=== PATIENT | female | born 1980 | race Caucasian/White ===

== ENCOUNTER 2016-09-17 12:22 | Emergency (ER) | payer SELFPAY ==
[~2016-09-17] VITALS: Ht 167.6 cm; Wt 84.4 kg
[~2016-09-17 12:22] MED LIST: ALPR1TAB7; ALPR1TAB72 PO; AZIT-21 PO; BUSP10TA95; CEPH500C PO; CIPR7.5D2 OT; CLIN-62 PO; CLIN150C2 PO; CLIN300C3 PO; CYCL10TA9 PO; DCS100C; FAMO-119 PO; GABA-486; HYDR-1231 PO; HYDR-3583 PO; HYDR-3720; HYDR-3720 PO; HYDR-3816 PO; HYDR1CAP2 PO; HYDR1TAB PO; IBP800T; IBP800T PO; METO10TA3; MTH10T PO; NAPR-243 PO; OXC10TCR PO; OXYC-12 PO; OXYC20TA3; PRD20T PO; RISP1TAB3; SULF1TAB35 PO; SULF1TAB38 PO; TRAM-21 PO; TRAM-42 PO
--- OUTSIDE RECORDS SUMMARY | 2016-09-17 12:32 | XMS REPORT | Continuity of Care Document ---
Author Author [facility] Organization [facility] Address Unknown Phone Unavailable Care Team Providers Care Certified Emergency Vehicle Technician Name Role Phone Mau Alaniz PCP [phone] Source Comments Some departments are not documenting in the electronic medical record. If you do not see the information that you expected, contact Release of Information in the Health Information Management department at [phone] for further assistance in locating additional records.[facility] Active Allergies and Adverse Reactions Allergen Noted Date Severity Reactions Comments Codeine 05/02/2010 RASH Penicillin G 05/02/2010 RASH Current Medications Prescription Sig. Disp. Refills Start End Date Status Date oxycodone (OXY-IR) 15 mg Take 1 Tab by mouth Every 150 Tab 0 05/08/20 Active tablet 2 Hours as needed for 10 Pain. lorazepam (ATIVAN) 1 mg Take 1 Tab by mouth Every 30 Tab 1 05/08/20 Active tablet 6 Hours as needed for 10 Anxiety and Nausea. simethicone (MYLICON) 80 Take 1 Tab by mouth Every 30 Tab 2 05/08/20 Active mg chew tablet 6 Hours as needed for 10 Flatulence. senna/docusate Take 2 Tabs by mouth 60 Tab 2 05/08/20 Active (SENOKOT-S) 8.6/50 mg Twice Daily. 10 tablet ibuprofen (MOTRIN) 600 mg Take 1 Tab by mouth Every 60 Tab 1 05/08/20 Active tablet 6 Hours as needed for 10 Pain. metoclopramide (REGLAN) Take 1 Tab by mouth Four 30 Tab 2 05/08/20 Active 10 mg tablet Times Daily. 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 Placenta previa 05/04/2010 Hemorrhage 05/04/2010 Social History Tobacco Use Types Packs/Day Years Used Date Current Every Day Smoker Cigarettes 0.5 Alcohol Use Drinks/Week oz/Week Comments No Last Filed Vital Signs Vital Sign Reading Time Taken Blood Pressure 137/83 05/08/2010 12:00 PM CDT Pulse 49 05/08/2010 12:00 PM CDT Temperature 36.5 C (97.7 F) 05/08/2010 12:00 PM CDT Respiratory Rate - - Height - - Weight 119.568 kg (263 lb 9.6 05/08/2010 4:00 AM CDT oz) Body Mass Index - - Oxygen Saturation 99% 05/08/2010 12:00 PM CDT Plan of Care Health Maintenance Due Date Last Done Comments Physical (Comprehensive) 1988 Exam Pertussis Vaccine 1992 Tetanus Vaccine 1998 Cervical Cancer Screening 2002 Influenza Vaccine 05/17/2016 Results from Last 3 Months Not on file
--- NOTE | 2016-09-17 13:21 | ED General ---
General Chief Complaint: Upper Extremity Stated Complaint: R WRIST BITE Nursing Triage Note: PT CO OF BUMP ON R WRIST AREA POSSIBLE ABCESS, UNSURE OF HOW BUMP HAS GOTTEN THERE. PT STATES HAS HAD FOR 4 DAYS, Nursing Sepsis Screen: No Definite Risk Source of Information: Patient Exam Limitations: Other (poor historian) History of Present Illness Time Seen by Provider: 13:21 Initial Comments 36-year-old female patient presents to the emergency department complaints of a "bump on the right wrist". Patient unsure of how she got the "bump". Denies known injury or insect bite. Patient states "It doesn't really hurt that much. " Patient c/o "an insect bite or somethin'" to the lower abdomen. Patient is a very poor historian with odd behavior. Patient has a known lengthy h/o drug abuse. Location Injury Occurred: denies known injury Timing/Duration: 3-4 Days, Other (doesn't know if getting worse.) Modifying Factors: worse with Other (patient denies trying OTC meds or home remedies.) Allergies and Home Medications Allergies Coded Allergies: Penicillins (Unverified Allergy, Mild, 04/22/09) codeine (Verified Allergy, Unknown, 04/22/09) ketorolac (Verified Allergy, Unknown, 04/22/09) nalbuphine (Verified Allergy, Unknown, 04/22/09) propoxyphene (Verified Allergy, Unknown, 04/22/09) Home Medications Alprazolam 1 Mg Tablet #60 (Reported) Buspirone HCl 10 Mg Tablet #28 (Reported) Gabapentin 100 Mg Capsule #42 (Reported) Oxycodone HCl 20 Mg Tablet #120 (Reported) Risperidone 1 Mg Tablet #14 (Reported) Sulfamethoxazole/Trimethoprim 1 Each Tablet #14 1 EACH PO BID Prescribed by: HERBERTH HUERTA on 09/17/16 6024 Constitutional: No chills, No diaphoresis, No fever, No malaise EENTM: no symptoms reported Respiratory: no symptoms reported Cardiovascular: no symptoms reported Gastrointestinal: no symptoms reported Genitourinary: no symptoms reported Musculoskeletal: see HPI Skin: see HPI Psychiatric/Neurological: Denies Headache, Denies Numbness, Denies Paresthesia , Denies Seizure, Denies Tingling, Denies Weakness All Other Systems Reviewed Negative Unless Noted: Yes (Negative excepted noted.) Past Upywslb-Unkrzp-Pwazwc Hx Patient Social History Alcohol Use: Occasionally Uses Recreational Drug Use: No (patient has a long h/o drug abuse including meth, benzo's, opiods, and methadone) Smoking Status: Current Everyday Smoker Type Used: Cigarettes Recent Foreign Travel: No Contact w/Someone Who Travel: No Recent Infectious Disease Expo: No Recent Hopitalizations: Yes (c-sections) Physical Abuse Screen: No Sexual Abuse: No Immunizations Up To Date Tetanus Booster (TDap): Less than 5yrs Seasonal Allergies Seasonal Allergies: No Surgeries HX Surgeries: Yes (D&C, X 3, TRANSVAGINAL MESH) Surgeries: Abdominal, Bladder Surgery, Section, Hysterectomy Respiratory Hx Respiratory Disorders: No Cardiovascular Hx Cardiac Disorders: No Neurological Hx Neurological Disorders: No 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 System 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 Genitourinary Hx Genitourinary Disorders: No Gastrointestinal Hx Gastrointestinal Disorders: No Musculoskeletal Hx Musculoskeletal Disorders: Yes (PT WITH CHRONIC PAIN COMPLAINTS- "DEGENERATIVE ARTHRITIS AND DDD" PER PT) Endocrine Hx Endocrine Disorders: No HEENT HX ENT Disorders: No Cancer Hx Cancer: No Psychosocial Hx Psychiatric Problems: Yes Behavioral Health Disorders: ADD/ADHD, Anxiety, Depression Integumentary HX Skin/Integumentary Disorder: Yes (history of MRSA and multiple abscesses) Blood Transfusions Hx Blood Disorders: No Reviewed Nursing Assessment Reviewed/Agree w Nursing PMH: Yes Family Medical History Significant Family History: No Pertinent Family Hx Physical Exam Vital Signs Vital Sign - Last 12Hours 09/17/16 12:45 Temp 98.8 Pulse 115 Resp 18 B/P 154/98 Pulse Ox 99 Capillary Refill : Less Than 3 Seconds General Appearance: No Apparent Distress WD/WN Respiratory: Lungs Clear Normal Breath Sounds No Respiratory Distress Cardiovascular: Regular Rate, Rhythm No Murmur Normal Peripheral Pulses Extremity: Normal Capillary Refill Normal Range of Motion Non Tender Other ( 2x3 cm raised fluid collection of the rt lateral wrist without tenderness or warmth. 2 faintly visible puncture sites overlying the rt lateral wrist ( patient unsure where they came from). No drainage.) Neurologic/Psychiatric: Alert Oriented x3 No Motor/Sensory Deficits Other ( flat, depressed affect.) Skin: Normal Color Warm/Dry Ecchymosis (multiple sub-acute bruises of the bilat anterior knees and shins. Patient is unsure where the bruises came from. ) Other (2x3 cm raised fluid collection of the rt lateral wrist w/o tenderness or warmth. 2 puncture sites overlying the rt lateral wrist (patient unsure where they came from). No drainage.) Laceration Repair : Suture Size: 3-0 Progress/Results/Core Measures Results/Orders Lab Results Laboratory Tests Test 09/17/16 13:42 Range/Units Basophils # (Auto) 0.0 0.0-0.1 10^3/uL Basophils (%) (Auto) 0 0-10 % Eosinophils # (Auto) 0.0 0.0-0.3 10^3/uL Eosinophils (%) (Auto) 1 0-10 % Hematocrit 41 35-52 % Hemoglobin 14.4 11.5-16.0 G/DL Lymphocytes # (Auto) 1.6 1.0-4.0 X 10^3 Lymphocytes (%) (Auto) 25 12-44 % Mean Corpuscular Hemoglobin 31 25-34 PG Mean Corpuscular Hemoglobin Concent 35 32-36 G/DL Mean Corpuscular Volume 88 80-99 FL Mean Platelet Volume 10.8 H 7.4-10.4 FL Monocytes # (Auto) 0.8 0.0-1.0 X 10^3 Monocytes (%) (Auto) 12 0-12 % Neutrophils # (Auto) 4.0 1.8-7.8 X 10^3 Neutrophils (%) (Auto) 62 42-75 % Platelet Count 205 130-400 10^3/uL Red Blood Count 4.64 4.35-5.85 10^6/uL Red Cell Distribution Width 13.0 10.0-14.5 % White Blood Count 6.5 4.3-11.0 10^3/uL My Orders Orders-HERBERTH HUERTA Cbc With Automated Diff (09/17/16 13:26) Us Right Up Ext Nonvasc [id number] (09/17/16 13:26) Vital Signs/I&O Blood Pressure Mean: 116 Diagnostic Imaging Diagonstic Imaging: Ultrasound Plain Films/CT/US/NM/MRI: other (rt upper extremity) Comments INDICATION: Inflammation involving the right wrist. Focused ultrasonography is performed at the site of palpable abnormality along the lateral aspect of the right wrist. There is inflammation in the region with an associated 2.7 x 1.1 x 2.0-cm hypoechoic region which may represent complex fluid in the subcutaneous tissues. There is no posterior acoustic shadow or internal blood flow. IMPRESSION: Findings are compatible with lateral wrist cellulitis with focal complex fluid collection which may represent hematoma or abscess in the subcutaneous tissues. Dictated by: Dictated on workstation # [id number] Reviewed: Reviewed by Me (radiology report reviewed by me.) Departure Communication Progress Notes all lab and diagnostic findings discussed with the patient. Left wrist shows no evidence of erythema or tenderness. Therefore, findings on u/s most likely related to superficial cellulitis overlying a traumatic hematoma. Patient has a known h/o IV meth abuse and puncture wounds on exam are overlying the vein. Patient to be discharged to home with oral antibiotics. Patient instructed to follow-up with her primary care physician for recheck. Return precautions were discussed with the patient. Patient voices understanding and agrees with the treatment plan. Impression Impression: Primary Impression: Cellulitis of wrist Additional Impression: Hematoma Disposition: 01 HOME, SELF-CARE Condition: Improved Departure-Patient Inst. Decision time for Depature: 15:33 Referrals: [facility] (PCP/Family) Primary Care Physician Patient Instructions: Cellulitis (Skin Infection), Adult (DC), HEMATOMA Add. Discharge Instructions: All discharge instructions reviewed with patient and/or family. Voiced understanding. Medications as instructed. Tylenol extra strength over-the- counter as directed for pain. Ibuprofen 800 mg by mouth every 8 hours as needed for pain. Elevate the right wrist on pillows. Ice pack or heating pads as needed for pain. Follow-up with your family practitioner for recheck. Return to the emergency department for worsened symptoms or any other concerns. Scripts Sulfamethoxazole/Trimethoprim (Bactrim Ds Tablet)1 Each Tablet1 Each PO BID #14 TAB Ref 0 Prov:HERBERTH HUERTA 09/17/16 HERBERTH HUERTA Sep 17, 2016 13:21
[2016-09-17 13:51] LABS: BASOPHILS % (AUTO) 0 % (0-10); EOSINOPHILS % (AUTO) 1 % (0-10); LYMPHOCYTES # (AUTO) 1.6 X 10^3 (1.0-4.0); LYMPHOCYTES % (AUTO) 25 % (12-44); MEAN CORPUSCULAR HEMOGLOBIN 31 PG (25-34); MEAN CORPUSCULAR HGB CONC 35 G/DL (32-36); MEAN CORPUSCULAR VOLUME 88 FL (80-99); MEAN PLATELET VOLUME 10.8 FL (7.4-10.4); MONOCYTES # (AUTO) 0.8 X 10^3 (0.0-1.0); MONOCYTES % (AUTO) 12 % (0-12); NEUTROPHILS % (AUTO) 62 % (42-75); PLATELET COUNT 205 10^3/uL (130-400); RED BLOOD COUNT 4.64 10^6/uL (4.35-5.85); WHITE BLOOD COUNT 6.5 10^3/uL (4.3-11.0)
--- NOTE | 2016-09-17 14:36 | Diagnostic Imaging Report ---
INDICATION: Inflammation involving the right wrist. Focused ultrasonography is performed at the site of palpable abnormality along the lateral aspect of the right wrist. There is inflammation in the region with an associated 2.7 x 1.1 x 2.0-cm hypoechoic region which may represent complex fluid in the subcutaneous tissues. There is no posterior acoustic shadow or internal blood flow. IMPRESSION: Findings are compatible with lateral wrist cellulitis with focal complex fluid collection which may represent hematoma or abscess in the subcutaneous tissues. Dictated by: Dictated on workstation # [id number]
[2016-09-17] MEDS ORDERED: SULF1TAB35 PO (15:34)
[2016-09-17 15:45] VITALS: BP 154/98
== END 2016-09-17 15:45 | disposition home or self-care (01) ==
LOC: EDUNIT# 12:22 → ER 12:27
DX: L03.113 Cellulitis of right upper limb (principal); S60.211A Contusion of right wrist, initial encounter; F17.210 Nicotine dependence, cigarettes, uncomplicated
CPT/HCPCS: 36415; 76881; 85025

== ENCOUNTER 2016-09-22 10:26 | Emergency (ER) | payer SELFPAY ==
[~2016-09-22] VITALS: Ht 167.6 cm; Wt 87.1 kg
--- OUTSIDE RECORDS SUMMARY | 2016-09-22 10:32 | XMS REPORT | Continuity of Care Document ---
Author Author [facility] Organization [facility] Address Unknown Phone Unavailable Care Team Providers Care Office Nurse Name Role Phone Mau Alaniz PCP [phone] Source Comments Some departments are not documenting in the electronic medical record. If you do not see the information that you expected, contact Release of Information in the Health Information Management department at [phone] for further assistance in locating additional records.[facility] Active Allergies and Adverse Reactions Allergen [...]
--- NOTE | 2016-09-22 10:56 | ED Abdominal Pain ---
General Chief Complaint: -Female Stated Complaint: STOMACH PAIN Nursing Triage Note: AMB TO ROOM EATNG AND DRINKING C/O LOW ABD PAIN THAT SHE HAS HAD FOR SEVERAL YEARS OXYCODONE NOT HELPING. Sepsis Screen: No Definite Risk Source of Information: Patient Exam Limitations: No Limitations History of Present Illness Time Seen By Provider: 10:55 Initial Comments This 36-year-old female presents with a complaint of abdominal pain intermittently for the last 7 years. The patient noted the abdominal pain following her fourth . The patient has noted an intermittent painful mass in the supraumbilical region. Fortunately she's had no associated nausea, vomiting, fever or chill, radiation of her sharp moderate pain, dysuria, bloody stools, or hematemesis. Allergies and Home Medications Allergies Coded Allergies: Penicillins (Unverified Allergy, Mild, 04/22/09) codeine (Verified Allergy, Unknown, 04/22/09) ketorolac (Verified Allergy, Unknown, 04/22/09) nalbuphine (Verified Allergy, Unknown, 04/22/09) propoxyphene (Verified Allergy, Unknown, 04/22/09) Home Medications Alprazolam 1 Mg Tablet #60 (Reported) Buspirone HCl 10 Mg Tablet #28 (Reported) Gabapentin 100 Mg Capsule #42 (Reported) Oxycodone HCl 20 Mg Tablet #120 (Reported) Risperidone 1 Mg Tablet #14 (Reported) Sulfamethoxazole/Trimethoprim 1 Each Tablet #14 1 EACH PO BID Prescribed by: HERBERTH HUERTA on 09/17/16 1534 Review of Systems Constitutional: No chills, No fever EENTM: No Ear Pain Respiratory: Denies Cough Cardiovascular: Denies Chest Pain Gastrointestinal: Abdominal PainDenies Vomiting Genitourinary: Denies Drainage, Denies Frequency Musculoskeletal: No gout Skin: No rash Psychiatric/Neurological: No Symptoms Reported Endocrine: No Symptoms Reported Hematologic/Lymphatic: No Symptoms Reported Past Kfujhfm-Wqzfwb-Vzrana Hx Patient Social History Type Used: Cigarettes Recent Foreign Travel: No Contact w/Someone Who Travel: No Recent Infectious Disease Expo: No Recent Hopitalizations: Yes (c-sections) Immunizations Up To Date Tetanus Booster (TDap): Less than 5yrs Seasonal Allergies Seasonal Allergies: No Surgeries HX Surgeries: Yes (D&C, X 3, TRANSVAGINAL MESH) Surgeries: Abdominal, Bladder Surgery, Section, Hysterectomy Respiratory Hx Respiratory Disorders: No Cardiovascular Hx Cardiac Disorders: No Neurological Hx Neurological Disorders: No 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 System 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 Genitourinary Hx Genitourinary Disorders: No Gastrointestinal Hx Gastrointestinal Disorders: No Musculoskeletal Hx Musculoskeletal Disorders: Yes (PT WITH CHRONIC PAIN COMPLAINTS- "DEGENERATIVE ARTHRITIS AND DDD" PER PT) Endocrine Hx Endocrine Disorders: No HEENT HX ENT Disorders: No Cancer Hx Cancer: No Psychosocial Hx Psychiatric Problems: Yes Behavioral Health Disorders: ADD/ADHD, Anxiety, Depression Integumentary HX Skin/Integumentary Disorder: Yes (history of MRSA and multiple abscesses) Blood Transfusions Hx Blood Disorders: No Adverse Reaction to a Blood Tr: No Reviewed Nursing Assessment Reviewed/Agree w Nursing PMH: Yes Family Medical History Significant Family History: No Pertinent Family Hx Physical Exam Vital Signs VS - Last 72 Hours, by Label 09/22/16 10:37 Temp 98.4 Pulse 115 Resp 18 B/P 134/90 Pulse Ox 98 O2 Delivery Room Air Capillary Refill : Less Than 3 Seconds General Appearance: WD/WN HEENT: normal ENT inspection Neck: normal inspection Respiratory: lungs clear Cardiovascular: regular rate, rhythm Gastrointestinal: other (there is a tender mass in the supra umbilical area that is more pronounced with flexion of the abdominal wall musculature suggestive of an abdominal wall hernia.) Extremities: normal range of motion Back: normal inspection Neurologic/Psychiatric: no motor/sensory deficits alert normal mood/affect Skin: normal color warm/dry Laceration Repair : Suture Size: 3-0 Progress/Results/Core Measures Results/Orders My Orders Vital Signs/I&O Vital Sign - Last 12Hours 09/22/16 10:37 Temp 98.4 Pulse 115 Resp 18 B/P 134/90 Pulse Ox 98 O2 Delivery Room Air Blood Pressure Mean: 105 Progress Note : Time: 10:59 Progress Note I discussed findings with patient. I recommend she follow-up with her primary care physician Dr. Nathan De La Torre for consideration for referral to surgery. I asked that she return to emergency department for any problems or questions Departure Impression Impression: Primary Impression: Abdominal wall hernia Disposition: HOME, SELF-CARE Condition: Unchanged Departure-Patient Inst. Decision time for Depature: 11:01 Referrals: [facility] (PCP/Family) Primary Care Physician Patient Instructions: Abdominal Hernia (DC) Add. Discharge Instructions: Follow-up with your doctor Saturday for consideration for referral to surgery for a possible abdominal wall hernia. Return if any problems or questions All discharge instructions reviewed with patient and/or family. Voiced understanding. SIVA MORRISON MD Sep 22, 2016 10:56
[2016-09-22 11:04] VITALS: BP 134/90
== END 2016-09-22 11:04 | disposition home or self-care (01) ==
LOC: EDUNIT# 10:26 → ER 10:28
DX: K46.9 Unspecified abdominal hernia without obstruction or gangrene (principal)
CPT/HCPCS: 99282

== ENCOUNTER 2016-09-26 16:24 | Emergency (ER) | payer SELFPAY ==
[~2016-09-26] VITALS: Ht 167.6 cm; Wt 90.7 kg
--- OUTSIDE RECORDS SUMMARY | 2016-09-26 16:32 | XMS REPORT | Continuity of Care Document ---
Author Author [facility] Organization [facility] Address Unknown Phone Unavailable Care Team Providers Care Rn Concurrent Review Name Role Phone Mau Alaniz PCP [phone] Source Comments Some departments are not documenting in the electronic medical record. If you do not see the information that you expected, contact Release of Information in the Health Information Management department at [phone] for further assistance in locating additional records.[facility] Active Allergies and Adverse Reactions Allergen [...]
--- NOTE | 2016-09-26 16:52 | ED General ---
General Chief Complaint: Eye Problems Stated Complaint: EYE PAIN,RIB PAIN Nursing Triage Note: PT CO OF OF R EYE AND PAIN, AND BILATERAL RIB PAIN FROM COUGH. PT VERY SEDATED, COULD NOT KEEP AWAKE DURING TRIAGE Nursing Sepsis Screen: No Definite Risk Source of Information: Patient Exam Limitations: Intoxication History of Present Illness Time Seen by Provider: 16:52 Initial Comments patient presents to the ED with c/o rt eye pain and bilateral rib pain. patient has difficulty keeping eyes open/sedated. mumbling and slurred speech noted. Patient making very little sense. flight of ideas. patient states "my ribs used to be really small, but today they grew bigger." Patient refuses to sit on the exam bed or in a chair. Walking around the room with her shirt pulled half-way up scratching at her abdomen. Patient repeated asked to repeat herself. Patient replies "I do that sometimes. I talk to my self." Patient has lengthy history of methamphetamine/polysubstance abuse. Location Injury Occurred: denies injury Timing/Duration: 1-3 Hours, Constant Modifying Factors: worse with Other (denies modifying factors) Allergies and Home Medications Allergies Coded Allergies: Penicillins (Unverified Allergy, Mild, 04/22/09) codeine (Verified Allergy, Unknown, 04/22/09) ketorolac (Verified Allergy, Unknown, 04/22/09) nalbuphine (Verified Allergy, Unknown, 04/22/09) propoxyphene (Verified Allergy, Unknown, 04/22/09) Home Medications Alprazolam 1 Mg Tablet #60 (Reported) Buspirone HCl 10 Mg Tablet #28 (Reported) Gabapentin 100 Mg Capsule #42 (Reported) Oxycodone HCl 20 Mg Tablet #120 (Reported) Risperidone 1 Mg Tablet #14 (Reported) Sulfamethoxazole/Trimethoprim 1 Each Tablet #14 1 EACH PO BID Prescribed by: HERBERTH HUERTA on 09/17/16 0734 Constitutional: other (patient unable to answer if she has had a fever. Starts crying without tears and wailing. immediately stops wailing and begins mumbling.) EENTM: eye pain (rt) see HPINo blurred vision, No tearing, No vision loss Musculoskeletal: see HPI other (bilateral lower rib pain.) Skin: pruritus ((patient noted to continuously scratch at the abdomen.) Psychiatric/Neurological: See HPI Other ROS difficult due to patient's condition/intoxication. All Other Systems Reviewed Negative Unless Noted: Yes (Negative excepted noted.) Past Egpklnv-Hmcndu-Ecqrrn Hx Patient Social History Alcohol Use: Denies Use Recreational Drug Use: No (lengthy h/o meth/polysubstance abuse) Smoking Status: Current Everyday Smoker Type Used: Cigarettes Recent Foreign Travel: No Contact w/Someone Who Travel: No Recent Infectious Disease Expo: No Recent Hopitalizations: Yes (c-sections) Physical Abuse Screen: No Sexual Abuse: No Immunizations Up To Date Tetanus Booster (TDap): Less than 5yrs Seasonal Allergies Seasonal Allergies: No Surgeries HX Surgeries: Yes (D&C, X 3, TRANSVAGINAL MESH) Surgeries: Abdominal, Bladder Surgery, Section, Hysterectomy Respiratory Hx Respiratory Disorders: No Cardiovascular Hx Cardiac Disorders: No Neurological Hx Neurological Disorders: No 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 System 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 Genitourinary Hx Genitourinary Disorders: No Gastrointestinal Hx Gastrointestinal Disorders: No Musculoskeletal Hx Musculoskeletal Disorders: Yes (PT WITH CHRONIC PAIN COMPLAINTS- "DEGENERATIVE ARTHRITIS AND DDD" PER PT) Endocrine Hx Endocrine Disorders: No HEENT HX ENT Disorders: No Cancer Hx Cancer: No Psychosocial Hx Psychiatric Problems: Yes Behavioral Health Disorders: ADD/ADHD, Anxiety, Depression Integumentary HX Skin/Integumentary Disorder: Yes (history of MRSA and multiple abscesses) Blood Transfusions Hx Blood Disorders: No Adverse Reaction to a Blood Tr: No Reviewed Nursing Assessment Reviewed/Agree w Nursing PMH: Yes Family Medical History Significant Family History: No Pertinent Family Hx Physical Exam Vital Signs Vital Sign - Last 12Hours 09/26/16 16:30 Temp 98.4 Pulse 94 Resp 18 B/P 124/87 Pulse Ox 96 Capillary Refill : Less Than 3 Seconds General Appearance: Other (disheveled. sedated/difficulty keeping her eyes open. ) HEENT: Other (pupils pinpoint. rt conjunctival injection. left upper lip shows a cluster of vesicles.) Neck: Normal Inspection Supple Respiratory: Chest Non Tender (unable to reproduce tenderness.) Lungs Clear Normal Breath Sounds No Respiratory Distress Cardiovascular: Regular Rate, Rhythm No Murmur Gastrointestinal: Normal Bowel Sounds Non Tender SoftNo Distended Neurologic/Psychiatric: Other (sedated. slurred speech. difficulty keeping her eyes open. mumbles. "talks to herself." paces around the room. flight of ideas. ) Skin: Normal Color Warm/Dry Rash (cluster of vesicles left upper lip.) Laceration Repair : Suture Size: 3-0 Progress/Results/Core Measures Results/Orders Vital Signs/I&O Vital Sign - Last 12Hours 09/26/16 16:30 Temp 98.4 Pulse 94 Resp 18 B/P 124/87 Pulse Ox 96 Blood Pressure Mean: 99 Departure Communication Progress Notes during the exam patient becomes agitated. states "No one fucking listens to me! " Reports "my ribs hurt here!" as she points to her rt hip. I advised the patient that I palpated her ribs bilaterally without report of tenderness. Patient becomes increasingly agitated and states "THIS IS WHAT I AM FUCKING TALKING ABOUT." I advised the patient that I would give her a few minutes to calm down and would be back to discuss plan with her. Patient jumps out of the bed and slams the door behind this examiner. Patient could be heard yelling obscenities. Patient was then noted to be delayed from the room without difficulty from the emergency department. Patient left AGAINST MEDICAL ADVICE. Dr. Ezekiel Vazquez notified of patient's behavior, aggression, and leaving AGAINST MEDICAL ADVICE. Impression Impression: Primary Impression: Left against medical advice Disposition: 07 AGAINST MEDICAL ADVICE Condition: Against Medical Advice Departure-Patient Inst. Referrals: [facility] (PCP/Family) Primary Care Physician HERBERTH HUERTA Sep 26, 2016 16:52
[2016-09-26 17:06] VITALS: BP 124/87
== END 2016-09-26 17:06 | disposition home or self-care (01) ==
LOC: EDUNIT# 16:24 → ER 16:29
DX: R05 Cough (principal); R07.81 Pleurodynia; F17.210 Nicotine dependence, cigarettes, uncomplicated; Z53.29 Procedure and treatment not carried out because of patient's decision for other reasons
CPT/HCPCS: 99282

== ENCOUNTER 2016-12-29 11:12 | Emergency (ER) | payer SELFPAY ==
[~2016-12-29] VITALS: Ht 167.6 cm; Wt 84.4 kg
--- NOTE | 2016-12-29 12:05 | ED General ---
General Stated Complaint: LEG/BACK PAIN Source of Information: Patient Exam Limitations: No Limitations History of Present Illness Time Seen by Provider: 12:04 Initial Comments To ER with reports of low back pain. She denies fevers or chills. She thinks that her back is "cracked" despite no injury. Additionally she's been off of her antipsychotics for about 2 months and she states "I don't know why these people attacking me". She states that "sometimes I can cry and sometimes I can' t". Timing/Duration: 1-2 Days Severity: Moderate Allergies and Home Medications Allergies Coded Allergies: Penicillins (Unverified Allergy, Mild, 04/22/09) codeine (Verified Allergy, Unknown, 04/22/09) ketorolac (Verified Allergy, Unknown, 04/22/09) nalbuphine (Verified Allergy, Unknown, 04/22/09) propoxyphene (Verified Allergy, Unknown, 04/22/09) Home Medications Alprazolam 1 Mg Tablet, #60 (Reported) Buspirone HCl 10 Mg Tablet, #28 (Reported) Gabapentin 100 Mg Capsule, #42 (Reported) Oxycodone HCl 20 Mg Tablet, #120 (Reported) Risperidone 1 Mg Tablet, #14 (Reported) Sulfamethoxazole/Trimethoprim 1 Each Tablet, 1 EACH PO BID, #14 Ref 0 Prescribed by: HERBERTH HUERTA on 09/17/16 1534 Constitutional: see HPI, No chills, No fever EENTM: see HPI Respiratory: no symptoms reported Cardiovascular: no symptoms reported Genitourinary: no symptoms reported Musculoskeletal: see HPI, back pain Skin: no symptoms reported Psychiatric/Neurological: No Symptoms Reported Past Ihegmrc-Alndoa-Ymeonw Hx Patient Social History Type Used: Cigarettes Recent Foreign Travel: No Contact w/Someone Who Travel: No Recent Hopitalizations: Yes (c-sections) Immunizations Up To Date Tetanus Booster (TDap): Less than 5yrs Seasonal Allergies Seasonal Allergies: No Surgeries HX Surgeries: Yes (D&C, X 3, TRANSVAGINAL MESH) Surgeries: Abdominal, Bladder Surgery, Section, Hysterectomy Respiratory Hx Respiratory Disorders: No Cardiovascular Hx Cardiac Disorders: No Neurological Hx Neurological Disorders: No 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 System 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 Genitourinary Hx Genitourinary Disorders: No Gastrointestinal Hx Gastrointestinal Disorders: No Musculoskeletal Hx Musculoskeletal Disorders: Yes (PT WITH CHRONIC PAIN COMPLAINTS- "DEGENERATIVE ARTHRITIS AND DDD" PER PT) Endocrine Hx Endocrine Disorders: No HEENT HX ENT Disorders: No Cancer Hx Cancer: No Psychosocial Hx Psychiatric Problems: Yes Behavioral Health Disorders: ADD/ADHD, Anxiety, Depression Integumentary HX Skin/Integumentary Disorder: Yes (history of MRSA and multiple abscesses) Blood Transfusions Hx Blood Disorders: No Adverse Reaction to a Blood Tr: No Family Medical History Significant Family History: No Pertinent Family Hx Physical Exam Vital Signs Vital Sign - Last 12Hours 12/29/16 11:59 Temp 98.4 Pulse 85 Resp 24 B/P (MAP) 142/102 Pulse Ox 96 O2 Delivery Room Air Capillary Refill : General Appearance: No Apparent Distress, WD/WN Eyes: Bilateral Eye EOMI, Bilateral Eye Normal Inspection, Bilateral Eye PERRL HEENT: PERRL/EOMI, TMs Normal Neck: Full Range of Motion, Normal Inspection Respiratory: No Accessory Muscle Use, No Respiratory Distress Gastrointestinal: Non Tender, Soft Extremity: Normal Capillary Refill, Normal Inspection Neurologic/Psychiatric: Alert, Oriented x3, No Motor/Sensory Deficits Skin: Normal Color, Warm/Dry Laceration Repair : Suture Size: 3-0 Progress/Results/Core Measures Results/Orders Lab Results Laboratory Tests Test 12/29/16 13:19 Range/Units Urine Color YELLOW Urine Clarity CLEAR Urine pH 6 5-9 Urine Specific [place] 1.010 L 1.016-1.022 Urine Protein NEGATIVE NEGATIVE Urine Glucose (UA) NEGATIVE NEGATIVE Urine Ketones 1+ H NEGATIVE Urine Nitrite NEGATIVE NEGATIVE Urine Bilirubin NEGATIVE NEGATIVE Urine Urobilinogen NORMAL NORMAL MG/DL Urine Leukocyte Esterase NEGATIVE NEGATIVE Urine RBC (Auto) 1+ H NEGATIVE Urine RBC NONE /HPF Urine WBC NONE /HPF Urine Squamous Epithelial Cells RARE /HPF Urine Crystals NONE /LPF Urine Bacteria NEGATIVE /HPF Urine Casts NONE /LPF Urine Mucus NEGATIVE /LPF Urine Culture Indicated NO Urine Opiates Screen NEGATIVE NEGATIVE Urine Oxycodone Screen NEGATIVE NEGATIVE Urine Methadone Screen NEGATIVE NEGATIVE Urine Propoxyphene Screen NEGATIVE NEGATIVE Urine Barbiturates Screen NEGATIVE NEGATIVE Ur Tricyclic Antidepressants Screen NEGATIVE NEGATIVE Urine Phencyclidine Screen NEGATIVE NEGATIVE Urine Amphetamines Screen POSITIVE H NEGATIVE Urine Methamphetamines Screen POSITIVE H NEGATIVE Urine Benzodiazepines Screen NEGATIVE NEGATIVE Urine Cocaine Screen NEGATIVE NEGATIVE Urine Cannabinoids Screen NEGATIVE NEGATIVE My Orders Orders - KAL LYONS APRN Ua Culture If Indicated (12/29/16 12:01) Urine Bedside (12/29/16 12:01) Lumbar Spine - 2-3 Views (12/29/16 12:01) Olanzapine Orally Dissolve Tab (Zyprexa (12/29/16 12:15) Drug Screen Stat (Urine) (12/29/16 14:02) Medications Given in ED Current Medications Medications Dose Ordered Sig/Se Route Start Time Stop Time Status Last Admin Dose Admin Olanzapine 5 mg ONCE ONCE PO 12/29/16 12:15 12/29/16 12:16 DC 12/29/16 12:16 5 MG Vital Signs/I&O Vital Sign - Last 12Hours 12/29/16 11:59 Temp 98.4 Pulse 85 Resp 24 B/P (MAP) 142/102 Pulse Ox 96 O2 Delivery Room Air Departure Impression Impression: Primary Impression: Methamphetamine abuse Additional Impressions: Paranoia Low back pain Disposition: 01 HOME, SELF-CARE Condition: Improved Departure-Patient Inst. Decision time for Depature: 14:35 Referrals: NO,LOCAL PHYSICIAN (PCP/Family) Primary Care Physician Patient Instructions: Low Back Pain (DC) Add. Discharge Instructions: 1. Tylenol and Motrin for pain 2. See your doctor next week KAL LYONS APRN Dec 29, 2016 12:05
[2016-12-29] MEDS ORDERED: OLANZapine 5 MG ODT (ZyPREXA ZYDIS) PO ONE (12:15)
[2016-12-29 13:56] LABS: BILIRUBIN,URINE NEGATIVE (NEGATIVE); KETONES,URINE 1+ (NEGATIVE); LEUKOCYTE ESTERASE ,URINE NEGATIVE (NEGATIVE); NITRITE,URINE NEGATIVE (NEGATIVE); PH,URINE 6 (5-9); PROTEIN,URINE NEGATIVE (NEGATIVE); UROBILINOGEN,URINE NORMAL (NORMAL)
[2016-12-29 14:05] LABS: SQUAMOUS EPITHELIAL CELL,UR RARE /HPF
--- NOTE | 2016-12-29 14:38 | Diagnostic Imaging Report ---
EXAM: LUMBAR SPINE - 2-3 VIEWS INDICATION: Low back pain. COMPARISON: Lumbar spine radiographs 06/03/2010. FINDINGS: There are 5 lumbar type vertebral bodies. Normal alignment. Vertebral body heights are maintained. Minimal degenerative endplate changes and facet arthropathy. Vascular coils in the pelvis. Nonobstructive bowel gas pattern in the visualized abdomen. IMPRESSION: Negative lumbar spine radiographs. Dictated by: Dictated on workstation # [id number]
[2016-12-29 14:39] VITALS: BP 0/0
== END 2016-12-29 14:39 | disposition home or self-care (01) ==
LOC: EDUNIT# 11:12 → ER 11:14
DX: F15.159 Other stimulant abuse with stimulant-induced psychotic disorder, unspecified (principal); M54.5 Low back pain
CPT/HCPCS: 72100; 80306; 81000; 84703; 99282

== ENCOUNTER 2016-12-30 23:50 | Emergency (ER) | payer SELFPAY ==
[~2016-12-30] VITALS: Ht 167.6 cm; Wt 81.6 kg
--- NOTE | 2016-12-31 00:29 | ED Lower Extremity ---
General Chief Complaint: General Problems/Pain Stated Complaint: HIP PAIN AB PAIN Source: patient Exam Limitations: other (poor historian) History of Present Illness Time seen by provider: 00:24 Initial Comments The patient presents to the ER with a acute complaint of one to 2 days progressively worsening left hip pain without fever or malaise nausea vomiting or diarrhea. She states she has been constipated lately. She feels like her left hip was out of socket and was very difficult and painful to walk on it is now better by the time she was seen in the ER. She still admits to using recreational drugs although not specific on which and whether she smokes or injects; she states in the past she has done both. Patient gives a very difficult to follow history. She denies any recent trauma, infection or history of surgery in her hips. Allergies and Home Medications Allergies Coded Allergies: Penicillins (Unverified Allergy, Mild, 04/22/09) codeine (Verified Allergy, Unknown, 04/22/09) ketorolac (Verified Allergy, Unknown, 04/22/09) nalbuphine (Verified Allergy, Unknown, 04/22/09) propoxyphene (Verified Allergy, Unknown, 04/22/09) Home Medications Alprazolam 1 Mg Tablet, #60 (Reported) Buspirone HCl 10 Mg Tablet, #28 (Reported) Gabapentin 100 Mg Capsule, #42 (Reported) Oxycodone HCl 20 Mg Tablet, #120 (Reported) Risperidone 1 Mg Tablet, #14 (Reported) Sulfamethoxazole/Trimethoprim 1 Each Tablet, 1 EACH PO BID, #14 Ref 0 Prescribed by: HERBERTH HUERTA on 09/17/16 8714 Constitutional: No chills, No diaphoresis, No fever, No malaise, No weakness EENTM: No ear pain Respiratory: No cough, No short of breath, No wheezing Cardiovascular: No chest pain, No syncope Gastrointestinal: No abdominal pain, constipation, No diarrhea, No nausea, No vomiting Genitourinary: dysuria, No frequency, No incontinence Musculoskeletal: see HPI, joint pain (left hip), No joint swelling Skin: No pruritus, No rash Past Puegyzz-Czvtvn-Ceivqd Hx Patient Social History Alcohol Use: Occasionally Uses Recreational Drug Use: Yes (meth) Smoking Status: Current Someday Smoker Type Used: Cigarettes Recent Foreign Travel: No Contact w/Someone Who Travel: No Recent Hopitalizations: Yes (c-sections) Immunizations Up To Date Tetanus Booster (TDap): Less than 5yrs Seasonal Allergies Seasonal Allergies: No Surgeries HX Surgeries: Yes (D&C, X 3, TRANSVAGINAL MESH) Surgeries: Abdominal, Bladder Surgery, Section, Hysterectomy Respiratory Hx Respiratory Disorders: No Cardiovascular Hx Cardiac Disorders: No Neurological Hx Neurological Disorders: No 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 Genitourinary Hx Genitourinary Disorders: No Gastrointestinal Hx Gastrointestinal Disorders: No Musculoskeletal Hx Musculoskeletal Disorders: Yes (PT WITH CHRONIC PAIN COMPLAINTS- "DEGENERATIVE ARTHRITIS AND DDD" PER PT) Endocrine Hx Endocrine Disorders: No HEENT HX ENT Disorders: No Cancer Hx Cancer: No Psychosocial Hx Psychiatric Problems: Yes Behavioral Health Disorders: ADD/ADHD, Anxiety, Depression Integumentary HX Skin/Integumentary Disorder: Yes (history of MRSA and multiple abscesses) Blood Transfusions Hx Blood Disorders: No Adverse Reaction to a Blood Tr: No Family Medical History Significant Family History: No Pertinent Family Hx Physical Exam Vital Signs Vital Sign - Last 12Hours 12/31/16 00:17 Temp 98.6 Pulse 80 Resp 18 B/P (MAP) 133/84 Pulse Ox 98 O2 Delivery Room Air Capillary Refill : General Appearance: no apparent distress, other (disheveled) HEENT: PERRL/EOMI, normal ENT inspection Neck: non-tender, normal inspection Cardiovascular: normal peripheral pulses, regular rate, rhythm, no edema Respiratory: chest non-tender, lungs clear, normal breath sounds, no respiratory distress Gastrointestinal: normal bowel sounds, non tender, soft Back: normal inspection, no CVA tenderness, no vertebral tenderness Hips: bilateral hip non-tender, bilateral hip normal inspection, bilateral hip normal range of motion, bilateral hip no evidence of injury Legs: bilateral leg non-tender, bilateral leg normal inspection, bilateral leg normal range of motion Knees: bilateral knee non-tender, bilateral knee normal inspection, bilateral knee normal range of motion Neurologic/Tendon: normal sensation, normal motor functions Neurologic/Psychiatric: alert, oriented x 3, other (flight of ideas, disorganized thinking) Skin: normal color, warm/dry Lymphatic: no adenopathy Laceration Repair : Suture Size: 3-0 Progress/Results/Core Measures Results/Orders Lab Results Laboratory Tests Test 12/31/16 00:50 12/31/16 01:45 12/31/16 02:16 Range/Units White Blood Count 8.3 4.3-11.0 10^3/uL Red Blood Count 4.45 4.35-5.85 10^6/uL Hemoglobin 13.6 11.5-16.0 G/DL Hematocrit 40 35-52 % Mean Corpuscular Volume 89 80-99 FL Mean Corpuscular Hemoglobin 31 25-34 PG Mean Corpuscular Hemoglobin Concent 34 32-36 G/DL Red Cell Distribution Width 13.3 10.0-14.5 % Platelet Count 202 130-400 10^3/uL Mean Platelet Volume 10.9 H 7.4-10.4 FL Neutrophils (%) (Auto) 45 42-75 % Lymphocytes (%) (Auto) 41 12-44 % Monocytes (%) (Auto) 12 0-12 % Eosinophils (%) (Auto) 2 0-10 % Basophils (%) (Auto) 0 0-10 % Neutrophils # (Auto) 3.7 1.8-7.8 X 10^3 Lymphocytes # (Auto) 3.4 1.0-4.0 X 10^3 Monocytes # (Auto) 1.0 0.0-1.0 X 10^3 Eosinophils # (Auto) 0.2 0.0-0.3 10^3/uL Basophils # (Auto) 0.0 0.0-0.1 10^3/uL Sodium Level 144 135-145 MMOL/L Potassium Level 3.8 3.6-5.0 MMOL/L Chloride Level 109 H 98-107 MMOL/L Carbon Dioxide Level 24 21-32 MMOL/L Anion Gap 11 5-14 MMOL/L Blood Urea Nitrogen 18 7-18 MG/DL Creatinine 1.05 0.60-1.30 MG/DL Estimat Glomerular Filtration Rate 60 BUN/Creatinine Ratio 17 Glucose Level 103 70-105 MG/DL Calcium Level 9.2 8.5-10.1 MG/DL Total Bilirubin 0.4 0.1-1.0 MG/DL Aspartate Amino Transf (AST/SGOT) 14 5-34 U/L Alanine Aminotransferase (ALT/SGPT) 15 0-55 U/L Alkaline Phosphatase 51 40-136 U/L Total Protein 7.1 6.4-8.2 G/DL Albumin 4.5 3.2-4.5 G/DL Serum Test, Qualitative NEGATIVE NEGATIVE Urine Opiates Screen NEGATIVE NEGATIVE Urine Oxycodone Screen NEGATIVE NEGATIVE Urine Methadone Screen NEGATIVE NEGATIVE Urine Propoxyphene Screen NEGATIVE NEGATIVE Urine Barbiturates Screen NEGATIVE NEGATIVE Ur Tricyclic Antidepressants Screen NEGATIVE NEGATIVE Urine Phencyclidine Screen NEGATIVE NEGATIVE Urine Amphetamines Screen POSITIVE H NEGATIVE Urine Methamphetamines Screen POSITIVE H NEGATIVE Urine Benzodiazepines Screen NEGATIVE NEGATIVE Urine Cocaine Screen NEGATIVE NEGATIVE Urine Cannabinoids Screen NEGATIVE NEGATIVE Urine Color YELLOW Urine Clarity CLEAR Urine pH 6.5 5-9 Urine Specific [place] 1.015 L 1.016-1.022 Urine Protein NEGATIVE NEGATIVE Urine Glucose (UA) NEGATIVE NEGATIVE Urine Ketones NEGATIVE NEGATIVE Urine Nitrite NEGATIVE NEGATIVE Urine Bilirubin NEGATIVE NEGATIVE Urine Urobilinogen 1 NORMAL MG/DL Urine Leukocyte Esterase 1+ H NEGATIVE Urine RBC (Auto) NEGATIVE NEGATIVE Urine RBC NONE /HPF Urine WBC RARE /HPF Urine Squamous Epithelial Cells 10-25 H /HPF Urine Crystals NONE /LPF Urine Bacteria TRACE /HPF Urine Casts NONE /LPF Urine Mucus NEGATIVE /LPF Urine Culture Indicated NO My Orders Orders - JOSH VALDERRAMA Cbc With Automated Diff (12/31/16 00:30) Comprehensive Metabolic Panel (12/31/16 00:30) Drug Screen Stat (Urine) (12/31/16 00:30) Hcg,Qualitative Serum (12/31/16 00:30) Ua Culture If Indicated (12/31/16 00:30) Acetaminophen Tablet (Tylenol Tablet) (12/31/16 00:30) Vital Signs/I&O Vital Sign - Last 12Hours 12/31/16 00:17 Temp 98.6 Pulse 80 Resp 18 B/P (MAP) 133/84 Pulse Ox 98 O2 Delivery Room Air Progress Note : Time: 00:36 Progress Note Patient presents with obscure complaint of hip being dislocated while walking around the room without antalgic gait. I would be concerned with her history of dysuria that maybe she has a UTI. She admits to having used narcotics in the last 2 days and this may be contributing to her symptoms. We'll obtain UDS, UA, CBC, CMP. There is no evidence of injury, trauma to the left hip and it is nontender when I push on it. Range of motion is undisturbed. When I ask her to point to where it hurts she points to her back. I am unable to reproduce this pain by pushing on her back. She gives a history of a hysterectomy but I would get an hCG anyways. Labs are unremarkable for infection however the patient is positive for amphetamine and methamphetamine. She is not meeting any inpatient requirements and able to fend for herself and would allow her to return and sleep this off. Strongly encouraged the patient to discontinue use of IV drugs and consult her on the dangers. Offered her counseling and rehab and she declined. Departure Impression Impression: Primary Impression: Hip pain Qualified Codes: M25.552 - Pain in left hip Disposition: 01 HOME, SELF-CARE Condition: Stable Departure-Patient Inst. Decision time for Depature: 02:40 Referrals: NO,LOCAL PHYSICIAN (PCP) Primary Care Physician Patient Instructions: Chronic Pain (DC) Add. Discharge Instructions: There is no sign of infection or injury to her left hip. He should highly consider participation in Narcotics Anonymous as well as discontinuing use of recreational drugs as this will result in increased risk your health and life. You should consider inpatient drug rehabilitation. Follow up with your primary care physician within one to 2 weeks. All discharge instructions reviewed with patient and/or family. Voiced understanding. JOSH VALDERRAMA Dec 31, 2016 00:29
[2016-12-31] MEDS ORDERED: ACETAMINOPHEN 500 MG TAB (TYLENOL) PO STA (00:30)
[2016-12-31 00:58] LABS: BASOPHILS % (AUTO) 0 % (0-10); EOSINOPHILS # (AUTO) 0.2 10^3/uL (0.0-0.3); EOSINOPHILS % (AUTO) 2 % (0-10); LYMPHOCYTES # (AUTO) 3.4 X 10^3 (1.0-4.0); LYMPHOCYTES % (AUTO) 41 % (12-44); MEAN CORPUSCULAR HEMOGLOBIN 31 PG (25-34); MEAN CORPUSCULAR HGB CONC 34 G/DL (32-36); MEAN CORPUSCULAR VOLUME 89 FL (80-99); MEAN PLATELET VOLUME 10.9 FL (7.4-10.4); MONOCYTES % (AUTO) 12 % (0-12); NEUTROPHILS # (AUTO) 3.7 X 10^3 (1.8-7.8); NEUTROPHILS % (AUTO) 45 % (42-75); PLATELET COUNT 202 10^3/uL (130-400); RED BLOOD COUNT 4.45 10^6/uL (4.35-5.85); RED CELL DISTRIBUTION WIDTH 13.3 % (10.0-14.5); WHITE BLOOD COUNT 8.3 10^3/uL (4.3-11.0)
[2016-12-31 01:17] LABS: ALBUMIN 4.5 G/DL (3.2-4.5); BILIRUBIN,TOTAL 0.4 MG/DL (0.1-1.0); CALCIUM 9.2 MG/DL (8.5-10.1); CREATININE SERUM 1.05 MG/DL (0.60-1.30); POTASSIUM 3.8 MMOL/L (3.6-5.0); TOTAL PROTEIN 7.1 G/DL (6.4-8.2)
[2016-12-31 02:20] LABS: BILIRUBIN,URINE NEGATIVE (NEGATIVE); KETONES,URINE NEGATIVE (NEGATIVE); LEUKOCYTE ESTERASE ,URINE 1+ (NEGATIVE); NITRITE,URINE NEGATIVE (NEGATIVE); PH,URINE 6.5 (5-9); PROTEIN,URINE NEGATIVE (NEGATIVE); UROBILINOGEN,URINE 1 MG/DL (NORMAL)
[2016-12-31 02:27] LABS: WBC,URINE RARE /HPF
[2016-12-31 02:55] VITALS: BP 123/87
== END 2016-12-31 02:55 | disposition home or self-care (01) ==
LOC: EDUNIT# 23:50 → ER 23:53
DX: M25.552 Pain in left hip (principal); F15.10 Other stimulant abuse, uncomplicated; F17.210 Nicotine dependence, cigarettes, uncomplicated; Z79.899 Other long term (current) drug therapy
CPT/HCPCS: 36415; 51701; 80053; 80306; 81000; 84703; 85025; 99284

== ENCOUNTER 2017-03-18 10:35 | Emergency (ER) | payer SELFPAY ==
[~2017-03-18] VITALS: Ht 167.6 cm; Wt 79.4 kg
[2017-03-18] MEDS ORDERED: OLANZapine 5 MG ODT (ZyPREXA ZYDIS) PO ONE (10:45)
--- NOTE | 2017-03-18 10:46 | ED Psychosocial ---
General Chief Complaint: Psych/Social Disorder Stated Complaint: ANXIETY Source: patient Exam Limitations: no limitations History of Present Illness Time seen by provider: 10:45 Initial Comments To ER with reports of anxiety for "a long time". She formerly took oxycodone and Xanax for this she states but ran out of these 2 months ago. She last used methamphetamine by injection 3 weeks ago. She is unable to identify a cause for her increased anxiety but states that her skin feels like "the pores are closing up like a plastic doll". She denies any suicidal or homicidal thoughts. She has a history of bipolar and schizophrenia Timing/Duration: getting worse Severity: moderate Associated Symptoms: anxiety Allergies and Home Medications Allergies Coded Allergies: Penicillins (Unverified Allergy, Mild, 04/22/09) codeine (Verified Allergy, Unknown, 04/22/09) ketorolac (Verified Allergy, Unknown, 04/22/09) nalbuphine (Verified Allergy, Unknown, 04/22/09) propoxyphene (Verified Allergy, Unknown, 04/22/09) Home Medications Alprazolam 1 Mg Tablet, #60 (Reported) Buspirone HCl 10 Mg Tablet, #28 (Reported) Gabapentin 100 Mg Capsule, #42 (Reported) Oxycodone HCl 20 Mg Tablet, #120 (Reported) Risperidone 1 Mg Tablet, #14 (Reported) Sulfamethoxazole/Trimethoprim 1 Each Tablet, 1 EACH PO BID, #14 Ref 0 Prescribed by: HERBERTH HUERTA on 09/17/16 1534 Constitutional: see HPI EENTM: see HPI Respiratory: no symptoms reported Cardiovascular: no symptoms reported Genitourinary: no symptoms reported Musculoskeletal: see HPI Skin: no symptoms reported Psychiatric/Neurological: See HPI, Anxiety Past Mtyiqjh-Lepikf-Zqjwnh Hx Patient Social History Drug of Choice: amphetamines - hx of smoking and IV use - last used 2 days ago Type Used: Cigarettes Recent Foreign Travel: No Contact w/Someone Who Travel: No Recent Hopitalizations: No Immunizations Up To Date Tetanus Booster (TDap): Less than 5yrs Seasonal Allergies Seasonal Allergies: No Surgeries HX Surgeries: Yes (D&C, X 3, TRANSVAGINAL MESH) Surgeries: Abdominal, Bladder Surgery, Section, Hysterectomy Respiratory Hx Respiratory Disorders: No Cardiovascular Hx Cardiac Disorders: No Neurological Hx Neurological Disorders: No 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 Genitourinary Hx Genitourinary Disorders: No Gastrointestinal Hx Gastrointestinal Disorders: No Musculoskeletal Hx Musculoskeletal Disorders: Yes (PT WITH CHRONIC PAIN COMPLAINTS- "DEGENERATIVE ARTHRITIS AND DDD" PER PT) Endocrine Hx Endocrine Disorders: No HEENT HX ENT Disorders: No Cancer Hx Cancer: No Psychosocial Hx Psychiatric Problems: Yes Behavioral Health Disorders: ADD/ADHD, Anxiety, Depression Integumentary HX Skin/Integumentary Disorder: Yes (history of MRSA and multiple abscesses) Blood Transfusions Hx Blood Disorders: No Adverse Reaction to a Blood Tr: No Family Medical History Significant Family History: No Pertinent Family Hx Physical Exam Vital Signs Vital Sign - Last 12Hours 03/18/17 10:44 Temp 97.6 Pulse 83 Resp 18 B/P (MAP) 126/87 Pulse Ox 92 O2 Delivery Room Air Capillary Refill : General Appearance: WD/WN, no apparent distress HEENT: PERRL/EOMI, normal ENT inspection Respiratory: normal breath sounds, no respiratory distress, no accessory muscle use Cardiovascular: regular rate, rhythm, no murmur Gastrointestinal: normal bowel sounds, non tender, soft Extremities: normal range of motion, non-tender Neurologic/Psychiatric: alert, normal mood/affect, oriented x 3 Appearance/Memory: disheveled Thoughts/Hallucinations: no apparent hallucination, delusions, flight of ideas Skin: normal color, warm/dry Laceration Repair : Suture Size: 3-0 Progress/Results/Core Measures Results/Orders Lab Results Laboratory Tests Test 03/18/17 11:19 Range/Units White Blood Count 6.7 4.3-11.0 10^3/uL Red Blood Count 4.80 4.35-5.85 10^6/uL Hemoglobin 14.7 11.5-16.0 G/DL Hematocrit 43 35-52 % Mean Corpuscular Volume 90 80-99 FL Mean Corpuscular Hemoglobin 31 25-34 PG Mean Corpuscular Hemoglobin Concent 34 32-36 G/DL Red Cell Distribution Width 13.1 10.0-14.5 % Platelet Count 229 130-400 10^3/uL Mean Platelet Volume 10.7 H 7.4-10.4 FL Neutrophils (%) (Auto) 65 42-75 % Lymphocytes (%) (Auto) 24 12-44 % Monocytes (%) (Auto) 9 0-12 % Eosinophils (%) (Auto) 2 0-10 % Basophils (%) (Auto) 0 0-10 % Neutrophils # (Auto) 4.4 1.8-7.8 X 10^3 Lymphocytes # (Auto) 1.6 1.0-4.0 X 10^3 Monocytes # (Auto) 0.6 0.0-1.0 X 10^3 Eosinophils # (Auto) 0.2 0.0-0.3 10^3/uL Basophils # (Auto) 0.0 0.0-0.1 10^3/uL Sodium Level 142 135-145 MMOL/L Potassium Level 4.0 3.6-5.0 MMOL/L Chloride Level 109 H 98-107 MMOL/L Carbon Dioxide Level 22 21-32 MMOL/L Anion Gap 11 5-14 MMOL/L Blood Urea Nitrogen 14 7-18 MG/DL Creatinine 0.94 0.60-1.30 MG/DL Estimat Glomerular Filtration Rate > 60 BUN/Creatinine Ratio 15 Glucose Level 102 70-105 MG/DL Calcium Level 9.5 8.5-10.1 MG/DL Total Bilirubin 0.7 0.1-1.0 MG/DL Aspartate Amino Transf (AST/SGOT) 14 5-34 U/L Alanine Aminotransferase (ALT/SGPT) 12 0-55 U/L Alkaline Phosphatase 45 40-136 U/L Total Protein 7.5 6.4-8.2 GM/DL Albumin 4.4 3.2-4.5 GM/DL My Orders Orders - KAL LYONS APRN Cbc With Automated Diff (03/18/17 10:44) Comprehensive Metabolic Panel (03/18/17 10:44) Ua Culture If Indicated (03/18/17 10:44) Drug Screen Stat (Urine) (03/18/17 10:44) Urine Bedside (03/18/17 10:44) Olanzapine Orally Dissolve Tab (Zyprexa (03/18/17 10:45) Medications Given in ED Current Medications Medications Dose Ordered Sig/Se Route Start Time Stop Time Status Last Admin Dose Admin Olanzapine 5 mg ONCE ONCE PO 03/18/17 10:45 03/18/17 10:46 DC 03/18/17 11:04 5 MG Vital Signs/I&O Vital Sign - Last 12Hours 03/18/17 10:44 Temp 97.6 Pulse 83 Resp 18 B/P (MAP) 126/87 Pulse Ox 92 O2 Delivery Room Air Departure Impression Impression: Primary Impression: Anxiety Disposition: 01 HOME, SELF-CARE Condition: Stable Departure-Patient Inst. Decision time for Depature: 11:47 Referrals: NO,LOCAL PHYSICIAN (PCP/Family) Primary Care Physician Patient Instructions: Panic Disorder (DC) Add. Discharge Instructions: 1. Follow-up with her regular doctor 2. Return to ER for any concerns 3. All discharge instructions reviewed with patient and/or family. Voiced understanding. KAL LYONS TREASURY CONSULTANT Mar 18, 2017 10:46
[2017-03-18 11:28] LABS: BASOPHILS % (AUTO) 0 % (0-10); EOSINOPHILS # (AUTO) 0.2 10^3/uL (0.0-0.3); EOSINOPHILS % (AUTO) 2 % (0-10); LYMPHOCYTES # (AUTO) 1.6 X 10^3 (1.0-4.0); LYMPHOCYTES % (AUTO) 24 % (12-44); MEAN CORPUSCULAR HEMOGLOBIN 31 PG (25-34); MEAN CORPUSCULAR HGB CONC 34 G/DL (32-36); MEAN CORPUSCULAR VOLUME 90 FL (80-99); MEAN PLATELET VOLUME 10.7 FL (7.4-10.4); MONOCYTES # (AUTO) 0.6 X 10^3 (0.0-1.0); MONOCYTES % (AUTO) 9 % (0-12); NEUTROPHILS # (AUTO) 4.4 X 10^3 (1.8-7.8); NEUTROPHILS % (AUTO) 65 % (42-75); PLATELET COUNT 229 10^3/uL (130-400); RED CELL DISTRIBUTION WIDTH 13.1 % (10.0-14.5); WHITE BLOOD COUNT 6.7 10^3/uL (4.3-11.0)
[2017-03-18 11:44] LABS: ALANINE AMINOTRANSFERASE 12 U/L (0-55); ALBUMIN 4.4 GM/DL (3.2-4.5); ANION GAP 11 MMOL/L (5-14); ASPARTATE AMINO TRANSFERASE 14 U/L (5-34); BILIRUBIN,TOTAL 0.7 MG/DL (0.1-1.0); BLOOD UREA NITROGEN 14 MG/DL (7-18); BUN/CREATININE RATIO 15; CALCIUM 9.5 MG/DL (8.5-10.1); CARBON DIOXIDE 22 MMOL/L (21-32); CHLORIDE 109 MMOL/L (98-107); CREATININE SERUM 0.94 MG/DL (0.60-1.30); GFR ESTIMATED > 60; GLUCOSE 102 MG/DL (70-105); SODIUM 142 MMOL/L (135-145); TOTAL PROTEIN 7.5 GM/DL (6.4-8.2)
[2017-03-18] MEDS ORDERED: diphenhydrAMINE 25 MG TAB (BENADRYL) PO ONE (12:00)
[2017-03-18 12:15] VITALS: BP 126/87
--- OUTSIDE RECORDS SUMMARY | 2017-03-20 14:43 | XMS REPORT | Continuity of Care Document ---
Author Author [facility] Organization [facility] Address Unknown Phone Unavailable Care Team Providers Care Mechanical Equipment Test Engineer Name Role Phone Mau Alaniz PCP [phone] Source Comments Some departments are not documenting in the electronic medical record. If you do not see the information that you expected, contact Release of Information in the Health Information Management department at [phone] for further assistance in locating additional records.[facility] Active Allergies and Adverse Reactions Allergen [...] 1998 Cervical Cancer Screening 2002 Influenza Vaccine 05/17/2017 Results from Last 3 Months Not on file
== END 2017-03-18 12:15 | disposition home or self-care (01) ==
LOC: EDUNIT# 10:35 → ER 10:37
DX: F41.9 Anxiety disorder, unspecified (principal); F32.9 Major depressive disorder, single episode, unspecified; F90.9 Attention-deficit hyperactivity disorder, unspecified type; M47.9 Spondylosis, unspecified; F15.90 Other stimulant use, unspecified, uncomplicated; F17.210 Nicotine dependence, cigarettes, uncomplicated; Z90.710 Acquired absence of both cervix and uterus
CPT/HCPCS: 36415; 80053; 85025; 99283

== ENCOUNTER 2017-03-28 16:33 | Emergency (ER) | payer SELFPAY ==
[~2017-03-28] VITALS: Ht 167.6 cm; Wt 83.9 kg
--- OUTSIDE RECORDS SUMMARY | 2017-03-28 16:41 | XMS REPORT | Continuity of Care Document ---
Author Author [facility] Organization [facility] Address Unknown Phone Unavailable Care Team Providers Care Receptionist Nurse Name Role Phone Mau Alaniz PCP [phone] Source Comments Some departments are not documenting in the electronic medical record. If you do not see the information that you expected, contact Release of Information in the Health Information Management department at [phone] for further assistance in locating additional records.[facility] Active Allergies and Adverse Reactions Allergen Noted [...]
--- OUTSIDE RECORDS SUMMARY | 2017-03-28 16:46 | XMS REPORT | Continuity of Care Document ---
Author Author [facility] Address Unknown Phone Unavailable Allergies Active Description Code Type Severity Reaction Onset Reported/Identified Relationship to Patient Clinical Status Yes Penicillins [id number] Drug Allergy Mild N/A 04/22/2009 Yes acetaminophen [id number] Drug Allergy Unknown N/A 04/22/2009 Yes codeine [id number] Drug Allergy Unknown N/A 04/22/2009 Yes ketorolac [id number] Drug Allergy Unknown N/A 04/22/2009 Yes nalbuphine [id number] Drug Allergy Unknown N/A 04/22/2009 Yes propoxyphene [id number] Drug Allergy Unknown N/A 04/22/2009 Yes Penicillins Drug Allergy 05/01/2010 Yes Penicillins Drug Allergy N/A N/A 05/01/2010 Medications Problems Date Dx Coded Attending Type Code Diagnosis Diagnosed By 08/03/2008 724.5 BACKACHE 08/03/2008 PIO SEGURA APRN 724.5 BACKACHE 08/03/2008 PIO SEGURA APRN 724.5 BACKACHE 08/03/2008 PIO SEGURA APRN 724.5 BACKACHE 08/03/2008 KARIN GRAHAM DO 724.5 BACKACHE 08/03/2008 PIO SEGURA APRN 724.5 BACKACHE 08/03/2008 PIO SEGURA APRN 724.5 BACKACHE 08/03/2008 JARON ALVAREZ MD 724.5 BACKACHE 08/03/2008 KARIN GRAHAM DO 724.5 BACKACHE 04/14/2010 Ot 285.1 04/14/2010 Ot 625.8 04/14/2010 Ot 641.13 04/14/2010 Ot 646.83 04/14/2010 Ot 648.23 04/22/2010 Ot 640.03 04/27/2010 Ot 623.8 04/27/2010 Ot 640.03 04/29/2010 789.00 Abdominal Pain Unspecified Site 04/29/2010 V23.2 High Risk Hx Of 04/29/2010 PIO SEGURA APRN 789.00 Abdominal Pain Unspecified Site 04/29/2010 PIO SEGURA APRN V23.2 High Risk Hx Of 04/29/2010 PIO SEGURA APRN 789.00 Abdominal Pain Unspecified Site 04/29/2010 PIO SEGURA APRN V23.2 High Risk Hx Of 04/29/2010 PIO SEGURA APRN 789.00 Abdominal Pain Unspecified Site 04/29/2010 PIO SEGURA APRN V23.2 High Risk Hx Of 04/29/2010 KARIN GRAHAM DO 789.00 Abdominal Pain Unspecified Site 04/29/2010 KARIN GRAHAM DO V23.2 High Risk Hx Of 04/29/2010 PIO SEGURA APRN 789.00 Abdominal Pain Unspecified Site 04/29/2010 IMELDA DIAZFahad PIO BUENROSTRO V23.2 High Risk Hx Of 04/29/2010 PIO SEGURA APRN 789.00 Abdominal Pain Unspecified Site 04/29/2010 IMELDA MEDINA PIO BUENROSTRO V23.2 High Risk Hx Of 04/29/2010 JARON ALVAREZ MD 789.00 Abdominal Pain Unspecified Site 04/29/2010 JARON ALVAREZ MD V23.2 High Risk Hx Of 04/29/2010 KARIN GRAHAM DO K 789.00 Abdominal Pain Unspecified Site 04/29/2010 KARIN GRAHAM DO K V23.2 High Risk Hx Of 05/01/2010 285.9 Anemia Unspecified 05/01/2010 641.90 Comp. Bleed In Preg. Unsp 05/01/2010 V23.9 High-risk Care Unspec 05/01/2010 IMELDA DIAZFahad PIO BUENROSTRO 285.9 Anemia Unspecified 05/01/2010 IMELDA MEDINA PIO BUENROSTRO 641.90 Comp. Bleed In Preg. Unsp 05/01/2010 IMELDA DIAZFahad PIO BUENROSTRO V23.9 High-risk Care Unspec 05/01/2010 PIO SEGURA APRN 285.9 Anemia Unspecified 05/01/2010 PIO SEGURA APRN 641.90 Comp. Bleed In Preg. Unsp 05/01/2010 PIO SEGURA APRN V23.9 High-risk Care Unspec 05/01/2010 PIO SEGURA APRN 285.9 Anemia Unspecified 05/01/2010 PIO SEGURA APRN 641.90 Comp. Bleed In Preg. Unsp 05/01/2010 PIO SEGURA APRN V23.9 High-risk Care Unspec 05/01/2010 GRAHAM DO, KARIN K 285.9 Anemia Unspecified 05/01/2010 GRAHAM DO, KARIN K 641.90 Comp. Bleed In Preg. Unsp 05/01/2010 GRAHAM DO, KARIN K V23.9 High-risk Care Unspec 05/01/2010 PIO SEGURA APRN 285.9 Anemia Unspecified 05/01/2010 PIO SEGURA APRN 641.90 Comp. Bleed In Preg. Unsp 05/01/2010 PIO SEGURA APRN V23.9 High-risk Care Unspec 05/01/2010 PIO SEGURA APRN 285.9 Anemia Unspecified 05/01/2010 PIO SEGURA APRN 641.90 Comp. Bleed In Preg. Unsp 05/01/2010 PIO SEGURA APRN V23.9 High-risk Care Unspec 05/01/2010 JARON ALVAREZ MD 285.9 Anemia Unspecified 05/01/2010 JARON ALVAREZ MD 641.90 Comp. Bleed In Preg. Unsp 05/01/2010 JARON ALVAREZ MD V23.9 High-risk Care Unspec 05/01/2010 GRAHAM DO, KARIN K 285.9 Anemia Unspecified 05/01/2010 GRAHAM DO, KARIN K 641.90 Comp. Bleed In Preg. Unsp 05/01/2010 GRAHAM DO, KARIN K V23.9 High-risk Care Unspec 05/02/2010 Ot 285.9 05/02/2010 Ot 625.8 05/02/2010 Ot 641.13 05/02/2010 Ot 646.93 05/02/2010 Ot 648.23 05/02/2010 Ot 649.03 05/12/2010 V58.31 Wound Dressing 05/12/2010 V58.32 Suture Removal 05/12/2010 IMELDA SEISMIC PLOTTER, PIO BUENROSTRO V58.31 Wound Dressing 05/12/2010 IMELDA SEISMIC PLOTTER, PIO BUENROSTRO V58.32 Suture Removal 05/12/2010 IMELDA SEISMIC PLOTTER, PIO BUENROSTRO V58.31 Wound Dressing 05/12/2010 SEGURA SEISMIC PLOTTER, PIO BUENROSTRO V58.32 Suture Removal 05/12/2010 SEGURA SEISMIC PLOTTER, PIO BUENROSTRO V58.31 Wound Dressing 05/12/2010 IMELDA SEISMIC PLOTTER, PIO BUENROSTRO V58.32 Suture Removal 05/12/2010 KARIN GRAHAM DO K V58.31 Wound Dressing 05/12/2010 KARIN GRAHAM DO K V58.32 Suture Removal 05/12/2010 IMELDA SEISMIC PLOTTER, PIO BUENROSTRO V58.31 Wound Dressing 05/12/2010 IMELDA DIAZN, PIO BUENROSTRO V58.32 Suture Removal 05/12/2010 IMELDA DIAZN, PIO BUENROSTRO V58.31 Wound Dressing 05/12/2010 IMELDA DIAZN, PIO BUENROSTRO V58.32 Suture Removal 05/12/2010 JARON ALVAREZ MD V58.31 Wound Dressing 05/12/2010 JARON ALVAREZ MD V58.32 Suture Removal 05/12/2010 GRAHAM KARIN CAMERON K V58.31 Wound Dressing 05/12/2010 GRAHAM KARIN CAMERON K V58.32 Suture Removal 05/18/2010 Ot 599.0 05/18/2010 Ot 616.10 05/18/2010 Ot 998.32 05/18/2010 Ot 998.59 06/03/2010 Ot 844.9 06/03/2010 Ot 847.2 06/03/2010 Ot 959.7 06/03/2010 Ot E000.8 06/03/2010 Ot E849.6 06/03/2010 Ot E888.8 01/02/2011 Ot 521.00 UNSPEC DENTAL CARIES 01/02/2011 Ot 525.9 DENTAL DISORDER NOS 01/10/2011 300.00 AN ANXIETY UNSPEC 01/10/2011 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 01/10/2011 PIO SEGURA APRN 300.00 AN ANXIETY UNSPEC 01/10/2011 PIO SEGURA APRN 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 01/10/2011 PIO SEGURA APRN 300.00 AN ANXIETY UNSPEC 01/10/2011 PIO SEGURA APRN 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00 AN ANXIETY UNSPEC 01/10/2011 KARIN GRAHAM DO 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 03/25/2011 Ot 845.00 SPRAIN OF ANKLE NOS 03/25/2011 Ot 959.7 LOWER LEG INJURY NOS 03/25/2011 Ot E000.8 OTHER EXTERNAL CAUSE STATUS 03/25/2011 Ot E849.[address]RE[address]/HIGHWAY 03/25/2011 Ot E927.0 OVEREXERTION FROM SUDDEN STRENUOUS MOVEM 03/31/2011 Ot 296.80 BIPOLAR DISORDER, UNSPECIFIED 03/31/2011 Ot 300.4 DYSTHYMIC DISORDER 03/31/2011 Ot 305.1 TOBACCO USE DISORDER 03/31/2011 Ot 305.90 DRUG ABUSE NEC-UNSPEC 03/31/2011 Ot 493.90 ASTHMA, UNSPECIFIED 03/31/2011 Ot 518.5 POST TRAUM PULM INSUFFIC 03/31/2011 Ot 599.0 URIN TRACT INFECTION NOS 03/31/2011 Ot 724.2 LUMBAGO 03/31/2011 Ot 845.00 SPRAIN OF ANKLE NOS 03/31/2011 Ot 965.02 POISONING-METHADONE 03/31/2011 Ot E849.0 ACCIDENT IN HOME 03/31/2011 Ot E850.1 ACC POISON-METHADONE 06/26/2011 Ot 521.00 UNSPEC DENTAL CARIES 06/26/2011 Ot 525.9 DENTAL DISORDER NOS 09/12/2011 296.33 MO DEPRESSIVE RECURRENT SEVERE W/O PSYCHOTIC BEHAVIOR 09/12/2011 309.81 AN PTSD 09/12/2011 V58.69 MEDICATION HIGH RISK 09/12/2011 PIO SEGURA APRN 296.33 MO DEPRESSIVE RECURRENT SEVERE W/O PSYCHOTIC BEHAVIOR 09/12/2011 PIO SEGURA APRN 309.81 AN PTSD 09/12/2011 PIO SEGURA APRN V58.69 MEDICATION HIGH RISK 09/12/2011 PIO SEGURA APRN 296.33 MO DEPRESSIVE RECURRENT SEVERE W/O PSYCHOTIC BEHAVIOR 09/12/2011 PIO SEGRUA APRN 309.81 AN PTSD 09/12/2011 IMELDA DIAZNPIO V58.69 MEDICATION HIGH RISK 09/12/2011 PIO SEGURA APRN 296.33 MO DEPRESSIVE RECURRENT SEVERE W/O PSYCHOTIC BEHAVIOR 09/12/2011 PIO SEGURA APRNH 309.81 AN PTSD 09/12/2011 PIO SEGURA APRN V58.69 MEDICATION HIGH RISK 09/12/2011 GRAHAM DO KARIN K 296.33 MO DEPRESSIVE RECURRENT SEVERE W/O PSYCHOTIC BEHAVIOR 09/12/2011 GRAHAM DO, KARIN K 309.81 AN PTSD 09/12/2011 GRAHAM DO KARIN K V58.69 MEDICATION HIGH RISK 09/12/2011 PIO SEGURA APRN 296.33 MO DEPRESSIVE RECURRENT SEVERE W/O PSYCHOTIC BEHAVIOR 09/12/2011 PIO SEGURA APRN 309.81 AN PTSD 09/12/2011 PIO SEGURA APRN V58.69 MEDICATION HIGH RISK 09/12/2011 PIO SEGURA APRN 296.33 MO DEPRESSIVE RECURRENT SEVERE W/O PSYCHOTIC BEHAVIOR 09/12/2011 IMELDA DIAZNPIOH 309.81 AN PTSD 09/12/2011 IMELDA DIAZNPIO V58.69 MEDICATION HIGH RISK 09/12/2011 JARON ALVAREZ MD 296.33 MO DEPRESSIVE RECURRENT SEVERE W/O PSYCHOTIC BEHAVIOR 09/12/2011 JARON ALVAREZ MD 309.81 AN PTSD 09/12/2011 JARON ALVAREZ MD V58.69 MEDICATION HIGH RISK 09/12/2011 KARIN GRAHAM DO 296.33 MO DEPRESSIVE RECURRENT SEVERE W/O PSYCHOTIC BEHAVIOR 09/12/2011 KARIN GRAHAM DO 309.81 AN PTSD 09/12/2011 KARIN GRAHAM DO V58.69 MEDICATION HIGH RISK 09/17/2011 305.51 NONDEPENDENT OPIOID ABUSE CONTINUOUS USE 09/17/2011 PIO SEGURA APRN 305.51 NONDEPENDENT OPIOID ABUSE CONTINUOUS USE 09/17/2011 PIO SEGURA APRN 305.51 NONDEPENDENT OPIOID ABUSE CONTINUOUS USE 09/17/2011 PIO SEGURA APRN 305.51 NONDEPENDENT OPIOID ABUSE CONTINUOUS USE 09/17/2011 KARIN GRAHAM DO 305.51 NONDEPENDENT OPIOID ABUSE CONTINUOUS USE 09/17/2011 PIO SEGURA APRN 305.51 NONDEPENDENT OPIOID ABUSE CONTINUOUS USE 09/17/2011 PIO SEGURA APRN 305.51 NONDEPENDENT OPIOID ABUSE CONTINUOUS USE 09/17/2011 JARON ALVAREZ MD 305.51 NONDEPENDENT OPIOID ABUSE CONTINUOUS USE 09/17/2011 KARIN GRAHAM DO 305.51 NONDEPENDENT OPIOID ABUSE CONTINUOUS USE 10/02/2011 300.02 AN GEN ANXIETY 10/02/2011 304.00 OPIOID DEPENDENCE 10/02/2011 IMELDA MEDINA PIO CHITRA 300.02 AN GEN ANXIETY 10/02/2011 PIO SEGURA APRN 304.00 OPIOID DEPENDENCE 10/02/2011 PIO SEGURA APRN 300.02 AN GEN ANXIETY 10/02/2011 PIO SEGURA APRN 304.00 OPIOID DEPENDENCE 10/02/2011 PIO SEGURA APRN 300.02 AN GEN ANXIETY 10/02/2011 PIO SEGURA APRN 304.00 OPIOID DEPENDENCE 10/02/2011 KARIN GRAHAM DO 300.02 AN GEN ANXIETY 10/02/2011 KARIN GRAHAM DO 304.00 OPIOID DEPENDENCE 10/02/2011 PIO SEGURA APRN 300.02 AN GEN ANXIETY 10/02/2011 PIO SEGURA APRN 304.00 OPIOID DEPENDENCE 10/02/2011 IMELDA DIAZFahad PIO BUENROSTRO 300.02 AN GEN ANXIETY 10/02/2011 SEGURARADHA DIAZN, PIO BUENROSTRO 304.00 OPIOID DEPENDENCE 10/02/2011 JARON ALVAREZ MD 300.02 AN GEN ANXIETY 10/02/2011 JARON ALVAREZ MD 304.00 OPIOID DEPENDENCE 10/02/2011 GRAHAM , KARIN K 300.02 AN GEN ANXIETY 10/02/2011 GRAHAM DO, KARIN K 304.00 OPIOID DEPENDENCE 09/17/2012 IMELDA SEISMIC PLOTTER, PIO BUENROSTRO 296.32 MO DEPRESSIVE RECURRENT MODERATE 09/17/2012 IMELDA SEISMIC PLOTTER, PIO BUENROSTRO 314.01 ADHD COMBINED 09/17/2012 SEGURA SEISMIC PLOTTER, PIO BUENROSTRO 296.32 MO DEPRESSIVE RECURRENT MODERATE 09/17/2012 SEGURA SEISMIC PLOTTER, PIO BUENROSTRO 314.01 ADHD COMBINED 09/17/2012 IMELDA SEISMIC PLOTTER, PIO BUENROSTRO 296.32 MO DEPRESSIVE RECURRENT MODERATE 09/17/2012 SEGURA SEISMIC PLOTTER, PIO BUENROSTRO 314.01 ADHD COMBINED 09/17/2012 SANTOS CAMERON KARIN K 296.32 MO DEPRESSIVE RECURRENT MODERATE 09/17/2012 GRAHAM , KARIN K 314.01 ADHD COMBINED 09/17/2012 SEGURA SEISMIC PLOTTER, PIO BUENROSTRO 296.32 MO DEPRESSIVE RECURRENT MODERATE 09/17/2012 SEGURA SEISMIC PLOTTER, PIO BUENROSTRO 314.01 ADHD COMBINED 09/17/2012 IMELDA DIAZN, PIO BUENROSTRO 296.32 MO DEPRESSIVE RECURRENT MODERATE 09/17/2012 IMELDA DIAZFahad PIO FRANCISH 314.01 ADHD COMBINED 09/17/2012 JARON ALVAREZ MD 296.32 MO DEPRESSIVE RECURRENT MODERATE 09/17/2012 JARON ALVAREZ MD 314.01 ADHD COMBINED 09/17/2012 GRAHAM DO KARIN K 296.32 MO DEPRESSIVE RECURRENT MODERATE 09/17/2012 GRAHAM DO, KARIN K 314.01 ADHD COMBINED 08/11/2013 SEGURA SEISMIC PLOTTER, PIO CHITRA 314.00 ADHD INATTENTIVE 08/11/2013 SEGURA SEISMIC PLOTTER, PIO CHITRA 314.00 ADHD INATTENTIVE 08/11/2013 GRAHAM DO KARIN K 314.00 ADHD INATTENTIVE 08/11/2013 SEGURA SEISMIC PLOTTER, POI CHITRA 314.00 ADHD INATTENTIVE 08/11/2013 SEGURA SEISMIC PLOTTERPIOH 314.00 ADHD INATTENTIVE 08/11/2013 JARON ALVAREZ MD 314.00 ADHD INATTENTIVE 08/11/2013 KARIN GRAHAM DO 314.00 ADHD INATTENTIVE 11/13/2013 IMELDA MEDINA, IPO BUENROSTRO 304.80 SA POLYSUB DEP 11/13/2013 KARIN GRAHAM DO 304.80 SA POLYSUB DEP 11/13/2013 IMELDA MEDINA PIO BUENROSTRO 304.80 SA POLYSUB DEP 11/13/2013 IMELDA MEDINA PIO BUENROSTRO 304.80 SA POLYSUB DEP 11/13/2013 JARON ALVAREZ MD 304.80 SA POLYSUB DEP 11/13/2013 KARIN RGAHAM DO 304.80 SA POLYSUB DEP 08/08/2014 JABARI GLOVER, TREY Cruz Ot 521.00 UNSPEC DENTAL CARIES 08/08/2014 TREY BARBOZA MD Ot 522.5 PERIAPICAL ABSCESS 08/08/2014 TREY BARBOZA MD Ot 525.9 DENTAL DISORDER NOS 11/09/2014 KARIN GRAHAM DO 553.9 HERNIA UNSPECIFIED SITE 11/09/2014 KARIN GRAHAM DO 786.52 CHEST WALL PAIN 12/03/2014 Ot 521.00 UNSPEC DENTAL CARIES 12/03/2014 Ot 525.9 DENTAL DISORDER NOS 12/07/2014 GERMAINE GLOVER, ALMA Phan Ot 521.00 UNSPEC DENTAL CARIES 12/07/2014 ALMA HERRON MD Ot 522.5 PERIAPICAL ABSCESS 12/07/2014 ALMA HERRON MD Ot 525.9 DENTAL DISORDER NOS 02/09/2015 KAL LYONS SEISMIC PLOTTER Ot 305.1 TOBACCO USE DISORDER 02/09/2015 KAL LYONS SEISMIC PLOTTER Ot 305.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 08/06/2015 TERESO WONG DO Ot F17.210 NICOTINE DEPENDENCE, CIGARETTES, UNCOMPL 08/06/2015 TERESO WONG DO Ot S66.129A LACERAT FLEXOR MUSC/FASC/TEND UNSP FNGR 08/06/2015 TERESO WONG DO Ot W26.0XXA CONTACT WITH KNIFE, INITIAL ENCOUNTER 08/06/2015 TERESO WONG DO Ot Y92.010 KITCHEN OF SINGLE-FAMILY (PRIVATE) HOUSE 08/06/2015 TERESO WONG DO Ot Y93.G1 ACTIVITY, FOOD PREPARATION AND CLEAN UP 08/06/2015 TERESO WONG DO Ot Y99.8 OTHER EXTERNAL CAUSE STATUS 08/06/2015 TERESO WONG DO Ot Z23 ENCOUNTER FOR IMMUNIZATION 08/29/2015 MARVIN CAMERON TERESO Garcia Ot S61.411D LACERATION WITHOUT FOREIGN BODY OF RIGHT 11/05/2015 HERBERTH CH Ot E86.9 VOLUME DEPLETION, UNSPECIFIED 11/05/2015 HERBERTH CH Ot F15.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, UNCOMPLICATED 11/05/2015 HERBERTH CH Ot L50.9 URTICARIA, UNSPECIFIED 01/14/2016 HERBERTH CH Ot L02.214 CUTANEOUS ABSCESS OF GROIN 01/16/2016 HERBERTH CH Ot L02.214 CUTANEOUS ABSCESS OF GROIN 01/16/2016 KAL LYONS APRN Ot F17.210 NICOTINE DEPENDENCE, CIGARETTES, UNCOMPL 01/16/2016 KAL LYONS APRN Ot L02.214 CUTANEOUS ABSCESS OF GROIN 01/16/2016 KAL LYONS APRN Ot Z48.00 ENCOUNTER FOR CHANGE OR REMOVAL OF NONSU 01/17/2016 KAL LYONS APRN Ot Z48.00 ENCOUNTER FOR CHANGE OR REMOVAL OF NONSU 01/18/2016 KAL LYONS APRN Ot F17.210 NICOTINE DEPENDENCE, CIGARETTES, UNCOMPL 01/18/2016 KAL LYONS APRN Ot L02.214 CUTANEOUS ABSCESS OF GROIN 01/18/2016 KAL LYONS APRN Ot Z48.00 ENCOUNTER FOR CHANGE OR REMOVAL OF NONSU 01/18/2016 KAL LYONS APRN Ot Z48.00 ENCOUNTER FOR CHANGE OR REMOVAL OF NONSU 05/10/2016 KAL LYONS APRN Ot M65.032 ABSCESS OF TENDON SHEATH, LEFT FOREARM 05/16/2016 KAL LYONS APRN Ot M65.032 ABSCESS OF TENDON SHEATH, LEFT FOREARM 06/16/2016 ADAMS MCGILL Ot S90.851A SUPERFICIAL FOREIGN BODY, RIGHT FOOT, IN 06/16/2016 ADAMS MCGILL Ot W25.XXXA CONTACT WITH [place], INITIAL ENCOUN 06/16/2016 ADAMS MCGILL Ot Y99.8 OTHER EXTERNAL CAUSE STATUS 06/18/2016 ADAMS MCGILLP Ot S90.851A SUPERFICIAL FOREIGN BODY, RIGHT FOOT, IN 06/18/2016 ADAMS MCGILLP Ot W25.XXXA CONTACT WITH SHARP GLASS, INITIAL ENCOUN 06/18/2016 ARTEM ADAMS COMMERCIAL TIRE SERVICE TECHNICIAN Ot Y99.8 OTHER EXTERNAL CAUSE STATUS 07/19/2016 NANO OJEDA SEISMIC PLOTTER Ot M54.2 CERVICALGIA 09/13/2016 NANO OJEDA SEISMIC PLOTTER Ot M54.2 CERVICALGIA 09/13/2016 ARTEM ADAMS COMMERCIAL TIRE SERVICE TECHNICIAN Ot K59.03 DRUG INDUCED CONSTIPATION 09/13/2016 ARTEM ADAMS COMMERCIAL TIRE SERVICE TECHNICIAN Ot R10.84 GENERALIZED ABDOMINAL PAIN 09/13/2016 ARTEM ADAMS COMMERCIAL TIRE SERVICE TECHNICIAN Ot Z79.891 SENSOR SPECIALIST (CURRENT) USE OF OPIATE ANALGE 09/13/2016 NANO OJEDA SEISMIC PLOTTER Ot M54.2 CERVICALGIA 09/14/2016 ARTEM, ADAMS COMMERCIAL TIRE SERVICE TECHNICIAN Ot K59.03 DRUG INDUCED CONSTIPATION 09/14/2016 ARTEM ADAMS COMMERCIAL TIRE SERVICE TECHNICIAN Ot R10.84 GENERALIZED ABDOMINAL PAIN 09/14/2016 ADAMS MCGILLP Ot Z79.891 SENSOR SPECIALIST (CURRENT) USE OF OPIATE ANALGE 09/17/2016 NANO OJEDA SEISMIC PLOTTER Ot M54.2 CERVICALGIA 09/17/2016 HERBERTH CH Ot F17.210 NICOTINE DEPENDENCE, CIGARETTES, UNCOMPL 09/17/2016 HERBERTH CH Ot L03.113 CELLULITIS OF RIGHT UPPER LIMB 09/17/2016 HERBERTH CH Ot S60.211A CONTUSION OF RIGHT WRIST, INITIAL ENCOUN 09/17/2016 NANO OJEDA SEISMIC PLOTTER Ot M54.2 CERVICALGIA 09/22/2016 SIVA MORRISON MD Ot K46.9 UNSPECIFIED ABDOMINAL HERNIA WITHOUT OBS 09/22/2016 SIVA MORRISON MD Ot R10.30 LOWER ABDOMINAL PAIN, UNSPECIFIED 09/22/2016 NANO OJEDA SEISMIC PLOTTER Ot M54.2 CERVICALGIA 09/24/2016 SIVA MORRISON MD Ot K46.9 UNSPECIFIED ABDOMINAL HERNIA WITHOUT OBS 09/24/2016 SIVA MORRISON MD Ot R10.30 LOWER ABDOMINAL PAIN, UNSPECIFIED 09/26/2016 NANO OJEDA SEISMIC PLOTTER Ot M54.2 CERVICALGIA 09/26/2016 HERBERTH CH Ot F17.210 NICOTINE DEPENDENCE, CIGARETTES, UNCOMPL 09/26/2016 HERBERTH CH Ot R05 COUGH 09/26/2016 HERBERTH CH Ot R07.81 PLEURODYNIA 09/26/2016 HERBERTH CH Ot Z53.29 PROC/TRTMT NOT CRD OUT BEC PT DECISION F 12/29/2016 NANO OJEDA SEISMIC PLOTTER Ot M54.2 CERVICALGIA 12/29/2016 KAL LYONS SEISMIC PLOTTER Ot 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 12/29/2016 KAL LYONS SEISMIC PLOTTER Ot M54.5 LOW BACK PAIN 12/29/2016 NANO OJEDA SEISMIC PLOTTER Ot M54.2 CERVICALGIA 12/31/2016 JOSH VALDERRAMA MD Ot F15.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, UNCOMPLICATED 12/31/2016 JOSH VALDERRAMA MD Ot F17.210 NICOTINE DEPENDENCE, CIGARETTES, UNCOMPL 12/31/2016 JOSH VALDERRAMA MD Ot M25.552 PAIN IN LEFT HIP 12/31/2016 JOSH VALDERRAMA MD Ot Z79.899 OTHER CARE HOME (CURRENT) DRUG THERAPY 12/31/2016 KAL LYONS APRN Ot 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 12/31/2016 KAL LYONS APRN Ot M54.5 LOW BACK PAIN 01/01/2017 JOSH VALDERRAMA MD Ot F15.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, UNCOMPLICATED 01/01/2017 JOSH VALDERRAMA MD Ot F17.210 NICOTINE DEPENDENCE, CIGARETTES, UNCOMPL 01/01/2017 JOSH VALDERRAMA MD J Ot M25.552 PAIN IN LEFT HIP 01/01/2017 JOSH VALDERRAMA MD Ot Z79.899 OTHER CARE HOME (CURRENT) DRUG THERAPY 01/04/2017 KAL LYONS SEISMIC PLOTTER Ot 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 01/04/2017 KLA LYONS SEISMIC PLOTTER Ot M54.5 LOW BACK PAIN 01/14/2017 NANO OJEDA SEISMIC PLOTTER Ot M54.2 CERVICALGIA 01/14/2017 NANO OJEDA SEISMIC PLOTTER Ot M54.2 CERVICALGIA Procedures Code Description Performed By Performed On 96.04 03/29/2011 96.71 03/29/2011 20424 URINE BENZO GC/MS 11/13/2013 07283 URINE METH/AMPHETAMINE GC/MS 11/13/2013 09808 URINE DRUG SCREEN (IN-HOUSE) 11/13/2013 Addiction Mikayla Hawkins 04/12/2014 [id number] URINE DRUG SCREEN (IN-HOUSE) 05/12/2014 52959 URINE DRUG SCREEN (IN-HOUSE) 07/19/2014 Results Test Result Range Complete blood count (CBC) with automated white blood cell (WBC) differential - 09/17/16 13:42 Blood leukocytes automated count (number/volume) 6.5 10*3/ uL 4.3-11.0 Blood erythrocytes automated count (number/volume) 4.64 10*6 /uL 4.35-5.85 Venous blood hemoglobin measurement (mass/volume) 14.4 g/dL 11.5-16.0 Blood hematocrit (volume fraction) 41 % 35-52 Automated erythrocyte mean corpuscular volume 88 [foz_us] 80-99 Automated erythrocyte mean corpuscular hemoglobin (mass per erythrocyte) 31 pg 25-34 Automated erythrocyte mean corpuscular hemoglobin concentration measurement ( mass/volume) 35 g/dL 32-36 Automated erythrocyte distribution width ratio 13.0 % 10.0-14.5 Automated blood platelet count (count/volume) 205 10*3/uL 130-400 Automated blood platelet mean volume measurement 10.8 [foz_ us] 7.4-10.4 Automated blood neutrophils/100 leukocytes 62 % 42-75 Automated blood lymphocytes/100 leukocytes 25 % 12-44 Blood monocytes/100 leukocytes 12 % 0-12 Automated blood eosinophils/100 leukocytes 1 % 0-10 Automated blood basophils/100 leukocytes 0 % 0-10 Blood neutrophils automated count (number/volume) 4.0 10*3 1.8-7.8 Blood lymphocytes automated count (number/volume) 1.6 10*3 1.0-4.0 Blood monocytes automated count (number/volume) 0.8 10*3 0.0-1.0 Automated eosinophil count 0.0 10*3/uL 0.0-0.3 Automated blood basophil count (count/volume) 0.0 10*3/uL 0.0-0.1 Complete urinalysis with reflex to culture - 12/29/16 13:19 Urine color determination YELLOW NRG Urine clarity determination CLEAR NRG Urine pH measurement by test strip 6 5- 9 Specific gravity of urine by test strip 1.010 1.016-1.022 Urine protein assay by test strip, semi-quantitative NEGATIVE NEGATIVE Urine glucose detection by automated test strip NEGATIVE NEGATIVE Erythrocytes detection in urine sediment by light microscopy 1+ NEGATIVE Urine ketones detection by automated test strip 1+ NEGATIVE Urine nitrite detection by test strip NEGATIVE NEGATIVE Urine total bilirubin detection by test strip NEGATIVE NEGATIVE Urine urobilinogen measurement by automated test strip (mass/volume) NORMAL NORMAL Urine leukocyte esterase detection by dipstick NEGATIVE NEGATIVE Automated urine sediment erythrocyte count by microscopy (number/high power field) NONE NRG Automated urine sediment leukocyte count by microscopy (number/high power field ) NONE NRG Bacteria detection in urine sediment by light microscopy NEGATIVE NRG Squamous epithelial cells detection in urine sediment by light microscopy RARE NRG Crystals detection in urine sediment by light microscopy NONE NRG Casts detection in urine sediment by light microscopy NONE NRG Mucus detection in urine sediment by light microscopy NEGATIVE NRG Complete urinalysis with reflex to culture NO NRG Urine drug screening test - 12/29/16 13:19 Urine phencyclidine detection by screening method NEGATIVE NEGATIVE Urine benzodiazepines detection by screening method NEGATIVE NEGATIVE Urine cocaine detection NEGATIVE NEGATIVE Urine amphetamines detection by screening method POSITIVE NEGATIVE Urine methamphetamine detection by screening method POSITIVE NEGATIVE Urine cannabinoids detection by screening method NEGATIVE NEGATIVE Urine opiates detection by screening method NEGATIVE NEGATIVE Urine barbiturates detection NEGATIVE NEGATIVE Screening urine tricyclic antidepressants detection NEGATIVE NEGATIVE Urine methadone detection by screening method NEGATIVE NEGATIVE Urine oxycodone detection NEGATIVE NEGATIVE Urine propoxyphene detection NEGATIVE NEGATIVE Complete blood count (CBC) with automated white blood cell (WBC) differential - 12/31/16 00:50 Blood leukocytes automated count (number/volume) 8.3 10*3/ uL 4.3-11.0 Blood erythrocytes automated count (number/volume) 4.45 10*6 /uL 4.35-5.85 Venous blood hemoglobin measurement (mass/volume) 13.6 g/dL 11.5-16.0 Blood hematocrit (volume fraction) 40 % 35-52 Automated erythrocyte mean corpuscular volume 89 [foz_us] 80-99 Automated erythrocyte mean corpuscular hemoglobin (mass per erythrocyte) 31 pg 25-34 Automated erythrocyte mean corpuscular hemoglobin concentration measurement ( mass/volume) 34 g/dL 32-36 Automated erythrocyte distribution width ratio 13.3 % 10.0-14.5 Automated blood platelet count (count/volume) 202 10*3/uL 130-400 Automated blood platelet mean volume measurement 10.9 [foz_ us] 7.4-10.4 Automated blood neutrophils/100 leukocytes 45 % 42-75 Automated blood lymphocytes/100 leukocytes 41 % 12-44 Blood monocytes/100 leukocytes 12 % 0-12 Automated blood eosinophils/100 leukocytes 2 % 0-10 Automated blood basophils/100 leukocytes 0 % 0-10 Blood neutrophils automated count (number/volume) 3.7 10*3 1.8-7.8 Blood lymphocytes automated count (number/volume) 3.4 10*3 1.0-4.0 Blood monocytes automated count (number/volume) 1.0 10*3 0.0-1.0 Automated eosinophil count 0.2 10*3/uL 0.0-0.3 Automated blood basophil count (count/volume) 0.0 10*3/uL 0.0-0.1 Serum or plasma choriogonadotropin ( test) detection - 12/31/16 00:50 Serum or plasma choriogonadotropin ( test) detection NEGATIVE NEGATIVE Comprehensive metabolic panel - 12/31/16 00:50 Serum or plasma sodium measurement (moles/volume) 144 mmol/ L 135-145 Serum or plasma potassium measurement (moles/volume) 3.8 mmol/L 3.6-5.0 Serum or plasma chloride measurement (moles/volume) 109 mmol /L 98-107 Carbon dioxide 24 mmol/L 21-32 Serum or plasma anion gap determination (moles/volume) 11 mmol/L 5-14 Serum or plasma urea nitrogen measurement (mass/volume) 18 mg/dL 7-18 Serum or plasma creatinine measurement (mass/volume) 1.05 mg /dL 0.60-1.30 Serum or plasma urea nitrogen/creatinine mass ratio 17 NRG Serum or plasma creatinine measurement with calculation of estimated glomerular filtration rate 60 NRG Serum or plasma glucose measurement (mass/volume) 103 mg/dL 70-105 Serum or plasma calcium measurement (mass/volume) 9.2 mg/dL 8.5-10.1 Serum or plasma total bilirubin measurement (mass/volume) 0.4 mg/dL 0.1-1.0 Serum or plasma alkaline phosphatase measurement (enzymatic activity/volume) 51 U/L 40-136 Serum or plasma aspartate aminotransferase measurement (enzymatic activity/ volume) 14 U/L 5-34 Serum or plasma alanine aminotransferase measurement (enzymatic activity/volume ) 15 U/L 0-55 Serum or plasma protein measurement (mass/volume) 7.1 g/dL 6.4-8.2 Serum or plasma albumin measurement (mass/volume) 4.5 g/dL 3.2-4.5 Urine drug screening test - 12/31/16 01:45 Urine phencyclidine detection by screening method NEGATIVE NEGATIVE Urine benzodiazepines detection by screening method NEGATIVE NEGATIVE Urine cocaine detection NEGATIVE NEGATIVE Urine amphetamines detection by screening method POSITIVE NEGATIVE Urine methamphetamine detection by screening method POSITIVE NEGATIVE Urine cannabinoids detection by screening method NEGATIVE NEGATIVE Urine opiates detection by screening method NEGATIVE NEGATIVE Urine barbiturates detection NEGATIVE NEGATIVE Screening urine tricyclic antidepressants detection NEGATIVE NEGATIVE Urine methadone detection by screening method NEGATIVE NEGATIVE Urine oxycodone detection NEGATIVE NEGATIVE Urine propoxyphene detection NEGATIVE NEGATIVE Complete urinalysis with reflex to culture - 12/31/16 02:16 Urine color determination YELLOW NRG Urine clarity determination CLEAR NRG Urine pH measurement by test strip 6.5 5 -9 Specific gravity of urine by test strip 1.015 1.016-1.022 Urine protein assay by test strip, semi-quantitative NEGATIVE NEGATIVE Urine glucose detection by automated test strip NEGATIVE NEGATIVE Erythrocytes detection in urine sediment by light microscopy NEGATIVE NEGATIVE Urine ketones detection by automated test strip NEGATIVE NEGATIVE Urine nitrite detection by test strip NEGATIVE NEGATIVE Urine total bilirubin detection by test strip NEGATIVE NEGATIVE Urine urobilinogen measurement by automated test strip (mass/volume) 1 mg/dL NORMAL Urine leukocyte esterase detection by dipstick 1+ NEGATIVE Automated urine sediment erythrocyte count by microscopy (number/high power field) NONE NRG Automated urine sediment leukocyte count by microscopy (number/high power field ) RARE NRG Bacteria detection in urine sediment by light microscopy TRACE NRG Squamous epithelial cells detection in urine sediment by light microscopy 10-25 NRG Crystals detection in urine sediment by light microscopy NONE NRG Casts detection in urine sediment by light microscopy NONE NRG Mucus detection in urine sediment by light microscopy NEGATIVE NRG Complete urinalysis with reflex to culture NO NRG Complete blood count (CBC) with automated white blood cell (WBC) differential - 03/18/17 11:19 Blood leukocytes automated count (number/volume) 6.7 10*3/ uL 4.3-11.0 Blood erythrocytes automated count (number/volume) 4.80 10*6 /uL 4.35-5.85 Venous blood hemoglobin measurement (mass/volume) 14.7 g/dL 11.5-16.0 Blood hematocrit (volume fraction) 43 % 35-52 Automated erythrocyte mean corpuscular volume 90 [foz_us] 80-99 Automated erythrocyte mean corpuscular hemoglobin (mass per erythrocyte) 31 pg 25-34 Automated erythrocyte mean corpuscular hemoglobin concentration measurement ( mass/volume) 34 g/dL 32-36 Automated erythrocyte distribution width ratio 13.1 % 10.0-14.5 Automated blood platelet count (count/volume) 229 10*3/uL 130-400 Automated blood platelet mean volume measurement 10.7 [foz_ us] 7.4-10.4 Automated blood neutrophils/100 leukocytes 65 % 42-75 Automated blood lymphocytes/100 leukocytes 24 % 12-44 Blood monocytes/100 leukocytes 9 % 0-12 Automated blood eosinophils/100 leukocytes 2 % 0-10 Automated blood basophils/100 leukocytes 0 % 0-10 Blood neutrophils automated count (number/volume) 4.4 10*3 1.8-7.8 Blood lymphocytes automated count (number/volume) 1.6 10*3 1.0-4.0 Blood monocytes automated count (number/volume) 0.6 10*3 0.0-1.0 Automated eosinophil count 0.2 10*3/uL 0.0-0.3 Automated blood basophil count (count/volume) 0.0 10*3/uL 0.0-0.1 Comprehensive metabolic panel - 03/18/17 11:19 Serum or plasma sodium measurement (moles/volume) 142 mmol/ L 135-145 Serum or plasma potassium measurement (moles/volume) 4.0 mmol/L 3.6-5.0 Serum or plasma chloride measurement (moles/volume) 109 mmol /L 98-107 Carbon dioxide 22 mmol/L 21-32 Serum or plasma anion gap determination (moles/volume) 11 mmol/L 5-14 Serum or plasma urea nitrogen measurement (mass/volume) 14 mg/dL 7-18 Serum or plasma creatinine measurement (mass/volume) 0.94 mg /dL 0.60-1.30 Serum or plasma urea nitrogen/creatinine mass ratio 15 NRG Serum or plasma creatinine measurement with calculation of estimated glomerular filtration rate > NRG Serum or plasma glucose measurement (mass/volume) 102 mg/dL 70-105 Serum or plasma calcium measurement (mass/volume) 9.5 mg/dL 8.5-10.1 Serum or plasma total bilirubin measurement (mass/volume) 0.7 mg/dL 0.1-1.0 Serum or plasma alkaline phosphatase measurement (enzymatic activity/volume) 45 U/L 40-136 Serum or plasma aspartate aminotransferase measurement (enzymatic activity/ volume) 14 U/L 5-34 Serum or plasma alanine aminotransferase measurement (enzymatic activity/volume ) 12 U/L 0-55 Serum or plasma protein measurement (mass/volume) 7.5 g/dL 6.4-8.2 Serum or plasma albumin measurement (mass/volume) 4.4 g/dL 3.2-4.5 Encounters ACCT No. Visit Date/Time Discharge Status Pt. Type Provider Facility Loc./Unit Complaint [id number] 12/16/2014 13:53:00 12/16/2014 23: 59:59 CLS Outpatient KARIN GRAHAM DO [id number] 07/19/2014 10:06:00 07/19/2014 23: 59:59 CLS Outpatient JARON ALVAREZ MD [id number] 06/14/2014 15:51:00 06/14/2014 23: 59:59 CLS Outpatient IMELDA MEDINA PIO CHITRA [id number] 05/12/2014 11:05:00 05/12/2014 23: 59:59 CLS Outpatient PIO SEGURA APRN [id number] 04/08/2014 16:04:00 04/08/2014 23: 59:59 CLS Outpatient KARIN GRAHAM DO [id number] 11/13/2013 14:42:00 11/13/2013 23: 59:59 CLS Outpatient PIO SEGURA APRN [id number] 08/11/2013 10:41:00 08/11/2013 23: 59:59 CLS Outpatient PIO SEGURA APRN [id number] 09/17/2012 16:04:00 09/17/2012 23: 59:59 CLS Outpatient PIO SEGURA APRN [id number] 02/05/2012 14:14:00 02/05/2012 23: 59:59 CLS Outpatient
[2017-03-28] MEDS ORDERED: ACETAMINOPHEN 500 MG TAB (TYLENOL) PO ONE (17:00)
[2017-03-28] MEDS ORDERED: CYCLOBENZAPRINE 10 MG (FLEXERIL) TAB PO SCH (17:00)
--- NOTE | 2017-03-28 17:02 | ED General ---
General Chief Complaint: General Problems/Pain Stated Complaint: NECK PAIN/HEADACHES Source of Information: Patient Exam Limitations: No Limitations History of Present Illness Time Seen by Provider: 17:00 Initial Comments She presents to the emergency room with reports of pain in her neck back and pelvis. This is been ongoing for a long time and she normally takes hydrocodone for this but states that her hydrocodone prescription ran out yesterday. She called her clinic today she states that will not clear who this would be. She states that her clinic advised her that her prescription should last her longer than it did and they could not refill anything. As such, she presents to the emergency room. She has pain to the low back pelvis and neck without fevers or chills. She states that she can feel her neck "grinding" when she turns her head. She denies injury. Timing/Duration: 1-2 Days Severity: Moderate Allergies and Home Medications Allergies Coded Allergies: Penicillins (Unverified Allergy, Mild, 04/22/09) codeine (Verified Allergy, Unknown, 04/22/09) ketorolac (Verified Allergy, Unknown, 04/22/09) nalbuphine (Verified Allergy, Unknown, 04/22/09) propoxyphene (Verified Allergy, Unknown, 04/22/09) Home Medications Alprazolam 1 Mg Tablet, #60 (Reported) Buspirone HCl 10 Mg Tablet, #28 (Reported) Gabapentin 100 Mg Capsule, #42 (Reported) Oxycodone HCl 20 Mg Tablet, #120 (Reported) Risperidone 1 Mg Tablet, #14 (Reported) Sulfamethoxazole/Trimethoprim 1 Each Tablet, 1 EACH PO BID, #14 Ref 0 Prescribed by: HERBERTH HUERTA on 09/17/16 1534 Constitutional: see HPI EENTM: see HPI Respiratory: no symptoms reported Cardiovascular: no symptoms reported Genitourinary: no symptoms reported Musculoskeletal: see HPI, back pain, neck pain Skin: no symptoms reported Psychiatric/Neurological: No Symptoms Reported Past Lrkswws-Kaprvm-Qmigrl Hx Patient Social History Drug of Choice: meth Type Used: Cigarettes Recent Foreign Travel: No Contact w/Someone Who Travel: No Recent Hopitalizations: No Immunizations Up To Date Tetanus Booster (TDap): Less than 5yrs Seasonal Allergies Seasonal Allergies: No Surgeries HX Surgeries: Yes (D&C, X 3, TRANSVAGINAL MESH) Surgeries: Abdominal, Bladder Surgery, Section, Hysterectomy Respiratory Hx Respiratory Disorders: No Cardiovascular Hx Cardiac Disorders: No Neurological Hx Neurological Disorders: No 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 System 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 Disorders: No 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 Genitourinary Hx Genitourinary Disorders: No Gastrointestinal Hx Gastrointestinal Disorders: No Musculoskeletal Hx Musculoskeletal Disorders: Yes (PT WITH CHRONIC PAIN COMPLAINTS- "DEGENERATIVE ARTHRITIS AND DDD" PER PT) Endocrine Hx Endocrine Disorders: No HEENT HX ENT Disorders: No Cancer Hx Cancer: No Psychosocial Hx Psychiatric Problems: Yes Behavioral Health Disorders: Anxiety, Depression Integumentary HX Skin/Integumentary Disorder: Yes (history of MRSA and multiple abscesses) Blood Transfusions Hx Blood Disorders: No Adverse Reaction to a Blood Tr: No Family Medical History Significant Family History: No Pertinent Family Hx Physical Exam Vital Signs Vital Sign - Last 12Hours 03/28/17 16:53 Temp 97.2 Pulse 93 Resp 20 B/P (MAP) 164/105 Pulse Ox 97 O2 Delivery Room Air Capillary Refill : General Appearance: No Apparent Distress, WD/WN Eyes: Bilateral Eye EOMI, Bilateral Eye Normal Inspection, Bilateral Eye PERRL HEENT: PERRL/EOMI, TMs Normal Neck: Full Range of Motion, Normal Inspection Respiratory: No Accessory Muscle Use, No Respiratory Distress Cardiovascular: Regular Rate, Rhythm, Normal Peripheral Pulses Gastrointestinal: Normal Bowel Sounds, Non Tender, Soft Back: Normal Inspection, No Vertebral Tenderness Extremity: Normal Capillary Refill, No Calf Tenderness Neurologic/Psychiatric: Alert, Oriented x3 Skin: Normal Color, Warm/Dry Laceration Repair : Suture Size: 3-0 Progress/Results/Core Measures Results/Orders Lab Results Laboratory Tests Test 03/28/17 18:10 Range/Units Urine Color YELLOW Urine Clarity CLEAR Urine pH 6 5-9 Urine Specific [place] 1.025 H 1.016-1.022 Urine Protein NEGATIVE NEGATIVE Urine Glucose (UA) NEGATIVE NEGATIVE Urine Ketones 2+ H NEGATIVE Urine Nitrite NEGATIVE NEGATIVE Urine Bilirubin NEGATIVE NEGATIVE Urine Urobilinogen NORMAL NORMAL MG/DL Urine Leukocyte Esterase NEGATIVE NEGATIVE Urine RBC (Auto) 3+ H NEGATIVE Urine RBC 2-5 H /HPF Urine WBC NONE /HPF Urine Squamous Epithelial Cells 5-10 /HPF Urine Crystals NONE /LPF Urine Bacteria TRACE /HPF Urine Casts NONE /LPF Urine Mucus SMALL H /LPF Urine Culture Indicated NO Urine Opiates Screen NEGATIVE NEGATIVE Urine Oxycodone Screen NEGATIVE NEGATIVE Urine Methadone Screen NEGATIVE NEGATIVE Urine Propoxyphene Screen NEGATIVE NEGATIVE Urine Barbiturates Screen NEGATIVE NEGATIVE Ur Tricyclic Antidepressants Screen NEGATIVE NEGATIVE Urine Phencyclidine Screen NEGATIVE NEGATIVE Urine Amphetamines Screen POSITIVE H NEGATIVE Urine Methamphetamines Screen POSITIVE H NEGATIVE Urine Benzodiazepines Screen POSITIVE H NEGATIVE Urine Cocaine Screen NEGATIVE NEGATIVE Urine Cannabinoids Screen NEGATIVE NEGATIVE My Orders Orders - KAL LYONS APRN Ua Culture If Indicated (03/28/17 16:57) Drug Screen Stat (Urine) (03/28/17 16:57) Acetaminophen Tablet (Tylenol Tablet) (03/28/17 17:00) Cyclobenzaprine Tablet (Flexeril Tablet) (03/28/17 17:00) Vital Signs/I&O Vital Sign - Last 12Hours 03/28/17 16:53 Temp 97.2 Pulse 93 Resp 20 B/P (MAP) 164/105 Pulse Ox 97 O2 Delivery Room Air Departure Impression Impression: Primary Impression: Methamphetamine abuse Disposition: 01 HOME, SELF-CARE Condition: Stable Departure-Patient Inst. Decision time for Depature: 18:38 Referrals: NO,LOCAL PHYSICIAN (PCP/Family) Primary Care Physician Add. Discharge Instructions: 1. Tylenol and Motrin for pain 2. 3. 1All discharge instructions reviewed with patient and/or family. Voiced understanding. KAL LYONS APRN Mar 28, 2017 17:02
[2017-03-28 18:30] LABS: BILIRUBIN,URINE NEGATIVE (NEGATIVE); KETONES,URINE 2+ (NEGATIVE); LEUKOCYTE ESTERASE ,URINE NEGATIVE (NEGATIVE); NITRITE,URINE NEGATIVE (NEGATIVE); PH,URINE 6 (5-9); PROTEIN,URINE NEGATIVE (NEGATIVE); UROBILINOGEN,URINE NORMAL (NORMAL)
[2017-03-28 19:00] VITALS: BP 164/105
== END 2017-03-28 19:00 | disposition home or self-care (01) ==
LOC: EDUNIT# 16:33 → ER 16:37
DX: M54.5 Low back pain (principal); M54.2 Cervicalgia; F15.10 Other stimulant abuse, uncomplicated; F17.210 Nicotine dependence, cigarettes, uncomplicated; Z79.891 Long term (current) use of opiate analgesic; Z79.899 Other long term (current) drug therapy
CPT/HCPCS: 80306; 81000; 99282

== ENCOUNTER 2017-05-22 14:43 | Emergency (ER) | payer SELFPAY ==
[~2017-05-22] VITALS: Ht 167.6 cm; Wt 83.9 kg
--- NOTE | 2017-05-22 15:12 | ED EENT ---
History of Present Illness General Chief Complaint: Nasal Problems Stated Complaint: SINUS INFECTION/FACIAL SWELLING Source: patient Exam Limitations: no limitations History of Present Illness Time seen by provider: 15:04 Initial Comments Patient has 2-3 days because of onset of left-sided facial pain ears popping and nasal congestion. She has not had an antibiotic last 4 weeks. She does have an stated allergy to penicillin which is a rash as a child although she doesn't ever or taking amoxicillin or penicillin. She's had no fever or rash or chills or nausea or diarrhea. She says she has some dental pain as well which she has an appointment on 30 May to go get some teeth looked at. She does not feel on a discharge or drainage from her mouth nor any swelling. She does have a sore throat. Allergies and Home Medications Allergies Coded Allergies: Penicillins (Unverified Allergy, Mild, 04/22/09) codeine (Verified Allergy, Unknown, 04/22/09) ketorolac (Verified Allergy, Unknown, 04/22/09) nalbuphine (Verified Allergy, Unknown, 04/22/09) propoxyphene (Verified Allergy, Unknown, 04/22/09) Home Medications Alprazolam 1 Mg Tablet, #60 (Reported) Buspirone HCl 10 Mg Tablet, #28 (Reported) Gabapentin 100 Mg Capsule, #42 (Reported) Oxycodone HCl 20 Mg Tablet, #120 (Reported) Risperidone 1 Mg Tablet, #14 (Reported) Sulfamethoxazole/Trimethoprim 1 Each Tablet, 1 EACH PO BID, #14 Ref 0 Prescribed by: HERBERTH HUERTA on 09/17/16 1534 Review of Systems Constitutional: No chills, No diaphoresis, No fever, malaise Eyes: Denies Drainage, Denies Pain Ears: Pain, Denies Bloody Discharge, Denies Clear Discharge, Denies Purulent Discharge Nose: congestion, denies epistaxis, pain (left maxilla), purulent discharge Mouth: denies loose teeth, pain (left upper teeth), denies swelling, denies bloody discharge, denies purulent discharge, denies serosanguinous discharge Throat: denies swelling, denies discharge, denies neck stiffness, denies hoarse Respiratory: No cough, No short of breath Cardiovascular: No chest pain, No palpitations Gastrointestinal: No diarrhea, No nausea Skin: No pruritus, No rash Neurological: Denies Headache, Denies Numbness, Denies Paresthesia Past Ybqageu-Kukqbl-Lrlkvf Hx Patient Social History Drug of Choice: meth Type Used: Cigarettes 2nd Hand Smoke Exposure: Yes Recent Foreign Travel: No Contact w/Someone Who Travel: No Recent Hopitalizations: No Immunizations Up To Date Tetanus Booster (TDap): Less than 5yrs Seasonal Allergies Seasonal Allergies: No Surgeries History of Surgeries: Yes (D&C, X 3, TRANSVAGINAL MESH) Surgeries: Abdominal, Bladder Surgery, Section, Hysterectomy Respiratory History of Respiratory Disorde: No Cardiovascular History of Cardiac Disorders: No Neurological History of Neurological Disord: No 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 System 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 Disorders: No 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 Genitourinary History of Genitourinary Disor: No Gastrointestinal History of Gastrointestinal Di: No Musculoskeletal History of Musculoskeletal Dis: Yes (PT WITH CHRONIC PAIN COMPLAINTS- "DEGENERATIVE ARTHRITIS AND DDD" PER PT) Endocrine History of Endocrine Disorders: No HEENT History of HEENT Disorders: No Cancer History of Cancer: No Psychosocial History of Psychiatric Problem: Yes Behavioral Health Disorders: Anxiety, Depression Integumentary History of Skin or Integumenta: Yes (history of MRSA and multiple abscesses) Blood Transfusions History of Blood Disorders: No Adverse Reaction to a Blood Tr: No Family Medical History Significant Family History: No Pertinent Family Hx Physical Exam General Appearance: WD/WN, no apparent distress Eyes: bilateral eye normal inspection, bilateral eye PERRL, bilateral eye EOMI Ears: bilateral ear auricle normal, bilateral ear canal normal, bilateral ear TM normal, bilateral ear other (Clear effusion an dmild bulging. 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 Decision time for Depature: 15:13 Referrals: [facility] (PCP/Family) Primary Care Physician Patient Instructions: Sinusitis, Adult (DC), Nosebleeds (DC) Add. Discharge Instructions: Drink plenty of fluids to flush your nose. Blow your nose and use hand byproducts operator or soap and water to wash her hands. Take the antibiotics as prescribed. All discharge instructions reviewed with patient and/or family. Voiced understanding. Scripts Cefdinir (Cefdinir) 300 Mg Capsule 600 MG PO DAILY for 10 Days, #20 CAP 0 Refills Prov: JOSH VALDERRAMA 05/22/17 Copy Copies To 1: KARIN GRAHAM DO JOSH VALDERRAMA May 22, 2017 15:12
[2017-05-22] MEDS ORDERED: CEFD300C3 PO (15:17)
[2017-05-22 15:21] VITALS: BP 145/99
== END 2017-05-22 15:22 | disposition home or self-care (01) ==
LOC: EDUNIT# 14:43 → ER 14:46
DX: J01.00 Acute maxillary sinusitis, unspecified (principal); H65.93 Unspecified nonsuppurative otitis media, bilateral; F41.9 Anxiety disorder, unspecified; F32.9 Major depressive disorder, single episode, unspecified; Z90.710 Acquired absence of both cervix and uterus; Z87.59 Personal history of other complications of pregnancy, childbirth and the puerperium; Z87.2 Personal history of diseases of the skin and subcutaneous tissue
CPT/HCPCS: 99282

== ENCOUNTER 2017-06-26 17:44 | Emergency (ER) | payer SELFPAY ==
[~2017-06-26] VITALS: Ht 167.6 cm; Wt 83.9 kg
[~2017-06-26 17:44] MED LIST changes: +CEFD300C3 PO
--- OUTSIDE RECORDS SUMMARY | 2017-06-26 17:51 | XMS REPORT | Clinical Summary ---
Author Author [facility] Organization [facility] Address Unknown Phone Unavailable Care Team Providers Care Manufacturing Applications Engineer Name Role Phone PCP Unavailable Source Comments Some departments are not documenting in the electronic medical record. If you do not see the information that you expected, contact Release of Information in the Health Information Management department at [phone] for further assistance in locating additional records.[facility] Allergies Active Allergy Reactions Severity Noted Date Comments Codeine RASH 05/02/2010 Penicillin G RASH 05/02/2010 Current Medications Prescription Sig. Disp. Refills Start [...] percreta 05/04/2010 Placenta previa 05/04/2010 Hemorrhage 05/04/2010 Family History Medical History Relation Name Comments Cancer Mother Cancer Sister Relation Name Status Comments Mother Sister Social History Tobacco Use Types Packs/Day Years Used Date Current Every Day Smoker Cigarettes 0.5 Alcohol Use Drinks/Week oz/Week Comments No Sex Assigned at Date Recorded Not on file Last Filed Vital Signs Vital Sign Reading Time Taken Blood Pressure 137/83 05/08/2010 12:00 PM CDT Pulse 49 05/08/2010 12:00 PM CDT Temperature 36.5 C (97.7 F) 05/08/2010 12:00 PM CDT Respiratory Rate - - Oxygen Saturation 99% 05/08/2010 12:00 PM CDT Inhaled Oxygen - - Concentration Weight 119.6 kg (263 lb 9.6 oz) 05/08/2010 4:00 AM CDT Height - - Body Mass Index - - Plan of Treatment Health Maintenance Due Date Last Done Comments PHYSICAL (COMPREHENSIVE) 1988 EXAM PERTUSSIS VACCINE 1992 TETANUS VACCINE 1998 CERVICAL CANCER SCREENING 2011 INFLUENZA VACCINE 06/16/2017 Results Not on filefrom Last 3 Months
--- OUTSIDE RECORDS SUMMARY | 2017-06-26 17:52 | XMS REPORT ---
Author Author SIMONE KWAN Organization [facility] Address [address] [place] [address] Care Team Providers Care Rn Training Name Role Phone SIMONE KWAN Unavailable PROBLEMS Type Condition ICD9-CM Code [id number] Code Onset Dates Condition Status SNOMED Code Problem Anxiety F41.9 Active 38690021 Problem Neuropathy G62.9 Active 403065775 Problem Episodic mood disorder F39 Active 57845990 Problem Psychosis, unspecified psychosis type F29 Active 06458860 Problem Mood disorder F39 Active 28778990 Problem ADD (attention deficit disorder) F90.0 Active 410605404 ALLERGIES No Information SOCIAL HISTORY Never Assessed PLAN OF CARE VITAL SIGNS MEDICATIONS Medication Instructions Dosage Frequency Start Date End Date Duration Status Risperdal 1 MG Orally Once a day 1 tablet 24h Aug, Active Neurontin 100 mg Orally Three times a day as directed 8h Aug, Active BusPIRone HCl 10 MG Orally Twice a day 1 tablet 12h Aug, Active RESULTS No Results PROCEDURES No Known procedures IMMUNIZATIONS No Known Immunizations MEDICAL (GENERAL) HISTORY Type Description Date Medical History pt past history showed breach of narc contract, pt had been previously on multiple stimulants, benzo, and pain medications Medical History ADD Medical History Bipolar Medical History Anxiety Medical History PTSD Medical History degenerative disc disease per report Medical History abd pain s/p partial hysterectomy Surgical History x 3 Surgical History hysterectomy 2010 Surgical History transvaginal mesh Surgical History dilatation and curettage Hospitalization History surgeries
--- OUTSIDE RECORDS SUMMARY | 2017-06-26 17:52 | XMS REPORT ---
Author Author SIMONE KWAN Organization [facility] Address [address] [place] [address] Care Team Providers Care Film Process Operator Name Role Phone SIMONE KWAN Unavailable PROBLEMS Type Condition ICD9-CM Code [id number] Code Onset Dates Condition Status SNOMED Code Problem Anxiety F41.9 Active 06118133 Problem Mood disorder F39 Active 23552979 Problem Psychosis, unspecified psychosis type F29 Active 78737561 Problem Episodic mood disorder F39 Active 16222009 Problem Neuropathy G62.9 Active 401968149 Problem ADD (attention deficit disorder) F90.0 Active 187486677 ALLERGIES Unknown Allergies SOCIAL HISTORY No smoking Hx information available PLAN OF CARE VITAL SIGNS Height 66 in 2016-09-04 Weight 187 lbs 2016-09-04 Heart Rate 76 bpm 2016-09-04 Respiratory Rate 16 2016-09-04 BMI 30.18 kg/m2 2016-09-04 Blood pressure systolic 116 mmHg 2016-09-04 Blood pressure diastolic 80 mmHg 2016-09-04 MEDICATIONS Medication Instructions Dosage Frequency Start Date End Date Duration Status Neurontin 100 MG as directed Aug, Active Risperdal 1 MG Orally Once a day 1 tablet 24h Aug, 30 day(s) Active BusPIRone HCl 10 MG Orally Twice a day 1 tablet 12h Aug, Active RESULTS No Results PROCEDURES Procedure Date Ordered Related Diagnosis Body Site Office Visit, Est Pt., Level 2 Sep 04, 2016 IMMUNIZATIONS No Known Immunizations
--- OUTSIDE RECORDS SUMMARY | 2017-06-26 17:53 | XMS REPORT ---
Author Author SIMONE KWAN Organization [facility] Address [address] [place] [address] Care Team Providers Care Internal Audit Director Name Role Phone ANIYA SIMONE Unavailable PROBLEMS Type Condition ICD9-CM Code [id number] Code Onset Dates Condition Status SNOMED Code Problem Anxiety F41.9 Active 43434131 Problem Neuropathy G62.9 Active 183902293 Problem Episodic mood disorder F39 Active 91849586 Problem Psychosis, unspecified psychosis type F29 Active 91712057 Problem Mood disorder F39 Active 36479938 Problem ADD (attention deficit disorder) F90.0 Active [id number] ALLERGIES No Information SOCIAL HISTORY Never Assessed PLAN OF CARE VITAL SIGNS MEDICATIONS Medication Instructions Dosage Frequency Start Date End Date Duration Status Remeron 30 MG Orally Once a day 1 tablet at bedtime 24h Nov, Active RESULTS No Results PROCEDURES No Known [...]
--- OUTSIDE RECORDS SUMMARY | 2017-06-26 17:54 | XMS REPORT ---
Author Author SIMONE KWAN Organization [facility] Address [address] [place] [address] Care Team Providers Care Coil Placer Name Role Phone SIMONE KWAN Unavailable PROBLEMS Type Condition ICD9-CM Code [id number] Code Onset Dates Condition Status SNOMED Code Problem Anxiety F41.9 Active 54433115 Problem Neuropathy G62.9 Active 964375953 Problem Episodic mood disorder F39 Active 25823043 Problem Psychosis, unspecified psychosis type F29 Active 32415404 Problem Mood disorder F39 Active 89680886 Problem ADD (attention deficit disorder) F90.0 Active 992712008 ALLERGIES No Information SOCIAL HISTORY Never Assessed PLAN OF CARE VITAL SIGNS Height 66 in 2016-11-20 Weight 186 lbs 2016-11-20 Heart Rate 86 bpm 2016-11-20 Respiratory Rate 16 2016-11-20 BMI 30.02 kg/m2 2016-11-20 Blood pressure systolic 122 mmHg 2016-11-20 Blood pressure diastolic 74 mmHg 2016-11-20 MEDICATIONS Medication Instructions Dosage Frequency Start Date End Date Duration Status BusPIRone HCl 15 MG Orally Twice a day 1 tablet 12h 20 Aug, 2016 Active Bactrim DS 800-160 MG Orally Twice a day 1 tablet 12h Nov,Nov 10 day(s) Active Remeron 15 MG Orally Once a day 1 tablet [...]
--- OUTSIDE RECORDS SUMMARY | 2017-06-26 17:55 | XMS REPORT ---
Author Author SIMONE KWAN Organization [facility] Address [address] [place] [address] Care Team Providers Care Head Of Housekeeping Name Role Phone ANIYA SIMONE Unavailable PROBLEMS Type Condition ICD9-CM Code ORN79-MB Code Onset Dates Condition Status SNOMED Code Problem Anxiety F41.9 Active 05323937 Problem Neuropathy G62.9 Active 128155832 Problem Episodic mood disorder F39 Active 02681640 Problem Psychosis, unspecified psychosis type F29 Active 58434687 Problem Mood disorder F39 Active 43598553 Problem ADD (attention deficit disorder) F90.0 Active 465307321 ALLERGIES No Information SOCIAL HISTORY Never Assessed PLAN OF CARE VITAL SIGNS MEDICATIONS Medication Instructions Dosage Frequency Start Date End Date Duration Status Neurontin 300 MG Orally Three times a day as directed 8h Aug, Active RESULTS No Results PROCEDURES No [...]
--- NOTE | 2017-06-26 18:35 | ED General ---
General Chief Complaint: -Female Stated Complaint: PELVIC/ABDOMINAL PAIN Source of Information: Patient Exam Limitations: No Limitations History of Present Illness Time Seen by Provider: 18:34 Initial Comments To ER with reports of "something inside of me". Unsure how long its been there or what it is she states that's why she is here. It starts in the left side of her abdomen, radiates up the left shoulder, then circles around and crawls inside her spine terminating just between her eyes. She is well-known to our emergency department for mental health issues. She is out of her Xanax and oxycodone until tomorrow she states. Timing/Duration: 1-2 Days Severity: Moderate Associated Systoms: Denies Symptoms, No Chest Pain, No Cough, No Diaphoresis, No Fever/Chills, No Headaches, No Loss of Appetite, No Malaise, No Nausea/ Vomiting Allergies and Home Medications Allergies Coded Allergies: Penicillins (Unverified Allergy, Mild, 04/22/09) codeine (Verified Allergy, Unknown, 04/22/09) ketorolac (Verified Allergy, Unknown, 04/22/09) nalbuphine (Verified Allergy, Unknown, 04/22/09) propoxyphene (Verified Allergy, Unknown, 04/22/09) Home Medications Alprazolam 1 Mg Tablet, #60 (Reported) Buspirone HCl 10 Mg Tablet, #28 (Reported) Cefdinir 300 Mg Capsule, 600 MG PO DAILY for 10 Days, #20 Ref 0 Prescribed by: JOSH VALDERRAMA on 05/22/17 1517 Gabapentin 100 Mg Capsule, #42 (Reported) Oxycodone HCl 20 Mg Tablet, #120 (Reported) Risperidone 1 Mg Tablet, #14 (Reported) Sulfamethoxazole/Trimethoprim 1 Each Tablet, 1 EACH PO BID, #14 Ref 0 Prescribed by: HERBERTH HUERTA on 09/17/16 1534 Constitutional: see HPI EENTM: see HPI Respiratory: no symptoms reported Cardiovascular: no symptoms reported Genitourinary: no symptoms reported Musculoskeletal: no symptoms reported Skin: no symptoms reported Psychiatric/Neurological: No Symptoms Reported Hematologic/Lymphatic: No Symptoms Reported Past Xjkuymc-Qhmupu-Ectaaa Hx Patient Social History Alcohol Use: Denies Use Recreational Drug Use: No Drug of Choice: meth Type Used: Cigarettes 2nd Hand Smoke Exposure: Yes Recent Foreign Travel: No Contact w/Someone Who Travel: No Recent Hopitalizations: No Immunizations Up To Date Tetanus Booster (TDap): Less than 5yrs Seasonal Allergies Seasonal Allergies: No Surgeries History of Surgeries: Yes (D&C, X 3, TRANSVAGINAL MESH) Surgeries: Abdominal, Bladder Surgery, Section, Hysterectomy Respiratory History of Respiratory Disorde: No Cardiovascular History of Cardiac Disorders: No Neurological History of Neurological Disord: No 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 System 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 Disorders: No 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 Genitourinary History of Genitourinary Disor: No Gastrointestinal History of Gastrointestinal Di: No Musculoskeletal History of Musculoskeletal Dis: Yes (PT WITH CHRONIC PAIN COMPLAINTS- "DEGENERATIVE ARTHRITIS AND DDD" PER PT) Endocrine History of Endocrine Disorders: No HEENT History of HEENT Disorders: No Cancer History of Cancer: No Psychosocial History of Psychiatric Problem: Yes Behavioral Health Disorders: Anxiety, Depression Integumentary History of Skin or Integumenta: Yes (history of MRSA and multiple abscesses) Blood Transfusions History of Blood Disorders: No Adverse Reaction to a Blood Tr: No Family Medical History Significant Family History: No Pertinent Family Hx Physical Exam Vital Signs Vital Sign - Last 12Hours 06/26/17 18:21 Temp 98.2 Pulse 91 Resp 18 B/P (MAP) 135/97 Pulse Ox 99 Capillary Refill : General Appearance: No Apparent Distress, WD/WN, Other (Disheveled, cooperative , good eye contact. ) Eyes: Bilateral Eye Normal Inspection, Bilateral Eye PERRL HEENT: PERRL/EOMI, TMs Normal Neck: Full Range of Motion, Normal Inspection Respiratory: Normal Breath Sounds, No Accessory Muscle Use, No Respiratory Distress Cardiovascular: Regular Rate, Rhythm, Normal Peripheral Pulses Gastrointestinal: Non Tender, Soft Extremity: Normal Capillary Refill, Normal Inspection Neurologic/Psychiatric: Alert, Oriented x3, No Motor/Sensory Deficits Skin: Normal Color, Warm/Dry Laceration Repair : Suture Size: 3-0 Progress/Results/Core Measures Results/Orders Lab Results Laboratory Tests Test 06/26/17 18:40 06/26/17 18:55 Range/Units White Blood Count 10.4 4.3-11.0 10^3/uL Red Blood Count 5.24 4.35-5.85 10^6/uL Hemoglobin 16.0 11.5-16.0 G/DL Hematocrit 47 35-52 % Mean Corpuscular Volume 89 80-99 FL Mean Corpuscular Hemoglobin 31 25-34 PG Mean Corpuscular Hemoglobin Concent 34 32-36 G/DL Red Cell Distribution Width 12.7 10.0-14.5 % Platelet Count 240 130-400 10^3/uL Mean Platelet Volume 11.5 H 7.4-10.4 FL Neutrophils (%) (Auto) 63 42-75 % Lymphocytes (%) (Auto) 26 12-44 % Monocytes (%) (Auto) 9 0-12 % Eosinophils (%) (Auto) 2 0-10 % Basophils (%) (Auto) 0 0-10 % Neutrophils # (Auto) 6.6 1.8-7.8 X 10^3 Lymphocytes # (Auto) 2.7 1.0-4.0 X 10^3 Monocytes # (Auto) 1.0 0.0-1.0 X 10^3 Eosinophils # (Auto) 0.2 0.0-0.3 10^3/uL Basophils # (Auto) 0.0 0.0-0.1 10^3/uL Urine Color YELLOW Urine Clarity SLIGHTLY CLOUDY Urine pH 6 5-9 Urine Specific [place] 1.025 H 1.016-1.022 Urine Protein NEGATIVE NEGATIVE Urine Glucose (UA) NEGATIVE NEGATIVE Urine Ketones NEGATIVE NEGATIVE Urine Nitrite NEGATIVE NEGATIVE Urine Bilirubin NEGATIVE NEGATIVE Urine Urobilinogen 1 NORMAL MG/DL Urine Leukocyte Esterase NEGATIVE NEGATIVE Urine RBC (Auto) 2+ H NEGATIVE Urine RBC 5-10 H /HPF Urine WBC RARE /HPF Urine Squamous Epithelial Cells >50 H /HPF Urine Crystals NONE /LPF Urine Bacteria MODERATE H /HPF Urine Casts NONE /LPF Urine Mucus NEGATIVE /LPF Urine Culture Indicated NO Urine Opiates Screen POSITIVE H NEGATIVE Urine Oxycodone Screen NEGATIVE NEGATIVE Urine Methadone Screen NEGATIVE NEGATIVE Urine Propoxyphene Screen NEGATIVE NEGATIVE Urine Barbiturates Screen NEGATIVE NEGATIVE Ur Tricyclic Antidepressants Screen NEGATIVE NEGATIVE Urine Phencyclidine Screen NEGATIVE NEGATIVE Urine Amphetamines Screen NEGATIVE NEGATIVE Urine Methamphetamines Screen POSITIVE H NEGATIVE Urine Benzodiazepines Screen POSITIVE H NEGATIVE Urine Cocaine Screen NEGATIVE NEGATIVE Urine Cannabinoids Screen NEGATIVE NEGATIVE My Orders Orders - KAL LYONS APRN Drug Screen Stat (Urine) (06/26/17 18:33) Urine Bedside (06/26/17 18:33) Cbc With Automated Diff (06/26/17 18:33) Comprehensive Metabolic Panel (06/26/17 18:33) Olanzapine Orally Dissolve Tab (Zyprexa (06/26/17 18:45) Medications Given in ED Current Medications Medications Dose Ordered Sig/Se Route Start Time Stop Time Status Last Admin Dose Admin Olanzapine 5 mg ONCE ONCE PO 06/26/17 18:45 06/26/17 18:46 DC 06/26/17 19:16 5 MG Vital Signs/I&O Vital Sign - Last 12Hours 06/26/17 18:21 Temp 98.2 Pulse 91 Resp 18 B/P (MAP) 135/97 Pulse Ox 99 Departure Impression Impression: Primary Impression: Methamphetamine abuse Additional Impression: Paranoia Disposition: HOME, SELF-CARE Condition: Stable Departure-Patient Inst. Decision time for Depature: 19:21 Referrals: [facility] (PCP/Family) Primary Care Physician Patient Instructions: NO INSTRUCTIONS GIVEN Add. Discharge Instructions: 1. Return to ER for any concerns 2. All discharge instructions reviewed with patient and/or family. Voiced understanding. KAL LYONS SUPERVISOR PURIFICATION Jun 26, 2017 18:35
[2017-06-26] MEDS ORDERED: OLANZapine 5 MG ODT (ZyPREXA ZYDIS) PO ONE (18:45)
[2017-06-26 19:08] LABS: BILIRUBIN,URINE NEGATIVE (NEGATIVE); KETONES,URINE NEGATIVE (NEGATIVE); LEUKOCYTE ESTERASE ,URINE NEGATIVE (NEGATIVE); NITRITE,URINE NEGATIVE (NEGATIVE); PH,URINE 6 (5-9); PROTEIN,URINE NEGATIVE (NEGATIVE); UROBILINOGEN,URINE 1 MG/DL (NORMAL)
[2017-06-26 19:11] LABS: BASOPHILS % (AUTO) 0 % (0-10); EOSINOPHILS # (AUTO) 0.2 10^3/uL (0.0-0.3); EOSINOPHILS % (AUTO) 2 % (0-10); LYMPHOCYTES # (AUTO) 2.7 X 10^3 (1.0-4.0); LYMPHOCYTES % (AUTO) 26 % (12-44); MEAN CORPUSCULAR HEMOGLOBIN 31 PG (25-34); MEAN CORPUSCULAR HGB CONC 34 G/DL (32-36); MEAN CORPUSCULAR VOLUME 89 FL (80-99); MEAN PLATELET VOLUME 11.5 FL (7.4-10.4); MONOCYTES % (AUTO) 9 % (0-12); NEUTROPHILS # (AUTO) 6.6 X 10^3 (1.8-7.8); NEUTROPHILS % (AUTO) 63 % (42-75); PLATELET COUNT 240 10^3/uL (130-400); RED BLOOD COUNT 5.24 10^6/uL (4.35-5.85); RED CELL DISTRIBUTION WIDTH 12.7 % (10.0-14.5); WHITE BLOOD COUNT 10.4 10^3/uL (4.3-11.0)
[2017-06-26 19:14] LABS: SQUAMOUS EPITHELIAL CELL,UR >50 /HPF; WBC,URINE RARE /HPF
[2017-06-26 19:30] LABS: ALANINE AMINOTRANSFERASE 11 U/L (0-55); ALBUMIN 4.7 GM/DL (3.2-4.5); ANION GAP 8 MMOL/L (5-14); ASPARTATE AMINO TRANSFERASE 16 U/L (5-34); BILIRUBIN,TOTAL 0.4 MG/DL (0.1-1.0); BLOOD UREA NITROGEN 13 MG/DL (7-18); BUN/CREATININE RATIO 16; CALCIUM 9.6 MG/DL (8.5-10.1); CARBON DIOXIDE 26 MMOL/L (21-32); CHLORIDE 105 MMOL/L (98-107); CREATININE SERUM 0.83 MG/DL (0.60-1.30); GFR ESTIMATED > 60; GLUCOSE 90 MG/DL (70-105); POTASSIUM 4.2 MMOL/L (3.6-5.0); SODIUM 139 MMOL/L (135-145); TOTAL PROTEIN 8.2 GM/DL (6.4-8.2)
[2017-06-26 19:45] VITALS: BP 135/97
== END 2017-06-26 19:44 | disposition home or self-care (01) ==
LOC: EDUNIT# 17:44 → ER 17:46
DX: F15.10 Other stimulant abuse, uncomplicated (principal); F22 Delusional disorders; F41.9 Anxiety disorder, unspecified; F32.9 Major depressive disorder, single episode, unspecified; Z77.22 Contact with and (suspected) exposure to environmental tobacco smoke (acute) (chronic); Z87.59 Personal history of other complications of pregnancy, childbirth and the puerperium; Z87.39 Personal history of other diseases of the musculoskeletal system and connective tissue; Z90.710 Acquired absence of both cervix and uterus
CPT/HCPCS: 36415; 80053; 80306; 81000; 84703; 85025; 99283

== ENCOUNTER 2017-07-02 20:32 | Emergency (ER) | payer SELFPAY ==
[~2017-07-02] VITALS: Ht 167.6 cm; Wt 90.7 kg
--- OUTSIDE RECORDS SUMMARY | 2017-07-02 20:37 | XMS REPORT | Clinical Summary ---
Author Author [facility] Organization [facility] Address Unknown Phone Unavailable Care Team Providers Care Lead Business Analyst Name Role Phone PCP Unavailable Source Comments Some departments are not documenting in the electronic medical record. If you do not see the information that you expected, contact Release of Information in the Health Information Management department at [phone] for further assistance in locating additional records.[facility] Allergies Active Allergy Reactions Severity Noted [...] 1998 CERVICAL CANCER SCREENING 2011 INFLUENZA VACCINE 04/16/2017 Results Not on filefrom Last 3 Months
--- NOTE | 2017-07-02 21:01 | ED Psychosocial ---
General Chief Complaint: Psych/Social Disorder Stated Complaint: PSYCH EVAL Source: patient Exam Limitations: no limitations History of Present Illness Time seen by provider: 20:58 Initial Comments To ER complaint by her mother. With reports of her oxycodone and Xanax not working due to persistent abdominal pain. She states that she still has plenty of them at home but they're not helping so she took one of her mother's 2 mg Klonopin earlier today. She states that that helped quite a bit. She states that her pain is in the abdomen and back and sometimes in her neck. She states that the pain moves around. She also states that she last did methamphetamine 4 days ago and that the methamphetamine "has LED's in it". She also states that her body is under chemical warfare she is hearing several voices. [facility] did call earlier today to report their concerns for the patient. 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 She also states that she is a millionaire but she can't figure out how to get the money. Associated Symptoms: anxiety, impaired concentration Allergies and Home Medications Allergies Coded Allergies: Penicillins (Unverified Allergy, Mild, 04/22/09) codeine (Verified Allergy, Unknown, 04/22/09) ketorolac (Verified Allergy, Unknown, 04/22/09) nalbuphine (Verified Allergy, Unknown, 04/22/09) propoxyphene (Verified Allergy, Unknown, 04/22/09) Home Medications Alprazolam 1 Mg Tablet, #60 (Reported) Buspirone HCl 10 Mg Tablet, #28 (Reported) Cefdinir 300 Mg Capsule, 600 MG PO DAILY for 10 Days, #20 Ref 0 Prescribed by: JOSH VALDERRAMA on 05/22/17 1517 Gabapentin 100 Mg Capsule, #42 (Reported) Oxycodone HCl 20 Mg Tablet, #120 (Reported) Risperidone 1 Mg Tablet, #14 (Reported) Sulfamethoxazole/Trimethoprim 1 Each Tablet, 1 EACH PO BID, #14 Ref 0 Prescribed by: HERBERTH HUERTA on 09/17/16 1534 Constitutional: see HPI EENTM: see HPI Respiratory: no symptoms reported Cardiovascular: no symptoms reported Genitourinary: no symptoms reported Musculoskeletal: no symptoms reported Skin: no symptoms reported Psychiatric/Neurological: No Symptoms Reported Past Vyndgmg-Eyoxpm-Xzifno Hx Patient Social History Drug of Choice: meth Type Used: Cigarettes 2nd Hand Smoke Exposure: Yes Recent Foreign Travel: No Contact w/Someone Who Travel: No Recent Hopitalizations: No Immunizations Up To Date Tetanus Booster (TDap): Less than 5yrs Seasonal Allergies Seasonal Allergies: No Surgeries History of Surgeries: Yes (D&C, X 3, TRANSVAGINAL MESH) Surgeries: Abdominal, Bladder Surgery, Section, Hysterectomy Respiratory History of Respiratory Disorde: No Cardiovascular History of Cardiac Disorders: No Neurological History of Neurological Disord: No 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 System 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 Disorders: 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 Genitourinary History of Genitourinary Disor: No Gastrointestinal History of Gastrointestinal Di: No Musculoskeletal History of Musculoskeletal Dis: Yes (PT WITH CHRONIC PAIN COMPLAINTS- "DEGENERATIVE ARTHRITIS AND DDD" PER PT) Endocrine History of Endocrine Disorders: No HEENT History of HEENT Disorders: No Cancer History of Cancer: No Psychosocial History of Psychiatric Problem: Yes Behavioral Health Disorders: Anxiety, Depression Integumentary History of Skin or Integumenta: Yes (history of MRSA and multiple abscesses) Blood Transfusions History of Blood Disorders: No Adverse Reaction to a Blood Tr: No Family Medical History Significant Family History: No Pertinent Family Hx Physical Exam Vital Signs Vital Sign - Last 12Hours 07/02/17 20:45 Temp 97.5 Pulse 100 Resp 20 B/P (MAP) 138/99 Pulse Ox 99 O2 Delivery Room Air Capillary Refill : General Appearance: WD/WN, no apparent distress HEENT: PERRL/EOMI, normal ENT inspection Respiratory: no respiratory distress, no accessory muscle use Cardiovascular: regular rate, rhythm, no murmur Gastrointestinal: normal bowel sounds, non tender Neurologic/Psychiatric: alert, normal mood/affect, oriented x 3 Appearance/Memory: disheveled, impaired insight Behavior/Eye Contact: cooperative Thoughts/Hallucinations: delusions, flight of ideas, paranoid Skin: normal color, warm/dry Laceration Repair : Suture Size: 3-0 Progress/Results/Core Measures Results/Orders Lab Results Laboratory Tests Test 07/02/17 21:25 07/02/17 21:26 Range/Units White Blood Count 6.4 4.3-11.0 10^3/uL Red Blood Count 4.73 4.35-5.85 10^6/uL Hemoglobin 14.6 11.5-16.0 G/DL Hematocrit 42 35-52 % Mean Corpuscular Volume 89 80-99 FL Mean Corpuscular Hemoglobin 31 25-34 PG Mean Corpuscular Hemoglobin Concent 35 32-36 G/DL Red Cell Distribution Width 12.8 10.0-14.5 % Platelet Count 210 130-400 10^3/uL Mean Platelet Volume 10.7 H 7.4-10.4 FL Neutrophils (%) (Auto) 45 42-75 % Lymphocytes (%) (Auto) 41 12-44 % Monocytes (%) (Auto) 10 0-12 % Eosinophils (%) (Auto) 4 0-10 % Basophils (%) (Auto) 0 0-10 % Neutrophils # (Auto) 2.9 1.8-7.8 X 10^3 Lymphocytes # (Auto) 2.6 1.0-4.0 X 10^3 Monocytes # (Auto) 0.6 0.0-1.0 X 10^3 Eosinophils # (Auto) 0.3 0.0-0.3 10^3/uL Basophils # (Auto) 0.0 0.0-0.1 10^3/uL Sodium Level 138 135-145 MMOL/L Potassium Level 3.6 3.6-5.0 MMOL/L Chloride Level 102 98-107 MMOL/L Carbon Dioxide Level 26 21-32 MMOL/L Anion Gap 10 5-14 MMOL/L Blood Urea Nitrogen 9 7-18 MG/DL Creatinine 0.81 0.60-1.30 MG/DL Estimat Glomerular Filtration Rate > 60 BUN/Creatinine Ratio 11 Glucose Level 91 70-105 MG/DL Calcium Level 9.5 8.5-10.1 MG/DL Total Bilirubin 0.5 0.1-1.0 MG/DL Aspartate Amino Transf (AST/SGOT) 35 H 5-34 U/L Alanine Aminotransferase (ALT/SGPT) 31 0-55 U/L Alkaline Phosphatase 58 40-136 U/L Total Protein 7.6 6.4-8.2 GM/DL Albumin 4.4 3.2-4.5 GM/DL Serum Alcohol < 10 <10 MG/DL Serum Test, Qualitative NEGATIVE NEGATIVE My Orders Orders - KAL LYONS APRN Ua Culture If Indicated (07/02/17 20:57) Cbc With Automated Diff (07/02/17 20:57) Comprehensive Metabolic Panel (07/02/17 20:57) Drug Screen Stat (Urine) (07/02/17 20:57) Urine Bedside (07/02/17 20:57) Alcohol (07/02/17 20:57) Urine Bedside (07/02/17 21:49) Hcg,Qualitative Serum (07/02/17 21:49) Ct Abdomen/Pelvis Wo (07/02/17 21:50) Vital Signs/I&O Vital Sign - Last 12Hours 07/02/17 20:45 Temp 97.5 Pulse 100 Resp 20 B/P (MAP) 138/99 Pulse Ox 99 O2 Delivery Room Air Departure Communication (Admissions) Progress Notes 2100-I did call [facility] at 7 p.m. to determine bed availability for inpatient psych on another patient. They have still not called back. [facility] does not have any inpatient female psychiatric beds. [facility] does not have any beds at this time. Patient is not suicidal or homicidal. 2228- Dianne from [facility] is here evaluating the patient. Patient herself refuses inpatient psychiatric treatment. 2236- we'll discharge the patient home for outpatient follow-up as the patient continues to refuse inpatient treatment even after speaking with Dianne from [facility]. Patient refuses to provide urine sample stating that she does not have to go and she went just before she got here. 2240- patient went outside to "talk to her mother". CT report is pending.* Refuses urine sample. Labs are unremarkable. Impression Impression: Primary Impression: Paranoid delusion Disposition: 01 HOME, SELF-CARE Condition: Stable Departure-Patient Inst. Decision time for Depature: 22:37 Referrals: [facility] (PCP/Family) Primary Care Physician Patient Instructions: NO INSTRUCTIONS GIVEN Add. Discharge Instructions: 1. Please follow-up with mental health tomorrow. You may call the saline at [phone] any time day or night for any concerns. All discharge instructions reviewed with patient and/or family. Voiced understanding. Copy Copies To 1: KARIN GRAHAM PETER J APRN Jul 02, 2017 21:01
[2017-07-02 21:36] LABS: BASOPHILS % (AUTO) 0 % (0-10); EOSINOPHILS # (AUTO) 0.3 10^3/uL (0.0-0.3); EOSINOPHILS % (AUTO) 4 % (0-10); LYMPHOCYTES # (AUTO) 2.6 X 10^3 (1.0-4.0); LYMPHOCYTES % (AUTO) 41 % (12-44); MEAN CORPUSCULAR HEMOGLOBIN 31 PG (25-34); MEAN CORPUSCULAR HGB CONC 35 G/DL (32-36); MEAN CORPUSCULAR VOLUME 89 FL (80-99); MEAN PLATELET VOLUME 10.7 FL (7.4-10.4); MONOCYTES # (AUTO) 0.6 X 10^3 (0.0-1.0); MONOCYTES % (AUTO) 10 % (0-12); NEUTROPHILS # (AUTO) 2.9 X 10^3 (1.8-7.8); NEUTROPHILS % (AUTO) 45 % (42-75); PLATELET COUNT 210 10^3/uL (130-400); RED BLOOD COUNT 4.73 10^6/uL (4.35-5.85); RED CELL DISTRIBUTION WIDTH 12.8 % (10.0-14.5); WHITE BLOOD COUNT 6.4 10^3/uL (4.3-11.0)
[2017-07-02 22:01] LABS: ALANINE AMINOTRANSFERASE 31 U/L (0-55); ALBUMIN 4.4 GM/DL (3.2-4.5); ALCOHOL < 10 MG/DL (<10); ANION GAP 10 MMOL/L (5-14); ASPARTATE AMINO TRANSFERASE 35 U/L (5-34); BILIRUBIN,TOTAL 0.5 MG/DL (0.1-1.0); BLOOD UREA NITROGEN 9 MG/DL (7-18); BUN/CREATININE RATIO 11; CALCIUM 9.5 MG/DL (8.5-10.1); CARBON DIOXIDE 26 MMOL/L (21-32); CHLORIDE 102 MMOL/L (98-107); CREATININE SERUM 0.81 MG/DL (0.60-1.30); GFR ESTIMATED > 60; GLUCOSE 91 MG/DL (70-105); POTASSIUM 3.6 MMOL/L (3.6-5.0); SODIUM 138 MMOL/L (135-145); TOTAL PROTEIN 7.6 GM/DL (6.4-8.2)
[2017-07-02 22:55] VITALS: BP 149/89
--- NOTE | 2017-07-03 06:46 | Diagnostic Imaging Report ---
PROCEDURE: CT abdomen and pelvis without contrast. TECHNIQUE: Multiple contiguous axial images were obtained through the abdomen and pelvis without the use of intravenous contrast. INDICATION: Lower abdominal pain. COMPARISON: None. FINDINGS: Lung bases are clear. The liver, gallbladder, pancreas, spleen, adrenals, kidneys, collecting systems and bladder are negative on this noncontrast exam. Normal appendix. Hysterectomy. No free intraperitoneal air or fluid. No lymphadenopathy. No evidence of bowel obstruction. There is a moderate amount of stool in the colon. Fat-containing midline abdominal wall hernia near the umbilicus measures up to 4.2 cm. Vascular coils in the pelvis. Calcified injection granuloma in the left hip. Osseous structures are unremarkable. IMPRESSION: 1. No acute CT findings in the abdomen or pelvis. 2. Moderate amount of stool throughout the colon may represent a degree of constipation. 3. Small fat containing anterior abdominal wall hernia near the umbilicus. Dictated by: Dictated on workstation # [id number]
== END 2017-07-02 22:55 | disposition home or self-care (01) ==
LOC: EDUNIT# 20:32 → ER 20:33
DX: F22 Delusional disorders (principal); F41.9 Anxiety disorder, unspecified; F32.9 Major depressive disorder, single episode, unspecified; M47.9 Spondylosis, unspecified; Z98.51 Tubal ligation status; Z87.59 Personal history of other complications of pregnancy, childbirth and the puerperium; Z77.22 Contact with and (suspected) exposure to environmental tobacco smoke (acute) (chronic); Z90.710 Acquired absence of both cervix and uterus
CPT/HCPCS: 36415; 74176; 80053; 80320; 84703; 85025; 99283

== ENCOUNTER 2017-08-21 12:06 | Emergency (ER) | payer SELFPAY ==
[~2017-08-21] VITALS: Ht 167.6 cm; Wt 85.3 kg
--- OUTSIDE RECORDS SUMMARY | 2017-08-21 12:13 | XMS REPORT | Clinical Summary ---
Author Author [facility] Organization [facility] Address Unknown Phone Unavailable Care Team Providers Care Reinsurance Clerk Name Role Phone PCP Unavailable Source Comments Some departments are not documenting in the electronic medical record. If you do not see the information that you expected, contact Release of Information in the Health Information Management department at [phone] for further assistance in locating additional records.[facility] [...]
--- OUTSIDE RECORDS SUMMARY | 2017-08-21 12:14 | XMS REPORT ---
Author Author PARKER ADI Organization [facility] Address [address] [place] [address] Care Team Providers Care Manager Oracle Name Role Phone PARKER ADI Unavailable PROBLEMS Type Condition ICD9-CM Code TBN24-HW Code Onset Dates Condition Status SNOMED Code Problem Anxiety F41.9 Active 40519012 Problem Neuropathy G62.9 Active 807092790 Problem Episodic mood disorder F39 Active 63156890 Problem Psychosis, unspecified psychosis type F29 Active 93789328 Problem Mood disorder F39 Active 38577347 Problem ADD (attention deficit disorder) F90.0 Active 742084090 ALLERGIES Substance Reaction Event Type Date Status Penicillin V Potassium rash Drug Allergy January, Active SOCIAL HISTORY Never Assessed PLAN OF CARE VITAL SIGNS MEDICATIONS Unknown Medications RESULTS No Results PROCEDURES No Known procedures [...]
[2017-08-21 12:54] LABS: BASOPHILS % (AUTO) 0 % (0-10); EOSINOPHILS # (AUTO) 0.2 10^3/uL (0.0-0.3); EOSINOPHILS % (AUTO) 3 % (0-10); LYMPHOCYTES % (AUTO) 26 % (12-44); MEAN CORPUSCULAR HEMOGLOBIN 32 PG (25-34); MEAN CORPUSCULAR HGB CONC 35 G/DL (32-36); MEAN CORPUSCULAR VOLUME 89 FL (80-99); MEAN PLATELET VOLUME 10.7 FL (7.4-10.4); MONOCYTES # (AUTO) 0.6 X 10^3 (0.0-1.0); MONOCYTES % (AUTO) 8 % (0-12); NEUTROPHILS # (AUTO) 4.8 X 10^3 (1.8-7.8); NEUTROPHILS % (AUTO) 63 % (42-75); PLATELET COUNT 220 10^3/uL (130-400); RED BLOOD COUNT 4.66 10^6/uL (4.35-5.85); RED CELL DISTRIBUTION WIDTH 12.7 % (10.0-14.5); WHITE BLOOD COUNT 7.7 10^3/uL (4.3-11.0)
--- NOTE | 2017-08-21 13:15 | ED Lower Extremity ---
General Chief Complaint: Lower Extremity Stated Complaint: BRUISING ON CALVES Nursing Triage Note: COMPLAINS OF BRUISING TO BILAT LOWER LEGS. DENIES INJURY. Nursing Sepsis Screen: No Definite Risk Source: patient Exam Limitations: no limitations History of Present Illness Time seen by provider: 13:11 Initial Comments The patient is a 37-year-old white female resistance with complaints of bruising over her anterior shins. This is apparently greater on the left than on the right. She also notices some discomfort in her legs which her friends of told her might be perez splints. She does not exercise. She does not take Aspirin or NSAIDs. She does not use any anticoagulants. Onset: other (1 month or more) Allergies and Home Medications Allergies Coded Allergies: Penicillins (Unverified Allergy, Mild, 04/22/09) codeine (Verified Allergy, Unknown, 04/22/09) ketorolac (Verified Allergy, Unknown, 04/22/09) nalbuphine (Verified Allergy, Unknown, 04/22/09) propoxyphene (Verified Allergy, Unknown, 04/22/09) Home Medications Alprazolam 1 Mg Tablet, #60 (Reported) Buspirone HCl 10 Mg Tablet, #28 (Reported) Cefdinir 300 Mg Capsule, 600 MG PO DAILY for 10 Days, #20 Ref 0 Prescribed by: JOSH VALDERRAMA on 05/22/17 1517 Gabapentin 100 Mg Capsule, #42 (Reported) Oxycodone HCl 20 Mg Tablet, #120 (Reported) Risperidone 1 Mg Tablet, #14 (Reported) Sulfamethoxazole/Trimethoprim 1 Each Tablet, 1 EACH PO BID, #14 Ref 0 Prescribed by: HERBERTH HUERTA on 09/17/16 1534 Constitutional: see HPI EENTM: no symptoms reported Respiratory: no symptoms reported Cardiovascular: no symptoms reported Gastrointestinal: no symptoms reported Genitourinary: no symptoms reported Musculoskeletal: no symptoms reported Skin: see HPI Psychiatric/Neurological: No Symptoms Reported Past Puvjgmh-Ruetpo-Kzwwqc Hx Patient Social History Alcohol Use: Occasionally Uses Recreational Drug Use: Yes (POT) Drug of Choice: METH Smoking Status: Current Everyday Smoker Type Used: Cigarettes 2nd Hand Smoke Exposure: Yes Recent Foreign Travel: No Contact w/Someone Who Travel: No Recent Infectious Disease Expo: No Recent Hopitalizations: No Immunizations Up To Date Tetanus Booster (TDap): Less than 5yrs Seasonal Allergies Seasonal Allergies: No Surgeries History of Surgeries: Yes (D&C, X 3, TRANSVAGINAL MESH) Surgeries: Abdominal, Bladder Surgery, Section, Hysterectomy Respiratory History of Respiratory Disorde: No Cardiovascular History of Cardiac Disorders: No Neurological History of Neurological Disord: No 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 System 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 Disorders: 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 Genitourinary History of Genitourinary Disor: No Gastrointestinal History of Gastrointestinal Di: No Musculoskeletal History of Musculoskeletal Dis: Yes (PT WITH CHRONIC PAIN COMPLAINTS- "DEGENERATIVE ARTHRITIS AND DDD" PER PT) Endocrine History of Endocrine Disorders: No HEENT History of HEENT Disorders: No Cancer History of Cancer: No Psychosocial History of Psychiatric Problem: Yes Behavioral Health Disorders: Anxiety, Bipolar, Personality Disorder, Depression Integumentary History of Skin or Integumenta: Yes (history of MRSA and multiple abscesses) Blood Transfusions History of Blood Disorders: No Adverse Reaction to a Blood Tr: No Family Medical History Significant Family History: No Pertinent Family Hx Physical Exam Vital Signs Vital Sign - Last 12Hours 08/21/17 12:20 Temp 97.7 Pulse 100 Resp 16 B/P (MAP) 139/99 (112) Pulse Ox 97 Capillary Refill : Less Than 3 Seconds General Appearance: WD/WN, no apparent distress HEENT: normal ENT inspection Neck: full range of motion Cardiovascular: normal peripheral pulses, regular rate, rhythm, no edema, no gallop, no JVD, no murmur Respiratory: chest non-tender, lungs clear, normal breath sounds, no respiratory distress, no accessory muscle use 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 They would average about 1 cm in diameter and are faintly blue in color. Similar lesions are not noted on the forearms or trunk. Laceration Repair : Suture Size: 3-0 Progress/Results/Core Measures Results/Orders Lab Results Laboratory Tests Test 08/21/17 12:46 Range/Units White Blood Count 7.7 4.3-11.0 10^3/uL Red Blood Count 4.66 4.35-5.85 10^6/uL Hemoglobin 14.7 11.5-16.0 G/DL Hematocrit 42 35-52 % Mean Corpuscular Volume 89 80-99 FL Mean Corpuscular Hemoglobin 32 25-34 PG Mean Corpuscular Hemoglobin Concent 35 32-36 G/DL Red Cell Distribution Width 12.7 10.0-14.5 % Platelet Count 220 130-400 10^3/uL Mean Platelet Volume 10.7 H 7.4-10.4 FL Neutrophils (%) (Auto) 63 42-75 % Lymphocytes (%) (Auto) 26 12-44 % Monocytes (%) (Auto) 8 0-12 % Eosinophils (%) (Auto) 3 0-10 % Basophils (%) (Auto) 0 0-10 % Neutrophils # (Auto) 4.8 1.8-7.8 X 10^3 Lymphocytes # (Auto) 2.0 1.0-4.0 X 10^3 Monocytes # (Auto) 0.6 0.0-1.0 X 10^3 Eosinophils # (Auto) 0.2 0.0-0.3 10^3/uL Basophils # (Auto) 0.0 0.0-0.1 10^3/uL Prothrombin Time 13.0 12.2-14.7 SEC INR Comment 1.0 0.8-1.4 Sodium Level 138 135-145 MMOL/L Potassium Level 3.9 3.6-5.0 MMOL/L Chloride Level 107 98-107 MMOL/L Carbon Dioxide Level 19 L 21-32 MMOL/L Anion Gap 12 5-14 MMOL/L Blood Urea Nitrogen 10 7-18 MG/DL Creatinine 0.79 0.60-1.30 MG/DL Estimat Glomerular Filtration Rate > 60 BUN/Creatinine Ratio 13 Glucose Level 83 70-105 MG/DL Calcium Level 9.2 8.5-10.1 MG/DL Total Bilirubin 0.8 0.1-1.0 MG/DL Aspartate Amino Transf (AST/SGOT) 21 5-34 U/L Alanine Aminotransferase (ALT/SGPT) 10 0-55 U/L Alkaline Phosphatase 58 40-136 U/L Total Protein 7.6 6.4-8.2 GM/DL Albumin 4.4 3.2-4.5 GM/DL My Orders Orders - DEBI LANG MD Cbc With Automated Diff (08/21/17 12:27) Comprehensive Metabolic Panel (08/21/17 12:27) Protime With Inr (08/21/17 12:27) Vital Signs/I&O Vital Sign - Last 12Hours 08/21/17 12:20 Temp 97.7 Pulse 100 Resp 16 B/P (MAP) 139/99 (112) Pulse Ox 97 Blood Pressure Mean: 112 Departure Impression Impression: Primary Impression: Easy bruisability Disposition: 01 HOME, SELF-CARE Condition: Stable/Unchanged Departure-Patient Inst. Decision time for Depature: 13:41 Referrals: [facility] (PCP) Primary Care Physician SIMONE KWAN (Family) Primary Care Physician Add. Discharge Instructions: All discharge instructions reviewed with patient and/or family. Voiced understanding. You have been prescribed permethrin as you requested for scabies. Scripts Permethrin (Permethrin) 60 Gm Cream..g. 60 GM TP ONCE, #1 TUBE Prov: DEBI LANG MD 08/21/17 DEBI LANG MD Aug 21, 2017 13:15
[2017-08-21 13:18] LABS: ALANINE AMINOTRANSFERASE 10 U/L (0-55); ALBUMIN 4.4 GM/DL (3.2-4.5); ANION GAP 12 MMOL/L (5-14); ASPARTATE AMINO TRANSFERASE 21 U/L (5-34); BILIRUBIN,TOTAL 0.8 MG/DL (0.1-1.0); BLOOD UREA NITROGEN 10 MG/DL (7-18); BUN/CREATININE RATIO 13; CALCIUM 9.2 MG/DL (8.5-10.1); CARBON DIOXIDE 19 MMOL/L (21-32); CHLORIDE 107 MMOL/L (98-107); CREATININE SERUM 0.79 MG/DL (0.60-1.30); GFR ESTIMATED > 60; GLUCOSE 83 MG/DL (70-105); POTASSIUM 3.9 MMOL/L (3.6-5.0); SODIUM 138 MMOL/L (135-145); TOTAL PROTEIN 7.6 GM/DL (6.4-8.2)
[2017-08-21] MEDS ORDERED: PERM60CR4 TP (13:45)
[2017-08-21 14:32] VITALS: BP 130/87
== END 2017-08-21 14:29 | disposition home or self-care (01) ==
LOC: EDUNIT# 12:06 → ER 12:09
DX: S80.11XA Contusion of right lower leg, initial encounter (principal); S80.12XA Contusion of left lower leg, initial encounter; F41.9 Anxiety disorder, unspecified; F31.9 Bipolar disorder, unspecified; F12.10 Cannabis abuse, uncomplicated; F17.210 Nicotine dependence, cigarettes, uncomplicated; Z87.59 Personal history of other complications of pregnancy, childbirth and the puerperium; Z90.710 Acquired absence of both cervix and uterus; Z86.14 Personal history of Methicillin resistant Staphylococcus aureus infection; X58.XXXA Exposure to other specified factors, initial encounter
CPT/HCPCS: 36415; 80053; 85025; 85610; 99283

== ENCOUNTER 2017-11-04 16:27 | Emergency (ER) | payer SELFPAY ==
[~2017-11-04] VITALS: Ht 167.6 cm; Wt 79.4 kg
[~2017-11-04 16:27] MED LIST changes: +PERM60CR4 TP
--- NOTE | 2017-11-04 16:55 | ED General ---
General Chief Complaint: General Problems/Pain Stated Complaint: TROUBLE URINATING,HAD MESH AT Nursing Triage Note: PT STATES SHE IS HAVING TROUBLE URINATING AND NOT SURE THE URINE IS COMING OUT THE RIGHT PLACE BECAUSE SHE IS HAVING WATERY STOOLS. Nursing Sepsis Screen: No Definite Risk Source of Information: Patient Exam Limitations: No Limitations History of Present Illness Date Seen by Provider: Nov 04, 2017 Time Seen by Provider: 16:53 Initial Comments To ER with 2-3 days of trouble urinating. She had some sort of abdominal mesh placed at 10 years ago. She states that she also is having watery diarrhea and believes this to be her urine leaking out of her rectum. Also complains of neck pain. Timing/Duration: 2-3 Days Severity: Moderate Associated Systoms: No Nausea/Vomiting Allergies and Home Medications Allergies Coded Allergies: Penicillins (Unverified Allergy, Mild, 04/22/09) codeine (Verified Allergy, Unknown, 04/22/09) ketorolac (Verified Allergy, Unknown, 04/22/09) nalbuphine (Verified Allergy, Unknown, 04/22/09) propoxyphene (Verified Allergy, Unknown, 04/22/09) Home Medications Alprazolam 1 Mg Tablet, #60 (Reported) Buspirone HCl 10 Mg Tablet, #28 (Reported) Cefdinir 300 Mg Capsule, 600 MG PO DAILY for 10 Days, #20 Ref 0 Prescribed by: JOSH VALDERRAMA on 05/22/17 1517 Gabapentin 100 Mg Capsule, #42 (Reported) Oxycodone HCl 20 Mg Tablet, #120 (Reported) Permethrin 60 Gm Cream..g., 60 GM TP ONCE, #1 Prescribed by: DEBI LANG on 08/21/17 1345 Risperidone 1 Mg Tablet, #14 (Reported) Sulfamethoxazole/Trimethoprim 1 Each Tablet, 1 EACH PO BID, #14 Ref 0 Prescribed by: HERBERTH HUERTA on 09/17/16 1534 Constitutional: see HPI EENTM: see HPI Respiratory: no symptoms reported Cardiovascular: no symptoms reported Gastrointestinal: diarrhea Genitourinary: no symptoms reported Musculoskeletal: no symptoms reported Skin: no symptoms reported Psychiatric/Neurological: No Symptoms Reported Hematologic/Lymphatic: No Symptoms Reported Past Beyrfml-Ksmxpi-Mmfdrd Hx Patient Social History Alcohol Use: Occasionally Uses Recreational Drug Use: Yes (STATES NOTHING CURRENT) Drug of Choice: METH Smoking Status: Current Everyday Smoker Type Used: Cigarettes 2nd Hand Smoke Exposure: Yes Recent Foreign Travel: No Contact w/Someone Who Travel: No Recent Infectious Disease Expo: No Recent Hopitalizations: No Immunizations Up To Date Tetanus Booster (TDap): Less than 5yrs Seasonal Allergies Seasonal Allergies: No Surgeries History of Surgeries: Yes (D&C, X 3, TRANSVAGINAL MESH) Surgeries: Abdominal, Bladder Surgery, Section, Hysterectomy Respiratory History of Respiratory Disorde: No Cardiovascular History of Cardiac Disorders: No Neurological History of Neurological Disord: No 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 System 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 Genitourinary History of Genitourinary Disor: No Gastrointestinal History of Gastrointestinal Di: No Musculoskeletal History of Musculoskeletal Dis: Yes (PT WITH CHRONIC PAIN COMPLAINTS- "DEGENERATIVE ARTHRITIS AND DDD" PER PT) Endocrine History of Endocrine Disorders: No HEENT History of HEENT Disorders: No Cancer History of Cancer: No Psychosocial History of Psychiatric Problem: Yes Behavioral Health Disorders: Anxiety, Bipolar, Personality Disorder, Depression Integumentary History of Skin or Integumenta: Yes (history of MRSA and multiple abscesses) Blood Transfusions History of Blood Disorders: No Adverse Reaction to a Blood Tr: No Family Medical History Significant Family History: No Pertinent Family Hx Physical Exam Vital Signs Vital Signs - First Documented 11/04/17 16:35 Temp 97.6 Pulse 93 Resp 18 B/P (MAP) 138/91 (107) Pulse Ox 96 Capillary Refill : Less Than 3 Seconds General Appearance: No Apparent Distress, WD/WN Eyes: Bilateral Eye Normal Inspection, Bilateral Eye PERRL, Bilateral Eye EOMI HEENT: PERRL/EOMI, TMs Normal Neck: Full Range of Motion, Normal Inspection Respiratory: Normal Breath Sounds, No Accessory Muscle Use, No Respiratory Distress Cardiovascular: Regular Rate, Rhythm, Normal Peripheral Pulses Gastrointestinal: Normal Bowel Sounds, Non Tender, Soft, Other (she does have a palpable supraumbilical abdominal wall nodule likely hernia without tenderness to palpation) Extremity: Normal Capillary Refill, Normal Inspection Neurologic/Psychiatric: Alert, Oriented x3, No Motor/Sensory Deficits Skin: Normal Color, Warm/Dry Laceration Repair : Suture Size: 3-0 Progress/Results/Core Measures Suspected Sepsis Recent Fever Within 48 Hours: No Infection Criteria Present: Suspected New Infection New/Unexplained Altered Menta: No Sepsis Screen: No Definite Risk Sepsis Diagnosis: SIRS Temperature:97.6 Pulse: 93 Respiratory Rate: 18 Laboratory Tests 11/04/17 17:10: White Blood Count 8.7 Blood Pressure 138 /91 Mean: 107 Laboratory Tests 11/04/17 17:10: Creatinine 0.83, Platelet Count 225, Total Bilirubin 0.4 Results/Orders Lab Results Laboratory Tests Test 11/04/17 16:45 11/04/17 17:10 Range/Units Urine Color YELLOW Urine Clarity CLEAR Urine pH 5 5-9 Urine Specific [place] 1.020 1.016-1.022 Urine Protein NEGATIVE NEGATIVE Urine Glucose (UA) NEGATIVE NEGATIVE Urine Ketones NEGATIVE NEGATIVE Urine Nitrite NEGATIVE NEGATIVE Urine Bilirubin NEGATIVE NEGATIVE Urine Urobilinogen NORMAL NORMAL MG/DL Urine Leukocyte Esterase NEGATIVE NEGATIVE Urine RBC (Auto) 2+ H NEGATIVE Urine RBC NONE /HPF Urine WBC NONE /HPF Urine Squamous Epithelial Cells 10-25 H /HPF Urine Crystals NONE /LPF Urine Bacteria TRACE /HPF Urine Casts NONE /LPF Urine Mucus NEGATIVE /LPF Urine Culture Indicated NO Urine Opiates Screen NEGATIVE NEGATIVE Urine Oxycodone Screen NEGATIVE NEGATIVE Urine Methadone Screen NEGATIVE NEGATIVE Urine Propoxyphene Screen NEGATIVE NEGATIVE Urine Barbiturates Screen NEGATIVE NEGATIVE Ur Tricyclic Antidepressants Screen NEGATIVE NEGATIVE Urine Phencyclidine Screen NEGATIVE NEGATIVE Urine Amphetamines Screen NEGATIVE NEGATIVE Urine Methamphetamines Screen NEGATIVE NEGATIVE Urine Benzodiazepines Screen POSITIVE H NEGATIVE Urine Cocaine Screen NEGATIVE NEGATIVE Urine Cannabinoids Screen NEGATIVE NEGATIVE White Blood Count 8.7 4.3-11.0 10^3/uL Red Blood Count 4.87 4.35-5.85 10^6/uL Hemoglobin 15.5 11.5-16.0 G/DL Hematocrit 43 35-52 % Mean Corpuscular Volume 89 80-99 FL Mean Corpuscular Hemoglobin 32 25-34 PG Mean Corpuscular Hemoglobin Concent 36 32-36 G/DL Red Cell Distribution Width 12.7 10.0-14.5 % Platelet Count 225 130-400 10^3/uL Mean Platelet Volume 10.5 H 7.4-10.4 FL Neutrophils (%) (Auto) 64 42-75 % Lymphocytes (%) (Auto) 19 12-44 % Monocytes (%) (Auto) 6 0-12 % Eosinophils (%) (Auto) 12 H 0-10 % Basophils (%) (Auto) 0 0-10 % Neutrophils # (Auto) 5.6 1.8-7.8 X 10^3 Lymphocytes # (Auto) 1.6 1.0-4.0 X 10^3 Monocytes # (Auto) 0.5 0.0-1.0 X 10^3 Eosinophils # (Auto) 1.0 H 0.0-0.3 10^3/uL Basophils # (Auto) 0.0 0.0-0.1 10^3/uL Sodium Level 139 135-145 MMOL/L Potassium Level 4.0 3.6-5.0 MMOL/L Chloride Level 108 H 98-107 MMOL/L Carbon Dioxide Level 22 21-32 MMOL/L Anion Gap 9 5-14 MMOL/L Blood Urea Nitrogen 16 7-18 MG/DL Creatinine 0.83 0.60-1.30 MG/DL Estimat Glomerular Filtration Rate > 60 BUN/Creatinine Ratio 19 Glucose Level 88 70-105 MG/DL Calcium Level 9.3 8.5-10.1 MG/DL Total Bilirubin 0.4 0.1-1.0 MG/DL Aspartate Amino Transf (AST/SGOT) 14 5-34 U/L Alanine Aminotransferase (ALT/SGPT) 12 0-55 U/L Alkaline Phosphatase 52 40-136 U/L Total Protein 7.4 6.4-8.2 GM/DL Albumin 4.5 3.2-4.5 GM/DL My Orders Orders - KAL LYONS APRN Ua Culture If Indicated (11/04/17 16:40) Drug Screen Stat (Urine) (11/04/17 16:51) Urine Bedside (11/04/17 16:51) Cbc With Automated Diff (11/04/17 16:51) Comprehensive Metabolic Panel (11/04/17 16:51) Vital Signs/I&O Vital Sign - Last 12Hours 11/04/17 16:35 Temp 97.6 Pulse 93 Resp 18 B/P (MAP) 138/91 (107) Pulse Ox 96 Capillary Refill : Less Than 3 Seconds Blood Pressure Mean: 107 Departure Communication (Admissions) Progress Notes She would like a prescription for some pain medicine for her neck pain which is chronic Impression Impression: Primary Impression: Abdominal wall hernia Additional Impression: Diarrhea Disposition: 01 HOME, SELF-CARE Condition: Stable Departure-Patient Inst. Decision time for Depature: 18:00 Referrals: [facility] (PCP) Primary Care Physician SIMONE KWAN (Family) Primary Care Physician OLE THOMPSON BRETT D DO JENKINS, XAVIER M MD Patient Instructions: Diarrhea in Adolescents and Adults Add. Discharge Instructions: 1. Call one of the surgeons tomorrow to make an appointment to be seen for treatment of your abdominal wall hernia 2. Return if concerns All discharge instructions reviewed with patient and/or family. Voiced understanding. Scripts Meloxicam (Meloxicam) 7.5 Mg Tablet 7.5 MG PO DAILY, #20 TAB Prov: KAL LYONS APRN 11/04/17 KAL LYONS APRN Nov 04, 2017 16:55
[2017-11-04 16:56] LABS: BILIRUBIN,URINE NEGATIVE (NEGATIVE); CLARITY,URINE CLEAR; COLOR,URINE YELLOW; GLUCOSE, URINE (UA) NEGATIVE (NEGATIVE); KETONES,URINE NEGATIVE (NEGATIVE); LEUKOCYTE ESTERASE ,URINE NEGATIVE (NEGATIVE); NITRITE,URINE NEGATIVE (NEGATIVE); PH,URINE 5 (5-9); PROTEIN,URINE NEGATIVE (NEGATIVE); UROBILINOGEN,URINE NORMAL (NORMAL)
[2017-11-04 17:04] LABS: BACTERIA,URINE TRACE /HPF
[2017-11-04 17:13] LABS: AMPHETAMINE SCREEN, URINE NEGATIVE (NEGATIVE); BARBITURATE SCREEN URINE NEGATIVE (NEGATIVE); BENZODIAZEPINES SCREEN URINE POSITIVE (NEGATIVE); CANNABINOID SCREEN, URINE NEGATIVE (NEGATIVE); COCAINE SCREEN URINE NEGATIVE (NEGATIVE); METHADONE STAT NEGATIVE (NEGATIVE); METHAMPHETAMINE SCREEN URINE S NEGATIVE (NEGATIVE); OPIATE SCREEN URINE NEGATIVE (NEGATIVE); OXYCODONE STAT NEGATIVE (NEGATIVE); TRICYCLIC ANTIDEPRESSANTS SCRE NEGATIVE (NEGATIVE)
[2017-11-04 17:14] LABS: PROPOXYPHENE STAT NEGATIVE (NEGATIVE)
[2017-11-04 17:24] LABS: BASOPHILS % (AUTO) 0 % (0-10); EOSINOPHILS % (AUTO) 12 % (0-10); HEMATOCRIT 43 % (35-52); HEMOGLOBIN 15.5 G/DL (11.5-16.0); LYMPHOCYTES # (AUTO) 1.6 X 10^3 (1.0-4.0); LYMPHOCYTES % (AUTO) 19 % (12-44); MEAN CORPUSCULAR HEMOGLOBIN 32 PG (25-34); MEAN CORPUSCULAR HGB CONC 36 G/DL (32-36); MEAN CORPUSCULAR VOLUME 89 FL (80-99); MEAN PLATELET VOLUME 10.5 FL (7.4-10.4); MONOCYTES # (AUTO) 0.5 X 10^3 (0.0-1.0); MONOCYTES % (AUTO) 6 % (0-12); NEUTROPHILS # (AUTO) 5.6 X 10^3 (1.8-7.8); NEUTROPHILS % (AUTO) 64 % (42-75); PLATELET COUNT 225 10^3/uL (130-400); RED BLOOD COUNT 4.87 10^6/uL (4.35-5.85); RED CELL DISTRIBUTION WIDTH 12.7 % (10.0-14.5); WHITE BLOOD COUNT 8.7 10^3/uL (4.3-11.0)
[2017-11-04 17:46] LABS: ALANINE AMINOTRANSFERASE 12 U/L (0-55); ALBUMIN 4.5 GM/DL (3.2-4.5); ALKALINE PHOSPHATASE 52 U/L (40-136); BILIRUBIN,TOTAL 0.4 MG/DL (0.1-1.0); BUN/CREATININE RATIO 19; CALCIUM 9.3 MG/DL (8.5-10.1); CARBON DIOXIDE 22 MMOL/L (21-32); CHLORIDE 108 MMOL/L (98-107); CREATININE SERUM 0.83 MG/DL (0.60-1.30); GFR ESTIMATED > 60; GLUCOSE 88 MG/DL (70-105); SODIUM 139 MMOL/L (135-145); TOTAL PROTEIN 7.4 GM/DL (6.4-8.2)
[2017-11-04] MEDS ORDERED: MELO7.5T46 PO (18:04)
[2017-11-04] MEDS ORDERED: NAPROXEN 250 MG (NAPROSYN) TABLET PO ONE (18:15)
[2017-11-04 18:18] VITALS: BP 138/91
== END 2017-11-04 18:18 | disposition home or self-care (01) ==
LOC: EDUNIT# 16:27 → ER 16:29
DX: K43.9 Ventral hernia without obstruction or gangrene (principal); R19.7 Diarrhea, unspecified; F41.9 Anxiety disorder, unspecified; F31.9 Bipolar disorder, unspecified; F12.90 Cannabis use, unspecified, uncomplicated; Z86.14 Personal history of Methicillin resistant Staphylococcus aureus infection; Z90.710 Acquired absence of both cervix and uterus; Z87.59 Personal history of other complications of pregnancy, childbirth and the puerperium; Z88.0 Allergy status to penicillin; Z88.1 Allergy status to other antibiotic agents; Z88.6 Allergy status to analgesic agent; Z98.890 Other specified postprocedural states
CPT/HCPCS: 36415; 80053; 80306; 81000; 85025; 99283

== ENCOUNTER 2017-11-25 10:32 | Emergency (ER) | payer SELFPAY ==
[~2017-11-25] VITALS: Ht 170.2 cm; Wt 83.9 kg
[~2017-11-25 10:32] MED LIST changes: +MELO7.5T46 PO
--- OUTSIDE RECORDS SUMMARY | 2017-11-25 11:11 | XMS REPORT | Clinical Summary ---
Author Author [facility] Organization [facility] Address Unknown Phone Unavailable Care Team Providers Care Sweatband Maker Name Role Phone Mau Alaniz PCP Tanya Tompkins MD Unavailable Riccardo Anderson MD Unavailable Juanis Olivas RN Unavailable Unavailable Kelly Tijerina APRN Unavailable Unavailable Source Comments Some departments are not documenting in the electronic medical record. If you do not see the information that you expected, contact Release of Information in the Health Information Management department at [phone] for further assistance in locating additional records.[facility] Allergies Active Allergy Reactions Severity Noted [...] 1998 CERVICAL CANCER SCREENING 2011 INFLUENZA VACCINE 06/16/2018 HIV SCREENING Completed 05/02/2010 Results Not on filefrom Last 3 Months
[2017-11-25 11:26] LABS: BASOPHILS % (AUTO) 0 % (0-10); EOSINOPHILS # (AUTO) 0.4 10^3/uL (0.0-0.3); EOSINOPHILS % (AUTO) 6 % (0-10); HEMATOCRIT 44 % (35-52); HEMOGLOBIN 15.4 G/DL (11.5-16.0); LYMPHOCYTES # (AUTO) 1.5 X 10^3 (1.0-4.0); LYMPHOCYTES % (AUTO) 23 % (12-44); MEAN CORPUSCULAR HEMOGLOBIN 32 PG (25-34); MEAN CORPUSCULAR HGB CONC 35 G/DL (32-36); MEAN CORPUSCULAR VOLUME 90 FL (80-99); MEAN PLATELET VOLUME 10.9 FL (7.4-10.4); MONOCYTES # (AUTO) 0.6 X 10^3 (0.0-1.0); MONOCYTES % (AUTO) 9 % (0-12); NEUTROPHILS # (AUTO) 4.1 X 10^3 (1.8-7.8); NEUTROPHILS % (AUTO) 63 % (42-75); PLATELET COUNT 222 10^3/uL (130-400); RED BLOOD COUNT 4.86 10^6/uL (4.35-5.85); RED CELL DISTRIBUTION WIDTH 12.8 % (10.0-14.5); WHITE BLOOD COUNT 6.5 10^3/uL (4.3-11.0)
[2017-11-25 11:27] LABS: BILIRUBIN,URINE NEGATIVE (NEGATIVE); CLARITY,URINE SLIGHTLY CLOUDY; COLOR,URINE YELLOW; GLUCOSE, URINE (UA) NEGATIVE (NEGATIVE); KETONES,URINE NEGATIVE (NEGATIVE); LEUKOCYTE ESTERASE ,URINE NEGATIVE (NEGATIVE); NITRITE,URINE NEGATIVE (NEGATIVE); PH,URINE 5 (5-9); PROTEIN,URINE 1+ (NEGATIVE); UROBILINOGEN,URINE NORMAL (NORMAL)
--- OUTSIDE RECORDS SUMMARY | 2017-11-25 11:33 | XMS REPORT | Continuity of Care Document ---
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 aspartate aminotransferase measurement (enzymatic activity/ volume) 16 U/L 5-34 Serum or plasma alanine aminotransferase measurement (enzymatic activity/volume ) 11 U/L 0-55 Serum or plasma protein measurement (mass/volume) 8.2 g/dL 6.4-8.2 Serum or plasma albumin measurement (mass/volume) 4.7 g/dL 3.2-4.5 Complete urinalysis with reflex to culture - 06/26/17 18:55 Urine color determination YELLOW NRG Urine clarity determination SLIGHTLY CLOUDY NRG Urine pH measurement by test strip 6 5-9 Specific gravity of urine by test strip 1.025 1.016- 1.022 Urine protein assay by test strip, semi-quantitative NEGATIVE NEGATIVE Urine glucose detection by automated test strip NEGATIVE NEGATIVE Erythrocytes detection in urine sediment by light microscopy 2+ NEGATIVE Urine ketones detection by automated test strip NEGATIVE NEGATIVE Urine nitrite detection by test strip NEGATIVE NEGATIVE Urine total bilirubin detection by test strip NEGATIVE NEGATIVE Urine urobilinogen measurement by automated test strip (mass/volume) 1 mg/dL NORMAL Urine leukocyte esterase detection by dipstick NEGATIVE NEGATIVE Automated urine sediment erythrocyte count by microscopy (number/high power field) [HPF] NRG Automated urine sediment leukocyte count by microscopy (number/high power field ) RARE NRG Bacteria detection in urine sediment by light microscopy MODERATE NRG Squamous epithelial cells detection in urine sediment by light microscopy >50 NRG Crystals detection in urine sediment by light microscopy NONE NRG Casts detection in urine sediment by light microscopy NONE NRG Mucus detection in urine sediment by light microscopy NEGATIVE NRG Complete urinalysis with reflex to culture NO NRG Urine drug screening test - 06/26/17 18:55 Urine phencyclidine detection by screening method NEGATIVE NEGATIVE Urine benzodiazepines detection by screening method POSITIVE NEGATIVE Urine cocaine detection NEGATIVE NEGATIVE Urine amphetamines detection by screening method NEGATIVE NEGATIVE Urine methamphetamine detection by screening method POSITIVE NEGATIVE Urine cannabinoids detection by screening method NEGATIVE NEGATIVE Urine opiates detection by screening method POSITIVE NEGATIVE Urine barbiturates detection NEGATIVE NEGATIVE Screening urine tricyclic antidepressants detection NEGATIVE NEGATIVE Urine methadone detection by screening method NEGATIVE NEGATIVE Urine oxycodone detection NEGATIVE NEGATIVE Urine propoxyphene detection NEGATIVE NEGATIVE Complete blood count (CBC) with automated white blood cell (WBC) differential - 07/02/17 21:25 Blood leukocytes automated count (number/volume) 6.4 10*3/uL 4.3-11.0 Blood erythrocytes automated count (number/volume) 4.73 10*6/uL 4.35-5.85 Venous blood hemoglobin measurement (mass/volume) 14.6 g/dL 11.5-16.0 Blood hematocrit (volume fraction) 42 % 35-52 Automated erythrocyte mean corpuscular volume 89 [foz_us] 80-99 Automated erythrocyte mean corpuscular hemoglobin (mass per erythrocyte) 31 pg 25-34 Automated erythrocyte mean corpuscular hemoglobin concentration measurement ( mass/volume) 35 g/dL 32-36 Automated erythrocyte distribution width ratio 12.8 % 10.0-14.5 Automated blood platelet count (count/volume) 210 10*3/uL 130-400 Automated blood platelet mean volume measurement 10.7 [foz_us] 7.4-10.4 Automated blood neutrophils/100 leukocytes 45 % 42-75 Automated blood lymphocytes/100 leukocytes 41 % 12-44 Blood monocytes/100 leukocytes 10 % 0-12 Automated blood eosinophils/100 leukocytes 4 % 0-10 Automated blood basophils/100 leukocytes 0 % 0-10 Blood neutrophils automated count (number/volume) 2.9 10*3 1.8-7.8 Blood lymphocytes automated count (number/volume) 2.6 10*3 1.0-4.0 Blood monocytes automated count (number/volume) 0.6 10*3 0.0-1.0 Automated eosinophil count 0.3 10*3/uL 0.0-0.3 Automated blood basophil count (count/volume) 0.0 10*3/uL 0.0-0.1 Comprehensive metabolic panel - 07/02/17 21:25 Serum or plasma sodium measurement (moles/volume) 138 mmol/L 135-145 Serum or plasma potassium measurement (moles/volume) 3.6 mmol/L 3.6-5.0 Serum or plasma chloride measurement (moles/volume) 102 mmol/L 98-107 Carbon dioxide 26 mmol/L 21-32 Serum or plasma anion gap determination (moles/volume) 10 mmol/L 5-14 Serum or plasma urea nitrogen measurement (mass/volume) 9 mg/dL 7-18 Serum or plasma creatinine measurement (mass/volume) 0.81 mg/dL 0.60-1.30 Serum or plasma urea nitrogen/creatinine mass ratio 11 NRG Serum or plasma creatinine measurement with calculation of estimated glomerular filtration rate > NRG Serum or plasma glucose measurement (mass/volume) 91 mg/dL 70-105 Serum or plasma calcium measurement (mass/volume) 9.5 mg/dL 8.5-10.1 Serum or plasma total bilirubin measurement (mass/volume) 0.5 mg/dL 0.1-1.0 Serum or plasma alkaline phosphatase measurement (enzymatic activity/volume) 58 U/L 40-136 Serum or plasma aspartate aminotransferase measurement (enzymatic activity/ volume) 35 U/L 5-34 Serum or plasma alanine aminotransferase measurement (enzymatic activity/volume ) 31 U/L 0-55 Serum or plasma protein measurement (mass/volume) 7.6 g/dL 6.4-8.2 Serum or plasma albumin measurement (mass/volume) 4.4 g/dL 3.2-4.5 Serum or plasma ethanol measurement (mass/volume) - 07/02/17 21:25 Serum or plasma ethanol measurement (mass/volume) < mg/dL <10 Serum or plasma choriogonadotropin ( test) detection - 07/02/17 21:26 Serum or plasma choriogonadotropin ( test) detection NEGATIVE NEGATIVE Complete blood count (CBC) with automated white blood cell (WBC) differential - 08/21/17 12:46 Blood leukocytes automated count (number/volume) 7.7 10*3/uL 4.3-11.0 Blood erythrocytes automated count (number/volume) 4.66 10*6/uL 4.35-5.85 Venous blood hemoglobin measurement (mass/volume) 14.7 g/dL 11.5-16.0 Blood hematocrit (volume fraction) 42 % 35-52 Automated erythrocyte mean corpuscular volume 89 [foz_us] 80-99 Automated erythrocyte mean corpuscular hemoglobin (mass per erythrocyte) 32 pg 25-34 Automated erythrocyte mean corpuscular hemoglobin concentration measurement ( mass/volume) 35 g/dL 32-36 Automated erythrocyte distribution width ratio 12.7 % 10.0-14.5 Automated blood platelet count (count/volume) 220 10*3/uL 130-400 Automated blood platelet mean volume measurement 10.7 [foz_us] 7.4-10.4 Automated blood neutrophils/100 leukocytes 63 % 42-75 Automated blood lymphocytes/100 leukocytes 26 % 12-44 Blood monocytes/100 leukocytes 8 % 0-12 Automated blood eosinophils/100 leukocytes 3 % 0-10 Automated blood basophils/100 leukocytes 0 % 0-10 Blood neutrophils automated count (number/volume) 4.8 10*3 1.8-7.8 Blood lymphocytes automated count (number/volume) 2.0 10*3 1.0-4.0 Blood monocytes automated count (number/volume) 0.6 10*3 0.0-1.0 Automated eosinophil count 0.2 10*3/uL 0.0-0.3 Automated blood basophil count (count/volume) 0.0 10*3/uL 0.0-0.1 PT panel in platelet poor plasma by coagulation assay - 08/21/17 12:46 Prothrombin time (PT) in platelet poor plasma by coagulation assay 13.0 s 12.2-14.7 INR in platelet poor plasma or blood by coagulation assay 1.0 0.8-1.4 Comprehensive metabolic panel - 08/21/17 12:46 Serum or plasma sodium measurement (moles/volume) 138 mmol/L 135-145 Serum or plasma potassium measurement (moles/volume) 3.9 mmol/L 3.6-5.0 Serum or plasma chloride measurement (moles/volume) 107 mmol/L 98-107 Carbon dioxide 19 mmol/L 21-32 Serum or plasma anion gap determination (moles/volume) 12 mmol/L 5-14 Serum or plasma urea nitrogen measurement (mass/volume) 10 mg/dL 7-18 Serum or plasma creatinine measurement (mass/volume) 0.79 mg/dL 0.60-1.30 Serum or plasma urea nitrogen/creatinine mass ratio 13 NRG Serum or plasma creatinine measurement with calculation of estimated glomerular filtration rate > NRG Serum or plasma glucose measurement (mass/volume) 83 mg/dL 70-105 Serum or plasma calcium measurement (mass/volume) 9.2 mg/dL 8.5-10.1 Serum or plasma total bilirubin measurement (mass/volume) 0.8 mg/dL 0.1-1.0 Serum or plasma alkaline phosphatase measurement (enzymatic activity/volume) 58 U/L 40-136 Serum or plasma aspartate aminotransferase measurement (enzymatic activity/ volume) 21 U/L 5-34 Serum or plasma alanine aminotransferase measurement (enzymatic activity/volume ) 10 U/L 0-55 Serum or plasma protein measurement (mass/volume) 7.6 g/dL 6.4-8.2 Serum or plasma albumin measurement (mass/volume) 4.4 g/dL 3.2-4.5 Complete urinalysis with reflex to culture - 11/04/17 16:45 Urine color determination YELLOW NRG Urine clarity determination CLEAR NRG Urine pH measurement by test strip 5 5-9 Specific gravity of urine by test strip 1.020 1.016- 1.022 Urine protein assay by test strip, semi-quantitative NEGATIVE NEGATIVE Urine glucose detection by automated test strip NEGATIVE NEGATIVE Erythrocytes detection in urine sediment by light microscopy 2+ NEGATIVE Urine ketones detection by automated test [...] NO NRG Urine drug screening test - 11/04/17 16:45 Urine phencyclidine detection by screening method NEGATIVE NEGATIVE Urine benzodiazepines detection by screening method POSITIVE NEGATIVE Urine cocaine detection NEGATIVE NEGATIVE Urine amphetamines detection by screening method NEGATIVE NEGATIVE Urine methamphetamine detection by screening method NEGATIVE NEGATIVE Urine cannabinoids detection by screening method NEGATIVE NEGATIVE Urine opiates detection by screening method NEGATIVE NEGATIVE Urine barbiturates detection NEGATIVE NEGATIVE Screening urine tricyclic antidepressants detection NEGATIVE NEGATIVE Urine methadone detection by screening method NEGATIVE NEGATIVE Urine oxycodone detection NEGATIVE NEGATIVE Urine propoxyphene detection NEGATIVE NEGATIVE Complete blood count (CBC) with automated white blood cell (WBC) differential - 11/04/17 17:10 Blood leukocytes automated count (number/volume) 8.7 10*3/uL 4.3-11.0 Blood erythrocytes automated count (number/volume) 4.87 10*6/uL 4.35-5.85 Venous blood hemoglobin measurement (mass/volume) 15.5 g/dL 11.5-16.0 Blood hematocrit (volume fraction) 43 % 35-52 Automated erythrocyte mean corpuscular volume 89 [foz_us] 80-99 Automated erythrocyte mean corpuscular hemoglobin (mass per erythrocyte) 32 pg 25-34 Automated erythrocyte mean corpuscular hemoglobin concentration measurement ( mass/volume) 36 g/dL 32-36 Automated erythrocyte distribution width ratio 12.7 % 10.0-14.5 Automated blood platelet count (count/volume) 225 10*3/uL 130-400 Automated blood platelet mean volume measurement 10.5 [foz_us] 7.4-10.4 Automated blood neutrophils/100 leukocytes 64 % 42-75 Automated blood lymphocytes/100 leukocytes 19 % 12-44 Blood monocytes/100 leukocytes 6 % 0-12 Automated blood eosinophils/100 leukocytes 12 % 0-10 Automated blood basophils/100 leukocytes 0 % 0-10 Blood neutrophils automated count (number/volume) 5.6 10*3 1.8-7.8 Blood lymphocytes automated count (number/volume) 1.6 10*3 1.0-4.0 Blood monocytes automated count (number/volume) 0.5 10*3 0.0-1.0 Automated eosinophil count 1.0 10*3/uL 0.0-0.3 Automated blood basophil count (count/volume) 0.0 10*3/uL 0.0-0.1 Comprehensive metabolic panel - 11/04/17 17:10 Serum or plasma sodium measurement (moles/volume) 139 mmol/L 135-145 Serum or plasma potassium measurement (moles/volume) 4.0 mmol/L 3.6-5.0 Serum or plasma chloride measurement (moles/volume) 108 mmol/L 98-107 Carbon dioxide 22 mmol/L 21-32 Serum or plasma anion gap determination (moles/volume) 9 mmol/L 5-14 Serum or plasma urea nitrogen measurement (mass/volume) 16 mg/dL 7-18 Serum or plasma creatinine measurement (mass/volume) 0.83 mg/dL 0.60-1.30 Serum or plasma urea nitrogen/creatinine mass ratio 19 NRG Serum or plasma creatinine measurement with calculation of estimated glomerular filtration rate > NRG Serum or plasma glucose measurement (mass/volume) 88 mg/dL 70-105 Serum or plasma calcium measurement (mass/volume) 9.3 mg/dL 8.5-10.1 Serum or plasma total bilirubin measurement (mass/volume) 0.4 mg/dL 0.1-1.0 Serum or plasma alkaline phosphatase measurement (enzymatic activity/volume) 52 U/L 40-136 Serum or plasma aspartate aminotransferase measurement (enzymatic activity/ volume) 14 U/L 5-34 Serum or plasma alanine aminotransferase measurement (enzymatic activity/volume ) 12 U/L 0-55 Serum or plasma protein measurement (mass/volume) 7.4 g/dL 6.4-8.2 Serum or plasma albumin measurement (mass/volume) 4.5 g/dL 3.2-4.5 Encounters ACCT No. Visit Date/Time Discharge Status Pt. Type Provider Facility Loc./Unit Complaint [id number] 12/16/2014 13:53:00 12/16/2014 23:59:59 CLS Outpatient KARIN GRAHAM DO [id number] 07/19/2014 10:06:00 07/19/2014 23:59:59 CLS Outpatient JARON ALVAREZ MD [id number] 06/14/2014 15:51:00 06/14/2014 23:59:59 CLS Outpatient PIO SEGURA APRN [id number] 05/12/2014 11:05:00 05/12/2014 23:59:59 CLS Outpatient PIO SEGURA APRN [id number] 04/08/2014 16:04:00 04/08/2014 23:59:59 CLS Outpatient KARIN GRAHAM DO [id number] 11/13/2013 14:42:00 11/13/2013 23:59:59 CLS Outpatient PIO SEGURA APRN [id number] 08/11/2013 10:41:00 08/11/2013 23:59:59 CLS Outpatient PIO SEGURA APRN [id number] 09/17/2012 16:04:00 09/17/2012 23:59:59 CLS Outpatient PIO SEGURA APRN [id number] 02/05/2012 14:14:00 02/05/2012 23:59:59 CLS Outpatient [id number] 11/04/2017 16:29:00 11/04/2017 18:18:00 DIS Outpatient KAL LYONS APRN [facility] ER TROUBLE URINATING,HAD MESH AT KU [id number] 08/21/2017 12:09:00 08/21/2017 14:29:00 DIS Emergency DEBI LANG MD [facility] ER BRUISING ON CALVES [id number] 07/02/2017 20:33:00 07/02/2017 22:55:00 DIS Emergency KAL LYONS APRN [facility] ER PSYCH EVAL [id number] 06/26/2017 17:46:00 06/26/2017 19:44:00 DIS Emergency KAL LYONS APRN [facility] ER PELVIC/ABDOMINAL PAIN [id number] 05/22/2017 14:46:00 05/22/2017 15:22:00 DIS Emergency JOSH VALDERRAMA MD [facility] ER SINUS INFECTION/FACIAL SWELLING [id number] 03/28/2017 16:37:00 03/28/2017 19:00:00 DIS Emergency KAL LYONS APRN [facility] ER NECK PAIN/HEADACHES [id number] 03/18/2017 10:37:00 03/18/2017 12:15:00 DIS Emergency KAL LYONS APRN [facility] ER ANXIETY [id number] 12/30/2016 23:53:00 12/31/2016 02:55:00 DIS Emergency JANNIE GLOVER, JOSH Estes [facility] ER HIP PAIN AB PAIN [id number] 12/29/2016 11:14:00 12/29/2016 14:39:00 DIS Emergency KAL LYONS TECHNICAL CLERK [facility] ER LEG/BACK PAIN [id number] 09/26/2016 16:29:00 09/26/2016 17:06:00 DIS Emergency HERBERTH CH [facility] ER EYE PAIN,RIB PAIN [id number] 09/22/2016 10:28:00 09/22/2016 11:04:00 DIS Emergency TAMIKO GLOVER, SIVA S [facility] ER STOMACH PAIN [id number] 09/17/2016 12:27:00 09/17/2016 15:45:00 DIS Emergency HERBERTH CH [facility] ER R WRIST BITE [id number] 09/13/2016 17:08:00 09/13/2016 19:13:00 DIS Emergency ARTEMADAMS Jaramillo [facility] ER ABD PAIN [id number] 07/18/2016 16:33:00 07/18/2016 23:59:59 CLS Outpatient NANO OJEDA TECHNICAL CLERK [facility] RAD M54.2 [id number] 06/15/2016 22:46:00 06/16/2016 01:29:00 DIS Emergency ARTEMADAMS Jaramillo [facility] ER STEPPED ON GLASS IN R FOOT [id number] 05/10/2016 11:42:00 05/10/2016 12:34:00 DIS Emergency KAL LYONS APRN [facility] ER SPIDER BITE [id number] 01/17/2016 22:20:00 01/17/2016 22:40:00 DIS Emergency KAL LYONS APRN [facility] ER WOUND CHECK [id number] 01/16/2016 19:42:00 01/16/2016 20:31:00 DIS Emergency KAL LYONS TECHNICAL CLERK [facility] ER WOUND CHECK [id number] 01/14/2016 18:05:00 01/14/2016 19:26:00 DIS Emergency HERBERTH CH [facility] ER LOWER LEFT SIDE ABSCESS [id number] 11/05/2015 18:44:00 11/05/2015 22:45:00 DIS Emergency DEANNA RONDAHERBERTH [facility] ER SKIN ISSUES/POSS INSECT BITE [id number] 08/29/2015 14:03:00 08/29/2015 14:29:00 DIS Emergency TERESO WONG DO K [facility] ER [id number] 08/06/2015 19:21:00 08/06/2015 21:43:00 DIS Emergency MARVIN DOTERESO K [facility] ER [id number] 02/09/2015 17:56:00 02/09/2015 20:41:00 DIS Emergency KAL LYONS APRN [facility] ER [id number] 12/07/2014 14:38:00 12/07/2014 15:50:00 DIS Emergency ALMA HERRON MD [facility] ER [id number] 08/08/2014 15:27:00 08/08/2014 17:12:00 DIS Emergency TREY BARBOZA MD [facility] ER [id number] 12/03/2014 14:10:00 Document Registration [id number] 08/08/2014 16:45:00 Document Registration [id number] 08/08/2014 16:45:00 Document Registration [id number] 06/26/2011 12:55:00 Document Registration [id number] 03/29/2011 00:30:00 Document Registration [id number] 03/25/2011 22:29:00 Document Registration [id number] 01/02/2011 19:58:00 Document Registration [id number] 06/03/2010 00:26:00 Document Registration [id number] 05/18/2010 19:38:00 Document Registration [id number] 05/01/2010 19:15:00 Document Registration [id number] 04/27/2010 06:45:00 Document Registration [id number] 04/21/2010 22:35:00 Document Registration [id number] 04/12/2010 22:27:00 Document Registration
[2017-11-25 11:35] LABS: BACTERIA,URINE FEW /HPF; SQUAMOUS EPITHELIAL CELL,UR >50 /HPF
[2017-11-25 11:38] LABS: AMPHETAMINE SCREEN, URINE NEGATIVE (NEGATIVE); BARBITURATE SCREEN URINE NEGATIVE (NEGATIVE); BENZODIAZEPINES SCREEN URINE POSITIVE (NEGATIVE); CANNABINOID SCREEN, URINE NEGATIVE (NEGATIVE); COCAINE SCREEN URINE NEGATIVE (NEGATIVE); METHADONE STAT NEGATIVE (NEGATIVE); METHAMPHETAMINE SCREEN URINE S NEGATIVE (NEGATIVE); OPIATE SCREEN URINE POSITIVE (NEGATIVE); OXYCODONE STAT NEGATIVE (NEGATIVE); PROPOXYPHENE STAT NEGATIVE (NEGATIVE); TRICYCLIC ANTIDEPRESSANTS SCRE NEGATIVE (NEGATIVE)
[2017-11-25 11:45] LABS: ALANINE AMINOTRANSFERASE 42 U/L (0-55); ALBUMIN 4.5 GM/DL (3.2-4.5); ALKALINE PHOSPHATASE 47 U/L (40-136); BILIRUBIN,TOTAL 0.7 MG/DL (0.1-1.0); BUN/CREATININE RATIO 22; CALCIUM 9.1 MG/DL (8.5-10.1); CARBON DIOXIDE 23 MMOL/L (21-32); CHLORIDE 109 MMOL/L (98-107); CREATININE SERUM 0.78 MG/DL (0.60-1.30); GFR ESTIMATED > 60; GLUCOSE 111 MG/DL (70-105); LIPASE 23 U/L (8-78); SODIUM 138 MMOL/L (135-145); TOTAL PROTEIN 8.3 GM/DL (6.4-8.2)
[2017-11-25] MEDS ORDERED: NS IV 1000 ML 1,000 ML IV SCH (12:02)
[2017-11-25 12:20] LABS: MAGNESIUM 2.4 MG/DL (1.8-2.4)
[2017-11-25 12:22] LABS: POTASSIUM 4.5 MMOL/L (3.6-5.0)
[2017-11-25 12:46] LABS: TSH (THYROID ANALYZER) 0.54 UIU/ML (0.35-4.94)
--- NOTE | 2017-11-25 12:53 | ED General ---
General Chief Complaint: General Problems/Pain Stated Complaint: FEELS DEHYDRATED Nursing Triage Note: ARRIVED VIA AMB TO ROOM 06. PT STATES SHE THINKS SHE IS DEHYDRATED BECAUSE SHE DOES NOT WANT TO GET OUT OF BED IN THE MORNINGS. STATES SHE HAS BEEN HERE 13 TIMES AND NO ONE WILL ADMIT. Nursing Sepsis Screen: No Definite Risk Source of Information: Patient Exam Limitations: No Limitations History of Present Illness Date Seen by Provider: Nov 25, 2017 Time Seen by Provider: 10:50 Initial Comments This 37-year-old woman presents to the emergency room with complaints of feeling very fatigued recently. She stated she has not been able to get up off the couch because of extreme fatigue. She feels dehydrated although she has been drinking fluid. She has had some diarrhea recently. She does have history of a fat-containing abdominal hernia which was identified on previous imaging. She denies any urinary symptoms. She has a history of methamphetamine abuse but states it has been at least one month since she has used. One of the reason she feels she is dehydrated is that her skin is very dry and itchy. Patient avoids eye contact and is irritable. Allergies and Home Medications Allergies Coded Allergies: Penicillins (Unverified Allergy, Mild, 04/22/09) codeine (Verified Allergy, Unknown, 04/22/09) ketorolac (Verified Allergy, Unknown, 04/22/09) nalbuphine (Verified Allergy, Unknown, 04/22/09) propoxyphene (Verified Allergy, Unknown, 04/22/09) Home Medications Cefdinir 300 Mg Capsule, 600 MG PO DAILY Prescribed by: JOSH VALDERRAMA on 05/22/17 1517 Meloxicam 7.5 Mg Tablet, 7.5 MG PO DAILY Prescribed by: KAL LYONS on 11/04/17 1804 Permethrin 60 Gm Cream..g., 60 GM TP ONCE Prescribed by: DEBI LANG on 08/21/17 1345 Sulfamethoxazole/Trimethoprim 1 Each Tablet, 1 EACH PO BID Prescribed by: HERBERTH HUERTA on 09/17/16 1534 Patient Home Medication List Home Medication List Reviewed: Yes Constitutional: see HPI EENTM: no symptoms reported Respiratory: no symptoms reported Cardiovascular: no symptoms reported Gastrointestinal: see HPI Genitourinary: no symptoms reported : No Musculoskeletal: no symptoms reported Skin: see HPI Psychiatric/Neurological: See HPI Hematologic/Lymphatic: No Symptoms Reported Past Fhwijoc-Ltpzqp-Wchfel Hx Patient Social History Alcohol Use: Denies Use Recreational Drug Use: Yes Drug of Choice: Methamphetamines Type Used: Cigarettes 2nd Hand Smoke Exposure: Yes Recent Foreign Travel: No Contact w/Someone Who Travel: No Recent Infectious Disease Expo: No Recent Hopitalizations: No Immunizations Up To Date Tetanus Booster (TDap): Less than 5yrs Seasonal Allergies Seasonal Allergies: No Surgeries History of Surgeries: Yes (D&C, X 3, TRANSVAGINAL MESH) Surgeries: Abdominal, Bladder Surgery, Section, Hysterectomy Respiratory History of Respiratory Disorde: No Cardiovascular History of Cardiac Disorders: No Neurological History of Neurological Disord: No 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 System 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 Genitourinary History of Genitourinary Disor: No Gastrointestinal History of Gastrointestinal Di: No Musculoskeletal History of Musculoskeletal Dis: Yes (PT WITH CHRONIC PAIN COMPLAINTS- "DEGENERATIVE ARTHRITIS AND DDD" PER PT) Endocrine History of Endocrine Disorders: No HEENT History of HEENT Disorders: No Cancer History of Cancer: No Psychosocial History of Psychiatric Problem: Yes Behavioral Health Disorders: Anxiety, Bipolar, Personality Disorder, Depression Integumentary History of Skin or Integumenta: Yes (history of MRSA and multiple abscesses) Blood Transfusions History of Blood Disorders: No Adverse Reaction to a Blood Tr: No Family Medical History Significant Family History: No Pertinent Family Hx Physical Exam Vital Signs Vital Signs - First Documented 11/25/17 10:40 Temp 96.5 Pulse 74 Resp 18 B/P (MAP) 153/95 (114) Pulse Ox 98 Capillary Refill : Less Than 3 Seconds General Appearance: No Apparent Distress, WD/WN HEENT: PERRL/EOMI, Normal ENT Inspection, Pharynx Normal Neck: Normal Inspection Respiratory: Lungs Clear, Normal Breath Sounds, No Accessory Muscle Use, No Respiratory Distress Cardiovascular: Regular Rate, Rhythm, No Edema, No Murmur Gastrointestinal: Normal Bowel Sounds, Soft, Hernia (umbilical hernia as palpable to the left and superior to the umbilicus. It is mildly tender.) Extremity: Normal Inspection, No Pedal Edema Neurologic/Psychiatric: Alert, Oriented x3, No Motor/Sensory Deficits, social economist II- XII Norm as Tested, Other (irritable, avoids eye contact) Laceration Repair : Suture Size: 3-0 Progress/Results/Core Measures Suspected Sepsis Recent Fever Within 48 Hours: No Infection Criteria Present: None New/Unexplained Altered Menta: No Sepsis Screen: No Definite Risk Sepsis Diagnosis: SIRS Temperature:96.5 Pulse: 74 Respiratory Rate: 18 Laboratory Tests 11/25/17 11:17: White Blood Count 6.5 Blood Pressure 153 /95 Mean: 114 Laboratory Tests 11/25/17 11:17: Platelet Count 222 11/25/17 11:41: Creatinine 0.78, Total Bilirubin 0.7 Results/Orders Lab Results Laboratory Tests Test 11/25/17 11:17 11/25/17 11:20 11/25/17 11:41 Range/Units White Blood Count 6.5 4.3-11.0 10^3/uL Red Blood Count 4.86 4.35-5.85 10^6/uL Hemoglobin 15.4 11.5-16.0 G/DL Hematocrit 44 35-52 % Mean Corpuscular Volume 90 80-99 FL Mean Corpuscular Hemoglobin 32 25-34 PG Mean Corpuscular Hemoglobin Concent 35 32-36 G/DL Red Cell Distribution Width 12.8 10.0-14.5 % Platelet Count 222 130-400 10^3/uL Mean Platelet Volume 10.9 H 7.4-10.4 FL Neutrophils (%) (Auto) 63 42-75 % Lymphocytes (%) (Auto) 23 12-44 % Monocytes (%) (Auto) 9 0-12 % Eosinophils (%) (Auto) 6 0-10 % Basophils (%) (Auto) 0 0-10 % Neutrophils # (Auto) 4.1 1.8-7.8 X 10^3 Lymphocytes # (Auto) 1.5 1.0-4.0 X 10^3 Monocytes # (Auto) 0.6 0.0-1.0 X 10^3 Eosinophils # (Auto) 0.4 H 0.0-0.3 10^3/uL Basophils # (Auto) 0.0 0.0-0.1 10^3/uL Magnesium Level 2.4 1.8-2.4 MG/DL TSH Nikolai Testing 0.54 0.35-4.94 UIU/ML Serum Test, Qualitative NEGATIVE NEGATIVE Urine Color YELLOW Urine Clarity SLIGHTLY CLOUDY Urine pH 5 5-9 Urine Specific [place] 1.020 1.016-1.022 Urine Protein 1+ H NEGATIVE Urine Glucose (UA) NEGATIVE NEGATIVE Urine Ketones NEGATIVE NEGATIVE Urine Nitrite NEGATIVE NEGATIVE Urine Bilirubin NEGATIVE NEGATIVE Urine Urobilinogen NORMAL NORMAL MG/DL Urine Leukocyte Esterase NEGATIVE NEGATIVE Urine RBC (Auto) 2+ H NEGATIVE Urine RBC 5-10 H /HPF Urine WBC NONE /HPF Urine Squamous Epithelial Cells >50 H /HPF Urine Crystals NONE /LPF Urine Bacteria FEW H /HPF Urine Casts NONE /LPF Urine Mucus NEGATIVE /LPF Urine Culture Indicated NO Urine Opiates Screen POSITIVE H NEGATIVE Urine Oxycodone Screen NEGATIVE NEGATIVE Urine Methadone Screen NEGATIVE NEGATIVE Urine Propoxyphene Screen NEGATIVE NEGATIVE Urine Barbiturates Screen NEGATIVE NEGATIVE Ur Tricyclic Antidepressants Screen NEGATIVE NEGATIVE Urine Phencyclidine Screen NEGATIVE NEGATIVE Urine Amphetamines Screen NEGATIVE NEGATIVE Urine Methamphetamines Screen NEGATIVE NEGATIVE Urine Benzodiazepines Screen POSITIVE H NEGATIVE Urine Cocaine Screen NEGATIVE NEGATIVE Urine Cannabinoids Screen NEGATIVE NEGATIVE Sodium Level 138 135-145 MMOL/L Potassium Level 4.5 3.6-5.0 MMOL/L Chloride Level 109 H 98-107 MMOL/L Carbon Dioxide Level 23 21-32 MMOL/L Anion Gap 6 5-14 MMOL/L Blood Urea Nitrogen 17 7-18 MG/DL Creatinine 0.78 0.60-1.30 MG/DL Estimat Glomerular Filtration Rate > 60 BUN/Creatinine Ratio 22 Glucose Level 111 H 70-105 MG/DL Calcium Level 9.1 8.5-10.1 MG/DL Total Bilirubin 0.7 0.1-1.0 MG/DL Aspartate Amino Transf (AST/SGOT) 50 H 5-34 U/L Alanine Aminotransferase (ALT/SGPT) 42 0-55 U/L Alkaline Phosphatase 47 40-136 U/L Total Protein 8.3 H 6.4-8.2 GM/DL Albumin 4.5 3.2-4.5 GM/DL Lipase 23 8-78 U/L My Orders Orders - TREY BARBOZA MD Cbc With Automated Diff (11/25/17 11:03) Comprehensive Metabolic Panel (11/25/17 11:03) Drug Screen Stat (Urine) (11/25/17 11:03) Hcg,Qualitative Serum (11/25/17 11:03) Lipase (11/25/17 11:03) Ua Culture If Indicated (11/25/17 11:03) Saline Lock/Iv-Start (11/25/17 11:03) Ns Iv 1000 Ml (Sodium Chloride 0.9%) (11/25/17 12:02) Magnesium (11/25/17 12:07) Thyroid Analyzer (11/25/17 12:07) Vital Signs/I&O Vital Sign - Last 12Hours 11/25/17 10:40 Temp 96.5 Pulse 74 Resp 18 B/P (MAP) 153/95 (114) Pulse Ox 98 Capillary Refill : Less Than 3 Seconds Blood Pressure Mean: 114 Progress Note : Progress Note Labs were pursued. Patient was initially thought to be hyperkalemic with a potassium of 6.1. However, lab then identified the sample was hemolyzed. A repeat draw demonstrated normal potassium. Patient did receive a liter of IV normal saline prior to dismissal. Departure Impression Impression: Primary Impression: Fatigue Qualified Codes: R53.83 - Other fatigue Additional Impressions: Diarrhea Qualified Codes: R19.7 - Diarrhea, unspecified Abdominal hernia Qualified Codes: K46.9 - Unspecified abdominal hernia without obstruction or gangrene Disposition: HOME, SELF-CARE Condition: Improved Departure-Patient Inst. Decision time for Depature: 12:30 Referrals: [facility] [place] (PCP) Primary Care Physician SIMONE KWAN (Family) Primary Care Physician Patient Instructions: Abdominal Hernia (DC) Add. Discharge Instructions: Drink plenty of clear liquids. You may take Tylenol (acetaminophen) and/or ibuprofen for treatment of pain associated with your abdominal hernia. Seek referral to a general surgeon for further evaluation of your hernia as previously instructed. Follow-up with your primary care provider as soon as possible. Return to care if you have worsening symptoms. All discharge instructions reviewed with patient and/or family. Voiced understanding. TREY BARBOZA MD Nov 25, 2017 12:53
[2017-11-25 13:50] VITALS: BP 112/56
== END 2017-11-25 13:51 | disposition home or self-care (01) ==
LOC: EDUNIT# 10:32 → ER 10:34
DX: R53.83 Other fatigue (principal); R19.7 Diarrhea, unspecified; K46.9 Unspecified abdominal hernia without obstruction or gangrene; F41.9 Anxiety disorder, unspecified; F31.9 Bipolar disorder, unspecified; Z77.22 Contact with and (suspected) exposure to environmental tobacco smoke (acute) (chronic); Z86.14 Personal history of Methicillin resistant Staphylococcus aureus infection; Z90.710 Acquired absence of both cervix and uterus; Z87.59 Personal history of other complications of pregnancy, childbirth and the puerperium; Z98.890 Other specified postprocedural states; Z88.0 Allergy status to penicillin; Z88.5 Allergy status to narcotic agent; Z88.6 Allergy status to analgesic agent; Z88.8 Allergy status to other drugs, medicaments and biological substances
CPT/HCPCS: 36415; 80053; 80306; 81000; 83690; 83735; 84443; 84703; 85025; 96360

== ENCOUNTER 2017-12-18 14:23 | Emergency (ER) | payer SELFPAY ==
[~2017-12-18] VITALS: Ht 170.2 cm; Wt 83.9 kg
--- OUTSIDE RECORDS SUMMARY | 2017-12-18 14:29 | XMS REPORT | Clinical Summary ---
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 If you do not see the information that you expected, contact Release of Information in the Health Information Management department at [phone] for further assistance in locating additional records.[facility] Allergies Active Allergy Reactions Severity Noted Date [...]
--- OUTSIDE RECORDS SUMMARY | 2017-12-18 14:35 | XMS REPORT | Continuity of Care Document ---
Author Author [facility] Address Unknown Phone Unavailable Allergies Active Description Code Type Severity Reaction Onset Reported/Identified Relationship to Patient Clinical Status Yes PENICILLINS UNKNOWN UNKNOWN Yes Penicillins [id number] Drug Allergy Mild N/A 04/22/2009 Yes acetaminophen [id number] Drug Allergy Unknown N/A 04/22/2009 Yes codeine [id number] Drug Allergy Unknown N/A 04/22/2009 Yes ketorolac [id number] Drug Allergy Unknown N/A 04/22/2009 Yes nalbuphine [id number] Drug Allergy Unknown N/A 04/22/2009 Yes propoxyphene [id number] Drug Allergy Unknown N/A 04/22/2009 Yes Penicillins Drug Allergy 05/01/2010 Yes Penicillins Drug Allergy N/A N/A 05/01/2010 Medications Medication Packaging Start Date Stop Date Route Dosage Sig IBUPROFEN TAB 600 MG (MOTRIN) MG 08/06/2017 PRN Q6H ACETAMINOPHEN ORAL TABLET 325mg(Tylenol) MG 07/30/2017 08/06/2017 PRN Q6H LORAZEPAM TAB 0.5 MG (ATIVAN) MG 08/07/2017 PRN BID Problems Date Dx Coded Attending Type Code [...] BUENROSTRO V23.2 High Risk Hx Of 04/29/2010 KARIN GRAHAM DO 789.00 Abdominal Pain Unspecified Site 04/29/2010 KARIN GRAHAM DO V23.2 High Risk Hx Of 04/29/2010 IMELDA MEDINA PIO BUENROSTRO 789.00 Abdominal Pain Unspecified Site 04/29/2010 IMELDA DIAZFahad PIO BUENROSTRO V23.2 High Risk Hx Of 04/29/2010 IMELDA DIAZFahad PIO BUENROSTRO 789.00 Abdominal Pain Unspecified Site 04/29/2010 IMELDA [...] Unsp 05/01/2010 V23.9 High-risk Care Unspec 05/01/2010 PIO SEGURA APRN 285.9 Anemia Unspecified 05/01/2010 IMELDA DIAZFahad PIO BUENROSTRO 641.90 Comp. Bleed In Preg. Unsp 05/01/2010 IMELDA DIAZNPIO V23.9 High-risk Care Unspec 05/01/2010 IMELDA DIAZFahad PIO BUENROSTRO 285.9 Anemia Unspecified 05/01/2010 IMELDA MEDINA PIO BUENROSTRO 641.90 Comp. Bleed In Preg. Unsp 05/01/2010 IMELDA DIAZFahad PIO BUENROSTRO V23.9 High-risk Care Unspec 05/01/2010 IMELDA DIAZFahad PIO BUENROSTRO 285.9 Anemia Unspecified 05/01/2010 IMELDA DIAZFahad PIO BUENROSTRO 641.90 Comp. Bleed In Preg. Unsp 05/01/2010 IMELDA DIAZFahad PIO BUENROSTRO V23.9 High-risk Care Unspec 05/01/2010 GRAHAM DO, KARIN K 285.9 Anemia Unspecified 05/01/2010 GRAHAM DO, KARIN K 641.90 Comp. Bleed In Preg. Unsp 05/01/2010 GRAHAM DO, KARIN K V23.9 High-risk Care Unspec 05/01/2010 IMELDA DIAZFahad PIO BUENROSTRO 285.9 Anemia Unspecified 05/01/2010 IMELDA MEDINA PIO BUENROSTRO 641.90 Comp. Bleed In Preg. Unsp 05/01/2010 IMELDA DIAZFahad PIO BUENROSTRO V23.9 High-risk Care Unspec 05/01/2010 IMELDA DIAZFahad PIO BUENROSTRO 285.9 Anemia Unspecified 05/01/2010 IMELDA DIAZFahad PIO BUENROSTRO 641.90 Comp. Bleed In Preg. Unsp 05/01/2010 IMELDA DIAZFahad PIO BUENROSTRO V23.9 High-risk Care Unspec 05/01/2010 JARON ALVAREZ MD 285.9 Anemia Unspecified 05/01/2010 JARON ALVAREZ MD 641.90 Comp. Bleed In Preg. Unsp 05/01/2010 JARON ALVAREZ MD V23.9 High-risk Care Unspec 05/01/2010 KARIN GRAHAM DO 285.9 Anemia Unspecified 05/01/2010 KARIN GRAHAM DO 641.90 Comp. Bleed In Preg. Unsp 05/01/2010 KARIN GRAHAM DO V23.9 High-risk Care Unspec 05/02/2010 Ot 285.9 05/02/2010 Ot 625.8 05/02/2010 Ot 641.13 05/02/2010 Ot 646.93 05/02/2010 Ot 648.23 05/02/2010 Ot 649.03 05/12/2010 V58.31 Wound Dressing 05/12/2010 V58.32 Suture Removal 05/12/2010 IMELDA REGISTRATION MANAGER, PIO BUENROSTRO V58.31 Wound Dressing 05/12/2010 IMELDA REGISTRATION MANAGER, PIO BUENROSTRO V58.32 Suture Removal 05/12/2010 IMELDA REGISTRATION MANAGER, PIO BUENROSTRO V58.31 Wound Dressing 05/12/2010 IMELDA REGISTRATION MANAGER, PIO BUENROSTRO V58.32 Suture Removal 05/12/2010 IMELDA REGISTRATION MANAGER, PIO BUENROSTRO V58.31 Wound Dressing 05/12/2010 SEGURA REGISTRATION MANAGER, PIO BUENROSTRO V58.32 Suture Removal 05/12/2010 KARIN GRAHAM DO V58.31 Wound Dressing 05/12/2010 KARIN GRAHAM DO V58.32 Suture Removal 05/12/2010 SEGURA REGISTRATION MANAGER, PIO BUENROSTRO V58.31 Wound Dressing 05/12/2010 IMELDA REGISTRATION MANAGER, PIO BUENROSTRO V58.32 Suture Removal 05/12/2010 IMELDA REGISTRATION MANAGER, PIO BUENROSTRO V58.31 Wound Dressing 05/12/2010 IMELDA REGISTRATION MANAGER, IPO BUENROSTRO V58.32 Suture Removal 05/12/2010 JARON ALVAREZ MD V58.31 Wound Dressing 05/12/2010 JARON ALVAREZ MD V58.32 Suture Removal 05/12/2010 KARIN GRAHAM DO V58.31 Wound Dressing 05/12/2010 KARIN GRAHAM DO V58.32 Suture Removal 05/18/2010 Ot 599.0 05/18/2010 [...] KARIN GRAHAM DO 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 01/10/2011 PIO SEGURA APRN 300.00 AN ANXIETY UNSPEC 01/10/2011 PIO SEGURA APRN 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 01/10/2011 PIO SEGURA APRN 300.00 AN ANXIETY UNSPEC 01/10/2011 PIO SEGURA APRN 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 01/10/2011 JARON ALVAREZ MD 300.00 AN ANXIETY UNSPEC 01/10/2011 JARON ALVAREZ MD 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 01/10/2011 KARIN [...] PTSD 09/12/2011 V58.69 MEDICATION HIGH RISK 09/12/2011 IMELDA MEDINA PIO BUENROSTRO 296.33 MO DEPRESSIVE RECURRENT SEVERE W/O PSYCHOTIC BEHAVIOR 09/12/2011 IMELDA MEDINA PIO CHITRA 309.81 AN PTSD 09/12/2011 IMELDA MEDINA PIO BUENROSTRO V58.69 MEDICATION HIGH RISK 09/12/2011 IMELDA MEDINA PIO BUENROSTRO 296.33 MO DEPRESSIVE RECURRENT SEVERE W/O PSYCHOTIC BEHAVIOR 09/12/2011 IMELDA MEDINA PIO CHITRA 309.81 AN PTSD 09/12/2011 IMELDA MEDINA PIO BUENROSTRO V58.69 MEDICATION HIGH RISK 09/12/2011 IMELDA MEDINA PIO BUENROSTRO 296.33 MO DEPRESSIVE RECURRENT SEVERE W/O PSYCHOTIC BEHAVIOR 09/12/2011 IMELDA MEDINA PIO CHITRA 309.81 AN PTSD 09/12/2011 IMELDA MEDINA PIO BUENROSTRO V58.69 MEDICATION HIGH RISK 09/12/2011 GRAHAM DO KARIN K 296.33 MO DEPRESSIVE RECURRENT SEVERE W/O PSYCHOTIC BEHAVIOR 09/12/2011 GRAHAM DO KARIN K 309.81 AN PTSD 09/12/2011 GRAHAM DO KARIN K V58.69 MEDICATION HIGH RISK 09/12/2011 IMELDA MEDINA PIO BUENROSTRO 296.33 MO DEPRESSIVE RECURRENT SEVERE W/O PSYCHOTIC BEHAVIOR 09/12/2011 IMELDA MEDINA PIO CHITRA 309.81 AN PTSD 09/12/2011 IMELDA MEDINA PIO FRANCISH V58.69 MEDICATION HIGH RISK 09/12/2011 IMELDA MEDINA PIO CHITRA 296.33 MO DEPRESSIVE RECURRENT SEVERE W/O PSYCHOTIC BEHAVIOR 09/12/2011 IMELDA MEDINA PIO CHITRA 309.81 AN PTSD 09/12/2011 IMELDA MEDINA PIO BUENROSTRO V58.69 MEDICATION HIGH RISK 09/12/2011 JARON ALVAREZ [...] 305.51 NONDEPENDENT OPIOID ABUSE CONTINUOUS USE 09/17/2011 IMELDA MEDINA PIO CHITRA 305.51 NONDEPENDENT OPIOID ABUSE CONTINUOUS USE 09/17/2011 KARIN GRAHAM DO 305.51 NONDEPENDENT OPIOID ABUSE CONTINUOUS USE 09/17/2011 IMELDA MEDINA PIO CHITRA 305.51 NONDEPENDENT OPIOID ABUSE CONTINUOUS USE 09/17/2011 IMELDA MEDINA PIO CHITRA 305.51 NONDEPENDENT OPIOID ABUSE CONTINUOUS USE 09/17/2011 JARON ALVAREZ MD 305.51 NONDEPENDENT OPIOID ABUSE CONTINUOUS USE 09/17/2011 KARIN GRAHAM DO 305.51 NONDEPENDENT OPIOID ABUSE CONTINUOUS USE 10/02/2011 300.02 AN GEN ANXIETY 10/02/2011 304.00 OPIOID DEPENDENCE 10/02/2011 PIO SEGURA APRN 300.02 AN GEN ANXIETY 10/02/2011 PIO SEGURA APRN 304.00 OPIOID DEPENDENCE 10/02/2011 PIO SEGURA APRN 300.02 AN GEN ANXIETY 10/02/2011 PIO SEGURA APRN 304.00 OPIOID DEPENDENCE 10/02/2011 PIO SEGURA APRN 300.02 AN GEN ANXIETY 10/02/2011 SEGURA REGISTRATION MANAGER, PIO BUENROSTRO 304.00 OPIOID DEPENDENCE 10/02/2011 GRAHAM DO KARIN K 300.02 AN GEN ANXIETY 10/02/2011 GRAHAM DO KARIN K 304.00 OPIOID DEPENDENCE 10/02/2011 SEGURA REGISTRATION MANAGER, PIO BUENROSTRO 300.02 AN GEN ANXIETY 10/02/2011 SEGURA REGISTRATION MANAGER, PIO BUENROSTRO 304.00 OPIOID DEPENDENCE 10/02/2011 SEGURA REGISTRATION MANAGER, PIO BUENROSTRO 300.02 AN GEN ANXIETY 10/02/2011 SEGURA REGISTRATION MANAGER, PIO BUENROSTRO 304.00 OPIOID DEPENDENCE 10/02/2011 JARON ALVAREZ MD 300.02 AN GEN ANXIETY 10/02/2011 JARON ALVAREZ MD 304.00 OPIOID DEPENDENCE 10/02/2011 ARTHUR GRAHAM DOA K 300.02 AN GEN ANXIETY 10/02/2011 GRAHAM DO KARIN K 304.00 OPIOID DEPENDENCE 09/17/2012 IMELDA REGISTRATION MANAGER, PIO BUENROSTRO 296.32 MO DEPRESSIVE RECURRENT MODERATE 09/17/2012 SEGURA REGISTRATION MANAGER, PIO BUENROSTRO 314.01 ADHD COMBINED 09/17/2012 SEGURA REGISTRATION MANAGER, PIO BUENROSTRO 296.32 MO DEPRESSIVE RECURRENT MODERATE 09/17/2012 SEGURA REGISTRATION MANAGER, PIO BUENROSTRO 314.01 ADHD COMBINED 09/17/2012 SEGURA REGISTRATION MANAGER, PIO BUENROSTOR 296.32 MO DEPRESSIVE RECURRENT MODERATE 09/17/2012 SEGURA REGISTRATION MANAGER, PIO BUENROSTRO 314.01 ADHD COMBINED 09/17/2012 SANTOS CAMERON KARIN K 296.32 MO DEPRESSIVE RECURRENT MODERATE 09/17/2012 ARTHUR GRAHAM DOA K 314.01 ADHD COMBINED 09/17/2012 SEGURA REGISTRATION MANAGER, PIO BUENROSTRO 296.32 MO DEPRESSIVE RECURRENT MODERATE 09/17/2012 SEGURA REGISTRATION MANAGER, PIO BUENROSTRO 314.01 ADHD COMBINED 09/17/2012 SEGURA REGISTRATION MANAGER, PIO BUENROSTRO 296.32 MO DEPRESSIVE RECURRENT MODERATE 09/17/2012 SEGURA REGISTRATION MANAGER, PIO FRANCISH 314.01 ADHD COMBINED 09/17/2012 JARON ALVAREZ MD 296.32 MO DEPRESSIVE RECURRENT MODERATE 09/17/2012 JARON ALVAREZ MD 314.01 ADHD COMBINED 09/17/2012 ARTHUR GRAHAM DOA K 296.32 MO DEPRESSIVE RECURRENT MODERATE 09/17/2012 ARTHUR GRAHAM DOA K 314.01 ADHD COMBINED 08/11/2013 PIO SEGURA APRN 314.00 ADHD INATTENTIVE 08/11/2013 IMELDA MEDINA, PIO BUENROSTRO 314.00 ADHD INATTENTIVE 08/11/2013 KARIN GRAHAM DO K 314.00 ADHD INATTENTIVE 08/11/2013 IMELDA MEDINA, PIO BUENROSTRO 314.00 ADHD INATTENTIVE 08/11/2013 IMELDA DIAZN, PIO BUENROSTRO 314.00 ADHD INATTENTIVE 08/11/2013 JARON ALVAREZ MD 314.00 ADHD INATTENTIVE 08/11/2013 ARTHUR GRAHAM DOZack Garcia 314.00 ADHD INATTENTIVE 11/13/2013 IMELDA DIAZNPIO 304.80 SA POLYSUB DEP 11/13/2013 GRAHAM KARIN CAMERON 304.80 SA POLYSUB DEP 11/13/2013 IMELDA DIAZN, PIO BUENROSTRO 304.80 SA POLYSUB DEP 11/13/2013 IMELDA DIAZFahad PIO BUENROSTRO 304.80 SA POLYSUB DEP 11/13/2013 JARON ALVAREZ MD 304.80 SA POLYSUB DEP 11/13/2013 SANTOS KARIN CAMERON 304.80 SA POLYSUB DEP 08/08/2014 JABARI GLOVER, TREY Cruz Ot 521.00 UNSPEC DENTAL CARIES 08/08/2014 JABARI GLOVER, TREY Cruz Ot 522.5 PERIAPICAL ABSCESS 08/08/2014 JABARI GLOVER, TREY Cruz Ot 525.9 DENTAL DISORDER NOS 11/09/2014 KARIN GRAHAM DO 553.9 HERNIA UNSPECIFIED SITE 11/09/2014 KARIN GRAHAM DO 786.52 CHEST WALL PAIN 12/03/2014 Ot 521.00 UNSPEC DENTAL CARIES 12/03/2014 Ot 525.9 DENTAL DISORDER NOS 12/07/2014 ALMA HERRON MD Ot 521.00 UNSPEC DENTAL CARIES 12/07/2014 ALMA HERRON MD Ot 522.5 PERIAPICAL ABSCESS 12/07/2014 ALMA HERRON MD Ot 525.9 DENTAL DISORDER NOS 02/09/2015 KAL LYONS REGISTRATION MANAGER Ot 305.1 TOBACCO USE DISORDER 02/09/2015 KAL LYONS REGISTRATION MANAGER Ot 305.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 08/06/2015 ASHLEY WONG DO Ot F17.210 NICOTINE DEPENDENCE, CIGARETTES, UNCOMPL 08/06/2015 ASHLEY WONG DO Ot S66.129A LACERAT FLEXOR MUSC/FASC/TEND UNSP FNGR 08/06/2015 ASHLEY WONG DO Ot W26.0XXA CONTACT WITH KNIFE, INITIAL ENCOUNTER 08/06/2015 MARVIN CAMERON ASHLEY Jose Ot Y92.010 KITCHEN OF SINGLE-FAMILY (PRIVATE) HOUSE 08/06/2015 ASHLEY WONG DO Jose Ot Y93.G1 ACTIVITY, FOOD PREPARATION AND CLEAN UP 08/06/2015 MARVIN CAMERON ASHLEY Jose Ot Y99.8 OTHER EXTERNAL CAUSE STATUS 08/06/2015 MARVIN CAMERON ASHLEY K Ot Z23 ENCOUNTER FOR IMMUNIZATION 08/29/2015 MARVIN CAMERON ASHLEY Jose Ot S61.411D LACERATION WITHOUT FOREIGN BODY OF [...] ABSCESS OF TENDON SHEATH, LEFT FOREARM 05/16/2016 LYONSKAL REGISTRATION MANAGER Ot M65.032 ABSCESS OF TENDON SHEATH, LEFT FOREARM 06/16/2016 ARTEM, ADAMS LAUNDERER HAND Ot S90.851A SUPERFICIAL FOREIGN BODY, RIGHT FOOT, IN 06/16/2016 ARTEM, ADAMS LAUNDERER HAND Ot W25.XXXA CONTACT WITH SHARP GLASS, INITIAL ENCOUN 06/16/2016 ARTEM, ADAMS LAUNDERER HAND Ot Y99.8 OTHER EXTERNAL CAUSE STATUS 06/18/2016 ARTEM, ADAMS LAUNDERER HAND Ot S90.851A SUPERFICIAL FOREIGN BODY, RIGHT FOOT, IN 06/18/2016 ARTEM, ADAMS LAUNDERER HAND Ot W25.XXXA CONTACT WITH SHARP GLASS, INITIAL ENCOUN 06/18/2016 ARTEM, ADAMS LAUNDERER HAND Ot Y99.8 OTHER EXTERNAL CAUSE STATUS 07/19/2016 NANO OJEDA REGISTRATION MANAGER Ot M54.2 CERVICALGIA 09/13/2016 NANO OJEDA REGISTRATION MANAGER Ot M54.2 CERVICALGIA 09/13/2016 ARTEM ADAMS LAUNDERER HAND Ot K59.03 DRUG INDUCED CONSTIPATION 09/13/2016 ARTEM, ADAMS LAUNDERER HAND Ot R10.84 GENERALIZED ABDOMINAL PAIN 09/13/2016 ARTEM, ADAMS LAUNDERER HAND Ot Z79.891 BLOCKMAN (CURRENT) USE OF OPIATE ANALGE 09/13/2016 NANO OJEDA REGISTRATION MANAGER Ot M54.2 CERVICALGIA 09/14/2016 ARTEM, ADAMS LAUNDERER HAND Ot K59.03 DRUG INDUCED CONSTIPATION 09/14/2016 ARTEM, ADAMS LAUNDERER HAND Ot R10.84 GENERALIZED ABDOMINAL PAIN 09/14/2016 ARTEM, ADAMS LAUNDERER HAND Ot Z79.891 BLOCKMAN (CURRENT) USE OF OPIATE ANALGE 09/17/2016 NANO OJEDA REGISTRATION MANAGER Ot M54.2 CERVICALGIA 09/17/2016 HERBERTH CH Ot F17.210 NICOTINE DEPENDENCE, CIGARETTES, UNCOMPL 09/17/2016 HERBERTH CH Ot L03.113 CELLULITIS OF RIGHT UPPER LIMB 09/17/2016 HERBERTH CH Ot S60.211A CONTUSION OF RIGHT WRIST, INITIAL ENCOUN 09/17/2016 NANO OJEDA REGISTRATION MANAGER Ot M54.2 CERVICALGIA 09/22/2016 TAMIKO GLOVER, SIVA Mae Ot K46.9 UNSPECIFIED ABDOMINAL HERNIA WITHOUT OBS 09/22/2016 TAMIKO GLOVER, SIVA S Ot R10.30 LOWER ABDOMINAL PAIN, UNSPECIFIED 09/22/2016 NANO OJEDA REGISTRATION MANAGER Ot M54.2 CERVICALGIA 09/24/2016 TAMIKO GLOVER, SIVA Mae Ot K46.9 UNSPECIFIED ABDOMINAL HERNIA WITHOUT OBS 09/24/2016 TAMIKO GLOVER, SIVA Mae Ot R10.30 LOWER ABDOMINAL PAIN, UNSPECIFIED 09/26/2016 NANO OJEDA Fahad REGISTRATION MANAGER Ot M54.2 CERVICALGIA 09/26/2016 HERBERTH CH Ot F17.210 NICOTINE DEPENDENCE, CIGARETTES, UNCOMPL 09/26/2016 HERBERTH CH Ot R05 COUGH 09/26/2016 HERBERTH CH Ot R07.81 PLEURODYNIA 09/26/2016 HERBERTH CH Ot Z53.29 PROC/TRTMT NOT CRD OUT BEC PT DECISION F 12/29/2016 JOANNE OJEDABRITTNEY Vásquez REGISTRATION MANAGER Ot M54.2 CERVICALGIA 12/29/2016 KAL LYONS APRN Ot 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 12/29/2016 KAL LYONS APRN Ot M54.5 LOW BACK PAIN 12/29/2016 JOANNE OJEDABRITTNEY Vásquez REGISTRATION MANAGER Ot M54.2 CERVICALGIA 12/31/2016 JOSH VALDERRAMA MD Ot F15.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, UNCOMPLICATED 12/31/2016 JOSH VALDERRAMA MD Ot F17.210 NICOTINE DEPENDENCE, CIGARETTES, UNCOMPL 12/31/2016 JOSH VALDERRAMA MD Ot M25.552 PAIN IN LEFT HIP 12/31/2016 JOSH VALDERRAMA MD Ot Z79.899 OTHER BLOCKMAN (CURRENT) DRUG THERAPY 12/31/2016 KAL LYONS REGISTRATION MANAGER Ot 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 12/31/2016 KAL LYONS APRN Ot M54.5 LOW BACK PAIN 01/01/2017 JOSH VLADERRAMA MD Ot F15.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, UNCOMPLICATED 01/01/2017 JOSH VALDERRAMA MD Ot F17.210 NICOTINE DEPENDENCE, CIGARETTES, UNCOMPL 01/01/2017 JOSH VALDERRAMA MD Ot M25.552 PAIN IN LEFT HIP 01/01/2017 JOSH VALDERRAMA MD Ot Z79.899 OTHER SHELTER (CURRENT) DRUG THERAPY 01/04/2017 KAL LYONS REGISTRATION MANAGER Ot 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 01/04/2017 KAL LYONS REGISTRATION MANAGER Ot M54.5 LOW BACK PAIN 01/14/2017 NANO OJEDA REGISTRATION MANAGER Ot M54.2 CERVICALGIA 01/14/2017 NANO OJEDA REGISTRATION MANAGER Ot M54.2 CERVICALGIA 03/18/2017 KAL LYONS REGISTRATION MANAGER Ot F15.90 OTHER STIMULANT USE, UNSPECIFIED, UNCOMP 03/18/2017 KAL LYONS REGISTRATION MANAGER Ot F17.210 NICOTINE DEPENDENCE, CIGARETTES, UNCOMPL 03/18/2017 KAL LYONS REGISTRATION MANAGER Ot F32.9 MAJOR DEPRESSIVE DISORDER, SINGLE EPISOD 03/18/2017 KAL LYONS APRN Ot F41.9 ANXIETY DISORDER, UNSPECIFIED 03/18/2017 KAL LYONS REGISTRATION MANAGER Ot F90.9 ATTENTION-DEFICIT HYPERACTIVITY DISORDER 03/18/2017 KAL LYONS REGISTRATION MANAGER Ot M47.9 SPONDYLOSIS, UNSPECIFIED 03/18/2017 KAL LYONS REGISTRATION MANAGER Ot Z90.710 ACQUIRED ABSENCE OF BOTH CERVIX AND UTER 03/28/2017 KAL LYONS REGISTRATION MANAGER Ot F15.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, UNCOMPLICATED 03/28/2017 KAL LYONS APRN Ot F17.210 NICOTINE DEPENDENCE, CIGARETTES, UNCOMPL 03/28/2017 KAL LYONS REGISTRATION MANAGER Ot M54.2 CERVICALGIA 03/28/2017 KAL LYONS APRN Ot M54.5 LOW BACK PAIN 03/28/2017 KAL LYONS APRN Ot Z79.891 BLOCKMAN (CURRENT) USE OF OPIATE ANALGE 03/28/2017 KAL LYONS REGISTRATION MANAGER Ot Z79.899 OTHER BLOCKMAN (CURRENT) DRUG THERAPY 03/30/2017 KAL LYONS REGISTRATION MANAGER Ot F15.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, UNCOMPLICATED 03/30/2017 KAL LYONS REGISTRATION MANAGER Ot F17.210 NICOTINE DEPENDENCE, CIGARETTES, UNCOMPL 03/30/2017 KAL LYONS REGISTRATION MANAGER Ot M54.2 CERVICALGIA 03/30/2017 KAL LYONS REGISTRATION MANAGER Ot M54.5 LOW BACK PAIN 03/30/2017 KAL LYONS REGISTRATION MANAGER Ot Z79.891 BLOCKMAN (CURRENT) USE OF OPIATE ANALGE 03/30/2017 KAL LYONS REGISTRATION MANAGER Ot Z79.899 OTHER BLOCKMAN (CURRENT) DRUG THERAPY 04/03/2017 KAL LYONS REGISTRATION MANAGER Ot F15.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, UNCOMPLICATED 04/03/2017 KAL LYONS REGISTRATION MANAGER Ot F17.210 NICOTINE DEPENDENCE, CIGARETTES, UNCOMPL 04/03/2017 KAL LYONS REGISTRATION MANAGER Ot M54.2 CERVICALGIA 04/03/2017 KAL LYONS REGISTRATION MANAGER Ot M54.5 LOW BACK PAIN 04/03/2017 KAL LYONS REGISTRATION MANAGER Ot Z79.891 SHELTER (CURRENT) USE OF OPIATE ANALGE 04/03/2017 KAL LYONS REGISTRATION MANAGER Ot Z79.899 OTHER SHELTER (CURRENT) DRUG THERAPY 05/22/2017 JOSH VALDERRAMA MD Ot F32.9 MAJOR DEPRESSIVE DISORDER, SINGLE EPISOD 05/22/2017 JOSH VALDERRAMA MD Ot F41.9 ANXIETY DISORDER, UNSPECIFIED 05/22/2017 [...] MD Ot F41.9 ANXIETY DISORDER, UNSPECIFIED 05/24/2017 JOSH VALDERRAMA MD Ot H65.93 UNSPECIFIED NONSUPPURATIVE OTITIS MEDIA, 05/24/2017 JOSH VALDERRAMA MD Ot J01.00 ACUTE MAXILLARY SINUSITIS, UNSPECIFIED 05/24/2017 JOSH VALDERRAMA MD Ot R09.81 NASAL CONGESTION 05/24/2017 JOSH VALDERRAMA [...] F32.9 MAJOR DEPRESSIVE DISORDER, SINGLE EPISOD 07/02/2017 LYONS, PETER J REGISTRATION MANAGER Ot F41.9 ANXIETY DISORDER, UNSPECIFIED 07/02/2017 KAL LYONS REGISTRATION MANAGER Ot M47.9 SPONDYLOSIS, UNSPECIFIED 07/02/2017 KAL LYONS REGISTRATION MANAGER Ot Z77.22 CNTCT W AND EXPSR TO ENVIRON TOBACCO SMO 07/02/2017 KAL LYONS REGISTRATION MANAGER Ot Z87.59 PERSONAL HISTORY OF COMP OF PREG, CHLDBR 07/02/2017 KAL LYONS REGISTRATION MANAGER Ot Z90.710 ACQUIRED ABSENCE OF BOTH CERVIX AND UTER 07/02/2017 KAL LYONS REGISTRATION MANAGER Ot Z98.51 TUBAL LIGATION STATUS 07/30/2017 Ashley Mathias W 295.30 PARANOID TYPE SCHIZOPHRENIA, UNSPECIFIED STATE 07/30/2017 Mitali Mathiasa W 298.9 UNSPECIFIED PSYCHOSIS 07/30/2017 Ashley Mathias W F20.0 PARANOID SCHIZOPHRENIA 07/30/2017 Ashley Mathias W F29 UNSPECIFIED PSYCHOSIS NOT DUE TO A SUBSTANCE OR KNOWN PHYSIOLOGICAL CONDITION 07/31/2017 Ashley Mathias W 295.30 PARANOID TYPE SCHIZOPHRENIA, UNSPECIFIED STATE 07/31/2017 Stew, Ashley W 298.9 UNSPECIFIED PSYCHOSIS 07/31/2017 Stew, Ashley W 845.00 UNSPECIFIED SITE OF ANKLE SPRAIN 07/31/2017 Mitali Mathiasa W F20.0 PARANOID SCHIZOPHRENIA 07/31/2017 Mitali Mathiasa W F29 UNSPECIFIED PSYCHOSIS NOT DUE TO A SUBSTANCE OR KNOWN PHYSIOLOGICAL CONDITION 07/31/2017 Mitali Mathiasa W S93.401A SPRAIN OF UNSPECIFIED LIGAMENT OF RIGHT ANKLE, INIT ENCNTR 07/31/2017 Ashley Mathias W V60.0 LACK OF HOUSING 07/31/2017 Mitali Mathiasa W Z59.0 HOMELESSNESS 08/21/2017 DEBI LANG MD Ot F12.10 CANNABIS [...] ACQUIRED ABSENCE OF BOTH CERVIX AND UTER 11/04/2017 KAL LYONS APRN Ot F12.90 CANNABIS USE, UNSPECIFIED, UNCOMPLICATED 11/04/2017 KAL LYONS APRN Ot F31.9 BIPOLAR DISORDER, UNSPECIFIED 11/04/2017 KAL LYONS APRN Ot F41.9 ANXIETY DISORDER, UNSPECIFIED 11/04/2017 KAL LYONS APRN Ot K43.9 VENTRAL HERNIA WITHOUT OBSTRUCTION OR GA 11/04/2017 KAL LYONS APRN Ot R19.7 DIARRHEA, UNSPECIFIED 11/04/2017 KAL LYONS APRN Ot R30.0 DYSURIA 11/04/2017 KAL LYONS APRN Ot Z86.14 PERSONAL HISTORY OF METHICILLIN RESIS ST 11/04/2017 KAL LYONS APRN Ot Z87.59 PERSONAL HISTORY OF COMP OF PREG, CHLDBR 11/04/2017 KAL LYONS APRN Ot Z88.0 ALLERGY STATUS TO PENICILLIN 11/04/2017 KAL LYONS APRN Ot Z88.1 ALLERGY STATUS TO OTHER ANTIBIOTIC AGENT 11/04/2017 KAL LYONS APRN Ot Z88.6 ALLERGY STATUS TO ANALGESIC AGENT STATUS 11/04/2017 KAL LYONS APRN Ot Z90.710 ACQUIRED ABSENCE OF BOTH CERVIX AND UTER 11/04/2017 KAL LYONS APRN Ot Z98.890 OTHER SPECIFIED POSTPROCEDURAL STATES 11/06/2017 KAL LYONS APRN Ot F12.90 CANNABIS USE, UNSPECIFIED, UNCOMPLICATED 11/06/2017 KAL LYONS APRN Ot F31.9 BIPOLAR DISORDER, UNSPECIFIED 11/06/2017 KAL LYONS APRN Ot F41.9 ANXIETY DISORDER, UNSPECIFIED 11/06/2017 LYONS, PETER J REGISTRATION MANAGER Ot K43.9 VENTRAL HERNIA WITHOUT OBSTRUCTION OR GA 11/06/2017 KAL LYONS APRN Ot R19.7 DIARRHEA, UNSPECIFIED 11/06/2017 KAL LYONS REGISTRATION MANAGER Ot R30.0 DYSURIA 11/06/2017 KAL LYONS APRN Ot Z86.14 PERSONAL HISTORY OF METHICILLIN RESIS ST 11/06/2017 KAL LYONS APRN Ot Z87.59 PERSONAL HISTORY OF COMP OF PREG, CHLDBR 11/06/2017 KAL LYONS APRN Ot Z88.0 ALLERGY STATUS TO PENICILLIN 11/06/2017 KAL LYONS APRN Ot Z88.1 ALLERGY STATUS TO OTHER ANTIBIOTIC AGENT 11/06/2017 KAL LYONS APRN Ot Z88.6 ALLERGY STATUS TO ANALGESIC AGENT STATUS 11/06/2017 KAL LYONS APRN Ot Z90.710 ACQUIRED ABSENCE OF BOTH CERVIX AND UTER 11/06/2017 KAL LYONS APRN Ot Z98.890 OTHER SPECIFIED POSTPROCEDURAL STATES 11/27/2017 TREY BARBOZA MD Ot F31.9 BIPOLAR DISORDER, UNSPECIFIED 11/27/2017 TREY BARBOZA MD Ot F41.9 ANXIETY DISORDER, UNSPECIFIED 11/27/2017 TREY BARBOZA MD Ot K46.9 UNSPECIFIED ABDOMINAL HERNIA WITHOUT OBS 11/27/2017 TREY BARBOZA MD Ot R19.7 DIARRHEA, UNSPECIFIED 11/27/2017 TREY BARBOZA MD Ot R53.83 OTHER FATIGUE 11/27/2017 TREY BARBOZA MD Ot Z77.22 CNTCT W AND EXPSR TO ENVIRON TOBACCO SMO 11/27/2017 TREY BARBOZA MD Ot Z86.14 PERSONAL HISTORY OF METHICILLIN RESIS ST 11/27/2017 TREY BARBOZA MD Ot Z87.59 PERSONAL HISTORY OF COMP OF PREG, CHLDBR 11/27/2017 TREY BARBOZA MD Ot Z88.0 ALLERGY STATUS TO PENICILLIN 11/27/2017 TREY BARBOZA MD Ot Z88.5 ALLERGY STATUS TO NARCOTIC AGENT STATUS 11/27/2017 TREY BARBOZA MD Ot Z88.6 ALLERGY STATUS TO ANALGESIC AGENT STATUS 11/27/2017 TREY BARBOZA MD Ot Z88.8 ALLERGY STATUS TO OTH DRUG/MEDS/BIOL SUB 11/27/2017 JABARI GLOVER, TREY Cruz Ot Z90.710 ACQUIRED ABSENCE OF BOTH CERVIX AND UTER 11/27/2017 TREY BARBOZA MD Ot Z98.890 OTHER SPECIFIED POSTPROCEDURAL STATES Procedures Code Description Performed By Performed On 96.04 03/29/2011 96.71 03/29/2011 18695 URINE BENZO GC/MS 11/13/2013 13124 URINE METH/AMPHETAMINE GC/ MS 11/13/2013 58932 URINE DRUG SCREEN (IN-HOUSE ) 11/13/2013 Addiction Venita [place]-Lac 04/12/2014 05853 URINE DRUG SCREEN (IN-HOUSE ) 05/12/2014 58473 URINE DRUG SCREEN (IN-HOUSE ) 07/19/2014 Results [...] plasma choriogonadotropin ( test) detection NEGATIVE NEGATIVE Rapid Drug Screen + ETOH,Medical - 07/29/17 21:24 Amphetamine POSITIVE NEGATIVE Barbiturates NEGATIVE NEGATIVE Benzodiazepines POSITIVE NEGATIVE Cocaine NEGATIVE NEGATIVE Ethanol, Urine <10.00 mg/dL 20.00-80.00 Marijuana NEGATIVE NEGATIVE Methylenedioxymethamphetamine NEGATIVE NEGATIVE Opiates NEGATIVE NEGATIVE Oxycodone POSITIVE NEGATIVE Phencyclidine NEGATIVE NEGATIVE Propoxyphene NEGATIVE NEGATIVE Tricyclic Antidepressant NEGATIVE NEGATIVE EKG - 07/29/17 21:24 EKG Complete Thyroid Stimulating Hormone - 07/29/17 22:05 TSH 1.30 mIU/mL 0.32-5.00 MRSA Screen - 07/30/17 04:22 FINAL CULTURE RESULTS MRSA Negative Nasal Culture MEDIA PLATED Setup at 05:57 on 07/30/2017 Complete blood count (CBC) with automated white [...] plasma albumin measurement (mass/volume) 4.5 g/dL 3.2-4.5 Complete blood count (CBC) with automated white blood cell (WBC) differential - 11/25/17 11:17 Blood leukocytes automated count (number/volume) 6.5 10*3/uL 4.3-11.0 Blood erythrocytes automated count (number/volume) 4.86 10*6/uL 4.35-5.85 Venous blood hemoglobin measurement (mass/volume) 15.4 g/dL 11.5-16.0 Blood hematocrit (volume fraction) 44 % 35-52 Automated erythrocyte mean corpuscular volume 90 [foz_us] 80-99 Automated erythrocyte mean corpuscular hemoglobin (mass per erythrocyte) 32 pg 25-34 Automated erythrocyte mean corpuscular hemoglobin concentration measurement ( mass/volume) 35 g/dL 32-36 Automated erythrocyte distribution width ratio 12.8 % 10.0-14.5 Automated blood platelet count (count/volume) 222 10*3/uL 130-400 Automated blood platelet mean volume measurement 10.9 [foz_us] 7.4-10.4 Automated blood neutrophils/100 leukocytes 63 % 42-75 Automated blood lymphocytes/100 leukocytes 23 % 12-44 Blood monocytes/100 leukocytes 9 % 0-12 Automated blood eosinophils/100 leukocytes 6 % 0-10 Automated blood basophils/100 leukocytes 0 % 0-10 Blood neutrophils automated count (number/volume) 4.1 10*3 1.8-7.8 Blood lymphocytes automated count (number/volume) 1.5 10*3 1.0-4.0 Blood monocytes automated count (number/volume) 0.6 10*3 0.0-1.0 Automated eosinophil count 0.4 10*3/uL 0.0-0.3 Automated blood basophil count (count/volume) 0.0 10*3/uL 0.0-0.1 Serum or plasma choriogonadotropin ( test) detection - 11/25/17 11:17 Serum or plasma choriogonadotropin ( test) detection NEGATIVE NEGATIVE Magnesium - 11/25/17 11:17 Magnesium 2.4 mg/dL 1.8-2.4 Serum or plasma thyrotropin measurement by detection limit <=0.05 miu/l (units/ volume) - 11/25/17 11:17 Serum or plasma thyrotropin measurement by detection limit <=0.05 miu/l (units/ volume) 0.54 u[iU]/mL 0.35-4.94 Complete urinalysis with reflex to culture - 11/25/17 11:20 Urine color determination YELLOW NRG Urine clarity determination SLIGHTLY CLOUDY NRG Urine pH measurement by test strip 5 5-9 Specific gravity of urine by test strip 1.020 1.016- 1.022 Urine protein assay by test strip, semi-quantitative 1+ NEGATIVE Urine glucose detection by automated test [...] detection in urine sediment by light microscopy FEW NRG Squamous epithelial cells detection in urine sediment by light microscopy >50 NRG Crystals detection in urine sediment by light microscopy NONE NRG Casts detection in urine sediment by light microscopy NONE NRG Mucus detection in urine sediment by light microscopy NEGATIVE NRG Complete urinalysis with reflex to culture NO NRG Urine drug screening test - 11/25/17 11:20 Urine phencyclidine detection by screening method NEGATIVE [...] NEGATIVE NEGATIVE Urine propoxyphene detection NEGATIVE NEGATIVE Comprehensive metabolic panel - 11/25/17 11:41 Serum or plasma sodium measurement (moles/volume) 138 mmol/L 135-145 Serum or plasma potassium measurement (moles/volume) 4.5 mmol/L 3.6-5.0 Serum or plasma chloride measurement (moles/volume) 109 mmol/L 98-107 Carbon dioxide 23 mmol/L 21-32 Serum or plasma anion gap determination (moles/volume) 6 mmol/L 5-14 Serum or plasma urea nitrogen measurement (mass/volume) 17 mg/dL 7-18 Serum or plasma creatinine measurement (mass/volume) 0.78 mg/dL 0.60-1.30 Serum or plasma urea nitrogen/creatinine mass ratio 22 NRG Serum or plasma creatinine measurement with calculation of estimated glomerular filtration rate > NRG Serum or plasma glucose measurement (mass/volume) 111 mg/dL 70-105 Serum or plasma calcium measurement (mass/volume) 9.1 mg/dL 8.5-10.1 Serum or plasma total bilirubin measurement (mass/volume) 0.7 mg/dL 0.1-1.0 Serum or plasma alkaline phosphatase measurement (enzymatic activity/volume) 47 U/L 40-136 Serum or plasma aspartate aminotransferase measurement (enzymatic activity/ volume) 50 U/L 5-34 Serum or plasma alanine aminotransferase measurement (enzymatic activity/volume ) 42 U/L 0-55 Serum or plasma protein measurement (mass/volume) 8.3 g/dL 6.4-8.2 Serum or plasma albumin measurement (mass/volume) 4.5 g/dL 3.2-4.5 Lipase - 11/25/17 11:41 Lipase 23 U/L 8-78 Encounters ACCT No. Visit Date/Time Discharge Status Pt. Type Provider Facility Loc./Unit Complaint [id number] 12/16/2014 13:53:00 12/16/2014 23:59:59 CLS Outpatient KARIN GRAHAM DO [id number] 07/19/2014 10:06:00 07/19/2014 23:59:59 CLS Outpatient JARON ALVAREZ MD [id number] 06/14/2014 15:51:00 06/14/2014 23:59:59 CLS Outpatient IMELDA MEDINA PIO CHITRA [id number] 05/12/2014 11:05:00 05/12/2014 23:59:59 CLS Outpatient IMELDA MEDINA PIO CHITRA [id number] 04/08/2014 16:04:00 04/08/2014 23:59:59 CLS Outpatient KARIN GRAHAM DO [id number] 11/13/2013 14:42:00 11/13/2013 23:59:59 CLS Outpatient IMELDA MEDINA PIO CHITRA [id number] 08/11/2013 10:41:00 08/11/2013 23:59:59 CLS Outpatient IMELDA MEDINA PIO CHITRA [id number] 09/17/2012 16:04:00 09/17/2012 23:59:59 CLS Outpatient PIO SEGURA APRN [id number] 02/05/2012 14:14:00 02/05/2012 23:59:59 CLS Outpatient [id number] 07/29/2017 21:04:00 07/31/2017 20:40:00 DIS Outpatient Ashley Mathias [facility] ICU [id number] 07/30/2017 00:57:58 Document Registration [id number] 11/25/2017 10:34:00 11/25/2017 13:51:00 DIS Outpatient JABARI GLOVER, TREY Cruz [facility] ER FEELS DEHYDRATED [id number] 11/04/2017 16:29:00 11/04/2017 18:18:00 DIS Emergency KAL LYONS REGISTRATION MANAGER [facility] ER TROUBLE URINATING,HAD MESH AT KU [id number] 08/21/2017 12:09:00 08/21/2017 14:29:00 DIS Emergency DEBI LANG MD [facility] ER BRUISING ON CALVES [id number] 07/02/2017 20:33:00 07/02/2017 22:55:00 DIS Emergency KAL LYONS REGISTRATION MANAGER [facility] ER PSYCH EVAL [id number] 06/26/2017 17:46:00 06/26/2017 19:44:00 DIS Emergency KAL LYONS APRN [facility] ER PELVIC/ABDOMINAL PAIN [id number] 05/22/2017 14:46:00 05/22/2017 15:22:00 DIS Emergency JOSH VALDERRAMA MD [facility] ER SINUS INFECTION/FACIAL SWELLING [id number] 03/28/2017 16:37:00 03/28/2017 19:00:00 DIS Emergency KAL LYONS APRN [facility] ER NECK PAIN/HEADACHES [id number] 03/18/2017 10:37:00 03/18/2017 12:15:00 DIS Emergency KAL LYONS REGISTRATION MANAGER [facility] ER ANXIETY [id number] 12/30/2016 23:53:00 12/31/2016 02:55:00 DIS Emergency JOSH VALDERRAMA MD [facility] ER HIP PAIN AB PAIN [id number] 12/29/2016 11:14:00 12/29/2016 14:39:00 DIS Emergency KAL LYONS APRN [facility] ER LEG/BACK PAIN [id number] 09/26/2016 16:29:00 09/26/2016 17:06:00 DIS Emergency HERBERTH CH [facility] ER EYE PAIN,RIB PAIN [id number] 09/22/2016 10:28:00 09/22/2016 11:04:00 DIS Emergency TAMIKO GLOVER, SIVA S [facility] ER STOMACH PAIN [id number] 09/17/2016 12:27:00 09/17/2016 15:45:00 DIS Emergency HERBERTH CH [facility] ER R WRIST BITE [id number] 09/13/2016 17:08:00 09/13/2016 19:13:00 DIS Emergency ADAMS MCGILLP [facility] ER ABD PAIN [id number] 07/18/2016 16:33:00 07/18/2016 23:59:59 CLS Outpatient NANO OJEDA REGISTRATION MANAGER [facility] RAD M54.2 [id number] 06/15/2016 22:46:00 06/16/2016 01:29:00 DIS Emergency ADAMS MCGILL VERA [facility] ER STEPPED ON GLASS IN R FOOT [id number] 05/10/2016 11:42:00 05/10/2016 12:34:00 DIS Emergency KAL LYONS REGISTRATION MANAGER [facility] ER SPIDER BITE [id number] 01/17/2016 22:20:00 01/17/2016 22:40:00 DIS Emergency KAL LYONS APRN [facility] ER WOUND CHECK [id number] 01/16/2016 19:42:00 01/16/2016 20:31:00 DIS Emergency KAL LYONS APRN [facility] ER WOUND CHECK [id number] 01/14/2016 18:05:00 01/14/2016 19:26:00 DIS Emergency HERBERTH CH [facility] ER LOWER LEFT SIDE ABSCESS [id number] 11/05/2015 18:44:00 11/05/2015 22:45:00 DIS Emergency DEANNA BOND HERBERTH Hobson [facility] ER SKIN ISSUES/POSS INSECT BITE [id number] 08/29/2015 14:03:00 08/29/2015 14:29:00 DIS Emergency MARVIN DOASHLEY K [facility] ER [id number] 08/06/2015 19:21:00 08/06/2015 21:43:00 DIS Emergency MARVIN DO, ASHLEY K [facility] ER [id number] 02/09/2015 17:56:00 02/09/2015 20:41:00 DIS Emergency KAL LYONS APRN [facility] ER [id number] 12/07/2014 14:38:00 12/07/2014 15:50:00 DIS Emergency ALMA HERRON MD [facility] ER [id number] 08/08/2014 15:27:00 08/08/2014 17:12:00 DIS Emergency TREY BARBOZA MD [facility] ER [id number] 12/03/2014 14:10:00 Document Registration [id number] 08/08/2014 16:45:00 Document Registration [id number] 08/08/2014 16:45:00 Document Registration [id number] 06/26/2011 12:55:00 Document Registration [id number] 03/29/2011 00:30:00 Document Registration [id number] 03/25/2011 22:29:00 Document Registration [id number] 01/02/2011 19:58:00 Document Registration [id number] 06/03/2010 00:26:00 Document Registration [id number] 05/18/2010 19:38:00 Document Registration [id number] 05/01/2010 19:15:00 Document Registration [id number] 04/27/2010 06:45:00 Document Registration [id number] 04/21/2010 22:35:00 Document Registration [id number] 04/12/2010 22:27:00 Document Registration [id number] 02/09/2015 17:56:54 ACT Document Registration [id number] 09/25/2017 16:20:00 09/25/2017 23:59:59 CLS Outpatient SIMONE KWAN APRN [facility]
[2017-12-18 17:06] LABS: BILIRUBIN,URINE NEGATIVE (NEGATIVE); COLOR,URINE YELLOW; GLUCOSE, URINE (UA) NEGATIVE (NEGATIVE); KETONES,URINE NEGATIVE (NEGATIVE); LEUKOCYTE ESTERASE ,URINE NEGATIVE (NEGATIVE); NITRITE,URINE NEGATIVE (NEGATIVE); PH,URINE 5 (5-9); PROTEIN,URINE NEGATIVE (NEGATIVE); UROBILINOGEN,URINE NORMAL (NORMAL)
[2017-12-18 17:16] LABS: BACTERIA,URINE FEW /HPF; CLARITY,URINE SLIGHTLY CLOUDY; RBC,URINE 0-2 /HPF; WBC,URINE RARE /HPF
[2017-12-18 17:19] LABS: METHAMPHETAMINE SCREEN URINE S POSITIVE (NEGATIVE)
[2017-12-18 17:20] LABS: AMPHETAMINE SCREEN, URINE NEGATIVE (NEGATIVE); BARBITURATE SCREEN URINE NEGATIVE (NEGATIVE); BENZODIAZEPINES SCREEN URINE NEGATIVE (NEGATIVE); CANNABINOID SCREEN, URINE NEGATIVE (NEGATIVE); COCAINE SCREEN URINE NEGATIVE (NEGATIVE); METHADONE STAT NEGATIVE (NEGATIVE); OPIATE SCREEN URINE NEGATIVE (NEGATIVE); OXYCODONE STAT NEGATIVE (NEGATIVE); PROPOXYPHENE STAT NEGATIVE (NEGATIVE); TRICYCLIC ANTIDEPRESSANTS SCRE NEGATIVE (NEGATIVE)
[2017-12-18 17:34] LABS: BASOPHILS % (AUTO) 0 % (0-10); EOSINOPHILS # (AUTO) 0.3 10^3/uL (0.0-0.3); EOSINOPHILS % (AUTO) 3 % (0-10); HEMATOCRIT 41 % (35-52); HEMOGLOBIN 14.8 G/DL (11.5-16.0); LYMPHOCYTES # (AUTO) 2.8 X 10^3 (1.0-4.0); LYMPHOCYTES % (AUTO) 27 % (12-44); MEAN CORPUSCULAR HEMOGLOBIN 32 PG (25-34); MEAN CORPUSCULAR HGB CONC 36 G/DL (32-36); MEAN CORPUSCULAR VOLUME 89 FL (80-99); MEAN PLATELET VOLUME 10.9 FL (7.4-10.4); MONOCYTES # (AUTO) 0.7 X 10^3 (0.0-1.0); MONOCYTES % (AUTO) 7 % (0-12); NEUTROPHILS # (AUTO) 6.5 X 10^3 (1.8-7.8); NEUTROPHILS % (AUTO) 63 % (42-75); PLATELET COUNT 213 10^3/uL (130-400); RED BLOOD COUNT 4.64 10^6/uL (4.35-5.85); RED CELL DISTRIBUTION WIDTH 12.2 % (10.0-14.5); WHITE BLOOD COUNT 10.3 10^3/uL (4.3-11.0)
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
[2017-12-18] MEDS ORDERED: IOHEXOL 350 MG/ML 100 ML (OMNIPAQUE 350) VIAL IV ONE (18:00)
[2017-12-18] MEDS ORDERED: NS 100 ML (IVPB) BAG IV ONE (18:00)
[2017-12-18 18:04] LABS: ALANINE AMINOTRANSFERASE 14 U/L (0-55); ALBUMIN 4.5 GM/DL (3.2-4.5); ALKALINE PHOSPHATASE 45 U/L (40-136); BILIRUBIN,TOTAL 0.3 MG/DL (0.1-1.0); BUN/CREATININE RATIO 17; CALCIUM 9.5 MG/DL (8.5-10.1); CARBON DIOXIDE 27 MMOL/L (21-32); CHLORIDE 106 MMOL/L (98-107); CREATININE SERUM 0.78 MG/DL (0.60-1.30); GFR ESTIMATED > 60; GLUCOSE 93 MG/DL (70-105); SODIUM 140 MMOL/L (135-145); TOTAL PROTEIN 7.3 GM/DL (6.4-8.2)
[2017-12-18 18:05] LABS: ACETAMINOPHEN < 10 UG/ML (10-30)
--- NOTE | 2017-12-18 18:19 | Diagnostic Imaging Report ---
INDICATION: Left lower quadrant pain on and off for over a month, previous partial hysterectomy, no previous history of cancer. COMPARISON STUDY: CT of the abdomen and pelvis from July 02. FINDINGS: On the most superior slice there is an incompletely imaged 17 mm cyst adjacent to the right heart border. This is probably a benign pericardial cyst. This was present on the previous exam and was also only on the most superior cut. The lung bases are otherwise clear. The gallbladder is contracted. The liver, spleen, pancreas, adrenal glands and kidneys appear normal. The uterus is absent. Urinary bladder appears normal. There is a minimal umbilical hernia containing fat only. This is unchanged. The bowel loops appear unremarkable. Questionable mild constipation. The appendix is normal. No ascites, free air or abnormal adenopathy is present. The osseous structures are normal. IMPRESSION: 1. Stable CT scan of the abdomen and pelvis. 2. On the most superior slice, there is a cyst which is incompletely imaged adjacent to the right heart border. This is probably a benign pericardial cyst. This was seen on the previous exam which was also incompletely imaged. 3. Stable small periumbilical hernia containing fat only. 4. Questionable mild constipation. Dictated by: Dictated on workstation # [id number]
[2017-12-18 18:24] LABS: LIPASE 36 U/L (8-78)
[2017-12-18] MEDS ORDERED: POLY119P5 PO (18:54)
[2017-12-18 19:09] VITALS: BP 126/95
== END 2017-12-18 19:09 | disposition home or self-care (01) ==
LOC: EDUNIT# 14:23 → ER 14:24
DX: R10.84 Generalized abdominal pain (principal); F15.10 Other stimulant abuse, uncomplicated; F41.9 Anxiety disorder, unspecified; F31.9 Bipolar disorder, unspecified; F60.9 Personality disorder, unspecified; F17.210 Nicotine dependence, cigarettes, uncomplicated; Z86.14 Personal history of Methicillin resistant Staphylococcus aureus infection; Z90.710 Acquired absence of both cervix and uterus; Z87.59 Personal history of other complications of pregnancy, childbirth and the puerperium; Z88.0 Allergy status to penicillin; Z88.6 Allergy status to analgesic agent
CPT/HCPCS: 36415; 74177; 80053; 80306; 80320; 80329; 81000; 83690; 85025

== ENCOUNTER → 2018-01-28 | Outpatient (CLI) | payer OTHER ==
[~2018-01-28] MED LIST changes: +POLY119P5 PO
--- NOTE | 2018-01-28 12:51 | Diagnostic Imaging Report ---
EXAMINATION: Pelvic ultrasound. INDICATION: Pelvic pain. FINDINGS: There are no prior pelvic ultrasound examinations available for comparison. According to the patient, she has had a prior hysterectomy. The CT abdomen/pelvis exam of 12/18/2017 did note postsurgical change consistent with a prior hysterectomy. The CT exam failed to show any sign of an acute abnormality. On this study, the uterus does appear to be surgically absent. The right ovary could not be identified. The left ovary is unremarkable. There is a fairly well-circumscribed 1.3 x 0.9 x 1.4 cm hypoechoic area with a small rounded echogenicity in its center near the cervical stump. This is of uncertain etiology. This may be a sequala of the patient's prior hysterectomy. There is no pelvic mass or free fluid collection evident. IMPRESSION: 1. There is no evidence for an acute pelvic abnormality in this post hysterectomy patient. 2. The left ovary is unremarkable. The right ovary is not well visualized. 3. The well-circumscribed hypoechoic area near the cervical stump is of uncertain etiology. Dictated by: Dictated on workstation # [id number]
== END ==
LOC: RAD 07:17
PROVIDERS: ATTEND Nurse Practitioner Family
DX: R10.2 Pelvic and perineal pain (principal)
CPT/HCPCS: 76830; 76856

== ENCOUNTER 2018-02-15 03:54 | Emergency (ER) | payer OTHER ==
[~2018-02-15] VITALS: Ht 167.6 cm; Wt 104.3 kg
--- OUTSIDE RECORDS SUMMARY | 2018-02-15 04:00 | XMS REPORT | Clinical Summary ---
Author Author [facility] Organization [facility] Address Unknown Phone Unavailable Care Team Providers Care Lease Purchase Driver Name Role Phone Mau Alaniz PCP Tanya Tompkins MD Unavailable Riccardo Anderson MD Unavailable Juanis Olivas RN Unavailable Unavailable Kelly Tijerina APRN Unavailable Unavailable Source Comments Some departments are not documenting in the electronic medical record. If you do not see the information that you expected, contact Release of Information in the Health Information Management department at [phone] for further assistance in locating additional records.[facility] Allergies Active Allergy Reactions Severity Noted [...]
--- OUTSIDE RECORDS SUMMARY | 2018-02-15 04:01 | XMS REPORT ---
Author Author NERISSA STEFANO Organization [facility] Address [address] [place] [address] Care Team Providers Care Instrument Designer Name Role Phone KAELADALTON STEFANO Unavailable PROBLEMS Type Condition ICD9-CM Code VWB57-UR Code Onset Dates Condition Status SNOMED Code Problem Psychosis, unspecified psychosis type F29 Active 46952563 Problem Chronic pain syndrome G89.4 Active 306201158 Problem Anxiety F41.9 Active 51470643 Problem ADD (attention deficit disorder) F90.0 Active 545783107 Problem Episodic mood disorder F39 Active 53079812 Problem Neuropathy G62.9 Active 010051060 Problem Mood disorder F39 Active 49401097 ALLERGIES No Information ENCOUNTERS Encounter Location Date Diagnosis [facility] [id number] [place] [address] 97412- 2864 Sep, [facility] [id number] [place] [address] 02634- 7272 Sep, Anxiety F41.9 and Chronic pain syndrome G89.4 [facility] [id number] [place] [address] 86759- 6029 Sep, Anxiety F41.9 [facility] [id number] [place] [address] 88032- 5241 Aug, [facility] [id number] [place] [address] 10819- 7020 Aug, [facility] [id number] [place] [address] 20061- 1706 Aug, Psychosis, unspecified psychosis type F29 [facility] [id number] [place] [address] 60410- 6631 Aug, Anxiety F41.9 [facility] [id number] [place] [address] 53172- 5879 Aug, [facility] [id number] [place] [address] 33230- 1033 Jul, [facility] [id number] [place] [address] 53450- 1345 Jul, [facility] [address] 57019- 7645 Jul, [facility] [address] 97857- 6049 Jul, [facility] [address] 32148- 6891 Jul, Anxiety F41.9 [facility] [id number] [place] [address] 49464- 5240 Jun, Acute psychosis F23 and Homeless Z59.0 [facility] [address] 03725- 7448 Jun, Anxiety F41.9 ; Episodic mood disorder F39 and Homeless Z59.0 [facility] [address] 57217- 0544 Jun, Anxiety F41.9 [facility] [id number] [place] [address] 69014- 3485 Jun, [facility] [id number] [place] [address] 34128- 7665 May, [facility] [id number] [place] [address] 03459- 3627 May, Anxiety F41.9 ; Neuropathy G62.9 ; Dysuria R30.0 and detention current use of opiate analgesic Z79.891 [facility] [id number] [place] [address] 20449- 2802 Apr, [facility] [id number] [place] [address] 17758- 1235 Apr, 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 [facility] [id number] [place] [address] 04349- 7677 Apr, Anxiety F41.9 [facility] [id number] [place] [address] 40471- 4247 Apr, [facility] [id number] [place] [address] 72267- 3058 Mar, Anxiety F41.9 [facility] [id number] [place] [address] 38139- 2834 Mar, [facility] [id number] [place] [address] 37200- 6505 Mar, [facility] [id number] [place] [address] 82024- 3780 Mar, [facility] [id number] [place] [address] 49630- 1307 Mar, Anxiety F41.9 ; Cervical neuritis M54.12 and Thoracic neuritis M54.14 [facility] [id number] [place] [address] 61524- 4394 Feb, Anxiety F41.9 ; Mood disorder F39 ; Episodic mood disorder F39 ; Psychosis, unspecified psychosis type F29 and Homeless Z59.0 [facility] [id number] [place] [address] 31858- 3881 January, [facility] [id number] [place] [address] 73993- 4861 Nov, [facility] [address] [place] [id number] Nov, Mood disorder F39 and Sebaceous cyst L72.3 [facility] [id number] [place] [address] 74542- 8523 Oct, Neuropathy G62.9 [facility] [id number] [place] [address] 05968- 5582 Oct, Mood disorder F39 and Neuropathy G62.[address] [id number] Aug, Mood disorder F39 and Neuropathy G62.9 [facility] [id number] [place] [address] 06703- 3625 May, [facility] [id number] [place] [address] 62595- 2098 Apr, Psychosis, unspecified psychosis type F29 [facility] [id number] [place] [address] 58503- 2093 Apr, [facility] [address] 89010- 1201 Apr, [address] [id number] Mar, Upper respiratory tract infection, unspecified type J06.9 and Tinea corporis B35.4 [id number] [place] [address] 85478- 4097 Feb, ADD (attention deficit disorder) F90.0 [facility] [id number] [place] [address] 60751- 0243 Dec, Psychosis, unspecified psychosis type F29 and Episodic mood disorder F39 [facility] [id number] [place] [address] 36624- 4885 Sep, [address] [id number] Sep, Injury of hand, right, initial encounter S69.91XA [facility] [place] [facility] [address] [place] [address] [id number] Jul, [facility] [place] [facility] [address] [id number] Jul, Encounter for dental examination Z01.20 [facility] [id number] [place] [address] 01796- 9845 15 Jun, 2015 [place] Z76.5 [facility] [address] [place] [address]- 2166 Jun, Mood disorder F39 [facility] [address] [address]- 4686 Jun, Anxiety disorder, unspecified F41.9 [facility] [address] [place] [id number] May, Anxiety 300.00 [facility] [address] [place] [id number] 15 May, 2015 Abdominal pain, left lateral 789.09 [facility] [address] [place] [id number] 08 May, 2015 Bipolar 1 disorder 296.7 and Abdominal pain, left lateral 789.09 [address] [place] [id number] May, Bipolar 1 disorder 296.7 [facility] [place] [id number] [id number] January, Dental examination V72.2 [facility] [id number] [place] [address] 96827- 0371 14 Dec, 2014 [facility] [address] [address]- 1247 Dec, [facility] [address] 1435 Nov, [facility] [address] 0207 Nov, [facility] [address] 7031 Nov, [facility] [address] 1202 Nov, [facility] [id number] [address]- 5392 Nov, [facility] [address] [address]- 2416 Nov, [facility] [address] [address]- 1884 Nov, [facility] [address] [id number] [place] [address]- 4551 Nov, [facility] [address] [place] [id number] Oct, [facility] [address] [id number] Oct, [facility] [address] [id number] [place] [address]- 8174 Oct, [facility] [place] [facility] [address] [id number] [place] [address]- 3298 Oct, [facility] [place] [facility] [address] [id number] [place] [address]- 1831 Oct, [facility] [place] [facility] [address] [id number] [place] [address]- 7970 Oct, [facility] [place] [facility] [address] [id number] [place] [address]- 6967 Sep, [facility] [place] [facility] [address] [id number] [place] [address]- 2954 Sep, [facility] [place] [facility] [address] [id number] [place] [address]- 8144 Jul, [facility] [place] [facility] [address] [facility] [id number] [address]- 9577 Jul, [facility] [place] [facility] [address] [id number] [place] [address]- 0656 Jul, [facility] [place] [facility] [address] [id number] [address]- 8689 Jul, [facility] [place] [facility] [address] [id number] [place] [address]- 7473 Jun, [facility] [place] [facility] [address] [id number] [place] [address]- 5127 Jun, [facility] [place] [facility] [address] [id number] [place] [address]- 5573 Jun, [facility] [place] [facility] [address] [id number] [place] [address]- 0647 Jun, [facility] [place] [facility] [address] [id number] [place] [address]- 9279 May, [facility] [place] [facility] [address] [id number] [place] [address]- 0418 May, [facility] [place] [facility] [address] [id number] [place] [address]- 1247 Apr, [facility] [place] [facility] [address] [id number] [place] [address]- 2572 Apr, [facility] [place] [facility] [address] [id number] [place] [address]- 9523 Mar, [facility] [place] [facility] [address] [id number] [place] [address]- 2381 Mar, [facility] [place] [facility] [address] [id number] [place] [address]- 2054 Mar, [facility] [place] [facility] [address] [id number] [place] [address]- 2538 Mar, [facility] [place] [facility] [address] [id number] [place] [address]- 8497 January, [facility] [place] [facility] [address] [id number] [place] [address]- 0865 January, [facility] [place] [facility] [address] [id number] [place] [address]- 0762 Dec, [facility] [place] [facility] [address] [id number] [place] [address]- 7878 Dec, [facility] [place] [facility] [address] [id number] [place] [address]- 2742 Dec, [facility] [place] [facility] [address] [id number] [place] [address]- 1687 Nov, [facility] [place] [facility] [address] [id number] [place] [address]- 9378 Nov, [facility] [place] [facility] [address] [id number] [place] [address]- 7946 Nov, [facility] [place] [facility] [address] [id number] [place] [address]- 3056 Oct, [facility] [place] [facility] [address] [facility] [id number] [place] [address]- 8366 Oct, [facility] [place] [facility] [address] [id number] [place] [address]- 8434 Oct, [facility] [place] [facility] [address] [id number] [place] [address]- 0907 Oct, [facility] [place] [facility] [address] [id number] [place] [address]- 8567 Oct, [facility] [place] [facility] [address] [facility] [id number] [place] [address]- 7862 Oct, [facility] [place] [facility] [address] [id number] [place] [address]- 6578 Oct, [facility] [place] [facility] [address] [facility] [id number] [place] [address]- 2083 Oct, [facility] [place] [facility] [address] [facility] [id number] [place] [address]- 4533 Oct, [facility] [place] [facility] [address] [facility] [id number] [place] [address] 2546 Oct, [facility] [place] [facility] [address] [facility] [id number] [place] [address]- 7051 Sep, [facility] [place] [facility] [address] [id number] [place] [address]- 1896 Sep, [facility] [place] [facility] [address] [facility] [id number] [place] [address]- 1232 Aug, [facility] [place] [facility] [address] [facility] [id number] [place] [address]- 6927 Aug, [facility] [address] [id number] [place] [address]- 1056 Aug, [facility] [address] [id number] [place] [address]- 8016 Jul, [facility] [address] [id number] [place] [address]- 2636 Jul, [facility] [place] [facility] [address] [id number] [place] [address]- 4806 Feb, [facility] [address] [id number] [place] [address]- 4226 Nov, [facility] [place] [facility] [address] [id number] [place] [address]- 8986 Oct, [facility] [address] [id number] [place] [address]- 4036 Sep, [facility] [address] [id number] [place] [address]- 6246 Sep, [facility] [address] [id number] [place] [address]- 0171 Sep, [facility] [address] [id number], [place] [address]- 0369 Aug, [facility] [address] [id number], [place] [address]- 6856 Aug, [facility] [place] [facility] [address] [id number], [place] [address]- 3736 January, [facility] [place] [facility] [address] [id number] [place] [address]- 7561 January, [facility] [place] [facility] [address] [id number] [place] [address]- 5246 January, [facility] [place] [facility] [address] [id number], [place] [address]- 5086 January, [facility] [place] [facility] [address] [id number], [place] [address]- 9595 January, [facility] [address] [id number] [place] [address]- 5028 January, [facility] [place] [facility] [address] [id number] [place] [address]- 2903 Dec, [facility] [address] [id number] [place] [address]- 1458 Dec, [facility] [place] [facility] [address] [id number] [place] [address]- 6341 Dec, [facility] [address] [id number] [place] [address]- 7453 Dec, [facility] [address] [id number] [place] [address]- 5197 Nov, [facility] [address] [place] [address]- 2347 Nov, [facility] [place] [facility] [address] [id number] [place] [address]- 9472 Oct, [facility] [address] [id number] [place] [address]- 9406 Oct, [facility] [id number] [place] [address]- 3461 Oct, [facility] [id number] [place] [address]- 6205 Oct, [facility] [place] [facility] [address] [id number] [place] [address]- 7545 Sep, [facility] [place] [facility] [address] [id number] [place] [address]- 6213 Sep, [facility] [place] [facility] [address] [id number] [place] [address]- 0856 Sep, [facility] [place] [facility] [address] [id number] [place] [address]- 2219 Sep, [facility] [address] [address]- 1133 Sep, [facility] [address] [address]- 9964 Sep, [facility] [address] [address]- 3127 Sep, [facility] [id number] [place] [address] 15803- 5331 Sep, [facility] [address] [address]- 9331 Sep, [facility] [address], [place] [address]- 4878 Sep, [facility] [address], [place] [address]- 1885 Sep, [facility] [address], [place] [address]- 3987 Aug, [facility] [address] [address]- 3749 Aug, [facility] [address], [place] [address]- 7620 Jun, [facility] [address] [address]- 0025 Jun, [facility] [address] [address]- 7774 Apr, [facility] [id number] [address]- 0675 Apr, [facility] [address], [place] [address]- 7723 Jul, IMMUNIZATIONS No Known Immunizations SOCIAL HISTORY Never Assessed REASON FOR VISIT call to schedule ATS intake PLAN OF CARE VITAL SIGNS MEDICATIONS Unknown Medications RESULTS No Results PROCEDURES No Known procedures INSTRUCTIONS MEDICATIONS ADMINISTERED No Known Medications MEDICAL (GENERAL) HISTORY Type Description Date Medical History pt past history showed breach of narc contract, pt had been previously on multiple stimulants, benzo, and pain medications Medical History ADD Medical History Bipolar Medical History Anxiety Medical History PTSD Medical History degenerative disc disease per report Medical History abd pain s/p partial hysterectomy Surgical History x 3 Surgical History hysterectomy 2009 Surgical History transvaginal mesh Surgical History dilatation and curettage Hospitalization History surgeries
--- OUTSIDE RECORDS SUMMARY | 2018-02-15 04:01 | XMS REPORT ---
Author Author CATIE Ballesteros Organization [facility] Address [address] [place] [address] Care Team Providers Care Communications Supervisor Name Role Phone KatieYADICATIE Jaramillo Unavailable PROBLEMS Type Condition ICD9-CM Code QGU21-UO Code Onset Dates Condition Status SNOMED Code Problem Psychosis, unspecified psychosis type F29 Active 43564247 Problem Chronic pain syndrome G89.4 Active 730243939 Problem Anxiety F41.9 Active 50219854 Problem ADD (attention deficit disorder) F90.0 Active 614382527 Problem Episodic mood disorder F39 Active 39029140 Problem Neuropathy G62.9 Active 088370058 Problem Mood disorder F39 Active 02146468 ALLERGIES Substance Reaction Event Type Date Status Penicillin V Potassium rash Drug Allergy Feb, Active ENCOUNTERS Encounter Location Date Diagnosis [facility] [id number] [place] [address] 25446- 9247 Sep, [facility] [id number] [place] [address] 93319- 5587 Sep, Anxiety F41.9 and Chronic pain syndrome G89.4 [facility] [id number] [place] [address] 40842- 6149 Sep, Anxiety F41.9 [facility] [id number] [place] [address] 29516- 9635 Aug, [facility] [id number] [place] [address] 77440- 7536 Aug, [facility] [id number] [place] [address] 03459- 3264 Aug, Psychosis, unspecified psychosis type F29 [facility] [id number] [place] [address] 31219- 6151 Aug, Anxiety F41.9 [facility] [id number] [place] [address] 26877- 4949 Aug, [facility] [id number] [place] [address] 79830- 3349 Jul, [facility] [id number] [place] [address] 97080- 1521 Jul, [facility] [address] 30207- 9906 Jul, [facility] [id number] [place] [address] 36590- 9610 Jul, [facility] [id number] [place] [address] 60260- 5468 Jul, Anxiety F41.9 [facility] [id number] [place] [address] 65082- 6902 Jun, Acute psychosis F23 and Homeless Z59.0 [facility] [id number] [place] [address] 14209- 5441 Jun, Anxiety F41.9 ; Episodic mood disorder F39 and Homeless Z59.0 [facility] [id number] [place] [address] 15837- 8885 Jun, Anxiety F41.9 [facility] [id number] [place] [address] 49914- 5377 Jun, [facility] [id number] [place] [address] 33349- 9998 May, [facility] [id number] [place] [address] 12721- 3122 May, Anxiety F41.9 ; Neuropathy G62.9 ; Dysuria R30.0 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 [facility] [id number] [place] [address] 42418- 5054 Apr, [facility] [address] [address]- 6688 Apr, 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 [facility] [id number] [place] [address] 21496- 5592 Apr, Anxiety F41.9 [facility] [id number] [place] [address] 72102- 1787 Apr, [facility] [id number] [place] [address] 42479- 7756 Mar, Anxiety F41.9 [facility] [id number] [place] [address] 48947- 2061 Mar, [facility] [id number] [place] [address] 91948- 4236 Mar, [facility] [id number] [place] [address] 46486- 3391 Mar, [facility] [id number] [place] [address] 21748- 7606 Mar, Anxiety F41.9 ; Cervical neuritis M54.12 and Thoracic neuritis M54.14 [facility] [id number] [place] [address] 75229- 9097 Feb, Anxiety F41.9 ; Mood disorder F39 ; Episodic mood disorder F39 ; Psychosis, unspecified psychosis type F29 and Homeless Z59.0 [facility] [id number] [place] [address] 54070- 3516 January, [facility] [address] [place] [address] 09083- 7394 Nov, [facility] [address] [place] [id number] Nov, Mood disorder F39 and Sebaceous cyst L72.3 [facility] [address] [address]- 8678 Oct, Neuropathy G62.9 [facility] [id number] [place] [address] 50131- 2399 14 Oct, 2016 Mood disorder F39 and Neuropathy G62.[address] [id number] Aug, Mood disorder F39 and Neuropathy G62.9 [facility] [id number] [place] [address] 21015- 5773 15 May, 2016 [facility] [id number] [place] [address] 92264- 9710 Apr, Psychosis, unspecified psychosis type F29 [facility] [id number] [place] [address] 63212- 7970 Apr, [facility] [id number] [place] [address] 06842- 0718 Apr, [address] [id number] Mar, Upper respiratory tract infection, unspecified type J06.9 and Tinea corporis B35.4 [facility] [id number] [place] [address] 80256- 1825 Feb, ADD (attention deficit disorder) F90.0 [facility] [id number] [place] [address] 05616- 7099 Dec, Psychosis, unspecified psychosis type F29 and Episodic mood disorder F39 [facility] [id number] [place] [address] 65213- 2786 Sep, [address] [id number] Sep, Injury of hand, right, initial encounter S69.91XA [facility] [id number] [place] [address] [id number] Jul, [facility] [id number] [place] [address] [id number] Jul, Encounter for dental examination Z01.20 [facility] [id number] [place] [address] 90389- 5776 15 Jun, 2015 [place] Z76.5 [facility] [id number] 5284 Jun, Mood disorder F39 [facility] [address] [address]- 2876 Jun, Anxiety disorder, unspecified F41.9 [facility] [address] [id number] May, Anxiety [address] [place] [id number] May, Abdominal pain, left lateral 789.09 [address] [place] [id number] 08 May, 2015 Bipolar 1 disorder 296.7 and Abdominal pain, left lateral 789.09 [address] [place] [id number] May, Bipolar 1 disorder 296.7 [facility] [address] [id number] January, Dental examination V72.2 [facility] [address] [address]- 7424 Dec, [facility] [address] [address]- 8848 Dec, [facility] [address] [address]- 8980 Nov, [facility] [address], [place] [address]- 8664 Nov, [facility] [address] [address]- 1443 Nov, [facility] [address] [address]- 9575 Nov, [facility] [address] 4687 Nov, [facility] [address] 3156 Nov, [facility] [id number] [place] [address]- 5786 Nov, [facility] [place] [facility] [address] [id number] [place] [address]- 7488 Nov, [facility] [address] [id number] Oct, [facility] [address] [place] [id number] Oct, [facility] [place] [facility] [address] [id number] [place] [address]- 9476 Oct, [facility] [place] [facility] [address] [id number] [place] [address]- 6030 Oct, [facility] [place] [facility] [address] [id number] [place] [address]- 7959 Oct, [facility] [place] [facility] [address] [id number] [place] [address]- 3568 Oct, [facility] [place] [facility] [address] [id number], [place] [address]- 7906 Sep, [facility] [place] [facility] [address] [id number] [place] [address]- 1502 Sep, [facility] [place] [facility] [address] [id number] [place] [address]- 1062 Jul, [facility] [place] [facility] [address] [id number], [place] [address]- 5227 Jul, [facility] [place] [facility] [address] [id number], [place] [address]- 3745 Jul, [facility] [place] [facility] [address] [id number] [place] [address]- 5263 Jul, [facility] [place] [facility] [address] [id number] [place] [address]- 8492 Jun, [facility] [place] [facility] [address] [id number] [place] [address]- 0582 Jun, [facility] [place] [facility] [address] [id number] [place] [address]- 0423 Jun, [facility] [place] [facility] [address] [id number] [place] [address]- 4402 Jun, [facility] [place] [facility] [address] [id number] [place] [address]- 7927 May, [facility] [place] [facility] [address] [id number] [place] [address]- 8185 May, [facility] [place] [facility] [address] [id number] [place] [address]- 1128 Apr, [facility] [place] [facility] [address] [id number] [place] [address]- 3230 Apr, [facility] [place] [facility] [address] [id number] [place] [address]- 9075 Mar, [facility] [place] [facility] [address] [id number] [place] [address]- 7414 Mar, [facility] [place] [facility] [address] [id number] [place] [address]- 0378 Mar, [facility] [place] [facility] [address] [id number] [place] [address]- 7669 Mar, [facility] [place] [facility] [address] [id number] [place] [address]- 1640 January, [facility] [place] [facility] [address] [id number] [place] [address]- 1385 January, [facility] [place] [facility] [address] [id number] [place] [address]- 6209 Dec, [facility] [place] [facility] [address] [id number] [place] [address]- 6907 Dec, [facility] [place] [facility] [address] [id number] [place] [address]- 2608 Dec, [facility] [place] [facility] [address] [id number] [place] [address]- 5056 Nov, [facility] [place] [facility] [address] [id number] [place] [address]- 4056 Nov, [facility] [place] [facility] [address] [id number] [place] [address]- 1836 Nov, [facility] [place] [facility] [address] [id number] [place] [address]- 0756 Oct, [facility] [place] [facility] [address] [id number] [place] [address]- 2423 Oct, [facility] [place] [facility] [address] [id number] [place] [address]- 4800 Oct, [facility] [place] [facility] [address] [id number] [place] [address]- 0946 Oct, [facility] [place] [facility] [address] [id number] [place] [address]- 5649 Oct, [facility] [place] [facility] [address] [id number] [place] [address]- 8795 Oct, [facility] [place] [facility] [address] [id number] [place] [address]- 2796 Oct, [facility] [place] [facility] [address] [id number] [place] [address]- 5883 Oct, [facility] [place] [facility] [address] [id number] [place] [address]- 5633 Oct, [facility] [place] [facility] [address] [id number] [place] [address]- 9391 Oct, [facility] [place] [facility] [address] [id number] [place] [address]- 1819 Sep, [facility] [place] [facility] [address] [id number] [place] [address]- 9264 Sep, [facility] [place] [facility] [address] [id number] [place] [address]- 6579 Aug, [facility] [place] [facility] [address] [id number] [place] [address]- 7245 Aug, [facility] [address] [id number] [place] [address]- 0557 Aug, [facility] [address] [id number] [place] [address]- 0254 Jul, [facility] [address] [id number] [place] [address]- 7057 Jul, [facility] [address] [id number] [place] [address]- 1957 Feb, [facility] [address] [id number] [place] [address]- 6152 Nov, [facility] [address] [id number] [place] [address]- 9698 Oct, [facility] [address] [id number] [place] [address]- 1976 Sep, [facility] [address] [id number] [place] [address]- 9652 Sep, [facility] [address] [id number] [place] [address]- 2925 Sep, [facility] [address] [id number] [place] [address]- 8184 Aug, [facility] [address] [id number] [place] [address]- 3914 Aug, [facility] [address] [id number] [place] [address]- 6894 January, [facility] [address] [id number] [place] [address]- 5886 January, [facility] [address] [id number] [place] [address]- 3106 January, [facility] [address] [id number] [place] [address]- 2321 January, [facility] [address] [id number] [place] [address]- 6552 January, [facility] [place] [facility] [address] [id number] [place] [address]- 4076 January, [facility] [place] [facility] [address] [id number] [place] [address]- 5292 Dec, [facility] [place] [facility] [address] [id number] [place] [address]- 1442 Dec, [facility] [place] [facility] [address] [id number] [place] [address]- 8451 Dec, [facility] [place] [facility] [address] [id number] [place] [address]- 5420 Dec, [facility] [place] [facility] [address] [id number] [place] [address]- 3760 Nov, [facility] [place] [facility] [address] [id number] [place] [address]- 1577 Nov, [facility] [place] [facility] [address] [id number] [place] [address]- 1763 Oct, [facility] [place] [facility] [address] [id number] [place] [address]- 3980 Oct, [facility] [place] [facility] [address] [id number] [place] [address]- 8346 Oct, [facility] [place] [facility] [address] [id number] [place] [address]- 1356 Oct, [facility] [place] [facility] [address] [id number] [place] [address]- 0897 Sep, [facility] [place] [facility] [address] [id number] [place] [address]- 3923 24 Sep, 2011 [facility] [place] [facility] [address] [id number] [place] [address]- 4722 Sep, [facility] [place] [facility] [id number] [address]- 9382 Sep, [facility] [id number] [address]- 5442 Sep, [facility] [address] [address]- 6784 Sep, [facility] [address] [address]- 5084 Sep, [facility] [address] [address]- 4801 Sep, [facility] [address] [address]- 3151 Sep, [facility] [address] [address]- 6876 Sep, [facility] [address] [address]- 4515 Sep, [facility] [address] [address]- 1546 Aug, [facility] [address] [address]- 4873 Aug, [facility] [id number] [address]- 4738 Jun, [facility] [id number] [address]- 2274 Jun, [facility] [id number] [address]- 4238 Apr, [facility] [id number] [address]- 9691 Apr, [facility] [id number] 3896 Jul, IMMUNIZATIONS No Known Immunizations SOCIAL HISTORY Never Assessed REASON FOR VISIT f/u PLAN OF CARE Activity Details Follow Up Next available Reason:Depression psychotic this time VITAL SIGNS MEDICATIONS Unknown Medications RESULTS No Results PROCEDURES Procedure Date Ordered Result Body Site Psychotherapy, patient &/family, 30 minutes, established patient February 15, 2017 INSTRUCTIONS MEDICATIONS ADMINISTERED No Known Medications MEDICAL [...]
--- OUTSIDE RECORDS SUMMARY | 2018-02-15 04:01 | XMS REPORT ---
Author Author SIMONE KWAN Organization [facility] Address [address] [place] [address] Care Team Providers Care Gyro Compass Tester Name Role Phone SIMONE KWAN Unavailable PROBLEMS Type Condition ICD9-CM Code XZR63-EU Code Onset Dates Condition Status SNOMED Code Problem Psychosis, unspecified psychosis type F29 Active 06203512 Problem Chronic pain syndrome G89.4 Active 739741618 Problem Anxiety F41.9 Active 28793731 Problem ADD (attention deficit disorder) F90.0 Active 092952985 Problem Episodic mood disorder F39 Active 14698212 Problem Neuropathy G62.9 Active 651293647 Problem Mood disorder F39 Active [id number] ALLERGIES No Information ENCOUNTERS Encounter Location Date Diagnosis [facility] [id number] [place] [address] 93279- 3899 Sep, [facility] [id number] [place] [address] 30913- 6528 Sep, Anxiety F41.9 and Chronic pain syndrome G89.4 [facility] [id number] [place] [address] 88850- 1767 Sep, Anxiety F41.9 [facility] [id number] [place] [address] 13344- 0341 Aug, [facility] [id number] [place] [address] 59846- 4879 Aug, [facility] [address] [address]71- 8651 Aug, Psychosis, unspecified psychosis type F29 [facility] [id number] [place] [address] 49105- 0007 Aug, Anxiety F41.9 [facility] [id number] [place] [address] 96800- 2717 Aug, [facility] [id number] [place] [address] 94751- 8583 Jul, [facility] [id number] [place] [address] 64122- 1489 Jul, [facility] [id number] [place] [address] 75124- 9005 Jul, [facility] [address] 32537- 8793 Jul, [facility] [address] [address]185- 1990 Jul, Anxiety F41.9 [facility] [id number] [place] [address] 13199- 2681 Jun, Acute psychosis F23 and Homeless Z59.0 [facility] [address] 26059- 1131 Jun, Anxiety F41.9 ; Episodic mood disorder F39 and Homeless Z59.0 [facility] [id number] [place] [address] 63202- 3505 Jun, Anxiety F41.9 [facility] [id number] [place] [address] 27831- 4854 Jun, [facility] [id number] [place] [address] 91747- 7067 May, [facility] [id number] [place] [address] 38181- 1469 May, Anxiety F41.9 ; Neuropathy G62.9 ; Dysuria R30.0 and MCC current use of opiate analgesic Z79.891 [facility] [id number] [place] [address] 44292- 3955 Apr, [facility] [id number] [place] [address] 67070- 7811 Apr, 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 [facility] [id number] [place] [address] 65079- 5530 Apr, Anxiety F41.9 [facility] [id number] [place] [address] 44111- 3641 Apr, [facility] [id number] [place] [address] 45009- 1963 Mar, Anxiety F41.9 [facility] [id number] [place] [address] 69038- 2401 Mar, [id number] [place] [address] 79262- 6650 Mar, [facility] [id number] [place] [address] 06894- 3235 Mar, [facility] [id number] [place] [address] 75537- 1390 Mar, Anxiety F41.9 ; Cervical neuritis M54.12 and Thoracic neuritis M54.14 [address] [id number] [place] [address] 42787- 4738 Feb, Anxiety F41.9 ; Mood disorder F39 ; Episodic mood disorder F39 ; Psychosis, unspecified psychosis type F29 and Homeless Z59.0 [address] [id number] [place] [address] 53791- 5098 January, [facility] [id number] [place] [address] 65128- 9042 Nov, [facility] [address] [id number] Nov, Mood disorder F39 and Sebaceous cyst L72.3 [facility] [address] [place] [address] 76884- 9791 Oct, Neuropathy G62.9 [facility] [id number] [place] [address] 53810- 8347 Oct, Mood disorder F39 and Neuropathy G62.9 [address] [place] [id number] Aug, Mood disorder F39 and Neuropathy G62.9 [facility] [id number] [place] [address] 08955- 5554 May, [facility] [id number] [place] [address] 73826- 8934 Apr, Psychosis, unspecified psychosis type F29 [facility] [id number] [place] [address] 39218- 5641 Apr, [facility] [id number] [place] [address] 12153- 8216 Apr, [address] [place] [id number] Mar, Upper respiratory tract infection, unspecified type J06.9 and Tinea corporis B35.4 [address] [address] 51443- 1803 Feb, ADD (attention deficit disorder) F90.0 [facility] [id number] [place] [address] 01370- 8245 Dec, Psychosis, unspecified psychosis type F29 and Episodic mood disorder F39 [facility] [id number] [place] [address] 56273- 2871 Sep, [address] [place] [id number] Sep, Injury of hand, right, initial encounter S69.91XA [facility] [id number] [place] [address] [id number] Jul, [facility] [address] [id number] Jul, Encounter for dental examination Z01.20 [facility] [id number] [place] [address] 79584- 8133 15 Jun, 2015 Malingering Z76.5 [facility] [address] 60515- 9766 Jun, Mood disorder F39 [facility] [address] [id number] [address]- 7587 Jun, Anxiety disorder, unspecified F41.9 [facility] [address] [id number] May, Anxiety 300.00 [facility] [address] [id number] 15 May, 2015 Abdominal pain, left lateral 789.09 [address] [place] [id number] 08 May, 2015 Bipolar 1 disorder 296.7 and Abdominal pain, left lateral 789.09 [address] [place] [id number] May, Bipolar 1 disorder 296.7 [facility] [address] [id number] [id number] January, Dental examination V72.2 [facility] [address] [address]- 3650 Dec, [facility] [id number] [address]- 2916 Dec, [facility] [address] [address]- 6027 Nov, [facility] [id number] [address] 7309 Nov, [facility] [address] [address]- 1328 Nov, [facility] [address] [id number] [address] 0396 Nov, [facility] [id number] 3162 Nov, [facility] [address] [id number] 8196 Nov, [facility] [address] [address]- 6766 Nov, [facility] [address] [id number] [place] [address]- 8427 Nov, [facility] [address] [id number] Oct, [facility] [address] [id number] Oct, [facility] [place] [facility] [address] [id number] [place] [address]- 2734 Oct, [facility] [place] [facility] [address] [id number] [place] [address]- 2112 Oct, [facility] [place] [facility] [address] [id number] [place] [address]- 1072 Oct, [facility] [place] [facility] [address] [id number] [place] [address]- 8515 Oct, [facility] [place] [facility] [address] [id number] [place] [address]- 1613 Sep, [facility] [place] [facility] [address] [id number] [place] [address]- 1427 Sep, [facility] [place] [facility] [address] [id number] [place] [address]- 5879 Jul, [facility] [place] [facility] [address] [id number] [place] [address]- 7768 Jul, [facility] [place] [facility] [address] [id number] [place] [address]- 5364 Jul, [facility] [place] [facility] [address] [id number] [place] [address]- 3084 Jul, [facility] [place] [facility] [address] [id number] [place] [address]- 0005 Jun, [facility] [place] [facility] [address] [id number] [place] [address]- 5959 Jun, [facility] [place] [facility] [address] [id number] [place] [address]- 1781 Jun, [facility] [place] [facility] [address] [id number] [place] [address]- 9893 Jun, [facility] [place] [facility] [address] [id number] [place] [address]- 8950 May, [facility] [place] [facility] [address] [id number] [place] [address]- 9866 May, [facility] [place] [facility] [address] [id number] [place] [address]- 2102 Apr, [facility] [place] [facility] [address] [id number] [place] [address]- 6425 Apr, [facility] [place] [facility] [address] [id number] [place] [address]- 1180 Mar, [facility] [place] [facility] [address] [id number] [place] [address]- 3792 Mar, [facility] [place] [facility] [address] [id number] [place] [address]- 4729 Mar, [facility] [place] [facility] [address] [id number] [place] [address]- 9261 Mar, [facility] [place] [facility] [address] [id number] [place] [address]- 3152 January, [facility] [place] [facility] [address] [id number] [place] [address]- 7066 January, [facility] [place] [facility] [address] [id number] [place] [address]- 9529 Dec, [facility] [place] [facility] [address] [id number] [place] [address]- 2663 Dec, [facility] [place] [facility] [address] [id number] [place] 1224 Dec, [facility] [place] [facility] [address] [id number] [place] [address]- 1916 Nov, [facility] [place] [facility] [address] [id number] [place] [address]- 3541 Nov, [facility] [place] [facility] [address] [id number] [place] [address]- 7528 Nov, [facility] [place] [facility] [address] [id number] [place] [address]- 4336 Oct, [facility] [place] [facility] [address] [id number] [place] [address]- 8946 Oct, [facility] [place] [facility] [address] [id number] [place] [address]- 1659 Oct, [facility] [place] [facility] [address] [id number] [place] [address]- 2042 Oct, [facility] [place] [facility] [address] [id number] [place] [address]- 9072 Oct, [facility] [place] [facility] [address] [id number] [place] [address]- 9855 Oct, [facility] [place] [facility] [address] [id number] [place] [address]- 2977 Oct, [facility] [place] [facility] [address] [id number] [place] [address]- 9710 Oct, [facility] [place] [facility] [address] [id number] [place] [address]- 4343 Oct, [facility] [place] [facility] [address] [id number] [place] [address]- 7969 Oct, [facility] [place] [facility] [address] [id number] [place] [address]- 7968 Sep, [facility] [place] [facility] [address] [id number] [place] [address]- 1443 Sep, [facility] [place] [facility] [address] [id number] [place] [address]- 5868 Aug, [facility] [place] [facility] [address] [id number] [place] [address]- 4209 Aug, [facility] [place] [facility] [address] [id number] [place] [address]- 5229 Aug, [facility] [address] [id number] [place] [address]- 9533 Jul, [facility] [place] [facility] [address] [id number] [place] [address]- 7832 Jul, [facility] [address] [id number] [place] [address]- 1260 Feb, [facility] [address] [id number] [place] [address]- 5976 Nov, [facility] [place] [facility] [address] [id number] [place] [address]- 3552 Oct, [facility] [address] [id number] [place] [address]- 1537 Sep, [facility] [address] [id number] [place] [address]- 2816 Sep, [facility] [address] [id number] [place] [address]- 3746 Sep, [facility] [address] [id number] [place] [address]- 4118 Aug, [facility] [address] [id number] [place] [address]- 3572 Aug, [facility] [address] [id number] [place] [address]- 5635 January, [facility] [address] [id number] [place] 0717 January, [facility] [place] [facility] [address] [id number] [place] [address]- 0179 January, [facility] [place] [facility] [address] [id number] [place] [address]- 7727 January, [facility] [address] [id number] [place] [address]- 5333 January, [facility] [place] [facility] [address] [id number] [place] [address]- 1432 January, [facility] [place] [facility] [address] [id number] [place] [address]- 4410 Dec, [facility] [place] [facility] [address] [id number] [place] [address]- 0457 Dec, [facility] [place] [facility] [address] [id number] [place] [address]- 7173 Dec, [facility] [place] [facility] [address] [id number] [place] [address]- 6814 Dec, [facility] [place] [facility] [address] [id number] [place] [address]- 8910 Nov, [facility] [place] [facility] [address] [id number] [place] [address]- 7028 Nov, [facility] [place] [facility] [address] [id number] [place] [address]- 6140 Oct, [facility] [place] [facility] [address] [id number] [place] [address]- 7691 Oct, [facility] [place] [facility] [address] [id number] [place] [address]- 2142 Oct, [facility] [place] [facility] [address] [id number] [place] [address]- 1949 Oct, [facility] [place] [facility] [address] [id number] [place] [address]- 6509 Sep, [facility] [place] [facility] [address] [id number] [place] [address]- 5387 Sep, [facility] [place] [facility] [address] [id number] [place] [address]- 5383 Sep, [facility] [place] [facility] [address] [id number] [place] [address]- 2531 Sep, [facility] [place] [facility] [address], [place] [address]- 4916 Sep, [facility] [address], [place] [address]- 4819 Sep, [facility] [address], [place] [address]- 4986 Sep, [facility] [address], [place] [address]- 3246 Sep, [facility] [id number], [place] [address]- 9545 Sep, [facility] [address], [place] [address]- 1253 Sep, [facility] [address], [place] [address]- 3171 Sep, [facility] [address], [place] [address]- 9425 Aug, [facility] [address], [place] [address]- 6524 Aug, [facility] [address] 2374 Jun, [facility] [address] 9862 Jun, [facility] [address], [place] [address]- 3188 Apr, [facility] [id number], [place] [address]- 1573 Apr, [facility] [id number], [place] [address]- 5441 Jul, IMMUNIZATIONS No Known Immunizations SOCIAL HISTORY Never Assessed REASON FOR VISIT Controlled Med Refill PLAN OF CARE VITAL SIGNS MEDICATIONS Unknown [...]
--- OUTSIDE RECORDS SUMMARY | 2018-02-15 04:03 | XMS REPORT ---
Author Author SIMONE KWAN Organization 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 Name Role Phone SIMONE KWAN Unavailable PROBLEMS Type Condition ICD9-CM Code [id number] Code Onset Dates Condition Status SNOMED Code Problem Mood disorder F39 Active 31875963 Problem Psychosis, unspecified psychosis type F29 Active 72543594 Problem Immunization due Z23 Active 405124063 Problem Encounter for annual physical exam Z00.00 Active 409316212 Problem Anxiety F41.9 Active 77933444 Problem Neuropathy G62.9 Active 961626677 Problem Pelvic pain R10.2 Active 53437070 Problem Chronic pain syndrome G89.4 Active 640360354 ALLERGIES No Information ENCOUNTERS Encounter Location Date Diagnosis [place] [address] [address] January, Encounter for annual physical exam Z00.00 ; Pelvic pain R10.2 ; Immunization due Z23 and Encounter for immunization Z23 [place] [address] [place] [id number] [place] [address] 52736- 2090 16 Sep, 2017 [place] [address] [place] [id number] [place] [address] 85699- 2263 Sep, Anxiety F41.9 and Chronic pain syndrome G89.4 [place] [address] [place] [id number] [place] [address] 71714- 1531 Sep, Anxiety F41.9 [place] [address] [address]- [address] Aug, [place] [address] [address]- 3023 Aug, [place] [address] [address]- [address] Aug, Psychosis, unspecified psychosis type F29 [facility] [id number] [place] [address] 01297- 4021 Aug, [address]41.9 [facility] [address] [place] [id number] [place] [address] 82284- 2355 Aug, [facility] [address] [place] [id number] [place] [address] 56218- 7968 Jul, [facility] [address] [place] [id number] [place] [address] 38288- 2083 Jul, [facility] [address] [place] [id number] [place] [address] 05990- 0192 Jul, [facility] [address] [place] [id number] [place] [address] 49011- 7346 Jul, [facility] [address] [place] [id number] [place] [address] 90408- 6890 Jul, Anxiety [address]41.9 [facility] [address] [place] [id number] [place] [address] 13175- 9320 Jun, Acute psychosis F23 and Homeless Z59.0 [facility] [address] [place] [id number] [place] [address] 17801- 8733 Jun, Anxiety F41.9 ; Episodic mood disorder F39 [address] [facility] [address] [place] [id number] [place] [address] 11598- 8999 Jun, Anxiety F41.9 [facility] [id number] [place] [address] 47144- 3352 Jun, [facility] [address] [place] [id number] [place] [address] 66846- 1290 May, [facility] [address] [place] [id number] [place] [address] 36626- 1028 May, Anxiety F41.9 ; Neuropathy G62.9 ; Dysuria R30.0 and longterm current use of opiate analgesic Z79.891 [facility] [address] [place] [id number] [place] [address] 11776- 9912 Apr, 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 [address] [place] [id number] [place] [address] 50082- 9993 Apr, [address]41.9 [facility] [address] [place] [id number] [place] [address] 99191- 0015 Apr, [facility] [address] [place] [id number] [place] [address] 71561- 9562 Mar, Anxiety F41.9 [facility] [address] [place] [id number] [place] [address] 01084- 5660 Mar, [facility] [address] [place] [id number] [place] [address] 63680- 0406 Mar, [facility] [address] [place] [id number] [place] [address] 34739- 6276 Mar, [facility] [address] [place] [id number] [place] [address] 98763- 2251 Mar, Anxiety F41.9 ; Cervical neuritis M54.12 and Thoracic neuritis M54.14 [place] [address] [place] [id number] [place] [address] 82177- 9098 Feb, Anxiety F41.9 ; Mood disorder F39 ; Episodic mood disorder F39 ; Psychosis, unspecified psychosis type F29 and [address] [facility] [address] [place] [id number] [place] [address] 58773- 5430 January, [facility] [address] [place] [id number] [place] [address] 43858- 2081 Nov, [facility] [address] [place] [id number] Nov, Mood disorder F39 and Sebaceous cyst L72.3 [facility] [id number] [place] [address] 54687- 3238 Oct, Neuropathy G62.9 [place] [address] [place] [id number] [place] [address] 18938- 9496 Oct, Mood disorder F39 and Neuropathy G62.[address] [id number] Aug, Mood disorder F39 and Neuropathy G62.9 [place] [address] [place] [id number] [place] [address] 38377- 7414 May, [place] [address] [place] [id number] [place] [address] 10343- 5824 Apr, Psychosis, unspecified psychosis type F29 [place] [address] [place] [id number] [place] [address] 49927- 2954 Apr, [place] [address] 85466- 5772 Apr, [address] [id number] Mar, Upper respiratory tract infection, unspecified type J06.9 and Tinea corporis B35.4 [place] [address] [place] [id number] [place] [address] 27115- 3747 Feb, ADD (attention deficit disorder) F90.0 [place] [address] [place] [id number] [place] [address] 06795- 2302 Dec, Psychosis, unspecified psychosis type F29 and Episodic mood disorder F39 [place] [address] [place] [id number] [place] [address] 17397- 8868 Sep, [address] [id number] Sep, Injury of hand, right, initial encounter S69.91XA [facility] [address] [place] [id number] [place] [address] [id number] Jul, [facility] [address] [place] [id number] [place] [address] [id number] Jul, Encounter for dental examination Z01.20 [facility] [address] [address]- 7601 15 Jun, [address] [facility] [address] [address]572 Jun, Mood disorder F39 [facility] [address] [address]689 Jun, Anxiety disorder, unspecified F41.9 [facility] [address] [place] [id number] May, Anxiety [address] [place] [address] [place] [id number] May, Abdominal pain, left lateral 789.09 [place] [address] [place] [id number] May, Bipolar 1 disorder 296.7 and Abdominal pain, left lateral 789.09 [place] [address] [place] [id number] May, Bipolar 1 disorder 296.7 [facility] [address] [id number] January, Dental examination V72.2 [facility] [id number] [place] [address] 68012- 4138 [address], 2014 [facility] [address] [address]- [address]65 Dec, [facility] [address] [address] 7197 Nov, [facility] [address] [address]- 4385 Nov, [facility] [id number] [place] [address] 18737- 3669 Nov, [facility] [address] [address]- 8682 Nov, [facility] [address] [id number] 7720 Nov, [facility] [address] [id number] [place] [address]- 7164 Nov, [facility] [place] [facility] [address] [id number] [place] [address]- 2064 Nov, [facility] [place] [facility] [address] [facility] [id number] [place] [address]- 9854 Nov, [facility] [address] [facility] [facility] [id number] Oct, [facility] [address] [facility] [place] [id number] Oct, [facility] [address] [id number] [place] [address]- 5142 Oct, [facility] [place] [facility] [address] [id number] [place] [address]- 9165 Oct, [facility] [address] [facility] [id number], [place] [address]- 8130 Oct, [facility] [place] [facility] [address] [facility] [id number] [place] [address]- 9480 Oct, [facility] [place] [facility] [address] [id number] [place] [address]- 5610 Sep, [facility] [place] [facility] [address] [facility] [id number] [place] [address]- 3354 Sep, [facility] [place] [facility] [address] [facility] [id number], [place] [address]- 0649 Jul, [facility] [place] [facility] [address] [id number], [place] [address]- 6903 Jul, [facility] [place] [facility] [address] [id number], [place] [address]- 7744 Jul, [facility] [place] [facility] [address] [facility] [id number] [place] [address]- 6649 Jul, [facility] [place] [facility] [address] [facility] [id number], [place] [address]- 5272 Jun, [facility] [place] [facility] [address] [id number] [place] [address]- 6418 Jun, [facility] [place] [facility] [address] [id number] [place] [address]- 7997 Jun, [facility] [place] [facility] [address] [id number] [place] [address]- 9664 Jun, [facility] [place] [facility] [address] [id number] [place] [address]- 7621 May, [facility] [place] [facility] [address] [id number] [place] [address]- 9206 May, [facility] [place] [facility] [address] [id number] [place] [address]- 8074 Apr, [facility] [place] [facility] [address] [id number] [place] [address]- 6567 Apr, [facility] [place] [facility] [address] [id number] [place] [address]- 9474 Mar, [facility] [place] [facility] [address] [id number] [place] [address]- 7693 Mar, [facility] [place] [facility] [address] [id number] [place] [address]- 3009 Mar, [facility] [place] [facility] [address] [id number] [place] [address]- 2179 Mar, [facility] [place] [facility] [address] [id number] [place] [address]- 6115 January, [facility] [place] [facility] [address] [id number] [place] [address]- 0519 January, [facility] [place] [facility] [address] [id number] [place] [address]- 1387 Dec, [facility] [place] [facility] [address] [id number] [place] [address]- 9890 Dec, [facility] [place] [facility] [address] [id number] [place] [address]- 0513 Dec, [facility] [place] [facility] [address] [id number] [place] [address]- 9443 Nov, [facility] [place] [facility] [address] [id number] [place] [address]- 3286 Nov, [facility] [place] [facility] [address] [facility] [id number] [place] [address]- 4296 Nov, [facility] [place] [facility] [address] [facility] [id number] [place] [address]- 3404 Oct, [facility] [place] [facility] [address] [id number] [place] [address]- 4207 Oct, [facility] [place] [facility] [address] [facility] [id number] [place] [address]- 2324 Oct, [facility] [place] [facility] [address] [facility] [id number] [place] [address]- 2932 Oct, [facility] [place] [facility] [address] [facility] [id number] [place] [address]- 8428 Oct, [facility] [place] [facility] [address] [facility] [id number] [place] [address]- 1459 Oct, [facility] [place] [facility] [address] [facility] [id number] [place] [address]- 4368 Oct, [facility] [place] [facility] [address] [facility] [id number] [place] [address]- 1763 Oct, [facility] [place] [facility] [address] [facility] [id number] [place] [address]- 4682 Oct, [facility] [place] [facility] [address] [facility] [id number] [place] [address]- 9261 Oct, [facility] [place] [facility] [address] [facility] [id number] [place] [address]- 9769 Sep, [facility] [place] [facility] [address] [facility] [id number] [place] [address]- 4098 Sep, [facility] [place] [facility] [address] [id number] [place] [address]- 9520 Aug, [facility] [address] [id number] [place] [address]- 6656 Aug, [facility] [address] [id number] [place] [address]- 2027 Aug, [facility] [address] [id number] [place] [address]- 0024 Jul, [facility] [address] [id number] [place] [address]- 5690 Jul, [facility] [address] [id number] [place] [address]- 1834 Feb, [facility] [address] [id number] [place] [address]- 1665 Nov, [facility] [address] [id number] [place] [address]- 8328 Oct, [facility] [address] [id number] [place] [address]- 8385 Sep, [facility] [address] [id number] [place] [address]- 7254 Sep, [facility] [address] [id number] [place] [address]- 4440 Sep, [facility] [address] [id number] [place] [address]- 8390 Aug, [facility] [address] [id number] [place] [address]- 9083 Aug, [facility] [address] [id number] [place] [address]- 4093 January, [facility] [address] [id number] [place] [address]- 3922 January, [facility] [address] [id number] [place] [address]- 2630 January, [facility] [address] [id number] [place] [address]- 3800 January, [facility] [place] [facility] [address] [id number] [place] 6852 January, [facility] [place] [facility] [address] [id number] [place] [address]- 4400 January, [facility] [place] [facility] [address] [id number] [place] [address]- 9237 Dec, [facility] [place] [facility] [address] [id number] [place] [address]- 9041 Dec, [facility] [place] [facility] [address] [id number] [place] [address]- 3215 Dec, [facility] [place] [facility] [address] [id number] [place] [address]- 7897 Dec, [facility] [place] [facility] [address] [id number] [place] [address]- 1414 Nov, [facility] [place] [facility] [address] [id number] [place] [address]- 4480 Nov, [facility] [place] [facility] [address] [id number] [place] [address]- 9476 Oct, [facility] [address] [id number] [place] [address]- 4746 Oct, [facility] [place] [facility] [address] [id number] [place] [address]- 5705 14 Oct, 2011 [facility] [place] [facility] [address] [id number] [place] 3713 07 Oct, 2011 [facility] [place] [facility] [address] [id number] [place] [address]- 4174 Sep, [facility] [place] [facility] [address] [id number] [place] [address]- 6856 24 Sep, 2011 [facility] [place] [facility] [address] [id number] [place] [address]- 8163 Sep, [facility] [place] [facility] [address] [id number] [place] [address]- 4920 Sep, [facility] [place] [facility] [address] [id number] [place] [address]- 7926 Sep, [facility] [place] [facility] [address] [id number] [place] [address]- 0255 Sep, [facility] [place] [facility] [address] [id number] [place] [address]- 8886 Sep, [facility] [place] [facility] [address] [id number] [place] [address]- 0628 Sep, [facility] [place] [facility] [address] [id number] [place] [address]- 4908 Sep, [facility] [place] [facility] [address] [id number] [place] [address]- 7020 Sep, [facility] [place] [facility] [address] [id number] [place] [address]- 2923 Sep, [facility] [place] [facility] [address] [id number] [place] [address]- 1117 Aug, [facility] [place] [facility] [address] [id number] [place] [address]- 4296 Aug, [facility] [place] [facility] [address] [id number] [place] [address]- 6353 Jun, [facility] [place] [facility] [address] [id number] [place] [address]- 7695 Jun, [facility] [place] [facility] [address] [id number] [place] [address] 2546 Apr, [facility] [place] [facility] [address] [id number] [place] [address] 2546 14 Apr, 2010 [facility] [place] [facility] [address] [id number] [place] [address]- 4647 Jul, IMMUNIZATIONS No Known Immunizations SOCIAL HISTORY Never Assessed REASON FOR VISIT Controlled Med Refill 06/27/17 PLAN OF CARE VITAL SIGNS MEDICATIONS Medication Instructions Dosage Frequency Start Date End Date Duration Status Xanax 1 MG Orally Twice a day 1 tablet 12h 14 May, 2017 28 days Active Oxycodone HCl 5 MG Orally every 6 hrs 1 tablet 6h 12 Jun, 2017 28 days Active RESULTS No Results PROCEDURES No Known [...] Medical History abd pain s/p partial hysterectomy Medical History ADD (attention deficit disorder) Surgical History x 3 Surgical History hysterectomy 2009 Surgical History transvaginal mesh Surgical History dilatation and curettage Hospitalization History surgeries
--- OUTSIDE RECORDS SUMMARY | 2018-02-15 04:03 | XMS REPORT ---
Author Author SIMONE KWAN Organization [facility] Address [address] [place] [address] Care Team Providers Care Tool Planer Set Up Operator Name Role Phone SIMONE KWAN Unavailable PROBLEMS Type Condition ICD9-CM Code AZU68-YF Code Onset Dates Condition Status SNOMED Code Problem Psychosis, unspecified psychosis type F29 Active 51176434 Problem Chronic pain syndrome G89.4 Active 029264365 Problem Anxiety F41.9 Active 19762129 Problem ADD (attention deficit disorder) F90.0 Active 258279608 Problem Episodic mood disorder F39 Active 12395336 Problem Neuropathy G62.9 Active 793718544 Problem Mood disorder F39 Active 45341264 ALLERGIES No Information ENCOUNTERS Encounter Location Date Diagnosis [facility] [id number] [place] [address] 11753- 4337 Sep, [facility] [id number] [place] [address] 45116- 0075 Sep, Anxiety F41.9 and Chronic pain syndrome G89.4 [facility] [id number] [place] [address] 24230- 4403 Sep, Anxiety F41.9 [facility] [id number] [place] [address] 11550- 2839 Aug, [facility] [id number] [place] [address] 22950- 8742 Aug, [facility] [address] 46864- 0456 Aug, Psychosis, unspecified psychosis type F29 [facility] [id number] [place] [address] 02636- 1583 Aug, Anxiety F41.9 [facility] [id number] [place] [address] 23283- 2319 Aug, [facility] [id number] [place] [address] 61820- 2419 Jul, [facility] [id number] [place] [address] 67287- 7429 Jul, [facility] [id number] [place] [address] 43632- 7037 Jul, [facility] [address] 87265- 2215 Jul, [facility] [id number] [place] [address] 45024- 1225 Jul, Anxiety F41.9 [facility] [id number] [place] [address] 15467- 8693 Jun, Acute psychosis F23 and Homeless Z59.0 [facility] [address] 20124- 1575 Jun, Anxiety F41.9 ; Episodic mood disorder F39 and Homeless Z59.0 [facility] [id number] [place] [address] 32820- 9258 Jun, Anxiety F41.9 [facility] [id number] [place] [address] 80640- 4759 Jun, [facility] [id number] [place] [address] 08548- 3857 May, [facility] [id number] [place] [address] 60300- 3414 May, Anxiety F41.9 ; Neuropathy G62.9 ; Dysuria R30.0 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 [facility] [id number] [place] [address] 56757- 7709 Apr, [facility] [id number] [place] [address] 65753- 9760 Apr, 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 [facility] [id number] [place] [address] 92914- 8865 Apr, Anxiety F41.9 [facility] [id number] [place] [address] 09436- 3311 Apr, [facility] [id number] [place] [address] 30964- 2163 Mar, Anxiety F41.9 [facility] [id number] [place] [address] 85085- 3039 Mar, [id number] [place] [address] 30921- 3035 Mar, [facility] [id number] [place] [address] 27144- 0978 Mar, [address] [id number] [place] [address] 63996- 7340 Mar, Anxiety F41.9 ; Cervical neuritis M54.12 and Thoracic neuritis M54.14 [address] [id number] [place] [address] 29094- 4980 Feb, Anxiety F41.9 ; Mood disorder F39 ; Episodic mood disorder F39 ; Psychosis, unspecified psychosis type F29 and Homeless Z59.0 [place] [id number] [place] [address] 65942- 6671 January, [facility] [id number] [place] [address] 80969- 8513 Nov, [facility] [address] [id number] Nov, Mood disorder F39 and Sebaceous cyst L72.3 [facility] [id number] [place] [address] 46251- 1093 Oct, Neuropathy G62.9 [facility] [id number] [place] [address] 92439- 9350 Oct, Mood disorder F39 and Neuropathy G62.9 [address] [place] [id number] Aug, Mood disorder F39 and Neuropathy G62.9 [facility] [id number] [place] [address] 68992- 0812 May, [facility] [id number] [place] [address] 39101- 4603 Apr, Psychosis, unspecified psychosis type F29 [facility] [id number] [place] [address] 54461- 7746 Apr, [facility] [id number] [place] [address] 42567- 0535 Apr, [address] [id number] Mar, Upper respiratory tract infection, unspecified type J06.9 and Tinea corporis B35.4 [address] [id number] [place] [address] 42845- 3672 Feb, ADD (attention deficit disorder) F90.0 [place] [id number] [place] [address] 73424- 0666 Dec, Psychosis, unspecified psychosis type F29 and Episodic mood disorder F39 [facility] [id number] [place] [address] 03283- 8566 Sep, [address] [id number] Sep, Injury of hand, right, initial encounter S69.91XA [facility] [id number] [place] [address] [id number] Jul, [facility] [address] [id number] Jul, Encounter for dental examination Z01.20 [facility] [id number] [place] [address] 73029- 2819 15 Jun, 2015 [place] Z76.5 [facility] [address] 52241- 9645 Jun, Mood disorder F39 [facility] [address] [address]- 2841 Jun, Anxiety disorder, unspecified F41.9 [facility] [address] [id number] May, Anxiety 300.00 [facility] [address] [id number] 15 May, 2015 Abdominal pain, left lateral 789.09 [address] [place] [id number] 08 May, 2015 Bipolar 1 disorder 296.7 and Abdominal pain, left lateral 789.09 [address] [place] [id number] May, Bipolar 1 disorder 296.7 [facility] [address] [id number] [id number] January, Dental examination V72.2 [facility] [address] [address]- 2082 Dec, [facility] [address] [address]- 5488 Dec, [facility] [address] [address] 1115 Nov, [facility] [address] [address]- 0701 Nov, [facility] [address] [address]- 8953 Nov, [facility] [address] [address] 0781 Nov, [facility] [address] [address] 4751 Nov, [facility] [address] 5444 Nov, [facility] [address] [address]- 4626 Nov, [facility] [address] [id number] [place] [address]- 3019 Nov, [facility] [address] [id number] Oct, [facility] [address] [id number] Oct, [facility] [address] [id number] [place] [address]- 6883 Oct, [facility] [place] [facility] [address] [id number] [place] [address]- 9220 Oct, [facility] [place] [facility] [address] [id number] [place] [address]- 6380 Oct, [facility] [place] [facility] [address] [id number] [place] [address]- 7091 Oct, [facility] [address] [id number] [place] [address]- 4582 Sep, [facility] [place] [facility] [address] [id number] [place] [address]- 0414 Sep, [facility] [place] [facility] [address] [id number] [place] [address]- 7733 Jul, [facility] [place] [facility] [address] [id number] [place] [address]- 0715 Jul, [facility] [place] [facility] [address] [id number] [place] [address]- 5672 Jul, [facility] [place] [facility] [address] [id number] [place] [address]- 5342 Jul, [facility] [place] [facility] [address] [id number] [place] [address]- 3978 Jun, [facility] [place] [facility] [address] [id number] [place] [address]- 5048 Jun, [facility] [place] [facility] [address] [id number] [place] [address]- 3714 Jun, [facility] [place] [facility] [address] [id number] [place] [address]- 2885 Jun, [facility] [place] [facility] [address] [id number] [place] [address]- 1921 May, [facility] [place] [facility] [address] [id number] [place] [address]- 7716 May, [facility] [place] [facility] [address] [id number] [place] [address]- 5790 Apr, [facility] [place] [facility] [address] [id number] [place] [address]- 2583 Apr, [facility] [place] [facility] [address] [id number] [place] [address]- 7164 Mar, [facility] [place] [facility] [address] [id number] [place] [address]- 8421 Mar, [facility] [place] [facility] [address] [id number] [place] [address]- 3843 Mar, [facility] [place] [facility] [address] [id number] [place] [address]- 0320 Mar, [facility] [place] [facility] [address] [id number] [place] [address]- 3970 January, [facility] [place] [facility] [address] [id number] [place] [address]- 2231 January, [facility] [place] [facility] [address] [id number] [place] [address]- 0160 Dec, [facility] [place] [facility] [address] [id number] [place] [address]- 7271 Dec, [facility] [place] [facility] [address] [id number] [place] 7998 Dec, [facility] [place] [facility] [address] [id number] [place] [address]- 9346 Nov, [facility] [place] [facility] [address] [id number] [place] [address]- 4748 Nov, [facility] [place] [facility] [address] [id number] [place] [address]- 6153 Nov, [facility] [place] [facility] [address] [id number] [place] [address]- 1156 Oct, [facility] [place] [facility] [address] [facility] [id number] [place] [address]- 0919 Oct, [facility] [place] [facility] [address] [id number] [place] [address]- 3804 Oct, [facility] [place] [facility] [address] [id number] [place] [address]- 4805 Oct, [facility] [place] [facility] [address] [facility] [id number] [place] [address]- 1452 Oct, [facility] [place] [facility] [address] [facility] [id number] [place] [address]- 2361 Oct, [facility] [place] [facility] [address] [id number] [place] [address]- 3463 Oct, [facility] [place] [facility] [address] [facility] [id number] [place] [address]- 5677 Oct, [facility] [place] [facility] [address] [facility] [id number] [place] [address]- 8983 Oct, [facility] [place] [facility] [address] [facility] [id number] [place] [address]- 7378 Oct, [facility] [place] [facility] [address] [facility] [id number] [place] [address]- 9835 Sep, [facility] [place] [facility] [address] [facility] [id number] [place] [address]- 4469 Sep, [facility] [place] [facility] [address] [facility] [id number] [place] [address]- 9471 Aug, [facility] [place] [facility] [address] [facility] [id number] [place] [address]- 7821 Aug, [facility] [place] [facility] [address] [id number] [place] [address] 2546 Aug, [facility] [address] [id number] [place] [address]- 2093 Jul, [facility] [place] [facility] [address] [id number] [place] [address] 2546 Jul, [facility] [place] [facility] [address] [id number] [place] [address]- 4233 Feb, [facility] [place] [facility] [address] [id number] [place] [address] 2541 Nov, [facility] [place] [facility] [address] [id number] [place] [address]- 6756 Oct, [facility] [place] [facility] [address] [id number] [place] [address]- 4185 Sep, [facility] [address] [id number] [place] [address]- 1269 Sep, [facility] [address] [id number] [place] [address]- 0429 Sep, [facility] [address] [id number] [place] [address]- 9917 Aug, [facility] [address] [id number] [place] [address]- 8604 Aug, [facility] [address] [id number] [place] [address]- 6513 January, [facility] [place] [facility] [address] [id number] [place] [address]- 3903 January, [facility] [place] [facility] [address] [id number] [place] [address]- 9746 January, [facility] [place] [facility] [address] [id number] [place] [address]- 2546 January, [facility] [place] [facility] [address] [id number] [place] [address]- 0854 January, [facility] [address] [id number] [place] [address]- 7969 January, [facility] [place] [facility] [address] [id number] [place] [address]- 4747 Dec, [facility] [place] [facility] [address] [id number] [place] [address]- 4842 Dec, [facility] [place] [facility] [address] [id number] [place] [address]- 7647 Dec, [facility] [place] [facility] [address] [id number] [place] [address]- 0969 Dec, [facility] [place] [facility] [address] [id number] [place] [address]- 9638 Nov, [facility] [place] [facility] [address] [id number] [place] [address]- 1418 Nov, [facility] [place] [facility] [address] [id number] [place] [address]- 6158 Oct, [facility] [place] [facility] [address] [id number] [place] [address]- 7257 Oct, [facility] [place] [facility] [address] [id number] [place] [address]- 5266 Oct, [facility] [place] [facility] [address] [id number] [place] [address]- 7032 Oct, [facility] [place] [facility] [address] [id number] [place] [address]- 3786 Sep, [facility] [place] [facility] [address] [id number] [place] [address]- 2535 Sep, [facility] [place] [facility] [address] [id number] [place] [address]- 9744 Sep, [facility] [place] [facility] [address] [id number] [place] [address]- 4935 Sep, [facility] [place] [facility] [address], [place] [address]- 1350 Sep, [facility] [address] [place] [address]- 7039 Sep, [facility] [address], [place] [address]- 5056 Sep, [facility] [address], [place] [address]- 2833 Sep, [facility] [address], [place] [address]- 7223 Sep, [facility] [address], [place] [address]- 5441 Sep, [facility] [address], [place] [address]- 3810 Sep, [facility] [address], [place] [address]- 5787 Aug, [facility] [address] [place] [address]- 3147 Aug, [facility] [address], [place] [address]- 5977 Jun, [facility] [address], [place] [address]- 4202 Jun, [facility] [address] [place] [address]- 5754 Apr, [facility] [id number] [address]- 8668 Apr, [facility] [address] 0364 Jul, IMMUNIZATIONS No Known Immunizations SOCIAL HISTORY Never Assessed REASON FOR VISIT Requests return call PLAN OF CARE VITAL SIGNS MEDICATIONS Unknown [...]
--- OUTSIDE RECORDS SUMMARY | 2018-02-15 04:04 | XMS REPORT ---
Author Author SIMONE KWAN Organization [facility] Address [address] [place] [address] Care Team Providers Care Evp And Chief Operating Officer Name Role Phone SIMONE KWAN Unavailable PROBLEMS Type Condition ICD9-CM Code HAO00-SR Code Onset Dates Condition Status SNOMED Code Problem Psychosis, unspecified psychosis type F29 Active 48837972 Problem Chronic pain syndrome G89.4 Active 897139403 Problem Anxiety F41.9 Active 71478992 Problem ADD (attention deficit disorder) F90.0 Active 317155112 Problem Episodic mood disorder F39 Active 56635026 Problem Neuropathy G62.9 Active 943657029 Problem Mood disorder F39 Active 76571237 ALLERGIES No Information ENCOUNTERS Encounter Location Date Diagnosis [facility] [id number] [place] [address] 25585- 6650 Sep, [facility] [id number] [place] [address] 60489- 4165 Sep, Anxiety F41.9 and Chronic pain syndrome G89.4 [facility] [id number] [place] [address] 45260- 6489 Sep, Anxiety F41.9 [facility] [id number] [place] [address] 59103- 7472 Aug, [facility] [id number] [place] [address] 77034- 2083 Aug, [facility] [address] 05617- 6695 Aug, Psychosis, unspecified psychosis type F29 [facility] [id number] [place] [address] 76361- 9257 Aug, Anxiety F41.9 [facility] [id number] [place] [address] 11388- 4748 Aug, [facility] [id number] [place] [address] 01094- 3748 Jul, [facility] [id number] [place] [address] 69194- 3344 Jul, [facility] [id number] [place] [address] 45818- 8104 Jul, [facility] [address] 39003- 2719 Jul, [facility] [id number] [place] [address] 54295- 8667 Jul, Anxiety F41.9 [facility] [id number] [place] [address] 45278- 4896 Jun, Acute psychosis F23 and Homeless Z59.0 [facility] [address] 89121- 5773 Jun, Anxiety F41.9 ; Episodic mood disorder F39 and Homeless Z59.0 [facility] [id number] [place] [address] 35643- 0477 Jun, Anxiety F41.9 [facility] [id number] [place] [address] 10072- 7976 Jun, [facility] [id number] [place] [address] 32571- 2685 May, [facility] [id number] [place] [address] 29988- 0157 May, Anxiety F41.9 ; Neuropathy G62.9 ; Dysuria R30.0 and oysterman current use of opiate analgesic Z79.891 [facility] [id number] [place] [address] 93158- 0808 Apr, [facility] [id number] [place] [address] 35388- 1438 Apr, 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 [facility] [id number] [place] [address] 55488- 0928 Apr, Anxiety F41.9 [facility] [id number] [place] [address] 41124- 9107 Apr, [facility] [id number] [place] [address] 17370- 4155 Mar, Anxiety F41.9 [facility] [id number] [place] [address] 83756- 6632 Mar, [address] [id number] [place] [address] 82616- 4922 Mar, [facility] [id number] [place] [address] 65177- 3522 Mar, [facility] [id number] [place] [address] 41745- 6310 Mar, Anxiety F41.9 ; Cervical neuritis M54.12 and Thoracic neuritis M54.14 [facility] [id number] [place] [address] 13548- 9521 Feb, Anxiety F41.9 ; Mood disorder F39 ; Episodic mood disorder F39 ; Psychosis, unspecified psychosis type F29 and Homeless Z59.0 [facility] [id number] [place] [address] 94920- 8451 January, [facility] [id number] [place] [address] 30117- 1577 Nov, [facility] [address] [place] [id number] Nov, Mood disorder F39 and Sebaceous cyst L72.3 [facility] [id number] [place] [address] 91072- 2979 Oct, Neuropathy G62.9 [facility] [id number] [place] [address] 87160- 3313 Oct, Mood disorder F39 and Neuropathy G62.9 [address] [place] [id number] Aug, Mood disorder F39 and Neuropathy G62.9 [facility] [id number] [place] [address] 33684- 9151 May, [facility] [id number] [place] [address] 37863- 2088 Apr, Psychosis, unspecified psychosis type F29 [facility] [id number] [place] [address] 03837- 9933 Apr, [facility] [id number] [place] [address] 88613- 4905 Apr, [address] [place] [id number] Mar, Upper respiratory tract infection, unspecified type J06.9 and Tinea corporis B35.4 [facility] [id number] [place] [address] 11234- 2424 Feb, ADD (attention deficit disorder) F90.0 [facility] [id number] [place] [address] 76562- 7137 Dec, Psychosis, unspecified psychosis type F29 and Episodic mood disorder F39 [facility] [id number] [place] [address] 61321- 3526 Sep, [address] [place] [id number] Sep, Injury of hand, right, initial encounter S69.91XA [facility] [id number] [place] [address] [id number] Jul, [facility] [address] [id number] Jul, Encounter for dental examination Z01.20 [facility] [id number] [place] [address] 60815- 3567 15 Jun, 2015 [place] Z76.5 [facility] [address] 14808- 7082 Jun, Mood disorder F39 [facility] [address] [address]- 2602 Jun, Anxiety disorder, unspecified F41.9 [facility] [address] [place] [id number] May, Anxiety 300.00 [facility] [address] [place] [id number] 15 May, 2015 Abdominal pain, left lateral 789.09 [address] [place] [id number] 08 May, 2015 Bipolar 1 disorder 296.7 and Abdominal pain, left lateral 789.09 [address] [place] [id number] May, Bipolar 1 disorder 296.7 [facility] [address] [id number] [id number] January, Dental examination V72.2 [facility] [address] [address]- 9958 Dec, [facility] [address] [place] [address]- 5255 Dec, [facility] [address]- 6387 Nov, [facility] [address] [address]- 0669 Nov, [facility] [address] [place] [address]- 5030 Nov, [facility] [address] [id number] 7832 Nov, [facility] [address] 3219 Nov, [facility] [address] 2657 Nov, [facility] [address] [place] [address]- 0113 Nov, [facility] [address] [id number] [place] [address]- 1863 Nov, [facility] [address] [id number] Oct, [facility] [address] [id number] Oct, [facility] [address] [id number] [place] [address]- 6510 Oct, [facility] [place] [facility] [address] [id number] [place] [address]- 5388 Oct, [facility] [place] [facility] [address] [id number] [place] [address]- 8294 Oct, [facility] [place] [facility] [address] [id number] [place] [address]- 9354 Oct, [facility] [address] [id number] [place] [address]- 0991 Sep, [facility] [place] [facility] [address] [id number] [place] [address]- 6811 Sep, [facility] [place] [facility] [address] [id number] [place] [address]- 6640 Jul, [facility] [place] [facility] [address] [id number] [place] [address]- 8798 Jul, [facility] [place] [facility] [address] [id number] [place] [address]- 0272 Jul, [facility] [place] [facility] [address] [id number] [place] [address]- 6678 Jul, [facility] [place] [facility] [address] [id number] [place] [address]- 9626 Jun, [facility] [place] [facility] [address] [id number] [place] [address]- 4294 Jun, [facility] [place] [facility] [address] [id number] [place] [address]- 9134 Jun, [facility] [place] [facility] [address] [id number] [place] [address]- 0417 Jun, [facility] [place] [facility] [address] [id number] [place] [address]- 8685 May, [facility] [place] [facility] [address] [id number] [place] [address]- 2306 May, [facility] [place] [facility] [address] [id number] [place] [address]- 4094 Apr, [facility] [place] [facility] [address] [id number] [place] [address]- 2085 Apr, [facility] [place] [facility] [address] [id number] [place] [address]- 0116 Mar, [facility] [place] [facility] [address] [id number] [place] [address]- 3383 Mar, [facility] [place] [facility] [address] [id number] [place] [address]- 4604 Mar, [facility] [place] [facility] [address] [id number] [place] [address]- 0710 Mar, [facility] [place] [facility] [address] [id number] [place] [address]- 5816 January, [facility] [place] [facility] [address] [id number] [place] [address]- 0589 January, [facility] [place] [facility] [address] [id number] [place] [address]- 7367 Dec, [facility] [place] [facility] [address] [id number] [place] [address]- 2621 Dec, [facility] [place] [facility] [address] [id number] [place] 7899 Dec, [facility] [place] [facility] [address] [id number] [place] [address]- 5476 Nov, [facility] [place] [facility] [address] [id number] [place] [address]- 2434 Nov, [facility] [place] [facility] [address] [id number] [place] [address]- 1816 Nov, [facility] [place] [facility] [address] [id number] [place] [address]- 4656 Oct, [facility] [place] [facility] [address] [facility] [id number] [place] [address]- 5589 Oct, [facility] [place] [facility] [address] [id number] [place] [address]- 2618 Oct, [facility] [place] [facility] [address] [id number] [place] [address]- 7764 Oct, [facility] [place] [facility] [address] [facility] [id number] [place] [address]- 2373 Oct, [facility] [place] [facility] [address] [facility] [id number] [place] [address]- 5354 Oct, [facility] [place] [facility] [address] [id number] [place] [address]- 1721 Oct, [facility] [place] [facility] [address] [facility] [id number] [place] [address]- 1569 Oct, [facility] [place] [facility] [address] [facility] [id number] [place] [address]- 2022 Oct, [facility] [place] [facility] [address] [facility] [id number] [place] [address]- 6899 Oct, [facility] [place] [facility] [address] [facility] [id number] [place] [address]- 8787 Sep, [facility] [place] [facility] [address] [facility] [id number] [place] [address]- 3392 Sep, [facility] [place] [facility] [address] [facility] [id number] [place] [address]- 8617 Aug, [facility] [place] [facility] [address] [facility] [id number] [place] [address]- 0679 Aug, [facility] [place] [facility] [address] [id number] [place] [address] 2546 Aug, [facility] [address] [id number] [place] [address]- 4919 Jul, [facility] [place] [facility] [address] [id number] [place] [address] 2546 Jul, [facility] [place] [facility] [address] [id number] [place] [address]- 8804 Feb, [facility] [place] [facility] [address] [id number] [place] [address] 2544 Nov, [facility] [place] [facility] [address] [id number] [place] [address]- 3006 Oct, [facility] [place] [facility] [address] [id number] [place] [address]- 7177 Sep, [facility] [address] [id number] [place] [address]- 5411 Sep, [facility] [address] [id number] [place] [address]- 6037 Sep, [facility] [address] [id number] [place] [address]- 7151 Aug, [facility] [address] [id number] [place] [address]- 0761 Aug, [facility] [address] [id number] [place] [address]- 3770 January, [facility] [place] [facility] [address] [id number] [place] [address]- 2767 January, [facility] [place] [facility] [address] [id number] [place] [address]- 5376 January, [facility] [place] [facility] [address] [id number] [place] [address]- 2546 January, [facility] [place] [facility] [address] [id number] [place] [address]- 7923 January, [facility] [address] [id number] [place] [address]- 4060 January, [facility] [place] [facility] [address] [id number] [place] [address]- 6575 Dec, [facility] [place] [facility] [address] [id number] [place] [address]- 0960 Dec, [facility] [place] [facility] [address] [id number] [place] [address]- 2913 Dec, [facility] [place] [facility] [address] [id number] [place] [address]- 9265 Dec, [facility] [place] [facility] [address] [id number] [place] [address]- 6168 Nov, [facility] [place] [facility] [address] [id number] [place] [address]- 1076 Nov, [facility] [place] [facility] [address] [id number] [place] [address]- 6881 Oct, [facility] [place] [facility] [address] [id number] [place] [address]- 4624 Oct, [facility] [place] [facility] [address] [id number] [place] [address]- 7109 Oct, [facility] [place] [facility] [address] [id number] [place] [address]- 2274 Oct, [facility] [place] [facility] [address] [id number] [place] [address]- 3266 Sep, [facility] [place] [facility] [address] [id number] [place] [address]- 9076 Sep, [facility] [place] [facility] [address] [id number] [place] [address]- 4099 Sep, [facility] [place] [facility] [address] [id number] [place] [address]- 8550 Sep, [facility] [place] [facility] [address] [place] [address]- 2906 Sep, [facility] [address] [address]- 1081 Sep, [facility] [address] [place] [address]- 9736 Sep, [facility] [address] [address]- 8875 Sep, [facility] [address] [place] [address]- 0252 Sep, [facility] [address] [place] [address]- 1437 Sep, [facility] [address] [place] [address]- 2859 Sep, [facility] [address] [place] [address]- 9578 Aug, [facility] [address] [place] [address]- 5567 Aug, [facility] [address], [place] [address]- 5874 Jun, [facility] [address], [place] [address]- 9375 Jun, [facility] [address] [place] [address]- 7632 Apr, [facility] [id number] [address]- 7604 Apr, [facility] [address] [address] 4275 Jul, IMMUNIZATIONS No Known Immunizations SOCIAL HISTORY Never Assessed REASON FOR VISIT Controlled Refill Request PLAN OF CARE VITAL SIGNS MEDICATIONS Unknown [...]
--- OUTSIDE RECORDS SUMMARY | 2018-02-15 04:04 | XMS REPORT ---
Author Author SIMONE KWAN Organization [facility] Address [address] [place] [address] Care Team Providers Care Machine Presser Name Role Phone SIMONE KWAN Unavailable PROBLEMS Type Condition ICD9-CM Code OZL43-WD Code Onset Dates Condition Status SNOMED Code Problem Psychosis, unspecified psychosis type F29 Active 18134979 Problem Chronic pain syndrome G89.4 Active 211091937 Problem Anxiety F41.9 Active 55396951 Problem ADD (attention deficit disorder) F90.0 Active 825110196 Problem Episodic mood disorder F39 Active 36381317 Problem Neuropathy G62.9 Active 014559453 Problem Mood disorder F39 Active [id number] ALLERGIES No Information ENCOUNTERS Encounter Location Date Diagnosis [facility] [id number] [place] [address] 29172- 3336 Sep, [facility] [id number] [place] [address] 97413- 6512 Sep, Anxiety F41.9 and Chronic pain syndrome G89.4 [facility] [id number] [place] [address] 18645- 2902 Sep, Anxiety F41.9 [facility] [id number] [place] [address] 62475- 5478 Aug, [facility] [id number] [place] [address] 73334- 7471 Aug, [facility] [address] 27282- 9670 Aug, Psychosis, unspecified psychosis type F29 [facility] [id number] [place] [address] 12109- 1749 Aug, Anxiety F41.9 [facility] [id number] [place] [address] 21137- 4089 Aug, [facility] [id number] [place] [address] 16576- 3287 Jul, [facility] [id number] [place] [address] 21972- 9988 Jul, [facility] [id number] [place] [address] 80341- 0519 Jul, [facility] [address] 84606- 9351 Jul, [facility] [id number] [place] [address] 20569- 2655 Jul, Anxiety F41.9 [facility] [id number] [place] [address] 03408- 2643 Jun, Acute psychosis F23 and Homeless Z59.0 [facility] [address] 13885- 1020 Jun, Anxiety F41.9 ; Episodic mood disorder F39 and Homeless Z59.0 [facility] [id number] [place] [address] 38278- 8397 Jun, Anxiety F41.9 [facility] [id number] [place] [address] 39637- 5975 Jun, [facility] [id number] [place] [address] 69177- 5144 May, [facility] [id number] [place] [address] 86460- 8784 May, Anxiety F41.9 ; Neuropathy G62.9 ; Dysuria R30.0 and 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 Z79.891 [facility] [id number] [place] [address] 24431- 1105 Apr, [facility] [id number] [place] [address] 05439- 4416 Apr, 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 [facility] [id number] [place] [address] 76378- 4912 Apr, Anxiety F41.9 [facility] [id number] [place] [address] 61770- 0700 Apr, [facility] [id number] [place] [address] 17854- 9790 Mar, Anxiety F41.9 [facility] [id number] [place] [address] 72681- 5113 Mar, [id number] [place] [address] 14519- 9645 Mar, [facility] [id number] [place] [address] 95721- 0037 Mar, [place] [id number] [place] [address] 33410- 7357 Mar, Anxiety F41.9 ; Cervical neuritis M54.12 and Thoracic neuritis M54.14 [place] [id number] [place] [address] 61628- 8027 Feb, Anxiety F41.9 ; Mood disorder F39 ; Episodic mood disorder F39 ; Psychosis, unspecified psychosis type F29 and Homeless Z59.0 [place] [id number] [place] [address] 85409- 6051 January, [facility] [id number] [place] [address] 67635- 2697 Nov, [facility] [address] [id number] Nov, Mood disorder F39 and Sebaceous cyst L72.3 [facility] [id number] [place] [address] 46570- 7535 Oct, Neuropathy G62.9 [facility] [id number] [place] [address] 88851- 1712 Oct, Mood disorder F39 and Neuropathy G62.9 [address] [place] [id number] Aug, Mood disorder F39 and Neuropathy G62.9 [facility] [id number] [place] [address] 81323- 7989 May, [facility] [id number] [place] [address] 70478- 1181 Apr, Psychosis, unspecified psychosis type F29 [facility] [id number] [place] [address] 49782- 8327 Apr, [facility] [id number] [place] [address] 97432- 4971 Apr, [address] [place] [id number] Mar, Upper respiratory tract infection, unspecified type J06.9 and Tinea corporis B35.4 [place] [id number] [place] [address] 43137- 4036 Feb, ADD (attention deficit disorder) F90.0 [place] [id number] [place] [address] 82098- 5928 Dec, Psychosis, unspecified psychosis type F29 and Episodic mood disorder F39 [facility] [id number] [place] [address] 78947- 2386 Sep, [address] [id number] Sep, Injury of hand, right, initial encounter S69.91XA [facility] [place] [facility] [id number] [place] [address] [id number] Jul, [facility] [place] [facility] [address] [id number] Jul, Encounter for dental examination Z01.20 [facility] [id number] [place] [address] 70738- 1910 15 Jun, 2015 [place] Z76.5 [facility] [address] 55004- 5822 Jun, Mood disorder F39 [facility] [address] [address]- 6774 Jun, Anxiety disorder, unspecified F41.9 [facility] [address] [id number] May, Anxiety 300.00 [facility] [address] [id number] 15 May, 2015 Abdominal pain, left lateral 789.09 [address] [place] [id number] 08 May, 2015 Bipolar 1 disorder 296.7 and Abdominal pain, left lateral 789.09 [address] [place] [id number] May, Bipolar 1 disorder 296.7 [facility] [place] [facility] [address] [id number] [id number] January, Dental examination V72.2 [facility] [address] [address]- 2513 Dec, [facility] [address] [place] [address]- 0479 Dec, [facility] [address] 6960 Nov, [facility] [address] [address]- 7210 Nov, [facility] [address] [place] [address]- 5068 Nov, [facility] [address] [address] 6520 Nov, [facility] [address] 8412 Nov, [facility] [address]- 0449 Nov, [facility] [address] [place] [address]- 8039 Nov, [facility] [address] [id number] [place] [address]- 7405 Nov, [facility] [address] [id number] Oct, [facility] [address] [id number] Oct, [facility] [address] [id number] [place] [address]- 2395 Oct, [facility] [place] [facility] [address] [id number] [place] [address]- 0369 Oct, [facility] [place] [facility] [address] [id number] [place] [address]- 5921 Oct, [facility] [place] [facility] [address] [id number] [place] [address]- 3400 Oct, [facility] [address] [id number] [place] [address]- 3467 Sep, [facility] [place] [facility] [address] [id number] [place] [address]- 9158 Sep, [facility] [place] [facility] [address] [id number] [place] [address]- 5521 Jul, [facility] [place] [facility] [address] [id number] [place] [address]- 4272 Jul, [facility] [place] [facility] [address] [id number] [place] [address]- 1727 Jul, [facility] [place] [facility] [address] [id number] [place] [address]- 7766 Jul, [facility] [place] [facility] [address] [id number] [place] [address]- 6455 Jun, [facility] [place] [facility] [address] [id number] [place] [address]- 3045 Jun, [facility] [place] [facility] [address] [id number] [place] [address]- 4171 Jun, [facility] [place] [facility] [address] [id number] [place] [address]- 4917 Jun, [facility] [place] [facility] [address] [id number] [place] [address]- 9658 May, [facility] [place] [facility] [address] [id number] [place] [address]- 2206 May, [facility] [place] [facility] [address] [id number] [place] [address]- 9385 Apr, [facility] [place] [facility] [address] [id number] [place] [address]- 9180 Apr, [facility] [place] [facility] [address] [id number] [place] [address]- 2370 Mar, [facility] [place] [facility] [address] [id number] [place] [address]- 2393 Mar, [facility] [place] [facility] [address] [id number] [place] [address]- 3886 Mar, [facility] [place] [facility] [address] [id number] [place] [address]- 5173 Mar, [facility] [place] [facility] [address] [id number] [place] [address]- 7471 January, [facility] [place] [facility] [address] [id number] [place] [address]- 2452 January, [facility] [place] [facility] [address] [id number] [place] [address]- 1249 Dec, [facility] [place] [facility] [address] [id number] [place] [address]- 4902 Dec, [facility] [place] [facility] [address] [id number] [place] 8368 Dec, [facility] [place] [facility] [address] [id number] [place] [address]- 5996 Nov, [facility] [place] [facility] [address] [id number] [place] [address]- 0117 Nov, [facility] [place] [facility] [address] [id number] [place] [address]- 4344 Nov, [facility] [place] [facility] [address] [id number] [place] [address]- 4606 Oct, [facility] [place] [facility] [address] [facility] [id number] [place] [address]- 2922 Oct, [facility] [place] [facility] [address] [id number] [place] [address]- 9260 Oct, [facility] [place] [facility] [address] [id number] [place] [address]- 4415 Oct, [facility] [place] [facility] [address] [facility] [id number] [place] [address]- 9137 Oct, [facility] [place] [facility] [address] [facility] [id number] [place] [address]- 6653 Oct, [facility] [place] [facility] [address] [id number] [place] [address]- 0081 Oct, [facility] [place] [facility] [address] [facility] [id number] [place] [address]- 6832 Oct, [facility] [place] [facility] [address] [facility] [id number] [place] [address]- 5697 Oct, [facility] [place] [facility] [address] [facility] [id number] [place] [address]- 4106 Oct, [facility] [place] [facility] [address] [facility] [id number] [place] [address]- 7592 Sep, [facility] [place] [facility] [address] [facility] [id number] [place] [address]- 9968 Sep, [facility] [place] [facility] [address] [facility] [id number] [place] [address]- 9837 Aug, [facility] [place] [facility] [address] [facility] [id number] [place] [address]- 8812 Aug, [facility] [place] [facility] [address] [id number] [place] [address] 2546 Aug, [facility] [address] [id number] [place] [address]- 0165 Jul, [facility] [place] [facility] [address] [id number] [place] [address] 2546 Jul, [facility] [place] [facility] [address] [id number] [place] [address]- 5900 Feb, [facility] [place] [facility] [address] [id number] [place] [address] 2549 Nov, [facility] [place] [facility] [address] [id number] [place] [address]- 4186 Oct, [facility] [place] [facility] [address] [id number] [place] [address]- 5651 Sep, [facility] [address] [id number] [place] [address]- 9758 Sep, [facility] [address] [id number] [place] [address]- 2345 Sep, [facility] [address] [id number] [place] [address]- 4103 Aug, [facility] [address] [id number] [place] [address]- 2951 Aug, [facility] [address] [id number] [place] [address]- 4517 January, [facility] [place] [facility] [address] [id number] [place] [address]- 7665 January, [facility] [place] [facility] [address] [id number] [place] [address]- 2316 January, [facility] [place] [facility] [address] [id number] [place] [address]- 2546 January, [facility] [place] [facility] [address] [id number] [place] [address]- 6762 January, [facility] [address] [id number] [place] [address]- 8860 January, [facility] [place] [facility] [address] [id number] [place] [address]- 9535 Dec, [facility] [place] [facility] [address] [id number] [place] [address]- 2392 Dec, [facility] [place] [facility] [address] [id number] [place] [address]- 6882 Dec, [facility] [place] [facility] [address] [id number] [place] [address]- 2276 Dec, [facility] [place] [facility] [address] [id number] [place] [address]- 8360 Nov, [facility] [place] [facility] [address] [id number] [place] [address]- 2605 Nov, [facility] [place] [facility] [address] [id number] [place] [address]- 0527 Oct, [facility] [place] [facility] [address] [id number] [place] [address]- 2765 Oct, [facility] [place] [facility] [address] [id number] [place] [address]- 9656 Oct, [facility] [place] [facility] [address] [id number] [place] [address]- 0838 Oct, [facility] [place] [facility] [address] [id number] [place] [address]- 8560 Sep, [facility] [place] [facility] [address] [id number] [place] [address]- 3032 Sep, [facility] [place] [facility] [address] [id number] [place] [address]- 5962 Sep, [facility] [place] [facility] [address] [id number] [place] [address]- 4255 Sep, [facility] [place] [facility] [address], [place] [address]- 3726 Sep, [facility] [address] [place] [address]- 2786 Sep, [facility] [address] [place] [address]- 2546 Sep, [facility] [address] [address]- 2206 Sep, [facility] [address], [place] [address]- 2546 Sep, [facility] [id number] [place] [address] 47152- 9166 Sep, [facility] [address], [place] [address]- 5796 Sep, [facility] [id number] [place] [address] 14972- 5886 Aug, [facility] [address] [place] [address]- 2940 Aug, [facility] [address], [place] [address]- 9854 Jun, [facility] [address], [place] [address]- 8237 Jun, [facility] [address] [address]- 9806 Apr, [facility] [id number] [address]- 3037 Apr, [facility] [address], [place] [address]- 7752 Jul, IMMUNIZATIONS No Known Immunizations SOCIAL HISTORY Never Assessed REASON FOR VISIT Controlled Med Refill 04/15/17 PLAN OF CARE VITAL SIGNS MEDICATIONS Medication Instructions Dosage Frequency Start Date End Date Duration Status Xanax XR 1 MG Orally 2 times a day 1 tablet 12h Mar, 28 days Active [place] 5-325 MG Orally every 6 hrs 1 tablet as needed 6h Mar, 28 days Active RESULTS No Results PROCEDURES [...]
--- OUTSIDE RECORDS SUMMARY | 2018-02-15 04:05 | XMS REPORT ---
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 Name Role Phone SIMONE KWAN Unavailable PROBLEMS Type Condition ICD9-CM Code [id number] Code Onset Dates Condition Status SNOMED Code Problem Psychosis, unspecified psychosis type F29 Active 74168195 Problem Chronic pain syndrome G89.4 Active 009030888 Problem Anxiety F41.9 Active 23903591 Problem ADD (attention deficit disorder) F90.0 Active 164922416 Problem Episodic mood disorder F39 Active 98572756 Problem Neuropathy G62.9 Active 419573686 Problem Mood disorder F39 Active 01811307 ALLERGIES Substance Reaction Event Type Date Status Penicillin V Potassium rash Drug Allergy May, Active ENCOUNTERS Encounter Location Date Diagnosis [facility] [id number] [place] [address] 64694- 5827 Sep, [facility] [id number] [place] [address] 02375- 5805 Sep, Anxiety F41.9 and Chronic pain syndrome G89.4 [facility] [id number] [place] [address] 16547- 4679 Sep, Anxiety F41.9 [facility] [id number] [place] [address] 01540- 4405 Aug, [facility] [id number] [place] [address] 71118- 8745 Aug, [facility] [id number] [place] [address] 23652- 8381 Aug, Psychosis, unspecified psychosis type F29 [facility] [id number] [place] [address] 74975- 1220 Aug, Anxiety F41.9 [facility] [id number] [place] [address] 14590- 3393 Aug, [facility] [address] 99618- 6447 Jul, [facility] [id number] [place] [address] 72440- 7362 Jul, [facility] [address] 87690- 7694 Jul, [facility] [id number] [place] [address] 76733- 0965 Jul, [facility] [address] 21536- 6654 Jul, Anxiety F41.9 [facility] [id number] [place] [address] 79463- 5451 Jun, Acute psychosis F23 and Homeless Z59.0 [facility] [address] 06855- 0114 Jun, Anxiety F41.9 ; Episodic mood disorder F39 and Homeless Z59.0 [facility] [id number] [place] [address] 98831- 2191 Jun, Anxiety F41.9 [facility] [id number] [place] [address] 91550- 4080 Jun, [facility] [id number] [place] [address] 57920- 5654 May, [facility] [id number] [place] [address] 31205- 0181 May, Anxiety F41.9 ; Neuropathy G62.9 ; Dysuria R30.0 and 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 [facility] [id number] [place] [address] 69865- 2231 Apr, [facility] [address] 14123- 3995 Apr, 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 [facility] [id number] [place] [address] 37515- 7414 Apr, Anxiety F41.9 [facility] [id number] [place] [address] 43930- 2651 Apr, [facility] [id number] [place] [address] 82400- 4904 Mar, Anxiety F41.9 [facility] [id number] [place] [address] 18177- 7041 Mar, [place] [id number] [place] [address] 53788- 6819 Mar, [place] [id number] [place] [address] 28043- 1970 Mar, [facility] [id number] [place] [address] 18618- 4207 Mar, Anxiety F41.9 ; Cervical neuritis M54.12 and Thoracic neuritis M54.14 [place] [id number] [place] [address] 34913- 9431 Feb, Anxiety F41.9 ; Mood disorder F39 ; Episodic mood disorder F39 ; Psychosis, unspecified psychosis type F29 and Homeless Z59.0 [place] [id number] [place] [address] 54851- 9555 January, [facility] [id number] [place] [address] 36375- 6550 Nov, [facility] [address] [id number] Nov, Mood disorder F39 and Sebaceous cyst L72.3 [facility] [id number] [place] [address] 30787- 1918 Oct, Neuropathy G62.9 [facility] [id number] [place] [address] 56934- 5430 14 Oct, 2016 Mood disorder F39 and Neuropathy G62.[address] [id number] Aug, Mood disorder F39 and Neuropathy G62.9 [facility] [id number] [place] [address] 85343- 1485 15 May, 2016 [facility] [id number] [place] [address] 55860- 2359 Apr, Psychosis, unspecified psychosis type F29 [facility] [id number] [place] [address] 15868- 9561 Apr, [place] [id number] [place] [address] 93865- 8044 Apr, [address] [id number] Mar, Upper respiratory tract infection, unspecified type J06.9 and Tinea corporis B35.4 [place] [id number] [place] [address] 38691- 2242 Feb, ADD (attention deficit disorder) F90.0 [place] [id number] [place] [address] 24649- 7671 Dec, Psychosis, unspecified psychosis type F29 and Episodic mood disorder F39 [place] [id number] [place] [address] 95134- 2458 Sep, [address] [id number] Sep, Injury of hand, right, initial encounter S69.91XA [facility] [address] [place] [address] [id number] Jul, [facility] [address] [id number] Jul, Encounter for dental examination Z01.20 [facility] [id number] [place] [address] 00594- 6932 15 Jun, 2015 Malingering Z76.5 [place] [id number] [address]- 2190 Jun, Mood disorder F39 [facility] [address] [address]- 4302 Jun, Anxiety disorder, unspecified F41.9 [facility] [address] [id number] May, Anxiety 300.00 [facility] [address] [id number] May, Abdominal pain, left lateral 789.09 [address] [id number] May, 2015 Bipolar 1 disorder 296.7 and Abdominal pain, left lateral 789.09 [address] [id number] May, Bipolar 1 disorder 296.7 [facility] [address] [id number] [id number] January, Dental examination V72.2 [facility] [address] [place] [address] 87844- 7237 Dec, [facility] [id number] [address]- 5934 Dec, [facility] [address] [address]- 6490 Nov, [facility] [address] [address]- 6160 Nov, [facility] [address] [address]- 2964 Nov, [facility] [address] [facility] [id number] [address]- 5944 Nov, [facility] [id number] [place] [address] 36818152- 5278 Nov, [facility] [id number] 1447 Nov, [facility] [address] [place] [address] 64895- 7232 Nov, [facility] [address] [id number] [place] [address]- 8168 Nov, [facility] [address] [id number] Oct, [facility] [address] [place] [id number] Oct, [facility] [address] [id number] [place] [address]- 8544 Oct, [facility] [place] [facility] [address] [id number] [place] [address]- 2343 Oct, [facility] [place] [facility] [address] [id number] [place] [address]- 6246 Oct, [facility] [place] [facility] [address] [id number] [place] [address]- 6061 Oct, [facility] [place] [facility] [address] [id number] [place] [address]- 9444 Sep, [facility] [place] [facility] [address] [id number] [place] [address]- 9606 Sep, [facility] [place] [facility] [address] [facility] [id number], [place] [address]- 4278 Jul, [facility] [place] [facility] [address] [id number], [place] [address]- 8343 Jul, [facility] [place] [facility] [address] [id number], [place] [address]- 9826 Jul, [facility] [place] [facility] [address] [id number] [place] [address]- 6941 Jul, [facility] [place] [facility] [address] [id number] [place] [address]- 3238 Jun, [facility] [place] [facility] [address] [id number] [place] [address]- 9804 Jun, [facility] [place] [facility] [address] [id number], [place] [address]- 3387 Jun, [facility] [place] [facility] [address] [id number] [place] [address]- 4475 Jun, [facility] [place] [facility] [address] [id number] [place] [address]- 5025 May, [facility] [place] [facility] [address] [id number] [place] [address]- 6958 May, [facility] [place] [facility] [address] [id number] [place] [address]- 1281 Apr, [facility] [place] [facility] [address] [id number] [place] [address]- 2276 Apr, [facility] [place] [facility] [address] [id number] [place] [address]- 4628 Mar, [facility] [place] [facility] [address] [id number] [place] [address]- 7489 Mar, [facility] [place] [facility] [address] [id number] [place] [address]- 8507 Mar, [facility] [place] [facility] [address] [id number] [place] [address]- 6904 Mar, [facility] [place] [facility] [address] [id number] [place] [address]- 6701 January, [facility] [place] [facility] [address] [id number] [place] [address]- 6813 January, [facility] [place] [facility] [address] [id number] [place] [address]- 9728 Dec, [facility] [place] [facility] [address] [id number] [place] [address]- 2962 Dec, [facility] [place] [facility] [address] [id number] [place] [address]- 7010 Dec, [facility] [place] [facility] [address] [id number] [place] [address]- 0673 Nov, [facility] [place] [facility] [address] [id number] [place] [address]- 3503 Nov, [facility] [place] [facility] [address] [id number] [place] [address]- 9273 Nov, [facility] [place] [facility] [address] [id number] [place] [address]- 9756 Oct, [facility] [place] [facility] [address] [id number] [place] [address]- 1916 Oct, [facility] [place] [facility] [address] [id number] [place] [address]- 8152 Oct, [facility] [place] [facility] [address] [id number] [place] [address]- 3526 Oct, [facility] [place] [facility] [address] [facility] [id number] [place] [address]- 6308 Oct, [facility] [place] [facility] [address] [id number] [place] [address]- 9349 Oct, [facility] [place] [facility] [address] [id number] [place] [address]- 1196 Oct, [facility] [place] [facility] [address] [facility] [id number] [place] [address]- 2343 Oct, [facility] [place] [facility] [address] [facility] [id number] [place] [address]- 4674 Oct, [facility] [place] [facility] [address] [facility] [id number] [place] [address]- 3967 Oct, [facility] [place] [facility] [address] [id number] [place] [address]- 5573 Sep, [facility] [place] [facility] [address] [id number] [place] [address]- 3942 Sep, [facility] [place] [facility] [address] [facility] [id number] [place] [address]- 5196 Aug, [facility] [place] [facility] [address] [facility] [id number] [place] [address]- 2546 Aug, [facility] [address] [id number] [place] [address]- 1908 Aug, [facility] [address] [id number] [place] [address]- 0556 Jul, [facility] [address] [id number] [place] [address]- 1086 Jul, [facility] [address] [id number] [place] [address]- 6290 Feb, [facility] [address] [id number] [place] [address]- 3912 Nov, [facility] [address] [id number] [place] [address]- 9018 Oct, [facility] [address] [id number] [place] [address]- 5231 Sep, [facility] [address] [id number] [place] [address]- 3657 Sep, [facility] [address] [id number] [place] [address]- 4621 Sep, [facility] [address] [id number] [place] [address]- 3594 Aug, [facility] [address] [id number] [place] [address]- 0826 Aug, [facility] [address] [id number] [place] [address]- 4766 January, [facility] [place] [facility] [address] [id number] [place] [address]- 9297 January, [facility] [place] [facility] [address] [id number] [place] [address]- 6175 January, [facility] [place] [facility] [address] [id number] [place] [address]- 3523 January, [facility] [place] [facility] [address] [id number] [place] [address]- 0784 January, [facility] [address] [id number] [place] [address]- 6273 January, [facility] [address] [id number] [place] [address]- 0130 Dec, [facility] [address] [id number] [place] [address]- 0230 Dec, [facility] [address] [id number] [place] [address]- 2035 Dec, [facility] [address] [id number] [place] [address]- 7908 Dec, [facility] [address] [id number] [place] [address]- 0845 Nov, [facility] [address] [id number] [place] [address]- 4192 Nov, [facility] [address] [id number] [place] [address]- 8178 Oct, [facility] [address] [id number] [place] [address]- 1433 Oct, [facility] [address] [id number] [place] [address]- 0800 Oct, [facility] [address] [id number] [place] [address]- 8368 Oct, [facility] [address] [id number] [place] [address]- 0706 Sep, [facility] [place] [facility] [address] [id number] [place] [address]- 8563 Sep, [facility] [place] [facility] [address] [id number] [place] [address]- 2966 Sep, [facility] [place] [facility] [address] [id number] [place] [address]- 2443 Sep, [facility] [id number] [address]- 0639 Sep, [facility] [address], [place] [address]- 3396 Sep, [facility] [address] [place] [address]- 7836 Sep, [facility] [address] [place] [address]- 7406 Sep, [facility] [address], [place] [address]- 8766 Sep, [facility] [address] [place] [address]- 6116 Sep, [facility] [address], [place] [address]- 0946 Sep, [facility] [address] [place] [address]- 3630 Aug, [facility] [address] [place] [address]- 6906 Aug, [facility] [address] [place] [address]- 0206 Jun, [facility] [address] [place] [address]- 1536 Jun, [facility] [address] [place] [address]- 1665 Apr, [facility] [id number] [address]- 8532 Apr, [facility] [address], [place] [address]- 6002 Jul, IMMUNIZATIONS No Known Immunizations SOCIAL HISTORY Never Assessed REASON FOR VISIT anxiety f/u, PT is requestion to be off the hydro and put on something with juliana Bustillo MA PLAN OF CARE Activity Details Follow Up 4 Weeks Reason:neuropathy, anxiety VITAL SIGNS Height 66 in 2017-05-30 Weight 210.4 lbs 2017-05-30 Temperature 97.8 degrees Fahrenheit 2017-05-30 Heart Rate 136 bpm 2017-05-30 Respiratory Rate 20 2017-05-30 BMI 33.96 kg/m2 2017-05-30 Blood pressure systolic 142 mmHg 2017-05-30 Blood pressure diastolic 98 mmHg 2017-05-30 MEDICATIONS Medication Instructions Dosage Frequency Start Date End Date Duration Status Oxycodone HCl 5 mg Orally every 6 hrs 1 tablet 6h May, Active Invega 6 MG Orally Once a day-she was given samples take 0.5 tablet every day and increase to 1 tablet when tolerated, take every night Apr, 30 day(s) Active Xanax 1 MG Orally Twice a day 1 tablet 12h May, Active RESULTS No Results PROCEDURES Procedure Date Ordered Result Body Site URINALYSIS, AUTO, W/O SCOPE May 30, 2017 DRUG TEST PRSMV DIR OPT OBS May 30, 2017 INSTRUCTIONS MEDICATIONS ADMINISTERED No Known Medications [...]
--- OUTSIDE RECORDS SUMMARY | 2018-02-15 04:06 | XMS REPORT ---
Author Author NERISSA STEFANO Organization [facility] Address [address] [place] [address] Care Team Providers Care Supervisor [employer] Jo[employer] Name Role Phone KAELADALTON STEFANO Unavailable PROBLEMS Type Condition ICD9-CM Code HRB32-MY Code Onset Dates Condition Status SNOMED Code Problem Psychosis, unspecified psychosis type F29 Active 45799527 Problem Chronic pain syndrome G89.4 Active 524712584 Problem Anxiety F41.9 Active 67426380 Problem ADD (attention deficit disorder) F90.0 Active 261225892 Problem Episodic mood disorder F39 Active 79074968 Problem Neuropathy G62.9 Active 198688721 Problem Mood disorder F39 Active 55097613 ALLERGIES Substance Reaction Event Type Date Status Penicillin V Potassium rash Drug Allergy Apr, Active ENCOUNTERS Encounter Location Date Diagnosis [facility] [id number] [place] [address] 87502- 9282 Dec, [facility] [id number] [place] [address] 09043- 3892 Sep, [facility] [id number] [place] [address] 05782- 2964 Sep, Anxiety F41.9 and Chronic pain syndrome G89.4 [facility] [id number] [place] [address] 26945- 5139 Sep, Anxiety F41.9 [facility] [id number] [place] [address] 45053- 4307 Aug, [facility] [id number] [place] [address] 95660- 7871 Aug, [facility] [id number] [place] [address] 88057- 1353 Aug, Psychosis, unspecified psychosis type F29 [facility] [id number] [place] [address] 49521- 3465 08 Aug, 2017 Anxiety F41.9 [facility] [id number] [place] [address] 45160- 1488 Aug, [facility] [id number] [place] [address] 43863- 6149 Jul, [facility] [address] 16587- 5389 Jul, [facility] [id number] [place] [address] 13078- 9023 Jul, [facility] [id number] [place] [address] 37556- 4350 Jul, [facility] [id number] [place] [address] 75769- 9639 Jul, Anxiety F41.9 [facility] [id number] [place] [address] 06290- 9466 Jun, Acute psychosis F23 and Homeless Z59.0 [facility] [id number] [place] [address] 78448- 0932 Jun, Anxiety F41.9 ; Episodic mood disorder F39 and Homeless Z59.0 [facility] [id number] [place] [address] 32163- 1759 Jun, Anxiety F41.9 [facility] [id number] [place] [address] 79886- 6317 Jun, [facility] [id number] [place] [address] 14369- 5371 May, [facility] [id number] [place] [address] 65431- 1635 May, Anxiety F41.9 ; Neuropathy G62.9 ; Dysuria R30.0 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 [facility] [id number] [address]- 7010 Apr, [facility] [id number] [place] [address] 56253- 3188 Apr, 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 [facility] [id number] [place] [address] 18772- 1189 Apr, Anxiety F41.9 [facility] [id number] [place] [address] 43286- 3272 Apr, [facility] [id number] [place] [address] 25501- 8755 Mar, Anxiety F41.9 [facility] [id number] [place] [address] 90476- 2749 Mar, [facility] [id number] [place] [address] 74431- 8800 Mar, [facility] [id number] [place] [address] 30179- 3379 Mar, [facility] [id number] [place] [address] 39120- 7398 Mar, Anxiety F41.9 ; Cervical neuritis M54.12 and Thoracic neuritis M54.14 [facility] [id number] [place] [address] 16956- 9755 Feb, Anxiety F41.9 ; Mood disorder F39 ; Episodic mood disorder F39 ; Psychosis, unspecified psychosis type F29 and Homeless Z59.0 [facility] [id number] [place] [address] 17406- 1601 January, [facility] [id number] [place] [address] 76283- 3114 Nov, [facility] [address] [place] [id number] Nov, Mood disorder F39 and Sebaceous cyst L72.3 [facility] [id number] [place] [address] 20303- 1487 Oct, Neuropathy G62.9 [facility] [id number] [place] [address] 68299- 0222 Oct, Mood disorder F39 and Neuropathy G62.[address] [id number] Aug, Mood disorder F39 and Neuropathy G62.9 [facility] [id number] [place] [address] 04009- 8530 May, [facility] [id number] [place] [address] 24816- 4567 Apr, Psychosis, unspecified psychosis type F29 [id number] [place] [address] 66700- 5966 Apr, [id number] [place] [address] 04855- 8147 Apr, [address] [id number] Mar, Upper respiratory tract infection, unspecified type J06.9 and Tinea corporis B35.4 [id number] [place] [address] 11508- 8672 Feb, ADD (attention deficit disorder) F90.0 [facility] [id number] [place] [address] 24366- 8570 Dec, Psychosis, unspecified psychosis type F29 and Episodic mood disorder F39 [facility] [id number] [place] [address] 82948- 5212 Sep, [address] [id number] Sep, Injury of hand, right, initial encounter S69.91XA [facility] [id number] [place] [address] [id number] Jul, [facility] [id number] [place] [address] [id number] Jul, Encounter for dental examination Z01.20 [facility] [address] [address]- 1504 15 Jun, 2015 [place] Z76.5 [facility] [id number] [place] [address] 32122- 6784 Jun, Mood disorder F39 [facility] [address] [address]- 5970 Jun, Anxiety disorder, unspecified F41.9 [facility] [address] [id number] May, Anxiety [address] [place] [id number] May, Abdominal pain, left lateral 789.09 [address] [place] [id number] May, Bipolar 1 disorder 296.7 and Abdominal pain, left lateral 789.09 [address] [place] [id number] May, Bipolar 1 disorder 296.7 [facility] [address] [id number] [id number] January, Dental examination V72.2 [facility] [address] [address]- 5204 Dec, [facility] [id number] [place] [address] 12615- 4169 Dec, [facility] [address] [address]- 3139 Nov, [facility] [address] [address]- 4626 Nov, [facility] [address] [address]- 4461 Nov, [facility] [id number] [place] [address] 53905- 6778 Nov, [facility] [address] [address]- 4772 Nov, [facility] [id number] [address]- 9186 Nov, [facility] [place] [facility] [address] [id number] [place] [address]- 6994 Nov, [facility] [place] [facility] [address] [address] [facility] [id number] [place] [address]- 3483 Nov, [facility] [address] [place] [id number] Oct, [facility] [address] [facility] [id number] Oct, [facility] [place] [facility] [address] [id number] [place] [address]- 7273 Oct, [facility] [place] [facility] [address] [id number] [place] [address]- 4275 Oct, [facility] [place] [facility] [address] [facility] [id number] [place] [address]- 8261 Oct, [facility] [place] [facility] [address] [facility] [id number] [place] [address]- 5080 Oct, [facility] [place] [facility] [address] [id number] [place] [address]- 8520 Sep, [facility] [place] [facility] [address] [facility] [id number] [place] [address]- 6559 Sep, [facility] [place] [facility] [address] [facility] [id number] [place] [address]- 3338 Jul, [facility] [place] [facility] [address] [id number] [place] [address]- 6664 Jul, [facility] [place] [facility] [address] [id number] [place] [address]- 5731 Jul, [facility] [place] [facility] [address] [id number] [place] 0145 Jul, [facility] [place] [facility] [address] [facility] [id number] [place] [address]- 1328 Jun, [facility] [place] [facility] [address] [id number] [place] [address]- 7423 Jun, [facility] [place] [facility] [address] [id number] [place] [address]- 0616 Jun, [facility] [place] [facility] [address] [id number] [place] [address]- 9222 Jun, [facility] [place] [facility] [address] [id number] [place] [address]- 9786 May, [facility] [place] [facility] [address] [id number] [place] [address]- 6828 May, [facility] [place] [facility] [address] [id number] [place] [address]- 7219 Apr, [facility] [place] [facility] [address] [id number] [place] [address]- 8722 Apr, [facility] [place] [facility] [address] [id number] [place] [address]- 0098 Mar, [facility] [place] [facility] [address] [id number] [place] [address]- 3748 Mar, [facility] [place] [facility] [address] [id number] [place] [address]- 5583 Mar, [facility] [place] [facility] [address] [id number] [place] [address]- 6339 Mar, [facility] [place] [facility] [address] [id number] [place] [address]- 6847 January, [facility] [place] [facility] [address] [id number] [place] [address]- 3810 January, [facility] [place] [facility] [address] [id number] [place] [address]- 0156 Dec, [facility] [place] [facility] [address] [id number] [place] [address]- 7125 Dec, [facility] [place] [facility] [address] [id number] [place] [address]- 7099 Dec, [facility] [place] [facility] [address] [id number] [place] [address]- 8730 Nov, [facility] [place] [facility] [address] [id number] [place] [address]- 0746 Nov, [facility] [place] [facility] [address] [id number] [place] [address]- 7646 Nov, [facility] [place] [facility] [address] [id number] [place] [address]- 5442 Oct, [facility] [place] [facility] [address] [id number] [place] [address]- 5395 Oct, [facility] [place] [facility] [address] [id number] [place] [address]- 4723 Oct, [facility] [place] [facility] [address] [facility] [address] [facility] [id number] [place] [address]- 3105 Oct, [facility] [place] [facility] [address] [id number] [place] [address]- 3478 Oct, [facility] [place] [facility] [address] [id number] [place] [address]- 1336 Oct, [facility] [place] [facility] [address] [id number] [place] [address]- 8027 Oct, [facility] [place] [facility] [address] [id number] [place] [address]- 3616 Oct, [facility] [place] [facility] [address] [id number] [place] [address]- 7173 Oct, [facility] [place] [facility] [address] [id number] [place] [address]- 8006 Oct, [facility] [place] [facility] [address] [id number] [place] [address]- 9517 Sep, [facility] [place] [facility] [address] [id number] [place] [address]- 9040 Sep, [facility] [place] [facility] [address] [id number] [place] [address]- 3462 Aug, [facility] [address] [id number] [place] [address]- 6756 Aug, [facility] [address] [id number] [place] [address]- 7695 Aug, [facility] [address] [id number] [place] [address]- 2287 Jul, [facility] [place] [facility] [address] [id number] [place] [address]- 1852 Jul, [facility] [address] [id number] [place] [address]- 7729 Feb, [facility] [address] [id number] [place] [address]- 4763 Nov, [facility] [address] [id number] [place] [address]- 4714 Oct, [facility] [address] [id number] [place] [address]- 4990 Sep, [facility] [address] [id number] [place] [address]- 5544 Sep, [facility] [address] [id number] [place] [address]- 2202 Sep, [facility] [address] [id number] [place] [address]- 9125 Aug, [facility] [address] [id number] [place] [address]- 2630 Aug, [facility] [address] [id number] [place] [address]- 2697 January, [facility] [place] [facility] [address] [id number] [place] [address]- 0142 January, [facility] [address] [id number] [place] [address]- 3075 January, [facility] [address] [id number] [place] [address]- 1968 January, [facility] [address] [id number] [place] [address]- 2737 January, [facility] [place] [facility] [address] [id number] [place] [address]- 8526 January, [facility] [place] [facility] [address] [id number] [place] [address]- 4149 Dec, [facility] [address] [id number] [place] [address]- 8308 Dec, [facility] [place] [facility] [address] [id number] [place] [address]- 4459 Dec, [facility] [place] [facility] [address] [id number] [place] [address]- 2671 Dec, [facility] [place] [facility] [address] [id number] [place] [address]- 0152 Nov, [facility] [place] [facility] [address] [id number] [place] [address]- 6921 Nov, [facility] [place] [facility] [address] [id number] [place] [address]- 2134 28 Oct, 2011 [facility] [place] [facility] [address] [id number] [place] [address]- 7917 Oct, [facility] [place] [facility] [address] [id number] [place] [address]- 3269 14 Oct, 2011 [facility] [place] [facility] [address] [id number] [place] [address]- 7688 Oct, [facility] [place] [facility] [address] [id number] [place] [address]- 3696 Sep, [facility] [place] [facility] [address] [id number] [place] [address]- 8279 24 Sep, 2011 [facility] [place] [facility] [address] [id number] [place] [address]- 1786 Sep, [facility] [address] [facility] [id number] [place] [address]- 0926 Sep, [facility] [address] [facility] [id number] [place] [address]- 3686 Sep, [facility] [address] [facility] [id number] [place] [address]- 9146 Sep, [facility] [address] [facility] [id number] [place] [address]- 0318 Sep, [facility] [address] [facility] [id number] [place] [address]- 3986 Sep, [facility] [address] [facility] [id number] [place] [address]- 7126 Sep, [facility] [address] [address]- 7616 Sep, [facility] [id number] [address]- 1878 Sep, [facility] [address] [address]- 0217 Aug, [facility] [id number] [address]- 3466 Aug, [facility] [id number] [address]- 0215 Jun, [facility] [id number] [address]- 9264 Jun, [facility] [address] [facility] [id number] [place] [address]- 7556 Apr, [facility] [address] [facility] [id number] [place] [address]- 0634 Apr, [facility] [id number] [address]- 1358 Jul, IMMUNIZATIONS No Known Immunizations SOCIAL HISTORY Never Assessed REASON FOR VISIT intake PLAN OF CARE Activity Details Follow Up 3 Weeks Reason: VITAL SIGNS Height 66 in 2017-05-16 Weight 207 lbs 2017-05-16 Heart Rate 88 bpm 2017-05-16 Respiratory Rate 22 2017-05-16 BMI 33.41 kg/m2 2017-05-16 Blood pressure systolic 108 mmHg 2017-05-16 Blood pressure diastolic 72 mmHg 2017-05-16 MEDICATIONS Medication Instructions Dosage Frequency Start Date End Date Duration Status [place] 5-325 MG Orally every 6 hrs 1 tablet as needed 6h Apr, 28 days Active Xanax XR 1 MG Orally 2 times a day 1 tablet 12h Mar, 28 days Active Invega 6 MG Orally Once a day-she was given samples take 0.5 tablet every day and increase to 1 tablet when tolerated, take every night Apr, 30 day(s) Active RESULTS No Results PROCEDURES No Known [...]
--- OUTSIDE RECORDS SUMMARY | 2018-02-15 04:06 | XMS REPORT ---
Author Author SIMONE KWAN Organization [facility] Address [address] [place] [address] Care Team Providers Care Study Hall Supervisor Name Role Phone SIMONE KWAN Unavailable PROBLEMS Type Condition ICD9-CM Code SBR26-OE Code Onset Dates Condition Status SNOMED Code Problem Psychosis, unspecified psychosis type F29 Active 40743350 Problem Chronic pain syndrome G89.4 Active 718833375 Problem Anxiety F41.9 Active 14122725 Problem ADD (attention deficit disorder) F90.0 Active 252967035 Problem Episodic mood disorder F39 Active 40066216 Problem Neuropathy G62.9 Active 310102662 Problem Mood disorder F39 Active 23540019 ALLERGIES No Information ENCOUNTERS Encounter Location Date Diagnosis [facility] [id number] [place] [address] 58794- 0707 Sep, [facility] [id number] [place] [address] 88469- 6427 Sep, Anxiety F41.9 and Chronic pain syndrome G89.4 [facility] [id number] [place] [address] 37560- 4449 Sep, Anxiety F41.9 [facility] [id number] [place] [address] 78160- 1506 Aug, [facility] [id number] [place] [address] 38118- 1693 Aug, [facility] [address] 94954- 0856 Aug, Psychosis, unspecified psychosis type F29 [facility] [id number] [place] [address] 81095- 9404 Aug, Anxiety F41.9 [facility] [id number] [place] [address] 09247- 4026 Aug, [facility] [id number] [place] [address] 84805- 3368 Jul, [facility] [id number] [place] [address] 80116- 6777 Jul, [facility] [id number] [place] [address] 00715- 1188 Jul, [facility] [address] 55681- 0152 Jul, [facility] [address] 12401- 2292 Jul, Anxiety F41.9 [facility] [id number] [place] [address] 46302- 8004 Jun, Acute psychosis F23 and Homeless Z59.0 [facility] [address] 37812- 0473 Jun, Anxiety F41.9 ; Episodic mood disorder F39 and Homeless Z59.0 [facility] [id number] [place] [address] 75883- 3445 Jun, Anxiety F41.9 [facility] [id number] [place] [address] 06396- 8904 Jun, [facility] [id number] [place] [address] 53041- 1870 May, [facility] [id number] [place] [address] 76237- 9555 May, Anxiety F41.9 ; Neuropathy G62.9 ; Dysuria R30.0 and [facility] current use of opiate analgesic Z79.891 [facility] [id number] [place] [address] 53443- 5359 Apr, [facility] [id number] [place] [address] 76289- 2970 Apr, 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 [facility] [id number] [place] [address] 81945- 8942 Apr, Anxiety F41.9 [facility] [id number] [place] [address] 70101- 3690 Apr, [facility] [id number] [place] [address] 63231- 6963 Mar, Anxiety F41.9 [facility] [id number] [place] [address] 90484- 5584 Mar, [id number] [place] [address] 46221- 9375 Mar, [facility] [id number] [place] [address] 42241- 6879 Mar, [facility] [id number] [place] [address] 43407- 3604 Mar, Anxiety F41.9 ; Cervical neuritis M54.12 and Thoracic neuritis M54.14 [address] [id number] [place] [address] 72939- 1639 Feb, Anxiety F41.9 ; Mood disorder F39 ; Episodic mood disorder F39 ; Psychosis, unspecified psychosis type F29 and Homeless Z59.0 [id number] [place] [address] 80532- 1448 January, [facility] [id number] [place] [address] 63297- 2580 Nov, [facility] [address] [place] [id number] Nov, Mood disorder F39 and Sebaceous cyst L72.3 [facility] [id number] [place] [address] 27898- 9106 Oct, Neuropathy G62.9 [facility] [id number] [place] [address] 62126- 4336 Oct, Mood disorder F39 and Neuropathy G62.9 [address] [place] [id number] Aug, Mood disorder F39 and Neuropathy G62.9 [facility] [id number] [place] [address] 64325- 3219 May, [facility] [id number] [place] [address] 27582- 3950 Apr, Psychosis, unspecified psychosis type F29 [facility] [id number] [place] [address] 48896- 5896 Apr, [facility] [id number] [place] [address] 65927- 7153 Apr, [address] [place] [id number] Mar, Upper respiratory tract infection, unspecified type J06.9 and Tinea corporis B35.4 [address] 90571- 2363 Feb, ADD (attention deficit disorder) F90.0 [facility] [id number] [place] [address] 87145- 3922 Dec, Psychosis, unspecified psychosis type F29 and Episodic mood disorder F39 [facility] [id number] [place] [address] 76133- 9020 Sep, [address] [place] [id number] Sep, Injury of hand, right, initial encounter S69.91XA [facility] [id number] [place] [address] [id number] Jul, [facility] [address] [id number] Jul, Encounter for dental examination Z01.20 [facility] [id number] [place] [address] 99001- 8192 15 Jun, 2015 Malingering Z76.5 [facility] [address] 22062- 8566 Jun, Mood disorder F39 [facility] [address] [facility] [id number] [address]- 8759 Jun, Anxiety disorder, unspecified F41.9 [facility] [address] [place] [id number] May, Anxiety 300.00 [facility] [address] [place] [id number] 15 May, 2015 Abdominal pain, left lateral 789.09 [address] [place] [id number] 08 May, 2015 Bipolar 1 disorder 296.7 and Abdominal pain, left lateral 789.09 [address] [place] [id number] May, Bipolar 1 disorder 296.7 [facility] [address] [id number] [id number] January, Dental examination V72.2 [facility] [address] [address]- 1781 Dec, [facility] [id number] [address]- 4629 Dec, [facility] [address] [address]- 9241 Nov, [facility] [id number] [place] [id number] 5941 Nov, [facility] [address] [address]- 1327 Nov, [facility] [address] [facility] [id number] [place] [address] 8844 Nov, [facility] [id number] [place] 0334 Nov, [facility] [address] [facility] [id number] 4756 Nov, [facility] [address] [address]- 3588 Nov, [facility] [address] [facility] [id number] [place] [address]- 9617 Nov, [facility] [address] [id number] Oct, [facility] [address] [id number] Oct, [facility] [place] [facility] [address] [facility] [id number] [place] [address]- 0427 Oct, [facility] [place] [facility] [address] [id number] [place] [address]- 6108 Oct, [facility] [place] [facility] [address] [id number] [place] [address]- 0779 Oct, [facility] [place] [facility] [address] [facility] [id number] [place] [address]- 3786 Oct, [facility] [place] [facility] [address] [facility] [id number] [place] [address]- 8091 Sep, [facility] [place] [facility] [address] [facility] [id number] [place] [address]- 9173 Sep, [facility] [place] [facility] [address] [facility] [id number] [place] [address]- 3385 Jul, [facility] [place] [facility] [address] [facility] [id number] [place] [address]- 9809 Jul, [facility] [place] [facility] [address] [facility] [id number] [place] [address]- 1698 Jul, [facility] [place] [facility] [address] [facility] [id number] [place] [address]- 4890 Jul, [facility] [place] [facility] [address] [id number] [place] [address]- 4803 Jun, [facility] [place] [facility] [address] [facility] [id number] [place] [address]- 5803 Jun, [facility] [place] [facility] [address] [facility] [id number] [place] [address]- 0040 Jun, [facility] [place] [facility] [address] [id number] [place] [address]- 9773 Jun, [facility] [place] [facility] [address] [id number] [place] [address]- 5826 May, [facility] [place] [facility] [address] [id number] [place] [address]- 5026 May, [facility] [place] [facility] [address] [id number] [place] [address]- 4615 Apr, [facility] [place] [facility] [address] [id number] [place] [address]- 4914 Apr, [facility] [place] [facility] [address] [id number] [place] [address]- 5359 Mar, [facility] [place] [facility] [address] [id number] [place] [address]- 6639 Mar, [facility] [place] [facility] [address] [id number] [place] [address]- 8885 Mar, [facility] [place] [facility] [address] [id number] [place] [address]- 9645 Mar, [facility] [place] [facility] [address] [id number] [place] [address]- 9242 January, [facility] [place] [facility] [address] [id number] [place] [address]- 8741 January, [facility] [place] [facility] [address] [id number] [place] [address]- 3552 Dec, [facility] [place] [facility] [address] [id number] [place] [address]- 6935 Dec, [facility] [place] [facility] [address] [id number] [place] 3799 Dec, [facility] [place] [facility] [address] [id number] [place] [address]- 8596 Nov, [facility] [place] [facility] [address] [id number] [place] [address]- 7981 Nov, [facility] [place] [facility] [address] [id number] [place] [address]- 3581 Nov, [facility] [place] [facility] [address] [id number] [place] [address]- 7456 Oct, [facility] [place] [facility] [address] [facility] [id number] [place] [address]- 8896 Oct, [facility] [place] [facility] [address] [facility] [id number] [place] [address]- 0963 Oct, [facility] [place] [facility] [address] [id number] [place] [address]- 8203 Oct, [facility] [place] [facility] [address] [facility] [id number] [place] [address]- 6669 Oct, [facility] [place] [facility] [address] [facility] [id number] [place] [address]- 0652 Oct, [facility] [place] [facility] [address] [facility] [id number] [place] [address]- 3007 Oct, [facility] [place] [facility] [address] [facility] [id number] [place] [address]- 9045 Oct, [facility] [place] [facility] [address] [facility] [id number] [place] [address]- 9532 Oct, [facility] [place] [facility] [address] [facility] [id number] [place] [address]- 4554 Oct, [facility] [place] [facility] [address] [facility] [id number] [place] [address]- 0487 Sep, [facility] [place] [facility] [address] [facility] [id number] [place] [address]- 5661 Sep, [facility] [place] [facility] [address] [facility] [id number] [place] [address]- 2804 Aug, [facility] [place] [facility] [address] [facility] [id number] [place] [address]- 7874 Aug, [facility] [place] [facility] [address] [id number] [place] [address]- 0264 Aug, [facility] [address] [id number] [place] [address]- 7037 Jul, [facility] [place] [facility] [address] [id number] [place] [address]- 9485 Jul, [facility] [address] [id number] [place] [address]- 5979 Feb, [facility] [address] [id number] [place] [address]- 1214 Nov, [facility] [place] [facility] [address] [id number] [place] [address]- 9319 Oct, [facility] [address] [id number] [place] [address]- 7538 Sep, [facility] [address] [id number] [place] [address]- 7451 Sep, [facility] [address] [id number] [place] [address]- 1666 Sep, [facility] [address] [id number] [place] [address]- 4982 Aug, [facility] [address] [id number] [place] [address]- 7213 Aug, [facility] [address] [id number] [place] [address]- 0689 January, [facility] [address] [id number] [place] 7180 January, [facility] [place] [facility] [address] [id number] [place] [address]- 4841 January, [facility] [place] [facility] [address] [id number] [place] [address]- 8337 January, [facility] [address] [id number] [place] [address]- 2048 January, [facility] [place] [facility] [address] [id number] [place] [address]- 6459 January, [facility] [place] [facility] [address] [id number] [place] [address]- 3933 Dec, [facility] [place] [facility] [address] [id number] [place] [address]- 6164 Dec, [facility] [place] [facility] [address] [id number] [place] [address]- 6349 Dec, [facility] [place] [facility] [address] [id number] [place] [address]- 9308 Dec, [facility] [place] [facility] [address] [id number] [place] [address]- 3669 Nov, [facility] [place] [facility] [address] [id number] [place] [address]- 5381 Nov, [facility] [place] [facility] [address] [id number] [place] [address]- 2276 Oct, [facility] [place] [facility] [address] [id number] [place] [address]- 5873 Oct, [facility] [place] [facility] [address] [id number] [place] [address]- 2477 Oct, [facility] [place] [facility] [address] [id number] [place] [address]- 9063 Oct, [facility] [place] [facility] [address] [id number] [place] [address]- 4811 Sep, [facility] [place] [facility] [address] [id number] [place] [address]- 5732 Sep, [facility] [place] [facility] [address] [id number] [place] [address]- 2368 Sep, [facility] [place] [facility] [address] [id number] [place] [address]- 1801 Sep, [facility] [place] [facility] [address] [address]- 3846 Sep, [facility] [address] [address]- 7576 Sep, [facility] [address] [address]- 9476 Sep, [facility] [address] [address]- 5846 Sep, [facility] [address] [address]- 1206 Sep, [facility] [address] [place] [address] 51401- 6156 Sep, [facility] [address] [address]- 6189 Sep, [facility] [id number] [place] [address] 97891- 4116 Aug, [facility] [address] [address]- 0215 Aug, [facility] [address] 2126 Jun, [facility] [address] 2273 Jun, [facility] [address] [address]- 4506 Apr, [facility] [id number] [address]- 9630 Apr, [facility] [address] [address]- 2701 Jul, IMMUNIZATIONS No Known Immunizations SOCIAL HISTORY Never Assessed REASON FOR VISIT pain PLAN OF CARE VITAL SIGNS MEDICATIONS Unknown [...]
--- OUTSIDE RECORDS SUMMARY | 2018-02-15 04:07 | XMS REPORT ---
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 Name Role Phone SIMONE KWAN Unavailable PROBLEMS Type Condition ICD9-CM Code SHF16-LY Code Onset Dates Condition Status SNOMED Code Problem Psychosis, unspecified psychosis type F29 Active 37669921 Problem Chronic pain syndrome G89.4 Active 479492544 Problem Anxiety F41.9 Active 64878361 Problem ADD (attention deficit disorder) F90.0 Active 730432840 Problem Episodic mood disorder F39 Active 47181561 Problem Neuropathy G62.9 Active 676587903 Problem Mood disorder F39 Active 55162526 ALLERGIES No Information ENCOUNTERS Encounter Location Date Diagnosis [facility] [id number] [place] [address] 03275- 1114 Dec, [facility] [id number] [place] [address] 44835- 5896 Sep, [facility] [id number] [place] [address] 05606- 1002 Sep, Anxiety F41.9 and Chronic pain syndrome G89.4 [facility] [id number] [place] [address] 60228- 1371 Sep, Anxiety F41.9 [facility] [id number] [place] [address] 46602- 9528 Aug, [facility] [address] 22172- 5148 Aug, [facility] [id number] [place] [address] 30420- 5367 Aug, Psychosis, unspecified psychosis type F29 [facility] [id number] [place] [address] 93638- 3342 08 Aug, 2017 Anxiety F41.9 [facility] [id number] [place] [address] 43036- 7044 Aug, [facility] [id number] [place] [address] 49172- 6060 Jul, [facility] [id number] [place] [address] 90451- 9802 Jul, [facility] [address] 32602- 2287 Jul, [facility] [id number] [place] [address] 29379- 9586 Jul, [facility] [id number] [place] [address] 35727- 8340 Jul, Anxiety F41.9 [facility] [address] 04059- 3599 Jun, Acute psychosis F23 and Homeless Z59.0 [facility] [id number] [place] [address] 51198- 5417 Jun, Anxiety F41.9 ; Episodic mood disorder F39 and Homeless Z59.0 [facility] [id number] [place] [address] 47867- 0325 Jun, Anxiety F41.9 [facility] [id number] [place] [address] 74020- 7000 Jun, [facility] [id number] [place] [address] 64501- 7310 May, [facility] [address] 32308- 6999 May, Anxiety F41.9 ; Neuropathy G62.9 ; Dysuria R30.0 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 [facility] [id number] [place] [address] 16800- 6670 Apr, [facility] [id number] [place] [address] 16601- 9282 Apr, 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 [facility] [id number] [place] [address] 09961- 8340 Apr, Anxiety F41.9 [facility] [id number] [place] [address] 55900- 4530 Apr, [facility] [id number] [place] [address] 40585- 3400 Mar, Anxiety F41.9 [facility] [id number] [place] [address] 74122- 3181 Mar, [facility] [id number] [place] [address] 40283- 3138 Mar, [facility] [id number] [place] [address] 04638- 1213 Mar, [facility] [id number] [place] [address] 38912- 0974 Mar, Anxiety F41.9 ; Cervical neuritis M54.12 and Thoracic neuritis M54.14 [facility] [id number] [place] [address] 06809- 7994 Feb, Anxiety F41.9 ; Mood disorder F39 ; Episodic mood disorder F39 ; Psychosis, unspecified psychosis type F29 and Homeless Z59.0 [facility] [id number] [place] [address] 70963- 2788 January, [facility] [id number] [place] [address] 68311- 7565 Nov, [facility] [address] [id number] Nov, Mood disorder F39 and Sebaceous cyst L72.3 [facility] [id number] [place] [address] 81493- 4872 Oct, Neuropathy G62.9 [id number] [place] [address] 13585- 7823 14 Oct, 2016 Mood disorder F39 and Neuropathy G62.[address] [id number] Aug, Mood disorder F39 and Neuropathy G62.9 [facility] [id number] [place] [address] 36374- 4303 15 May, 2016 [id number] [place] [address] 03550- 1124 Apr, Psychosis, unspecified psychosis type F29 [address] [facility] [id number] [place] [address] 07627- 7667 Apr, [address] [facility] [id number] [place] [address] 12907- 6902 Apr, [address] [id number] Mar, Upper respiratory tract infection, unspecified type J06.9 and Tinea corporis B35.4 [address] [facility] [id number] [place] [address] 08315- 4445 Feb, ADD (attention deficit disorder) F90.0 [address] [facility] [id number] [place] [address] 75985- 4179 Dec, Psychosis, unspecified psychosis type F29 and Episodic mood disorder F39 [address] [id number] [place] [address] 25244- 9590 Sep, [address] [id number] Sep, Injury of hand, right, initial encounter S69.91XA [facility] [id number] [place] [address] [id number] Jul, [facility] [id number] [place] [address] [id number] Jul, Encounter for dental examination Z01.20 [facility] [id number] [place] [address] 23036- 0839 Jun, [place] Z76.5 [facility] [address] 0904 Jun, Mood disorder F39 [facility] [address] [address]- 4216 Jun, Anxiety disorder, unspecified F41.9 [facility] [address] [id number] May, Anxiety [address] [id number] May, Abdominal pain, left lateral 789.09 [address] [id number] May, Bipolar 1 disorder 296.7 and Abdominal pain, left lateral 789.09 [address] [id number] May, Bipolar 1 disorder 296.7 [facility] [address] [id number] [id number] January, Dental examination V72.2 [facility] [address] [place] [address]- 3958 Dec, [facility] [id number] [place] [address] 30265- 9827 Dec, [facility] [address] [place] [address]- 0279 Nov, [facility] [address] [place] [address]- 1132 Nov, [facility] [address] [place] [address]- 8956 Nov, [facility] [address] [place] [address] 83172- 5354 Nov, [facility] [address] 9018 Nov, [facility] [address]- 8638 Nov, [facility] [address] [id number] [place] [address]- 2721 Nov, [facility] [place] [facility] [address] [id number] [place] [address]- 6683 Nov, [facility] [address] [id number] Oct, [facility] [address] [id number] Oct, [facility] [place] [facility] [address] [id number] [place] [address]- 7642 Oct, [facility] [place] [facility] [address] [id number] [place] [address]- 9920 Oct, [facility] [place] [facility] [address] [facility] [id number] [place] [address]- 1405 Oct, [facility] [place] [facility] [address] [facility] [id number] [place] [address]- 1807 Oct, [facility] [place] [facility] [address] [facility] [id number] [place] [address]- 1334 Sep, [facility] [place] [facility] [address] [id number] [place] [address]- 3961 Sep, [facility] [place] [facility] [address] [facility] [id number] [place] [address]- 7418 Jul, [facility] [place] [facility] [address] [id number] [place] [address]- 8893 Jul, [facility] [place] [facility] [address] [id number] [place] [address]- 6927 Jul, [facility] [place] [facility] [address] [id number] [place] [address]- 4088 Jul, [facility] [place] [facility] [address] [facility] [id number] [place] [address]- 6022 Jun, [facility] [place] [facility] [address] [facility] [id number] [place] [address]- 4607 Jun, [facility] [place] [facility] [address] [id number] [place] [address]- 5092 Jun, [facility] [place] [facility] [address] [id number] [place] [address]- 2364 Jun, [facility] [place] [facility] [address] [id number] [place] [address]- 2446 May, [facility] [place] [facility] [address] [id number] [place] [address]- 1720 May, [facility] [place] [facility] [address] [id number] [place] [address]- 3219 Apr, [facility] [place] [facility] [address] [id number] [place] [address]- 0178 Apr, [facility] [place] [facility] [address] [id number] [place] [address]- 3761 Mar, [facility] [place] [facility] [address] [id number] [place] [address]- 2175 Mar, [facility] [place] [facility] [address] [id number] [place] [address]- 4159 Mar, [facility] [place] [facility] [address] [id number] [place] [address]- 7534 Mar, [facility] [place] [facility] [address] [id number] [place] [address]- 4635 January, [facility] [place] [facility] [address] [id number] [place] [address]- 2250 January, [facility] [place] [facility] [address] [id number] [place] [address]- 5141 Dec, [facility] [place] [facility] [address] [id number] [place] [address]- 5206 Dec, [facility] [place] [facility] [address] [id number] [place] [address]- 6631 Dec, [facility] [place] [facility] [address] [id number] [place] [address]- 7379 Nov, [facility] [place] [facility] [address] [id number] [place] [address]- 8166 Nov, [facility] [place] [facility] [address] [id number] [place] [address]- 1686 Nov, [facility] [place] [facility] [address] [id number] [place] [address]- 2373 Oct, [facility] [place] [facility] [address] [id number] [place] [address]- 6493 Oct, [facility] [place] [facility] [address] [id number] [place] [address]- 0552 Oct, [facility] [place] [facility] [address] [id number] [place] [address]- 5394 Oct, [facility] [place] [facility] [address] [id number] [place] [address]- 8034 Oct, [facility] [place] [facility] [address] [id number] [place] [address]- 4789 Oct, [facility] [place] [facility] [address] [id number] [place] [address]- 2691 Oct, [facility] [place] [facility] [address] [facility] [id number] [place] [address]- 3776 Oct, [facility] [place] [facility] [address] [id number] [place] [address]- 3564 Oct, [facility] [place] [facility] [address] [facility] [id number] [place] [address]- 4902 Oct, [facility] [place] [facility] [address] [id number] [place] [address]- 3705 Sep, [facility] [place] [facility] [address] [id number] [place] [address]- 9162 Sep, [facility] [place] [facility] [address] [facility] [id number] [place] [address]- 5770 Aug, [facility] [place] [facility] [address] [id number] [place] [address]- 3883 Aug, [facility] [address] [id number] [place] 3671 Aug, [facility] [place] [facility] [address] [id number] [place] [address]- 9846 Jul, [facility] [address] [id number] [place] [address]- 4102 Jul, [facility] [address] [id number] [place] [address]- 0846 Feb, [facility] [address] [id number] [place] [address]- 3639 Nov, [facility] [address] [id number] [place] [address]- 3044 Oct, [facility] [address] [id number] [place] [address]- 2206 Sep, [facility] [address] [id number] [place] [address]- 3151 Sep, [facility] [address] [id number] [place] [address]- 6879 Sep, [facility] [address] [id number] [place] [address]- 6242 Aug, [facility] [address] [id number] [place] [address]- 6060 Aug, [facility] [place] [facility] [address] [id number] [place] [address]- 3149 January, [facility] [place] [facility] [address] [id number] [place] [address]- 0876 January, [facility] [place] [facility] [address] [id number] [place] [address]- 0144 January, [facility] [address] [id number] [place] [address]- 0384 January, [facility] [place] [facility] [address] [id number] [place] [address]- 1485 January, [facility] [place] [facility] [address] [id number] [place] [address]- 3939 January, [facility] [place] [facility] [address] [id number] [place] [address]- 2069 Dec, [facility] [place] [facility] [address] [id number] [place] [address]- 9310 Dec, [facility] [place] [facility] [address] [id number] [place] [address]- 8446 Dec, [facility] [place] [facility] [address] [id number] [place] [address]- 2117 Dec, [facility] [place] [facility] [address] [id number] [place] [address]- 5377 Nov, [facility] [place] [facility] [address] [id number] [place] [address]- 6912 Nov, [facility] [place] [facility] [address] [id number] [place] [address]- 1568 Oct, [facility] [place] [facility] [address] [id number] [place] [address]- 2026 Oct, [facility] [place] [facility] [address] [id number] [place] [address]- 1745 Oct, [facility] [place] [facility] [address] [id number] [place] [address]- 5822 Oct, [facility] [place] [facility] [address] [id number] [place] [address]- 8479 Sep, [facility] [place] [facility] [address] [id number] [place] [address]- 3690 Sep, [facility] [place] [facility] [address] [id number] [place] [address]- 6681 Sep, [facility] [place] [facility] [address] [id number], [place] [address]- 5636 Sep, [facility] [address] [facility] [id number], [place] [address]- 0596 Sep, [facility] [address] [facility] [id number], [place] [address] 2546 Sep, [facility] [address] [facility] [id number], [place] [address]- 0706 Sep, [facility] [address] [facility] [id number] [place] [address]- 7156 Sep, [facility] [address] [facility] [id number], [place] [address]- 2306 Sep, [facility] [address] [facility] [id number], [place] [address]- 5476 Sep, [facility] [address], [place] [address]- 7747 Sep, [facility] [address] [facility] [id number], [place] [address]- 4612 Aug, [facility] [address], [place] [address]- 2376 Aug, [facility] [id number] [address]- 1013 Jun, [facility] [id number] [address]- 8042 Jun, [facility] [address] [facility] [id number], [place] [address]- 6700 Apr, [facility] [id number] [address]- 1260 Apr, [facility] [id number] [address]- 0724 Jul, IMMUNIZATIONS No Known Immunizations SOCIAL HISTORY Never Assessed REASON FOR VISIT Controlled Med Refill PLAN OF CARE VITAL SIGNS MEDICATIONS Medication Instructions Dosage Frequency Start Date End Date Duration Status [place] 5-325 MG Orally every 6 hrs 1 tablet as needed 6h 28 Apr, 2017 28 days Active Xanax XR 1 MG Orally 2 times a day 1 tablet 12h Mar, 28 days Active RESULTS No Results [...]
--- OUTSIDE RECORDS SUMMARY | 2018-02-15 04:08 | XMS REPORT ---
Author Author CHARLES DALEY Organization [facility] Address [address] [place] [address] Care Team Providers Care Inside Finisher Name Role Phone CHARLES DALEY Unavailable PROBLEMS Type Condition ICD9-CM Code BJE85-NQ Code Onset Dates Condition Status SNOMED Code Problem Psychosis, unspecified psychosis type F29 Active 75408820 Problem Chronic pain syndrome G89.4 Active 135211161 Problem Anxiety F41.9 Active 00981389 Problem ADD (attention deficit disorder) F90.0 Active 779768746 Problem Episodic mood disorder F39 Active 10225337 Problem Neuropathy G62.9 Active 793971889 Problem Mood disorder F39 Active 09777348 ALLERGIES No Information ENCOUNTERS Encounter Location Date Diagnosis [facility] [id number] [place] [address] 57159- 9792 Sep, [facility] [id number] [place] [address] 78151- 3409 Sep, Anxiety F41.9 and Chronic pain syndrome G89.4 [facility] [id number] [place] [address] 57920- 7387 Sep, Anxiety F41.9 [facility] [id number] [place] [address] 03999- 0157 Aug, [facility] [id number] [place] [address] 37330- 2712 Aug, [facility] [id number] [place] [address] 90370- 9947 Aug, Psychosis, unspecified psychosis type F29 [facility] [id number] [place] [address] 63967- 8568 Aug, Anxiety F41.9 [facility] [id number] [place] [address] 62393- 2567 Aug, [facility] [address] 33968- 2146 Jul, [facility] [id number] [place] [address] 67922- 2089 Jul, [facility] [address] 53739- 0484 Jul, [facility] [address] 38986- 9309 Jul, [facility] [address] 23255- 2801 Jul, Anxiety F41.9 [facility] [address] 50915- 1623 Jun, Acute psychosis F23 and Homeless Z59.0 [facility] [address] 91650- 5334 Jun, Anxiety F41.9 ; Episodic mood disorder F39 and Homeless Z59.0 [facility] [address] 05825- 2128 Jun, Anxiety F41.9 [facility] [id number] [place] [address] 44440- 7180 Jun, [facility] [id number] [place] [address] 63027- 4887 May, [facility] [id number] [place] [address] 68406- 9744 14 May, 2017 Anxiety F41.9 ; Neuropathy G62.9 ; Dysuria R30.0 and care home current use of opiate analgesic Z79.891 [facility] [id number] [place] [address] 24336- 2613 Apr, [facility] [address] 96245- 6681 Apr, 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 [facility] [id number] [place] [address] 96703- 2801 Apr, Anxiety F41.9 [facility] [id number] [place] [address] 71665- 9013 Apr, [facility] [id number] [place] [address] 47832- 3645 Mar, Anxiety F41.9 [facility] [id number] [place] [address] 57289- 7537 Mar, [facility] [id number] [place] [address] 33901- 7328 Mar, [facility] [id number] [place] [address] 96557- 0273 Mar, [facility] [id number] [place] [address] 90157- 6389 Mar, Anxiety F41.9 ; Cervical neuritis M54.12 and Thoracic neuritis M54.14 [facility] [id number] [place] [address] 62025- 0432 Feb, Anxiety F41.9 ; Mood disorder F39 ; Episodic mood disorder F39 ; Psychosis, unspecified psychosis type F29 and Homeless Z59.0 [facility] [id number] [place] [address] 50066- 3733 January, [facility] [id number] [place] [address] 34393- 1942 Nov, [facility] [address] [id number] Nov, Mood disorder F39 and Sebaceous cyst L72.3 [facility] [id number] [place] [address] 87807- 1433 Oct, Neuropathy G62.9 [facility] [id number] [place] [address] 65913- 9472 Oct, Mood disorder F39 and Neuropathy G62.[address] [id number] Aug, Mood disorder F39 and Neuropathy G62.9 [facility] [id number] [place] [address] 79916- 8801 May, [facility] [id number] [place] [address] 64023- 1497 Apr, Psychosis, unspecified psychosis type F29 [facility] [id number] [place] [address] 45171- 1577 Apr, [facility] [address] 03376- 2526 Apr, [address] [id number] Mar, Upper respiratory tract infection, unspecified type J06.9 and Tinea corporis B35.4 [facility] [id number] [place] [address] 48166- 9138 Feb, ADD (attention deficit disorder) F90.0 [facility] [id number] [place] [address] 41081- 5591 Dec, Psychosis, unspecified psychosis type F29 and Episodic mood disorder F39 [facility] [id number] [place] [address] 23839- 8268 Sep, [address] [id number] Sep, Injury of hand, right, initial encounter S69.91XA [facility] [id number] [place] [address] [id number] Jul, [facility] [address] [id number] Jul, Encounter for dental examination Z01.20 [facility] [id number] [place] [address] 58759- 3091 15 Jun, 2015 Malingering Z76.5 [facility] [address] [place] [address]- 7616 15 Jun, 2015 Mood disorder F39 [facility] [address] [address]- 1743 15 Jun, 2015 Anxiety disorder, unspecified F41.9 [facility] [address] [id number] 29 May, 2015 Anxiety 300.00 [facility] [address] [id number] 15 May, 2015 Abdominal pain, left lateral 789.09 [facility] [address] [id number] 08 May, 2015 Bipolar 1 disorder 296.7 and Abdominal pain, left lateral 789.09 [facility] [address] [id number] May, Bipolar 1 disorder 296.7 [facility] [address] [id number] January, Dental examination V72.2 [facility] [address] [place] [address] 77013- 0797 14 Dec, 2014 [facility] [address] 5333 Dec, [facility] [address] 2875 Nov, [facility] [address] 0143 Nov, [facility] [address] [address] 9601 Nov, [facility] [address] 2506 Nov, [facility] [id number] [place] [address] 762767- 3547 Nov, [facility] [address] [place] [address]- 0886 Nov, [facility] [address] [place] [address] 37545- 0656 Nov, [facility] [address] [id number] [place] [address]- 4775 Nov, [facility] [address] [id number] Oct, [facility] [address] [id number] Oct, [facility] [address] [id number] [place] [address]- 1196 Oct, [facility] [place] [facility] [address] [id number] [place] [address]- 5124 Oct, [facility] [place] [facility] [address] [id number] [place] [address]- 6235 Oct, [facility] [place] [facility] [address] [facility] [id number] [place] [address]- 0009 Oct, [facility] [place] [facility] [address] [facility] [id number] [place] [address]- 8748 Sep, [facility] [place] [facility] [address] [id number] [place] [address]- 0107 Sep, [facility] [place] [facility] [address] [facility] [id number] [place] [address]- 8957 Jul, [facility] [place] [facility] [address] [facility] [id number], [place] [address]- 1150 Jul, [facility] [place] [facility] [address] [id number] [place] [address]- 2766 Jul, [facility] [place] [facility] [address] [id number] [place] [address]- 5740 Jul, [facility] [place] [facility] [address] [id number] [place] 4261 Jun, [facility] [place] [facility] [address] [id number] [place] [address]- 4194 Jun, [facility] [place] [facility] [address] [id number] [place] [address]- 1198 Jun, [facility] [place] [facility] [address] [id number] [place] [address]- 4261 Jun, [facility] [place] [facility] [address] [id number] [place] [address]- 6418 May, [facility] [place] [facility] [address] [id number] [place] [address]- 2290 May, [facility] [place] [facility] [address] [id number] [place] [address]- 5698 Apr, [facility] [place] [facility] [address] [id number] [place] [address]- 6946 Apr, [facility] [place] [facility] [address] [id number] [place] [address]- 5682 Mar, [facility] [place] [facility] [address] [id number] [place] [address]- 1673 Mar, [facility] [place] [facility] [address] [id number] [place] [address]- 7674 Mar, [facility] [place] [facility] [address] [id number] [place] [address]- 0356 Mar, [facility] [place] [facility] [address] [id number] [place] [address]- 4281 January, [facility] [place] [facility] [address] [id number] [place] [address]- 1792 January, [facility] [place] [facility] [address] [id number] [place] [address]- 0601 Dec, [facility] [place] [facility] [address] [id number] [place] [address]- 3183 Dec, [facility] [place] [facility] [address] [id number] [place] [address]- 8699 Dec, [facility] [place] [facility] [address] [id number] [place] 8941 Nov, [facility] [place] [facility] [address] [id number], [place] [address]- 6979 Nov, [facility] [place] [facility] [address] [id number] [place] [address]- 1516 Nov, [facility] [place] [facility] [address] [id number] [place] [address]- 6746 Oct, [facility] [place] [facility] [address] [facility] [id number] [place] [address]- 5716 Oct, [facility] [place] [facility] [address] [id number] [place] [address]- 3079 Oct, [facility] [place] [facility] [address] [id number] [place] [address]- 9241 Oct, [facility] [place] [facility] [address] [facility] [id number] [place] [address]- 8696 Oct, [facility] [place] [facility] [address] [facility] [id number] [place] [address]- 6669 Oct, [facility] [place] [facility] [address] [facility] [id number] [place] [address]- 9040 Oct, [facility] [place] [facility] [address] [facility] [id number] [place] [address]- 9669 Oct, [facility] [place] [facility] [address] [facility] [id number] [place] [address]- 9333 Oct, [facility] [place] [facility] [address] [facility] [id number] [place] [address] 2544 Oct, [facility] [place] [facility] [address] [facility] [id number] [place] [address]- 254 Sep, [facility] [place] [facility] [address] [facility] [id number] [place] [address]- 1157 Sep, [facility] [place] [facility] [address] [facility] [id number] [place] [address]- 2935 Aug, [facility] [place] [facility] [address] [facility] [id number] [place] 8929 Aug, [facility] [address] [id number] [place] [address]- 1975 Aug, [facility] [address] [id number] [place] [address]- 1474 Jul, [facility] [address] [id number] [place] [address]- 3275 Jul, [facility] [address] [id number] [place] [address]- 6046 Feb, [facility] [address] [id number] [place] [address]- 0163 Nov, [facility] [address] [id number] [place] [address]- 0570 Oct, [facility] [address] [id number] [place] [address]- 4245 Sep, [facility] [address] [id number] [place] [address]- 3791 Sep, [facility] [address] [id number] [place] [address]- 9965 Sep, [facility] [address] [id number] [place] [address]- 9014 Aug, [facility] [address] [id number] [place] [address]- 9037 Aug, [facility] [place] [facility] [address] [id number], [place] [address]- 1342 January, [facility] [place] [facility] [address] [id number] [place] [address]- 7952 January, [facility] [place] [facility] [address] [id number] [place] [address]- 0264 January, [facility] [place] [facility] [address] [id number] [place] [address]- 2990 January, [facility] [place] [facility] [address] [id number] [place] [address]- 6790 January, [facility] [address] [id number] [place] [address]- 3408 January, [facility] [place] [facility] [address] [id number] [place] [address]- 7712 Dec, [facility] [place] [facility] [address] [id number] [place] [address]- 2882 Dec, [facility] [place] [facility] [address] [id number] [place] [address]- 1241 Dec, [facility] [place] [facility] [address] [id number] [place] [address]- 3627 Dec, [facility] [place] [facility] [address] [id number] [place] [address]- 1584 Nov, [facility] [address] [id number] [place] [address]- 9608 Nov, [facility] [place] [facility] [address] [id number] [place] [address]- 0030 Oct, [facility] [place] [facility] [address] [id number] [place] [address]- 5588 Oct, [facility] [address] [id number] [place] [address]- 5507 Oct, [facility] [place] [facility] [address] [id number] [place] [address]- 6243 Oct, [facility] [place] [facility] [address] [id number] [place] [address]- 4888 Sep, [facility] [place] [facility] [address] [id number] [place] [address]- 9591 Sep, [facility] [place] [facility] [address] [id number] [place] [address]- 3558 Sep, [facility] [place] [facility] [address] [id number] [place] [address]- 5419 Sep, [facility] [address] [facility] [id number], [place] [address]- 4343 Sep, [facility] [address] [facility] [id number], [place] [address]- 3676 Sep, [facility] [address] [facility] [id number], [place] [address]- 9426 Sep, [facility] [address] [facility] [id number], [place] [address] 2546 Sep, [facility] [address] [facility] [id number], [place] [address]- 1146 Sep, [facility] [address] [facility] [id number], [place] [address]- 0386 Sep, [facility] [id number], [place] [address] 2546 Sep, [facility] [id number], [place] [address]- 2506 Aug, [facility] [id number], [place] [address]- 5096 Aug, [facility] [id number], [place] [address]- 4276 Jun, [facility] [id number], [place] [address]- 3166 Jun, [facility] [id number], [place] [address]- 9726 Apr, [facility] [id number], [place] [address]- 6484 Apr, [facility] [id number], [place] [address]- 0288 Jul, IMMUNIZATIONS No Known Immunizations SOCIAL HISTORY Never Assessed REASON FOR VISIT PLAN OF CARE VITAL SIGNS MEDICATIONS Medication Instructions Dosage Frequency Start Date End Date Duration Status Clindamycin HCl 150 MG Orally every 6 hrs 1 capsule 6h Jul,Jul 7 days Active RESULTS No Results PROCEDURES No [...]
--- OUTSIDE RECORDS SUMMARY | 2018-02-15 04:11 | XMS REPORT | Continuity of Care Document ---
Author Author [facility] Address Unknown Phone Unavailable Allergies Active Description Code Type Severity Reaction Onset Reported/Identified Relationship to Patient Clinical Status Yes PENICILLINS UNKNOWN UNKNOWN Yes Penicillins [id number] Drug Allergy Mild N/A 04/22/2009 Yes acetaminophen [id number] Drug Allergy Unknown N/A 04/22/2009 Yes codeine [id number] Drug Allergy Unknown N/A 04/22/2009 Yes ketorolac [id number] Drug Allergy Unknown N/A 04/22/2009 Yes nalbuphine [id number] Drug Allergy Unknown N/A 04/22/2009 Yes propoxyphene [id number] Drug Allergy Unknown N/A 04/22/2009 Yes Penicillins [...] Dressing 05/12/2010 V58.32 Suture Removal 05/12/2010 IMELDA TRUCK GREASER, PIO BUENROSTRO V58.31 Wound Dressing 05/12/2010 IMELDA TRUCK GREASER, PIO BUENROSTRO V58.32 Suture Removal 05/12/2010 IMELDA TRUCK GREASER, PIO BUENROSTRO V58.31 Wound Dressing 05/12/2010 IMELDA TRUCK GREASER, PIO BUENROSTRO V58.32 Suture Removal 05/12/2010 IMELDA TRUCK GREASER, PIO BUENROSTRO V58.31 Wound Dressing 05/12/2010 SEGURA TRUCK GREASER, PIO BUENROSTRO V58.32 Suture Removal 05/12/2010 KARIN GRAHAM DO V58.31 Wound Dressing 05/12/2010 KARIN GRAHAM DO V58.32 Suture Removal 05/12/2010 SGEURA TRUCK GREASER, PIO BUENROSTRO V58.31 Wound Dressing 05/12/2010 IMELDA TRUCK GREASER, PIO BUENROSTRO V58.32 Suture Removal 05/12/2010 IMELDA TRUCK GREASER, PIO BUENROSTRO V58.31 Wound Dressing 05/12/2010 IMELDA TRUCK GREASER, PIO BUENROSTRO V58.32 Suture Removal 05/12/2010 JARON [...] KARIN K V58.69 MEDICATION HIGH RISK 09/12/2011 IMLEDA MEDINA PIO BUENROSTRO 296.33 MO DEPRESSIVE RECURRENT [...] OPIOID ABUSE CONTINUOUS USE 09/17/2011 IMELDA MEDINA POI CHITRA 305.51 NONDEPENDENT OPIOID ABUSE CONTINUOUS USE [...] APRN 300.02 AN GEN ANXIETY 10/02/2011 SEGURA TRUCK GREASER, PIO BUENROSTRO 304.00 OPIOID DEPENDENCE 10/02/2011 GRAHAM DO KARIN K 300.02 AN GEN ANXIETY 10/02/2011 GRAHAM DO KARIN K 304.00 OPIOID DEPENDENCE 10/02/2011 SEGURA TRUCK GREASER, PIO BUENROSTRO 300.02 AN GEN ANXIETY 10/02/2011 SEGURA TRUCK GREASER, PIO BUENROSTRO 304.00 OPIOID DEPENDENCE 10/02/2011 SEGURA TRUCK GREASER, PIO BUENROSTRO 300.02 AN GEN ANXIETY 10/02/2011 SEGURA TRUCK GREASER, PIO BUENROSTRO 304.00 OPIOID DEPENDENCE 10/02/2011 JARON ALVAREZ MD 300.02 AN GEN ANXIETY 10/02/2011 JARON ALVAREZ MD 304.00 OPIOID DEPENDENCE 10/02/2011 ARTHUR GRAHAM DOA K 300.02 AN GEN ANXIETY 10/02/2011 GRAHAM DO KARIN K 304.00 OPIOID DEPENDENCE 09/17/2012 IMELDA TRUCK GREASER, PIO BUENROSTRO 296.32 MO DEPRESSIVE RECURRENT MODERATE 09/17/2012 SEGURA TRUCK GREASER, PIO BUENROSTRO 314.01 ADHD COMBINED 09/17/2012 SEGURA TRUCK GREASER, PIO BUENROSTRO 296.32 MO DEPRESSIVE RECURRENT MODERATE 09/17/2012 SEGURA TRUCK GREASER, PIO BUENROSTRO 314.01 ADHD COMBINED 09/17/2012 SEGURA TRUCK GREASER, PIO BUENROSTRO 296.32 MO DEPRESSIVE RECURRENT MODERATE 09/17/2012 SEGURA TRUCK GREASER, PIO BUENROSTRO 314.01 ADHD COMBINED 09/17/2012 SANTOS CAMERON KARIN K 296.32 MO DEPRESSIVE RECURRENT MODERATE 09/17/2012 ARTHUR GRAHAM DOA K 314.01 ADHD COMBINED 09/17/2012 SEGURA TRUCK GREASER, PIO BUENROSTRO 296.32 MO DEPRESSIVE RECURRENT MODERATE 09/17/2012 SEGURA TRUCK GREASER, PIO BUENROSTRO 314.01 ADHD COMBINED 09/17/2012 SEGURA TRUCK GREASER, PIO BUENROSTRO 296.32 MO DEPRESSIVE RECURRENT MODERATE 09/17/2012 SEGURA TRUCK GREASER, PIO FRANCISH 314.01 ADHD COMBINED 09/17/2012 JARON [...] 525.9 DENTAL DISORDER NOS 02/09/2015 KAL LYONS TRUCK GREASER Ot 305.1 TOBACCO USE DISORDER 02/09/2015 KAL LYONS TRUCK GREASER Ot 305.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 08/06/2015 ASHLEY WONG [...] OF TENDON SHEATH, LEFT FOREARM 05/16/2016 LYONSKAL TRUCK GREASER Ot M65.032 ABSCESS OF TENDON SHEATH, LEFT FOREARM 06/16/2016 ARTEM, ADAMS RISK CONTROL SPECIALIST Ot S90.851A SUPERFICIAL FOREIGN BODY, RIGHT FOOT, IN 06/16/2016 ARTEM, ADAMS RISK CONTROL SPECIALIST Ot W25.XXXA CONTACT WITH [place], INITIAL ENCOUN 06/16/2016 ARTEM, ADAMS RISK CONTROL SPECIALIST Ot Y99.8 OTHER EXTERNAL CAUSE STATUS 06/18/2016 ARTEM, ADAMS RISK CONTROL SPECIALIST Ot S90.851A SUPERFICIAL FOREIGN BODY, RIGHT FOOT, IN 06/18/2016 ARTEM, ADAMS RISK CONTROL SPECIALIST Ot W25.XXXA CONTACT WITH [place], INITIAL ENCOUN 06/18/2016 ARTEM, ADAMS RISK CONTROL SPECIALIST Ot Y99.8 OTHER EXTERNAL CAUSE STATUS 07/19/2016 NANO OJEDA TRUCK GREASER Ot M54.2 CERVICALGIA 09/13/2016 NANO OJEDA TRUCK GREASER Ot M54.2 CERVICALGIA 09/13/2016 ARTEM ADAMS RISK CONTROL SPECIALIST Ot K59.03 DRUG INDUCED CONSTIPATION 09/13/2016 ARTEM, ADAMS RISK CONTROL SPECIALIST Ot R10.84 GENERALIZED ABDOMINAL PAIN 09/13/2016 ARTEM, ADAMS RISK CONTROL SPECIALIST Ot Z79.891 PHYSICIAN VICE PRESIDENT (CURRENT) USE OF OPIATE ANALGE 09/13/2016 NANO OJEDA TRUCK GREASER Ot M54.2 CERVICALGIA 09/14/2016 ARTEM, ADAMS RISK CONTROL SPECIALIST Ot K59.03 DRUG INDUCED CONSTIPATION 09/14/2016 ARTEM, ADAMS RISK CONTROL SPECIALIST Ot R10.84 GENERALIZED ABDOMINAL PAIN 09/14/2016 ARTEM, ADAMS RISK CONTROL SPECIALIST Ot Z79.891 PHYSICIAN VICE PRESIDENT (CURRENT) USE OF OPIATE ANALGE 09/17/2016 NANO OJEDA TRUCK GREASER Ot M54.2 CERVICALGIA 09/17/2016 HERBERTH CH Ot F17.210 NICOTINE DEPENDENCE, CIGARETTES, UNCOMPL 09/17/2016 HERBERTH CH Ot L03.113 CELLULITIS OF RIGHT UPPER LIMB 09/17/2016 HERBERTH CH Ot S60.211A CONTUSION OF RIGHT WRIST, INITIAL ENCOUN 09/17/2016 NANO OJEDA TRUCK GREASER Ot M54.2 CERVICALGIA 09/22/2016 TAMIKO GLOVER, SIVA Mae Ot K46.9 UNSPECIFIED ABDOMINAL HERNIA WITHOUT OBS 09/22/2016 TAMIKO GLOVER, SIVA S Ot R10.30 LOWER ABDOMINAL PAIN, UNSPECIFIED 09/22/2016 NANO OJEDA TRUCK GREASER Ot M54.2 CERVICALGIA 09/24/2016 TAMIKO GLOVER, SIVA Mae Ot K46.9 UNSPECIFIED ABDOMINAL HERNIA WITHOUT OBS 09/24/2016 TAMIKO GLOVER, SIVA Mae Ot R10.30 LOWER ABDOMINAL PAIN, UNSPECIFIED 09/26/2016 NANO OJEDA Fahad TRUCK GREASER Ot M54.2 CERVICALGIA 09/26/2016 HERBERTH CH Ot F17.210 NICOTINE DEPENDENCE, CIGARETTES, UNCOMPL 09/26/2016 HERBERTH CH Ot R05 COUGH 09/26/2016 HERBERTH CH Ot R07.81 PLEURODYNIA 09/26/2016 HERBERTH CH Ot Z53.29 PROC/TRTMT NOT CRD OUT BEC PT DECISION F 12/29/2016 JOANNE OJEDABRITTNEY Vásquez TRUCK GREASER Ot M54.2 CERVICALGIA 12/29/2016 KAL LYONS APRN Ot 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 12/29/2016 KAL LYONS APRN Ot M54.5 LOW BACK PAIN 12/29/2016 JOANNE OJEDABRITTNEY Vásquez TRUCK GREASER Ot M54.2 CERVICALGIA 12/31/2016 JOSH VALDERRAMA MD Ot F15.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, UNCOMPLICATED 12/31/2016 JOSH VALDERRAMA MD Ot F17.210 NICOTINE DEPENDENCE, CIGARETTES, UNCOMPL 12/31/2016 JOSH VALDERRAMA MD Ot M25.552 PAIN IN LEFT HIP 12/31/2016 JOSH VALDERRAMA MD Ot Z79.899 OTHER PHYSICIAN VICE PRESIDENT (CURRENT) DRUG THERAPY 12/31/2016 KAL LYONS TRUCK GREASER Ot 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 12/31/2016 KAL LYONS APRN Ot M54.5 LOW BACK PAIN 01/01/2017 JOSH VALDERRAMA MD Ot F15.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, UNCOMPLICATED 01/01/2017 JOSH VALDERRAMA MD Ot F17.210 NICOTINE DEPENDENCE, CIGARETTES, UNCOMPL 01/01/2017 JOSH VALDERRAMA MD Ot M25.552 PAIN IN LEFT HIP 01/01/2017 JOSH VALDERRAMA MD Ot Z79.899 OTHER LONG-TERM (CURRENT) DRUG THERAPY 01/04/2017 KAL LYONS TRUCK GREASER Ot 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 01/04/2017 KAL LYONS TRUCK GREASER Ot M54.5 LOW BACK PAIN 01/14/2017 NANO OJEDA TRUCK GREASER Ot M54.2 CERVICALGIA 01/14/2017 NANO OJEDA TRUCK GREASER Ot M54.2 CERVICALGIA 03/18/2017 KAL LYONS TRUCK GREASER Ot F15.90 OTHER STIMULANT USE, UNSPECIFIED, UNCOMP 03/18/2017 KAL LYONS TRUCK GREASER Ot F17.210 NICOTINE DEPENDENCE, CIGARETTES, UNCOMPL 03/18/2017 KAL LYONS TRUCK GREASER Ot F32.9 MAJOR DEPRESSIVE DISORDER, SINGLE EPISOD 03/18/2017 KAL LYONS APRN Ot F41.9 ANXIETY DISORDER, UNSPECIFIED 03/18/2017 KAL LYONS TRUCK GREASER Ot F90.9 ATTENTION-DEFICIT HYPERACTIVITY DISORDER 03/18/2017 KAL LYONS TRUCK GREASER Ot M47.9 SPONDYLOSIS, UNSPECIFIED 03/18/2017 KAL LYONS TRUCK GREASER Ot Z90.710 ACQUIRED ABSENCE OF BOTH CERVIX AND UTER 03/28/2017 KAL LYONS TRUCK GREASER Ot F15.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, UNCOMPLICATED 03/28/2017 KAL LYONS APRN Ot F17.210 NICOTINE DEPENDENCE, CIGARETTES, UNCOMPL 03/28/2017 KAL LYONS TRUCK GREASER Ot M54.2 CERVICALGIA 03/28/2017 KAL LYONS APRN Ot M54.5 LOW BACK PAIN 03/28/2017 KAL LYONS APRN Ot Z79.891 PHYSICIAN VICE PRESIDENT (CURRENT) USE OF OPIATE ANALGE 03/28/2017 KAL LYONS TRUCK GREASER Ot Z79.899 OTHER PHYSICIAN VICE PRESIDENT (CURRENT) DRUG THERAPY 03/30/2017 KAL LYONS TRUCK GREASER Ot F15.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, UNCOMPLICATED 03/30/2017 KAL LYONS TRUCK GREASER Ot F17.210 NICOTINE DEPENDENCE, CIGARETTES, UNCOMPL 03/30/2017 KAL LYONS TRUCK GREASER Ot M54.2 CERVICALGIA 03/30/2017 KAL LYONS TRUCK GREASER Ot M54.5 LOW BACK PAIN 03/30/2017 KAL LYONS TRUCK GREASER Ot Z79.891 PHYSICIAN VICE PRESIDENT (CURRENT) USE OF OPIATE ANALGE 03/30/2017 KAL LYONS TRUCK GREASER Ot Z79.899 OTHER PHYSICIAN VICE PRESIDENT (CURRENT) DRUG THERAPY 04/03/2017 KAL LYONS TRUCK GREASER Ot F15.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, UNCOMPLICATED 04/03/2017 KAL LYONS TRUCK GREASER Ot F17.210 NICOTINE DEPENDENCE, CIGARETTES, UNCOMPL 04/03/2017 KAL LYONS TRUCK GREASER Ot M54.2 CERVICALGIA 04/03/2017 KAL LYONS TRUCK GREASER Ot M54.5 LOW BACK PAIN 04/03/2017 KAL LYONS TRUCK GREASER Ot Z79.891 LONG-TERM (CURRENT) USE OF OPIATE ANALGE 04/03/2017 KAL LYONS TRUCK GREASER Ot Z79.899 OTHER LONG-TERM (CURRENT) DRUG THERAPY 05/22/2017 JOSH VALDERRAMA MD [...] DISORDER, SINGLE EPISOD 07/02/2017 LYONS, PETER J TRUCK GREASER Ot F41.9 ANXIETY DISORDER, UNSPECIFIED 07/02/2017 KAL LYONS TRUCK GREASER Ot M47.9 SPONDYLOSIS, UNSPECIFIED 07/02/2017 KAL LYONS TRUCK GREASER Ot Z77.22 CNTCT W AND EXPSR TO ENVIRON TOBACCO SMO 07/02/2017 KAL LYONS TRUCK GREASER Ot Z87.59 PERSONAL HISTORY OF COMP OF PREG, CHLDBR 07/02/2017 KAL LYOSN TRUCK GREASER Ot Z90.710 ACQUIRED ABSENCE OF BOTH CERVIX AND UTER 07/02/2017 KAL LYONS TRUCK GREASER Ot Z98.51 TUBAL LIGATION STATUS 07/30/2017 Ashley [...] ANXIETY DISORDER, UNSPECIFIED 11/06/2017 LYONS, PETER J TRUCK GREASER Ot K43.9 VENTRAL HERNIA WITHOUT OBSTRUCTION OR [...] APRN Ot Z98.890 OTHER SPECIFIED POSTPROCEDURAL STATES 11/25/2017 TREY BARBOZA MD Ot F31.9 BIPOLAR DISORDER, UNSPECIFIED 11/25/2017 TREY BARBOZA MD Ot F41.9 ANXIETY DISORDER, UNSPECIFIED 11/25/2017 TREY BARBOZA MD Ot K46.9 UNSPECIFIED ABDOMINAL HERNIA WITHOUT OBS 11/25/2017 TREY BARBOZA MD Ot R19.7 DIARRHEA, UNSPECIFIED 11/25/2017 TREY BARBOZA MD Ot R53.83 OTHER FATIGUE 11/25/2017 TREY BARBOZA MD Ot Z77.22 CNTCT W AND EXPSR TO ENVIRON TOBACCO SMO 11/25/2017 TREY BARBOZA MD Ot Z86.14 PERSONAL HISTORY OF METHICILLIN RESIS ST 11/25/2017 TREY BARBOZA MD Ot Z87.59 PERSONAL HISTORY OF COMP OF PREG, CHLDBR 11/25/2017 TREY BARBOZA MD Ot Z88.0 ALLERGY STATUS TO PENICILLIN 11/25/2017 TREY BARBOZA MD Ot Z88.5 ALLERGY STATUS TO NARCOTIC AGENT STATUS 11/25/2017 TREY BARBOZA MD Ot Z88.6 ALLERGY STATUS TO ANALGESIC AGENT STATUS 11/25/2017 TREY BARBOZA MD Ot Z88.8 ALLERGY STATUS TO OTH DRUG/MEDS/BIOL SUB 11/25/2017 TREY BARBOZA MD Ot Z90.710 ACQUIRED ABSENCE OF BOTH CERVIX AND UTER 11/25/2017 TREY BARBOZA MD Ot Z98.890 OTHER SPECIFIED POSTPROCEDURAL STATES 11/27/2017 [...] ALLERGY STATUS TO OTH DRUG/MEDS/BIOL SUB 11/27/2017 TREY BARBOZA MD Ot Z90.710 ACQUIRED ABSENCE OF BOTH CERVIX AND UTER 11/27/2017 TREY BARBOZA MD Ot Z98.890 OTHER SPECIFIED POSTPROCEDURAL STATES 12/18/2017 TREY BARBOZA MD Ot F15.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, UNCOMPLICATED 12/18/2017 TREY BARBOZA MD Ot F17.210 NICOTINE DEPENDENCE, CIGARETTES, UNCOMPL 12/18/2017 TREY BARBOZA MD Ot F31.9 BIPOLAR DISORDER, UNSPECIFIED 12/18/2017 TREY BARBOZA MD Ot F41.9 ANXIETY DISORDER, UNSPECIFIED 12/18/2017 TREY BARBOZA MD Ot F60.9 PERSONALITY DISORDER, UNSPECIFIED 12/18/2017 TREY BARBOZA MD Ot R10.32 LEFT LOWER QUADRANT PAIN 12/18/2017 TREY BARBOZA MD Ot R10.84 GENERALIZED ABDOMINAL PAIN 12/18/2017 TREY BARBOZA MD Ot Z86.14 PERSONAL HISTORY OF METHICILLIN RESIS ST 12/18/2017 TREY BARBOZA MD Ot Z87.59 PERSONAL HISTORY OF COMP OF PREG, CHLDBR 12/18/2017 TREY BARBOZA MD Ot Z88.0 ALLERGY STATUS TO PENICILLIN 12/18/2017 TREY BARBOZA MD T Ot Z88.6 ALLERGY STATUS TO ANALGESIC AGENT STATUS 12/18/2017 TREY BARBOZA MD Ot Z90.710 ACQUIRED ABSENCE OF BOTH CERVIX AND UTER 12/20/2017 TREY BARBOZA MD Ot F15.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, UNCOMPLICATED 12/20/2017 TREY BARBOZA MD Ot F17.210 NICOTINE DEPENDENCE, CIGARETTES, UNCOMPL 12/20/2017 TREY BARBOZA MD Ot F31.9 BIPOLAR DISORDER, UNSPECIFIED 12/20/2017 TREY BARBOZA MD Ot F41.9 ANXIETY DISORDER, UNSPECIFIED 12/20/2017 TREY BARBOZA MD Ot F60.9 PERSONALITY DISORDER, UNSPECIFIED 12/20/2017 TREY BARBOZA MD Ot R10.32 LEFT LOWER QUADRANT PAIN 12/20/2017 TREY BARBOZA MD Ot R10.84 GENERALIZED ABDOMINAL PAIN 12/20/2017 TREY BARBOZA MD Ot Z86.14 PERSONAL HISTORY OF METHICILLIN RESIS ST 12/20/2017 TREY BARBOZA MD T Ot Z87.59 PERSONAL HISTORY OF COMP OF PREG, CHLDBR 12/20/2017 JABARI GLOVER, TREY Cruz Ot Z88.0 ALLERGY STATUS TO PENICILLIN 12/20/2017 JABARI GLOVER, TREY Cruz Ot Z88.6 ALLERGY STATUS TO ANALGESIC AGENT STATUS 12/20/2017 JABARI GLOVER, TREY Cruz Ot Z90.710 ACQUIRED ABSENCE OF BOTH CERVIX AND UTER 01/29/2018 LUCIE GANDHI APRN Ot R10.2 PELVIC AND PERINEAL PAIN Procedures Code Description Performed By Performed On 96.04 03/29/2011 96.71 03/29/2011 44746 URINE BENZO GC/MS 11/13/2013 73402 URINE METH/AMPHETAMINE GC/ MS 11/13/2013 83038 URINE DRUG SCREEN (IN-HOUSE ) 11/13/2013 Addiction Venita Hawkins-Mc 04/12/2014 96975 URINE DRUG SCREEN (IN-HOUSE ) 05/12/2014 55924 URINE DRUG SCREEN (IN-HOUSE ) 07/19/2014 Results [...] - 11/25/17 11:41 Lipase 23 U/L 8-78 Complete urinalysis with reflex to culture - 12/18/17 16:45 Urine color determination YELLOW NRG Urine [...] detection in urine sediment by light microscopy 2-5 NRG Crystals detection in urine sediment by light microscopy NONE NRG Casts detection in urine sediment by light microscopy NONE NRG Mucus detection in urine sediment by light microscopy LARGE NRG Complete urinalysis with reflex to culture NO NRG Urine drug screening test - 12/18/17 16:45 Urine phencyclidine detection by screening method [...] automated white blood cell (WBC) differential - 12/18/17 17:25 Blood leukocytes automated count (number/volume) 10.3 10*3/uL 4.3-11.0 Blood erythrocytes automated count (number/volume) 4.64 10*6/uL 4.35-5.85 Venous blood hemoglobin measurement (mass/volume) 14.8 g/dL 11.5-16.0 Blood hematocrit (volume fraction) 41 % 35-52 Automated erythrocyte mean corpuscular volume 89 [foz_us] 80-99 Automated erythrocyte mean corpuscular hemoglobin (mass per erythrocyte) 32 pg 25-34 Automated erythrocyte mean corpuscular hemoglobin concentration measurement ( mass/volume) 36 g/dL 32-36 Automated erythrocyte distribution width ratio 12.2 % 10.0-14.5 Automated blood platelet count (count/volume) 213 10*3/uL 130-400 Automated blood platelet mean volume measurement 10.9 [foz_us] 7.4-10.4 Automated blood neutrophils/100 leukocytes 63 % 42-75 Automated blood lymphocytes/100 leukocytes 27 % 12-44 Blood monocytes/100 leukocytes 7 % 0-12 Automated blood eosinophils/100 leukocytes 3 % 0-10 Automated blood basophils/100 leukocytes 0 % 0-10 Blood neutrophils automated count (number/volume) 6.5 10*3 1.8-7.8 Blood lymphocytes automated count (number/volume) 2.8 10*3 1.0-4.0 Blood monocytes automated count (number/volume) 0.7 10*3 0.0-1.0 Automated eosinophil count 0.3 10*3/uL 0.0-0.3 Automated blood basophil count (count/volume) 0.0 10*3/uL 0.0-0.1 Comprehensive metabolic panel - 12/18/17 17:25 Serum or plasma sodium measurement (moles/volume) 140 mmol/L 135-145 Serum or plasma potassium measurement (moles/volume) 4.0 mmol/L 3.6-5.0 Serum or plasma chloride measurement (moles/volume) 106 mmol/L 98-107 Carbon dioxide 27 mmol/L 21-32 Serum or plasma anion gap determination (moles/volume) 7 mmol/L 5-14 Serum or plasma urea nitrogen measurement (mass/volume) 13 mg/dL 7-18 Serum or plasma creatinine measurement (mass/volume) 0.78 mg/dL 0.60-1.30 Serum or plasma urea nitrogen/creatinine mass ratio 17 NRG Serum or plasma creatinine measurement with calculation of estimated glomerular filtration rate > NRG Serum or plasma glucose measurement (mass/volume) 93 mg/dL 70-105 Serum or plasma calcium measurement (mass/volume) 9.5 mg/dL 8.5-10.1 Serum or plasma total bilirubin measurement (mass/volume) 0.3 mg/dL 0.1-1.0 Serum or plasma alkaline phosphatase measurement (enzymatic activity/volume) 45 U/L 40-136 Serum or plasma aspartate aminotransferase measurement (enzymatic activity/ volume) 14 U/L 5-34 Serum or plasma alanine aminotransferase measurement (enzymatic activity/volume ) 14 U/L 0-55 Serum or plasma protein measurement (mass/volume) 7.3 g/dL 6.4-8.2 Serum or plasma albumin measurement (mass/volume) 4.5 g/dL 3.2-4.5 Serum or plasma acetaminophen measurement (mass/volume) - 12/18/17 17:25 Serum or plasma acetaminophen measurement (mass/volume) < ug/mL 10-30 Lipase - 12/18/17 17:25 Lipase 36 U/L 8-78 Serum or plasma ethanol measurement (mass/volume) - 12/18/17 17:25 Serum or plasma ethanol measurement (mass/volume) < mg/dL <10 THYROID ANALYZER - 01/21/18 15:23 TSH 3.06 mIU/L NRG CULTURE, GENITAL - 01/21/18 15:23 CULTURE, GENITAL SEE NOTE NRG A1C - 01/21/18 15:23 HEMOGLOBIN A1c 5.0 % of total Hgb <5.7 SUREPATH PAP AND HPV mRNA E6/E7 - 01/21/18 15:23 CLINICAL INFORMATION: CERVIX NRG LMP: NRG PREV. PAP: NRG PREV. BX: N/A NRG SOURCE: Cervix NRG STATEMENT OF ADEQUACY: NRG INTERPRETATION/RESULT: NRG CUSTOMER EXPERIENCE CONSULTANT: NRG HPV mRNA E6/E7, SUREPATH VIAL Not Detected NOT DETECTED COMMENT NRG Encounters ACCT No. Visit Date/Time Discharge Status Pt. Type Provider Facility Loc./Unit Complaint [id number] 12/16/2014 13:53:00 12/16/2014 23:59:59 CLS Outpatient KARIN GRAHAM DO [id number] 07/19/2014 10:06:00 07/19/2014 23:59:59 CLS Outpatient JARON ALVAREZ MD [id number] 06/14/2014 15:51:00 06/14/2014 23:59:59 CLS Outpatient PIO SEGURA APRN [id number] 05/12/2014 11:05:00 05/12/2014 23:59:59 CLS Outpatient PIO SEGURA APRN [id number] 04/08/2014 16:04:00 04/08/2014 23:59:59 CLS Outpatient SANTOS CAMERONARTHURZack Garcia [id number] 11/13/2013 14:42:00 11/13/2013 23:59:59 CLS Outpatient PIO SEGURA APRN [id number] 08/11/2013 10:41:00 08/11/2013 23:59:59 CLS Outpatient PIO SEGURA APRN [id number] 09/17/2012 16:04:00 09/17/2012 23:59:59 CLS Outpatient PIO SEGURA APRN [id number] 02/05/2012 14:14:00 02/05/2012 23:59:59 CLS Outpatient [id number] 07/29/2017 21:04:00 07/31/2017 20:40:00 DIS Outpatient [facility] [place] ICU [id number] 07/30/2017 00:57:58 Document Registration [id number] 02/04/2018 12:00:00 02/04/2018 23:59:59 CLS Preadmit LUCIE GANDHI TRUCK GREASER [facility] RAD R10.2 PELVIC PAIN [id number] 01/28/2018 07:17:00 01/28/2018 23:59:59 CLS Outpatient LUCIE GANDHI TRUCK GREASER [facility] RAD R10.2 PELVIC PAIN [id number] 12/18/2017 14:24:00 12/18/2017 19:09:00 DIS Emergency TREY BARBOZA MD [facility] ER ABD PAIN [id number] 11/25/2017 10:34:00 11/25/2017 13:51:00 DIS Emergency TREY BARBOZA MD [facility] ER FEELS DEHYDRATED [id number] 11/04/2017 16:29:00 11/04/2017 18:18:00 DIS Emergency KAL LYONS TRUCK GREASER [facility] ER TROUBLE URINATING,HAD MESH AT [facility] [id number] 08/21/2017 12:09:00 08/21/2017 14:29:00 DIS Emergency DEBI LANG MD [facility] ER BRUISING ON CALVES [id number] 07/02/2017 20:33:00 07/02/2017 22:55:00 DIS Emergency KAL LYONS APRN [facility] ER PSYCH EVAL [id number] 06/26/2017 17:46:00 06/26/2017 19:44:00 DIS Emergency KAL LYONS TRUCK GREASER [facility] ER PELVIC/ABDOMINAL PAIN [id number] 05/22/2017 14:46:00 05/22/2017 15:22:00 DIS Emergency JOSH VALDERRAMA MD [facility] ER SINUS INFECTION/FACIAL SWELLING [id number] 03/28/2017 16:37:00 03/28/2017 19:00:00 DIS Emergency KAL LYONS TRUCK GREASER [facility] ER NECK PAIN/HEADACHES [id number] 03/18/2017 10:37:00 03/18/2017 12:15:00 DIS Emergency KAL LYONS TRUCK GREASER [facility] ER ANXIETY [id number] 12/30/2016 23:53:00 12/31/2016 02:55:00 DIS Emergency JOSH VALDERRAMA MD [facility] ER HIP PAIN AB PAIN [id number] 12/29/2016 11:14:00 12/29/2016 14:39:00 DIS Emergency KAL LYONS APRN [facility] ER LEG/BACK PAIN [id number] 09/26/2016 16:29:00 09/26/2016 17:06:00 DIS Emergency HERBERTH CH [facility] ER EYE PAIN,RIB PAIN [id number] 09/22/2016 10:28:00 09/22/2016 11:04:00 DIS Emergency SIVA MORRISON MD [facility] ER STOMACH PAIN [id number] 09/17/2016 12:27:00 09/17/2016 15:45:00 DIS Emergency HERBERTH CH [facility] ER R WRIST BITE [id number] 09/13/2016 17:08:00 09/13/2016 19:13:00 DIS Emergency ADAMS MCGILL VERA [facility] ER ABD PAIN [id number] 07/18/2016 16:33:00 07/18/2016 23:59:59 CLS Outpatient NANO OJEDA TRUCK GREASER [facility] RAD M54.2 [id number] 06/15/2016 22:46:00 06/16/2016 01:29:00 DIS Emergency ARTEM, ADAMS VERA [facility] ER STEPPED ON GLASS IN R FOOT [id number] 05/10/2016 11:42:00 05/10/2016 12:34:00 DIS Emergency KAL LYONS TRUCK GREASER [facility] ER SPIDER BITE [id number] 01/17/2016 22:20:00 01/17/2016 22:40:00 DIS Emergency KAL LYONS [employer] [facility] ER WOUND CHECK [id number] 01/16/2016 19:42:00 01/16/2016 20:31:00 DIS Emergency KAL LYONS [employer]UCK GRE[employer]ER [facility] ER WOUND CHECK [id number] 01/14/2016 18:05:00 01/14/2016 19:26:00 DIS Emergency HERBERTH CH [facility] ER LOWER LEFT SIDE ABSCESS [id number] 11/05/2015 18:44:00 11/05/2015 22:45:00 DIS Emergency HERBERTH CH [facility] ER SKIN ISSUES/POSS INSECT BITE [id number] 08/29/2015 14:03:00 08/29/2015 14:29:00 DIS Emergency ASHLEY WONG DO [facility] ER [id number] 08/06/2015 19:21:00 08/06/2015 21:43:00 DIS Emergency ASHLEY WONG DO [facility] ER [id number] 02/09/2015 17:56:00 02/09/2015 20:41:00 DIS Emergency KAL LYONS APRN [facility] ER [id number] 12/07/2014 14:38:00 12/07/2014 15:50:00 DIS Emergency ALMA HERRON MD [facility] ER [id number] 08/08/2014 15:27:00 08/08/2014 17:12:00 DIS Emergency TREY BARBOZA MD [facility] ER [id number] 12/03/2014 14:10:00 Document Registration [id number] 08/08/2014 16:45:00 Document Registration [id number] 08/08/2014 16:45:00 Document Registration [id number] 06/26/2011 12:55:00 Document Registration [id number] 03/29/2011 00:30:00 Document Registration [id number] 03/25/2011 22:29:00 Document Registration [id number] 01/02/2011 19:58:00 Document Registration [id number] 06/03/2010 00:26:00 Document Registration [id number] 05/18/2010 19:38:00 Document Registration [id number] 05/01/2010 19:15:00 Document Registration [id number] 04/27/2010 06:45:00 Document Registration [id number] 04/21/2010 22:35:00 Document Registration [id number] 04/12/2010 22:27:00 Document Registration [id number] 02/09/2015 17:56:54 [place] Document Registration [id number] 09/25/2017 16:20:00 09/25/2017 23:59:59 [facility] Outpatient SIMONE KWAN APRN [facility] [id number] 01/21/2018 14:00:00 Document Registration
[2018-02-15 04:13] LABS: BASOPHILS % (AUTO) 0 % (0-10); EOSINOPHILS # (AUTO) 0.5 10^3/uL (0.0-0.3); EOSINOPHILS % (AUTO) 7 % (0-10); HEMATOCRIT 38 % (35-52); HEMOGLOBIN 13.4 G/DL (11.5-16.0); LYMPHOCYTES # (AUTO) 3.2 X 10^3 (1.0-4.0); LYMPHOCYTES % (AUTO) 41 % (12-44); MEAN CORPUSCULAR HEMOGLOBIN 32 PG (25-34); MEAN CORPUSCULAR HGB CONC 35 G/DL (32-36); MEAN CORPUSCULAR VOLUME 90 FL (80-99); MEAN PLATELET VOLUME 10.6 FL (7.4-10.4); MONOCYTES # (AUTO) 0.9 X 10^3 (0.0-1.0); MONOCYTES % (AUTO) 11 % (0-12); NEUTROPHILS # (AUTO) 3.2 X 10^3 (1.8-7.8); NEUTROPHILS % (AUTO) 41 % (42-75); PLATELET COUNT 213 10^3/uL (130-400); RED BLOOD COUNT 4.22 10^6/uL (4.35-5.85); RED CELL DISTRIBUTION WIDTH 13.1 % (10.0-14.5); WHITE BLOOD COUNT 7.8 10^3/uL (4.3-11.0)
[2018-02-15 04:32] LABS: ALANINE AMINOTRANSFERASE 22 U/L (0-55); ALBUMIN 3.9 GM/DL (3.2-4.5); ALKALINE PHOSPHATASE 46 U/L (40-136); BILIRUBIN,TOTAL 0.3 MG/DL (0.1-1.0); BUN/CREATININE RATIO 18; CALCIUM 8.5 MG/DL (8.5-10.1); CARBON DIOXIDE 20 MMOL/L (21-32); CHLORIDE 111 MMOL/L (98-107); CREATININE SERUM 0.76 MG/DL (0.60-1.30); GFR ESTIMATED > 60; GLUCOSE 106 MG/DL (70-105); POTASSIUM 3.9 MMOL/L (3.6-5.0); SODIUM 140 MMOL/L (135-145); TOTAL PROTEIN 6.3 GM/DL (6.4-8.2)
--- NOTE | 2018-02-15 04:42 | ED General ---
General Chief Complaint: General Problems/Pain Stated Complaint: AWOKE & COULDN'T MOVE Nursing Triage Note: PT PRESENTS TO ER BY EMS WITH COMPLAINT OF WAKING UP AND NOT BEING ABLE TO MOVE. PT TOOK PHENTARAMINE AND OXYCODONE BEFORE GOING TO BED. Nursing Sepsis Screen: No Definite Risk Source of Information: Patient, EMS Exam Limitations: No Limitations History of Present Illness Date Seen by Provider: Feb 15, 2018 Time Seen by Provider: 04:00 Initial Comments Here with report of waking up and feeling like she couldn't move. This caused her concern so she called her mother who called EMS and they transported her here. When EMS arrived she was moving just fine. She she states that she still feels odd. She does admit to taking a hydrocodone last night and a phentermine this morning at 1 a.m. She took those today she wasn't feeling well and also because she wanted to lose weight. She admits that taking the phentermine at 1 a.m. was probably not in her best interest. Both of these are old prescriptions and not currently prescribed to her. Timing/Duration: 1/2 Hour, Resolved Prior to Arrival Severity: Moderate Associated Systoms: No Chest Pain, No Fever/Chills, No Nausea/Vomiting, No Shortness of Air Allergies and Home Medications Allergies Coded Allergies: Penicillins (Unverified Allergy, Mild, 04/22/09) codeine (Verified Allergy, Unknown, 04/22/09) ketorolac (Verified Allergy, Unknown, 04/22/09) nalbuphine (Verified Allergy, Unknown, 04/22/09) propoxyphene (Verified Allergy, Unknown, 04/22/09) Patient Home Medication List Home Medication List Reviewed: Yes Review of Systems Constitutional: see HPI; No chills, No fever EENTM: no symptoms reported Respiratory: no symptoms reported Cardiovascular: no symptoms reported Gastrointestinal: no symptoms reported Genitourinary: no symptoms reported Musculoskeletal: see HPI; No muscle pain, No muscle stiffness Skin: no symptoms reported Psychiatric/Neurological: See HPI; Denies Paresthesia Past Lnvtsez-Umnpoh-Gpoiqu Hx Past Med/Social Hx: Reviewed Nursing Past Med/Soc Hx Patient Social History Alcohol Use: Denies Use Recreational Drug Use: Yes Drug of Choice: Methamphetamines Smoking Status: Current Everyday Smoker Type Used: Cigarettes 2nd Hand Smoke Exposure: Yes Recent Foreign Travel: No Contact w/Someone Who Travel: No Recent Infectious Disease Expo: No Recent Hopitalizations: No Physical Abuse: No Sexual Abuse: No Immunizations Up To Date Tetanus Booster (TDap): Less than 5yrs Seasonal Allergies Seasonal Allergies: No Past Medical History Surgeries: Yes (D&C, X 3, TRANSVAGINAL MESH) Abdominal, Bladder Surgery, Section, Hysterectomy Respiratory: No Cardiac: No Neurological: No 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 Disorders: No 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 Genitourinary: No Gastrointestinal: No Musculoskeletal: Yes (PT WITH CHRONIC PAIN COMPLAINTS-"DEGENERATIVE ARTHRITIS AND DDD" PER PT) Endocrine: No HEENT: No Cancer: No Psychosocial: Yes Anxiety, Bipolar, Personality Disorder, Depression Nursing Suicide Risk Score: 0 Integumentary: Yes (history of MRSA and multiple abscesses) Blood Disorders: No Adverse Reaction/Blood Tranf: No Family Medical History Reviewed Nursing Family Hx No Pertinent Family Hx Physical Exam Vital Signs Vital Signs - First Documented 02/15/18 03:54 Temp 97.5 Pulse 87 Resp 18 B/P (MAP) 127/81 (96) Pulse Ox 98 O2 Delivery Room Air Capillary Refill : Less Than 3 Seconds General Appearance: No Apparent Distress, WD/WN HEENT: PERRL/EOMI, TMs Normal, Normal ENT Inspection, Pharynx Normal Neck: Full Range of Motion, Normal Inspection, Non Tender, Supple Respiratory: Lungs Clear, Normal Breath Sounds Cardiovascular: Regular Rate, Rhythm, No Murmur Gastrointestinal: Non Tender, Soft Back: Normal Inspection, No CVA Tenderness, No Vertebral Tenderness Extremity: Normal Inspection, Normal Range of Motion, Non Tender, No Calf Tenderness Neurologic/Psychiatric: Alert, Oriented x3, No Motor/Sensory Deficits, 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 Skin: Normal Color, Warm/Dry Procedures/Interventions Suture Size: 3-0 Progress/Results/Core Measures Suspected Sepsis Recent Fever Within 48 Hours: No Infection Criteria Present: None New/Unexplained Altered Menta: No Sepsis Screen: No Definite Risk SIRS Temperature:97.5 Pulse: 87 Respiratory Rate: 18 Laboratory Tests 02/15/18 04:04: White Blood Count 7.8 Blood Pressure 127 /81 Mean: 96 Laboratory Tests 02/15/18 04:04: Creatinine 0.76, Platelet Count 213, Total Bilirubin 0.3 Results/Orders Lab Results Laboratory Tests Test 02/15/18 04:04 Range/Units White Blood Count 7.8 4.3-11.0 10^3/uL Red Blood Count 4.22 L 4.35-5.85 10^6/uL Hemoglobin 13.4 11.5-16.0 G/DL Hematocrit 38 35-52 % Mean Corpuscular Volume 90 80-99 FL Mean Corpuscular Hemoglobin 32 25-34 PG Mean Corpuscular Hemoglobin Concent 35 32-36 G/DL Red Cell Distribution Width 13.1 10.0-14.5 % Platelet Count 213 130-400 10^3/uL Mean Platelet Volume 10.6 H 7.4-10.4 FL Neutrophils (%) (Auto) 41 L 42-75 % Lymphocytes (%) (Auto) 41 12-44 % Monocytes (%) (Auto) 11 0-12 % Eosinophils (%) (Auto) 7 0-10 % Basophils (%) (Auto) 0 0-10 % Neutrophils # (Auto) 3.2 1.8-7.8 X 10^3 Lymphocytes # (Auto) 3.2 1.0-4.0 X 10^3 Monocytes # (Auto) 0.9 0.0-1.0 X 10^3 Eosinophils # (Auto) 0.5 H 0.0-0.3 10^3/uL Basophils # (Auto) 0.0 0.0-0.1 10^3/uL Sodium Level 140 135-145 MMOL/L Potassium Level 3.9 3.6-5.0 MMOL/L Chloride Level 111 H 98-107 MMOL/L Carbon Dioxide Level 20 L 21-32 MMOL/L Anion Gap 9 5-14 MMOL/L Blood Urea Nitrogen 14 7-18 MG/DL Creatinine 0.76 0.60-1.30 MG/DL Estimat Glomerular Filtration Rate > 60 BUN/Creatinine Ratio 18 Glucose Level 106 H 70-105 MG/DL Calcium Level 8.5 8.5-10.1 MG/DL Total Bilirubin 0.3 0.1-1.0 MG/DL Aspartate Amino Transf (AST/SGOT) 16 5-34 U/L Alanine Aminotransferase (ALT/SGPT) 22 0-55 U/L Alkaline Phosphatase 46 40-136 U/L Total Protein 6.3 L 6.4-8.2 GM/DL Albumin 3.9 3.2-4.5 GM/DL My Orders Orders - ALMA HERRON MD Cbc With Automated Diff (02/15/18 04:00) Comprehensive Metabolic Panel (02/15/18 04:00) Vital Signs/I&O 02/15/18 03:54 Temp 97.5 Pulse 87 Resp 18 B/P (MAP) 127/81 (96) Pulse Ox 98 O2 Delivery Room Air Capillary Refill : Less Than 3 Seconds Blood Pressure Mean: 96 Progress Note : Progress Note Seen and evaluated. We will check basic labs. Patient is a 0 on stroke scale. No acute findings. 0440: Labs do not show any significant abnormality and compare well to previous. Discharged home with return precautions. Patient verbalize understanding instructions and agreement with plan. Departure Impression Primary Impression: Adverse effects of medication Disposition: 01 HOME, SELF-CARE Condition: Improved Departure-Patient Inst. Decision time for Depature: 04:43 Referrals: [facility] (PCP) Primary Care Physician SIMONE KWAN (Family) Primary Care Physician Patient Instructions: MEDICATION REACTION Add. Discharge Instructions: All discharge instructions reviewed with patient and/or family. Voiced understanding. Stop taking phentermine and hydrocodone. Follow-up with your DrOliver in a few days for recheck. Return for worse pain, fever, vomiting, weakness, breathing problems or other concerns as needed. Drink plenty of fluids and eat a normal diet. Copy Copies To 1: KARIN GRAHAM TIMOTHY D MD Feb 15, 2018 04:42
[2018-02-15 04:51] VITALS: BP 127/81
== END 2018-02-15 04:51 | disposition home or self-care (01) ==
LOC: EDUNIT# 03:54 → ER 03:56
DX: R29.898 Other symptoms and signs involving the musculoskeletal system (principal); T50.905A Adverse effect of unspecified drugs, medicaments and biological substances, initial encounter; F41.9 Anxiety disorder, unspecified; F31.9 Bipolar disorder, unspecified; F15.90 Other stimulant use, unspecified, uncomplicated; F17.210 Nicotine dependence, cigarettes, uncomplicated; Z86.14 Personal history of Methicillin resistant Staphylococcus aureus infection; Z90.710 Acquired absence of both cervix and uterus; Z87.59 Personal history of other complications of pregnancy, childbirth and the puerperium; Z98.890 Other specified postprocedural states; Z88.0 Allergy status to penicillin; Z88.5 Allergy status to narcotic agent; Z88.6 Allergy status to analgesic agent; Z88.8 Allergy status to other drugs, medicaments and biological substances
CPT/HCPCS: 36415; 80053; 85025; 99283

== ENCOUNTER → 2018-02-18 | Outpatient (CLI) | payer OTHER ==
--- NOTE | 2018-02-18 11:51 | Diagnostic Imaging Report ---
PROCEDURE: CT pelvis without contrast. TECHNIQUE: Multiple contiguous axial images were obtained through the pelvis without the use of intravenous contrast. Sagittal and coronal reformations were performed. INDICATION: Abnormal appearance of the cervix on pelvic ultrasound. FINDINGS: There is a 4 cm cyst in the left adnexa presumably of ovarian origin. Uterus is surgically absent. There is minimal soft tissue fullness in this cervix, however, no discrete mass. Bladder is unremarkable. There is no ascites. There are no focal inflammatory changes. The osseous structures are unremarkable. IMPRESSION: 4 cm left pelvic cyst. This is presumably of ovarian origin. Soft tissue prominence of the cervix. Recommend clinical correlation with direct visualization. Otherwise unremarkable pelvic ultrasound. Dictated by: Dictated on workstation # [id number]
== END ==
LOC: RAD 10:25
PROVIDERS: ATTEND Nurse Practitioner Family
DX: N94.89 Other specified conditions associated with female genital organs and menstrual cycle (principal)
CPT/HCPCS: 72192

== ENCOUNTER → 2018-10-08 | Emergency (ER) | payer SELFPAY ==
[~2018-10-08] VITALS: Ht 167.6 cm; Wt 81.6 kg
[~2018-10-08] MED LIST changes: +IBUPROFEN 800 MG (MOTRIN) TAB PO ONE; +OLANZapine 5 MG ODT (ZyPREXA ZYDIS) PO ONE; +TRIM/SULFAMETH 160/800 (SEPTRA DS) TAB PO ONE
--- NOTE | 2018-10-08 19:56 | ED General ---
General Stated Complaint: GENERALIZED PAIN Source of Information: Patient Exam Limitations: No Limitations History of Present Illness Date Seen by Provider: Oct 08, 2018 Time Seen by Provider: 19:55 Initial Comments This 38-year-old female schizophrenic presents to the emergency room by EMS with reports of a 1 year history of chronic generalized pain in her back. She states that her head has been split open multiple times and is fractured into her neck. She never injured it, it just fractured. She also states "I can taste my bladder in my tongue". The last time I encountered this patient she believed her bladder was wrapped around her spinal cord in her neck. Timing/Duration: Constant Severity: Moderate Allergies and Home Medications Allergies Coded Allergies: Penicillins (Unverified Allergy, Mild, 04/22/09) codeine (Verified Allergy, Unknown, 04/22/09) ketorolac (Verified Allergy, Unknown, 04/22/09) nalbuphine (Verified Allergy, Unknown, 04/22/09) propoxyphene (Verified Allergy, Unknown, 04/22/09) Home Medications Sulfamethoxazole/Trimethoprim 1 Each Tablet, 1 EACH PO BID Prescribed by: KAL LYONS on 10/08/182046 Patient Home Medication List Home Medication List Reviewed: Yes Review of Systems Review of Systems Constitutional: see HPI EENTM: see HPI Respiratory: no symptoms reported Cardiovascular: no symptoms reported Genitourinary: no symptoms reported Musculoskeletal: see HPI Skin: no symptoms reported Psychiatric/Neurological: See HPI Hematologic/Lymphatic: No Symptoms Reported Immunological/Allergic: no symptoms reported Past Wgsocvi-Xxuqxm-Iaeyab Hx Patient Social History Drug of Choice: Methamphetamines Type Used: Cigarettes 2nd Hand Smoke Exposure: Yes Recent Foreign Travel: No Contact w/Someone Who Travel: No Recent Hopitalizations: No Immunizations Up To Date Tetanus Booster (TDap): Less than 5yrs Seasonal Allergies Seasonal Allergies: No Past Medical History Surgeries: Yes (D&C, X 3, TRANSVAGINAL MESH) Abdominal, Bladder Surgery, Section, Hysterectomy Respiratory: No Cardiac: No Neurological: No 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 Genitourinary: No Gastrointestinal: No Musculoskeletal: Yes (PT WITH CHRONIC PAIN COMPLAINTS-"DEGENERATIVE ARTHRITIS AND DDD" PER PT) Endocrine: No HEENT: No Cancer: No Psychosocial: Yes Anxiety, Bipolar, Personality Disorder, Depression Integumentary: Yes (history of MRSA and multiple abscesses) Blood Disorders: No Adverse Reaction/Blood Tranf: No Family Medical History No Pertinent Family Hx Physical Exam Vital Signs Vital Signs - First Documented 10/08/18 19:51 Temp 98.0 Pulse 114 Resp 23 B/P (MAP) 139/112 (121) Pulse Ox 99 Capillary Refill : Height, Weight, BMI Height: 5'6.00" Weight: 230lbs. 0.0oz. 104.928142ep; 33.45 BMI Method:Stated General Appearance: No Apparent Distress, WD/WN, Other (disheveled non-camped but cooperative at this moment) Eyes: Bilateral Eye Normal Inspection, Bilateral Eye PERRL, Bilateral Eye EOMI HEENT: PERRL/EOMI, TMs Normal, Other (very poor dentition) Neck: Full Range of Motion, Normal Inspection Respiratory: Normal Breath Sounds, No Accessory Muscle Use, No Respiratory Distress Cardiovascular: Regular Rate, Rhythm, Normal Peripheral Pulses Gastrointestinal: Normal Bowel Sounds, Non Tender, Soft Extremity: Normal Capillary Refill, Normal Inspection Neurologic/Psychiatric: Alert, Oriented x3 Skin: Normal Color, Warm/Dry Procedures/Interventions Suture Size: 3-0 Progress/Results/Core Measures Suspected Sepsis SIRS Temperature: Pulse: Respiratory Rate: Laboratory Tests 10/08/18 20:15: White Blood Count 7.5 Blood Pressure / Mean: Laboratory Tests 10/08/18 20:15: Creatinine 0.79, Platelet Count 209, Total Bilirubin 0.3 Results/Orders Lab Results Laboratory Tests Test 10/08/18 20:06 10/08/18 20:15 Range/Units Urine Color YELLOW Urine Clarity CLEAR Urine pH 6 5-9 Urine Specific [place] 1.010 L 1.016-1.022 Urine Protein NEGATIVE NEGATIVE Urine Glucose (UA) NEGATIVE NEGATIVE Urine Ketones NEGATIVE NEGATIVE Urine Nitrite NEGATIVE NEGATIVE Urine Bilirubin NEGATIVE NEGATIVE Urine Urobilinogen NORMAL NORMAL MG/DL Urine Leukocyte Esterase 1+ H NEGATIVE Urine RBC (Auto) 1+ H NEGATIVE Urine RBC RARE /HPF Urine WBC 10-25 H /HPF Urine Squamous Epithelial Cells 5-10 /HPF Urine Crystals NONE /LPF Urine Bacteria MODERATE H /HPF Urine Casts NONE /LPF Urine Mucus NEGATIVE /LPF Urine Culture Indicated YES Urine Opiates Screen NEGATIVE NEGATIVE Urine Oxycodone Screen NEGATIVE NEGATIVE Urine Methadone Screen NEGATIVE NEGATIVE Urine Propoxyphene Screen NEGATIVE NEGATIVE Urine Barbiturates Screen NEGATIVE NEGATIVE Ur Tricyclic Antidepressants Screen NEGATIVE NEGATIVE Urine Phencyclidine Screen NEGATIVE NEGATIVE Urine Amphetamines Screen NEGATIVE NEGATIVE Urine Methamphetamines Screen NEGATIVE NEGATIVE Urine Benzodiazepines Screen NEGATIVE NEGATIVE Urine Cocaine Screen NEGATIVE NEGATIVE Urine Cannabinoids Screen NEGATIVE NEGATIVE White Blood Count 7.5 4.3-11.0 10^3/uL Red Blood Count 4.71 4.35-5.85 10^6/uL Hemoglobin 14.4 11.5-16.0 G/DL Hematocrit 42 35-52 % Mean Corpuscular Volume 88 80-99 FL Mean Corpuscular Hemoglobin 31 25-34 PG Mean Corpuscular Hemoglobin Concent 35 32-36 G/DL Red Cell Distribution Width 12.3 10.0-14.5 % Platelet Count 209 130-400 10^3/uL Mean Platelet Volume 11.2 H 7.4-10.4 FL Neutrophils (%) (Auto) 69 42-75 % Lymphocytes (%) (Auto) 19 12-44 % Monocytes (%) (Auto) 9 0-12 % Eosinophils (%) (Auto) 3 0-10 % Basophils (%) (Auto) 0 0-10 % Neutrophils # (Auto) 5.2 1.8-7.8 X 10^3 Lymphocytes # (Auto) 1.4 1.0-4.0 X 10^3 Monocytes # (Auto) 0.7 0.0-1.0 X 10^3 Eosinophils # (Auto) 0.2 0.0-0.3 10^3/uL Basophils # (Auto) 0.0 0.0-0.1 10^3/uL Sodium Level 140 135-145 MMOL/L Potassium Level 3.8 3.6-5.0 MMOL/L Chloride Level 110 H 98-107 MMOL/L Carbon Dioxide Level 20 L 21-32 MMOL/L Anion Gap 10 5-14 MMOL/L Blood Urea Nitrogen 9 7-18 MG/DL Creatinine 0.79 0.60-1.30 MG/DL Estimat Glomerular Filtration Rate > 60 BUN/Creatinine Ratio 11 Glucose Level 100 70-105 MG/DL Calcium Level 8.6 8.5-10.1 MG/DL Corrected Calcium 8.4 L 8.5-10.1 MG/DL Total Bilirubin 0.3 0.1-1.0 MG/DL Aspartate Amino Transf (AST/SGOT) 27 5-34 U/L Alanine Aminotransferase (ALT/SGPT) 19 0-55 U/L Alkaline Phosphatase 65 40-136 U/L Total Protein 7.2 6.4-8.2 GM/DL Albumin 4.2 3.2-4.5 GM/DL Serum Test, Qualitative NEGATIVE NEGATIVE My Orders Orders - KAL LYONS APRN Olanzapine Orally Dissolve Tab (Zyprexa (10/08/18 20:00) Cbc With Automated Diff (10/08/18 19:53) Comprehensive Metabolic Panel (10/08/18 19:53) Ua Culture If Indicated (10/08/18 19:53) Drug Screen Stat (Urine) (10/08/18 19:53) Hcg,Qualitative Serum (10/08/18 19:53) Iv Heplock-Insert (Order) (10/08/18 19:53) Urine Culture (10/08/18 20:06) Sulfamethoxazole/Trimet Ds Tab (Bactrim (10/08/18 20:45) Ibuprofen Tablet (Motrin Tablet) (10/08/18 21:15) Medications Given in ED Current Medications Medications Dose Ordered Sig/Se Route Start Time Stop Time Status Last Admin Dose Admin Olanzapine 10 mg ONCE ONCE PO 10/08/18 20:00 10/08/18 20:01 DC 10/08/18 20:08 10 MG Trimethoprim/ Sulfamethoxazole 1 ea ONCE ONCE PO 10/08/18 20:45 10/08/18 20:46 DC 10/08/18 20:52 1 EA Vital Signs/I&O 10/08/18 10/08/18 19:51 20:06 Temp 98.0 98.0 Pulse 114 114 Resp 23 B/P (MAP) 139/112 (121) 139/112 (121) Pulse Ox 99 99 Capillary Refill : Departure Impression Primary Impression: Urinary tract infection Qualified Codes: N30.00 - Acute cystitis without hematuria Additional Impression: Schizophrenia Disposition: HOME, SELF-CARE Condition: Stable Departure-Patient Inst. Decision time for Depature: 20:46 Referrals: [facility] (PCP) Primary Care Physician SIMONE KWAN (Family) Primary Care Physician Patient Instructions: Urinary Tract Infection, Adult (DC) Add. Discharge Instructions: 1. Drink plenty of fluids 2. Return to ER for any concerns 3. Antibiotics as directed Scripts Sulfamethoxazole/Trimethoprim (Bactrim Ds Tablet) 1 Each Tablet 1 EACH PO BID, #10 TAB Prov: KAL LYONS APRN 10/08/18 KAL LYONS APRN Oct 08, 2018 19:56
[2018-10-08 20:06] VITALS: BP 139/112
--- OUTSIDE RECORDS SUMMARY | 2018-10-08 20:10 | XMS REPORT | Clinical Summary ---
Author Author [facility] Organization [facility] Address Unknown Phone Unavailable Care Team Providers Care Air Sampler Name Role Phone Mau Alaniz MD PCP Tanya Tompkins MD Unavailable Riccardo Anderson MD Unavailable Juanis Olivas RN Unavailable Unavailable Kelly Tijerina APRN Unavailable Unavailable Source Comments Some departments are not documenting in the electronic medical record. If you do not see the information that you expected, contact Release of Information in the Health Information Management department at [phone] for further assistance in locating additional records.[facility] Allergies Comments Active Allergy Reactions Severity Noted Date Codeine RASH 05/02/2010 Penicillin G RASH 05/02/2010 Medications End Date Status Medication Sig Dispensed Refills Start Date Active oxycodone (OXY-IR) 15 mg Take 1 Tab by 150 Tab 0 tablet mouth Every 2 0 Hours as needed for Pain. Active lorazepam (ATIVAN) 1 mg Take 1 Tab by 30 Tab 1 tablet mouth Every 6 0 Hours as needed for Anxiety and Nausea. Active simethicone (MYLICON) 80 Take 1 Tab by 30 Tab 2 mg chew tablet mouth Every 6 0 Hours as needed for Flatulence. Active senna/docusate Take 2 Tabs 60 Tab 2 (SENOKOT-S) 8.6/50 mg by mouth 0 tablet Twice Daily. Active ibuprofen (MOTRIN) 600 mg Take 1 Tab by 60 Tab 1 tablet mouth Every 6 0 Hours as needed for Pain. Active metoclopramide (REGLAN) Take 1 Tab by 30 Tab 2 10 mg tablet mouth Four 0 Times Daily. 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 Last Filed Vital Signs Time Taken Vital Sign Reading 05/08/2010 12:00 PM CDT Blood Pressure 137/83 05/08/2010 12:00 PM CDT Pulse 49 05/08/2010 12:00 PM CDT Temperature 36.5 C (97.7 F) - Respiratory Rate - 05/08/2010 12:00 PM CDT Oxygen Saturation 99% - Inhaled Oxygen - Concentration 05/08/2010 4:00 AM CDT Weight 119.6 kg (263 lb 9.6 oz) - Height - - Body Mass Index - Plan of Treatment Health Maintenance Due Date Last Done Comments PHYSICAL (COMPREHENSIVE) 1988 EXAM DTAP/TDAP VACCINES ( - 1999 Tdap) CERVICAL CANCER SCREENING 2011 INFLUENZA VACCINE 04/16/2018 HIV SCREENING Completed 05/02/2010 Results Not on filefrom Last 3 Months Advance Directives Patient has advance care planning documents, and code status on file. For more information, please contact: [facility] [address] [place] [address] Date Inactivated Comments Code Status Date Activated 05/08/2010 8:16 PM Full Code 05/03/2010 11:56 PM 05/03/2010 11:56 PM Full Code 05/03/2010 11:17 PM
--- OUTSIDE RECORDS SUMMARY | 2018-10-08 20:11 | XMS REPORT ---
Author Author LUCIE GANDHI [facility] Address [address] [place] [address] Care Team Providers Care Epic [facility] Name Role Phone LUCIE GANDHI Unavailable PROBLEMS Type Condition ICD9-CM Code UWE52-ET Code Onset Dates Condition Status SNOMED Code Problem Abnormal pelvic ultrasound R93.8 Active 588517606 Problem Mood disorder F39 Active 10993146 Problem Psychosis, unspecified psychosis type F29 Active 40525079 Problem Immunization due Z23 Active 147066124 Problem Encounter for annual physical exam Z00.00 Active 294324687 Problem Anxiety F41.9 Active 42977030 Problem Neuropathy G62.9 Active 991137733 Problem Pelvic pain R10.2 Active 20949619 Problem Chronic pain syndrome G89.4 Active [id number] ALLERGIES No Information ENCOUNTERS Encounter Location Date Diagnosis [place] [address] [address] January, Abnormal pelvic ultrasound R93.8 [place] [address] [place] [id number] [place] [address] 06883- 2720 January, [place] [address] [place] [id number] [place] [address] 11413- 9418 January, Pelvic pain R10.2 [place] [address] [address] January, Encounter for annual physical exam Z00.00 ; Pelvic pain R10.2 ; Immunization due Z23 and Encounter for immunization Z23 [place] [address] [address]- [address] Sep, [place] [address] [place] [id number] [place] [address] 04750- 4396 Sep, Anxiety F41.9 and Chronic pain syndrome G89.4 [facility] [address] [place] [id number] [place] [address] 23555- 8649 Sep, Anxiety F41.9 [facility] [address] [place] [id number] [place] [address] 19173- 2937 Aug, [facility] [address] [place] [id number] [place] [address] 94017- 2879 Aug, [facility] [address] [address]- 4683 Aug, Psychosis, unspecified psychosis type F29 [facility] [address] [place] [id number] [place] [address] 54094- 2432 Aug, Anxiety F41.9 [facility] [address] [place] [id number] [place] [address] 77645- 4396 Aug, [facility] [address] [place] [id number] [place] [address] 21448- 0889 Jul, [facility] [address] [place] [id number] [place] [address] 71667- 8132 Jul, [facility] [address] [place] [id number] [place] [address] 51511- 1095 Jul, [facility] [address] [place] [id number] [place] [address] 79526- 2245 Jul, [facility] [address] [place] [id number] [place] [address] 08510- 3021 Jul, Anxiety F41.9 [facility] [address] [place] [id number] [place] [address] 16533- 1036 Jun, Acute psychosis F23 and Homeless Z59.0 [facility] [address] [place] [id number] [place] [address] 36498- 8595 Jun, Anxiety F41.9 ; Episodic mood disorder F39 and Homeless Z59.0 [facility] [address] [place] [id number] [place] [address] 39363- 0740 Jun, Anxiety F41.9 [facility] [address] [place] [id number] [place] [address] 41487- 8106 Jun, [facility] [address] [place] [id number] [place] [address] 62798- 9036 May, [facility] [address] [place] [id number] [place] [address] 62311- 9339 14 May, 2017 Anxiety F41.9 ; Neuropathy G62.9 ; Dysuria R30.0 and custodial current use of opiate analgesic Z79.891 [facility] [address] [place] [id number] [place] [address] 24263- 6939 Apr, [facility] [address] [place] [id number] [place] [address] 86847- 3831 Apr, 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 [facility] [address] [place] [id number] [place] [address] 20827- 7175 Apr, Anxiety F41.9 [facility] [address] [place] [id number] [place] [address] 36602- 6929 Apr, [facility] [address] [place] [id number] [place] [address] 07896- 4576 Mar, Anxiety F41.9 [facility] [address] [place] [id number] [place] [address] 72417- 9343 Mar, [facility] [address] [place] [id number] [place] [address] 54902- 3451 Mar, [facility] [address] [place] [id number] [place] [address] 66731- 5352 Mar, [facility] [address] [place] [id number] [place] [address] 92123- 4532 Mar, Anxiety F41.9 ; Cervical neuritis M54.12 and Thoracic neuritis M54.14 [facility] [address] [place] [id number] [place] [address] 61997- 0552 Feb, Anxiety F41.9 ; Mood disorder F39 ; Episodic mood disorder F39 ; Psychosis, unspecified psychosis type F29 and Homeless Z59.0 [facility] [address] [place] [id number] [place] [address] 60118- 6063 January, [facility] [address] [place] [id number] [place] [address] 98682- 4649 Nov, [address] [id number] Nov, Mood disorder F39 and Sebaceous cyst L72.3 [place] [address] [place] [id number] [place] [address] 72532- 4608 Oct, Neuropathy G62.9 [place] [address] [place] [id number] [place] [address] 56379- 7730 Oct, Mood disorder F39 and Neuropathy G62.[address] [id number] Aug, Mood disorder F39 and Neuropathy G62.9 [place] [address] [place] [id number] [place] [address] 15265- 2007 May, [place] [address] [place] [id number] [place] [address] 90527- 0414 Apr, Psychosis, unspecified psychosis type F29 [facility] [address] [place] [id number] [place] [address] 72128- 1898 Apr, [place] [address] [place] [id number] [place] [address] 40387- 4744 Apr, [address] [id number] Mar, Upper respiratory tract infection, unspecified type J06.9 and Tinea corporis B35.4 [facility] [address] [place] [id number] [place] [address] 77270- 2927 Feb, ADD (attention deficit disorder) F90.0 [facility] [address] [place] [id number] [place] [address] 66255- 2260 Dec, Psychosis, unspecified psychosis type F29 and Episodic mood disorder F39 [facility] [address] [place] [id number] [address]- [address] Sep, [address] [id number] Sep, Injury of hand, right, initial encounter S69.91XA [facility] [address] [id number] Jul, [facility] [address] [place] [id number] [place] [address] [id number] Jul, Encounter for dental examination Z01.20 [facility] [address] [place] [id number] [place] [address] 09065- 7256 Jun, Malingering Z76.5 [facility] [address] [place] [id number] [place] [address] 935121- 0207 Jun, Mood disorder F39 [facility] [address] [place] [id number] [place] [address] 88409- 4396 Jun, Anxiety disorder, unspecified F41.[address] [id number] May, Anxiety 300.[address] [id number] May, Abdominal pain, left lateral 789.[address] [id number] May, 2015 Bipolar 1 disorder 296.7 and Abdominal pain, left lateral 789.[address] [id number] May, Bipolar 1 disorder 296.7 [facility] [address] [place] [id number] [id number] January, Dental examination V72.2 [facility] [id number] [place] [address] 96361- 3259 Dec, [facility] [address] 8423 Dec, [facility] [address] 8879 Nov, [facility] [address] [id number] [place] [address]- 8395 Nov, [facility] [address] [id number] [place] [address]- 4416 Nov, [facility] [address] [id number] [place] [address]- 0650 Nov, [facility] [address] [id number] [place] [address]- 5628 Nov, [facility] [address] [id number] [place] [address]- 8588 Nov, [facility] [address] [id number] [place] [address]- 4103 Nov, [facility] [address] [id number] [place] [address]- 5728 Nov, [facility] [address] [place] [id number] Oct, [facility] [address] [place] [id number] Oct, [facility] [address] [id number] [place] [address]- 8571 Oct, [facility] [address] [id number] [place] [address]- 6308 Oct, [facility] [address] [id number] [place] [address]- 2881 Oct, [facility] [place] [facility] [address] [id number] [place] [address]- 1367 Oct, [facility] [place] [facility] [address] [id number] [place] [address]- 1595 Sep, [facility] [place] [facility] [address] [id number] [place] [address]- 0778 Sep, [facility] [place] [facility] [address] [id number] [place] [address]- 7284 Jul, [facility] [place] [facility] [address] [id number] [place] [address]- 3109 Jul, [facility] [place] [facility] [address] [id number] [place] 5293 Jul, [facility] [place] [facility] [address] [id number] [place] 8903 Jul, [facility] [place] [facility] [address] [id number] [place] [address]- 5228 Jun, [facility] [place] [facility] [address] [id number] [place] [address]- 5024 Jun, [facility] [place] [facility] [address] [id number] [place] [address]- 2362 Jun, [facility] [place] [facility] [address] [id number] [place] [address]- 9192 Jun, [facility] [place] [facility] [address] [id number] [place] [address]- 2457 May, [facility] [place] [facility] [address] [id number] [place] [address]- 5219 May, [facility] [place] [facility] [address] [id number] [place] [address]- 0406 Apr, [facility] [place] [facility] [address] [id number] [place] [address]- 4495 Apr, [facility] [place] [facility] [address] [id number] [place] [address]- 6570 Mar, [facility] [place] [facility] [address] [id number] [place] [address]- 9651 Mar, [facility] [place] [facility] [address] [id number] [place] [address]- 9020 Mar, [facility] [place] [facility] [address] [id number] [place]- 0128 Mar, [facility] [place] [facility] [address] [id number] [place] [address]- 2731 January, [facility] [place] [facility] [address] [facility] [id number] [place] [address]- 0230 January, [facility] [place] [facility] [address] [facility] [id number] [place] [address]- 8362 Dec, [facility] [place] [facility] [address] [facility] [id number] [place] [address]- 1321 Dec, [facility] [place] [facility] [address] [facility] [id number] [place] [address]- 8105 Dec, [facility] [place] [facility] [address] [facility] [id number] [place] [address]- 1680 Nov, [facility] [place] [facility] [address] [facility] [id number] [place] [address]- 4664 Nov, [facility] [place] [facility] [address] [facility] [id number] [place] [address]- 5857 Nov, [facility] [place] [facility] [address] [facility] [id number] [place] [address]- 5243 Oct, [facility] [place] [facility] [address] [facility] [id number] [place] [address]- 0577 Oct, [facility] [place] [facility] [address] [facility] [id number] [place] [address]- 4974 Oct, [facility] [place] [facility] [address] [facility] [id number] [place] [address]- 0882 Oct, [facility] [place] [facility] [address] [facility] [id number] [place] [address]- 5398 Oct, [facility] [place] [facility] [address] [facility] [id number] [place] [address]- 7190 Oct, [facility] [place] [facility] [address] [facility] [id number] [place] [address]- 4150 Oct, [facility] [place] [facility] [address] [place] [id number] [place] [address]- 8614 Oct, [facility] [place] [facility] [address] [id number] [place] [address]- 6058 Oct, [facility] [address] [id number] [place] [address]- 7033 Oct, [facility] [place] [facility] [address] [id number] [place] [address]- 7443 Sep, [facility] [address] [id number] [place] [address]- 2255 Sep, [facility] [address] [id number] [place] [address]- 6020 Aug, [facility] [place] [facility] [address] [id number] [place] [address]- 5470 Aug, [facility] [address] [facility] [id number] [place] [address]- 4008 Aug, [facility] [address] [id number] [place] [address]- 1537 Jul, [facility] [address] [id number] [place] [address]- 9610 Jul, [facility] [address] [id number] [place] [address]- 7646 Feb, [facility] [place] [facility] [address] [id number] [place] [address]- 1446 Nov, [facility] [place] [facility] [address] [id number] [place] [address]- 7426 Oct, [facility] [place] [facility] [address] [id number] [place] [address]- 1944 Sep, [facility] [place] [facility] [address] [id number] [place] [address]- 7072 Sep, [facility] [place] [facility] [address] [id number] [place] [address]- 6137 Sep, [facility] [place] [facility] [address] [id number] [place] [address]- 1122 Aug, [facility] [place] [facility] [address] [id number] [place] [address]- 3535 Aug, [facility] [place] [facility] [address] [id number] [place] 3618 January, [facility] [place] [facility] [address] [id number] [place] [address]- 1469 January, [facility] [place] [facility] [address] [id number] [place] [address]- 1891 January, [facility] [place] [facility] [address] [id number] [place] [address]- 6636 January, [facility] [place] [facility] [address] [id number] [place] [address]- 8799 January, [facility] [place] [facility] [address] [id number] [place] [address]- 1238 January, [facility] [place] [facility] [address] [id number] [place] [address]- 9191 Dec, [facility] [place] [facility] [address] [id number] [place] [address]- 3993 Dec, [facility] [place] [facility] [address] [id number] [place] [address]- 7463 Dec, [facility] [place] [facility] [address] [id number] [place] [address]- 6853 Dec, [facility] [place] [facility] [address] [id number] [place] [address]- 6884 Nov, [facility] [place] [facility] [address] [id number] [place] [address]- 6647 Nov, [facility] [place] [facility] [address] [id number] [place] [address]- 2364 Oct, [facility] [place] [facility] [address] [id number] [place] [address]- 2274 Oct, [facility] [place] [facility] [address] [id number] [place] [address]- 9221 14 Oct, 2011 [facility] [address] [id number] [place] [address]- 5176 07 Oct, 2011 [facility] [place] [facility] [address] [id number] [place] [address]- 6916 31 Sep, 2011 [facility] [address] [id number] [place] [address]- 4611 Sep, [facility] [place] [facility] [address] [id number] [place] [address]- 5708 Sep, [facility] [place] [facility] [address] [id number] [place] [address]- 9516 Sep, [facility] [address] [id number] [place] [address]- 1743 Sep, [facility] [place] [facility] [address] [id number] [place] [address]- 9087 Sep, [facility] [address] [id number] [place] [address]- 5931 Sep, [facility] [address] [id number] [place] [address]- 8881 Sep, [facility] [address] [id number] [place] [address]- 3032 Sep, [facility] [place] [facility] [address] [id number] [place] [address]- 6846 Sep, [facility] [place] [facility] [address] [id number] [place] [address]- 6506 Sep, [facility] [place] [facility] [address] [id number] [place] [address]- 4466 Aug, [facility] [place] [facility] [address] [id number] [place] [address]- 2546 06 Aug, 2011 [facility] [place] [facility] [address] [id number] [place] [address]- 6692 Jun, [facility] [address] [facility] [id number] [address]- 7129 Jun, [facility] [id number] [address]- 0847 Apr, [facility] [address] [facility] [id number] [address]- 1065 Apr, [facility] [id number] [address]- 2373 Jul, IMMUNIZATIONS No Known Immunizations SOCIAL HISTORY Never Assessed REASON FOR VISIT Slurry 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
--- OUTSIDE RECORDS SUMMARY | 2018-10-08 20:11 | XMS REPORT ---
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 Phone LUCIE GANDHI Unavailable PROBLEMS Type Condition ICD9-CM Code UPD09-AD Code Onset Dates Condition Status SNOMED Code Problem Abnormal pelvic ultrasound R93.8 Active 367328207 Problem Mood disorder F39 Active 98833529 Problem Psychosis, unspecified psychosis type F29 Active 36800673 Problem Immunization due Z23 Active 485700661 Problem Encounter for annual physical exam Z00.00 Active 797709096 Problem Anxiety F41.9 Active 31139134 Problem Neuropathy G62.9 Active 260066277 Problem Pelvic pain R10.2 Active 18475883 Problem Chronic pain syndrome G89.4 Active 348218630 ALLERGIES No Information ENCOUNTERS Encounter Location Date Diagnosis [place] [address] [address] January, Abnormal pelvic ultrasound R93.8 [place] [address] [place] [id number] [place] [address] 15839- 2883 January, [place] [address] [place] [id number] [place] [address] 48382- 4106 January, Pelvic pain R10.2 [place] [address] [address]- [address] January, Encounter for annual physical exam Z00.00 ; Pelvic pain R10.2 ; Immunization due Z23 and Encounter for immunization Z23 [place] [address] [address]- [address]661 Sep, [place] [address] [place] [id number] [place] [address] 77471- 1428 Sep, Anxiety F41.9 and Chronic pain syndrome G89.4 [facility] [address] [place] [id number] [place] [address] 66447- 7923 Sep, Anxiety F41.9 [facility] [address] [place] [id number] [place] [address] 99209- 3536 Aug, [facility] [address] [place] [id number] [place] [address] 70383- 6914 Aug, [facility] [address] 09190- 0271 Aug, Psychosis, unspecified psychosis type F29 [facility] [address] [place] [id number] [place] [address] 11613- 2315 Aug, Anxiety F41.9 [facility] [address] [place] [id number] [place] [address] 66399- 2838 Aug, [facility] [address] [place] [id number] [place] [address] 90322- 5409 Jul, [facility] [address] [place] [id number] [place] [address] 83103- 2698 Jul, [facility] [address] [place] [id number] [place] [address] 23165- 9063 Jul, [facility] [address] [place] [id number] [place] [address] 38856- 1974 Jul, [facility] [address] [place] [id number] [place] [address] 27306- 1690 Jul, Anxiety F41.9 [facility] [address] [place] [id number] [place] [address] 37833- 2675 Jun, Acute psychosis F23 and Homeless Z59.0 [facility] [address] [place] [id number] [place] [address] 73556- 8194 Jun, Anxiety F41.9 ; Episodic mood disorder F39 and Homeless Z59.0 [facility] [address] [place] [id number] [place] [address] 13950- 4308 Jun, Anxiety F41.9 [facility] [address] [place] [id number] [place] [address] 78590- 5960 Jun, [facility] [address] [place] [id number] [place] [address] 34536- 3116 May, [facility] [address] [place] [id number] [place] [address] 68239- 3595 14 May, 2017 Anxiety F41.9 ; Neuropathy G62.9 ; Dysuria R30.0 and FCI current use of opiate analgesic Z79.891 [facility] [address] [place] [id number] [place] [address] 03841- 2094 Apr, [facility] [address] [place] [id number] [place] [address] 14355- 5523 Apr, 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 [facility] [address] [place] [id number] [place] [address] 10398- 8459 Apr, Anxiety F41.9 [facility] [address] [place] [id number] [place] [address] 30720- 0314 Apr, [facility] [address] [place] [id number] [place] [address] 00447- 8186 Mar, Anxiety F41.9 [facility] [address] [place] [id number] [place] [address] 35980- 8428 Mar, [facility] [address] [place] [id number] [place] [address] 94039- 8266 Mar, [facility] [address] [place] [id number] [place] [address] 41686- 3009 Mar, [facility] [address] [place] [id number] [place] [address] 85087- 6984 Mar, Anxiety F41.9 ; Cervical neuritis M54.12 and Thoracic neuritis M54.14 [facility] [address] [place] [id number] [place] [address] 38901- 4727 Feb, Anxiety F41.9 ; Mood disorder F39 ; Episodic mood disorder F39 ; Psychosis, unspecified psychosis type F29 and Homeless Z59.0 [facility] [address] [place] [id number] [place] [address] 86114- 8814 January, [facility] [address] [place] [id number] [place] [address] 65844- 4834 Nov, [address] [id number] Nov, Mood disorder F39 and Sebaceous cyst L72.3 [place] [address] [place] [id number] [place] [address] 05556- 1050 Oct, Neuropathy G62.9 [place] [address] [place] [id number] [place] [address] 42802- 8196 Oct, Mood disorder F39 and Neuropathy G62.[address] [id number] Aug, Mood disorder F39 and Neuropathy G62.9 [place] [address] [place] [id number] [place] [address] 89574- 7093 May, [place] [address] [place] [id number] [place] [address] 36548- 3878 Apr, Psychosis, unspecified psychosis type F29 [facility] [address] [place] [id number] [place] [address] 98844- 6582 Apr, [place] [address] [place] [id number] [place] [address] 41951- 5746 Apr, [address] [id number] Mar, Upper respiratory tract infection, unspecified type J06.9 and Tinea corporis B35.4 [facility] [address] [place] [id number] [place] [address] 81556- 8115 Feb, ADD (attention deficit disorder) F90.0 [facility] [address] [place] [id number] [place] [address] 75648- 8798 Dec, Psychosis, unspecified psychosis type F29 and Episodic mood disorder F39 [facility] [address] [place] [id number] [address]- 6116 Sep, [address] [id number] Sep, Injury of hand, right, initial encounter S69.91XA [facility] [address] [id number] Jul, [facility] [address] [place] [id number] [place] [address] [id number] Jul, Encounter for dental examination Z01.20 [facility] [address] [place] [id number] [place] [address] 44615- 1098 Jun, Malingering Z76.5 [facility] [address] [place] [id number] [place] [address] 017389- 6496 Jun, Mood disorder F39 [facility] [address] [place] [id number] [place] [address] 28770- 7616 Jun, Anxiety disorder, unspecified F41.[address] [id number] May, Anxiety 300.[address] [id number] May, Abdominal pain, left lateral 789.[address] [id number] May, 2015 Bipolar 1 disorder 296.7 and Abdominal pain, left lateral 789.[address] [id number] May, Bipolar 1 disorder 296.7 [facility] [address] [place] [id number] [id number] January, Dental examination V72.2 [facility] [address] [place] [address] 86179- 9841 Dec, [facility] [address]- 4383 Dec, [facility] [address] [address] 7612 Nov, [facility] [address] [id number] [place] [address]- 4637 Nov, [facility] [address] [id number] [place] [address]- 4273 Nov, [facility] [address] [id number] [place] [address]- 0226 Nov, [facility] [address] [id number] [place] [address]- 0209 Nov, [facility] [address] [id number] [place] [address]- 6371 Nov, [facility] [address] [id number] [place] [address]- 2368 Nov, [facility] [address] [id number] [place] [address]- 2254 Nov, [facility] [address] [place] [id number] Oct, [facility] [address] [place] [id number] Oct, [facility] [address] [id number] [place] [address]- 1014 Oct, [facility] [address] [id number] [place] [address]- 8205 Oct, [facility] [address] [id number] [place] [address]- 8388 Oct, [facility] [place] [facility] [address] [id number] [place] [address]- 3474 Oct, [facility] [place] [facility] [address] [id number] [place] [address]- 5936 Sep, [facility] [place] [facility] [address] [id number] [place] [address]- 7250 Sep, [facility] [place] [facility] [address] [id number] [place] [address]- 8019 Jul, [facility] [place] [facility] [address] [id number] [place] [address]- 7210 Jul, [facility] [place] [facility] [address] [id number] [place] 8814 Jul, [facility] [place] [facility] [address] [id number] [place]83 Jul, [facility] [place] [facility] [address] [id number] [place] [address]- 5001 Jun, [facility] [place] [facility] [address] [id number] [place] [address]- 3962 Jun, [facility] [place] [facility] [address] [id number] [place] [address]- 9377 Jun, [facility] [place] [facility] [address] [id number] [place] [address]- 5818 Jun, [facility] [place] [facility] [address] [id number] [place] [address]- 8984 May, [facility] [place] [facility] [address] [id number] [place] [address]- 1042 May, [facility] [place] [facility] [address] [id number] [place] [address]- 8035 Apr, [facility] [place] [facility] [address] [id number] [place] [address]- 8734 Apr, [facility] [place] [facility] [address] [id number] [place] [address]- 0216 Mar, [facility] [place] [facility] [address] [id number] [place] [address]- 9056 Mar, [facility] [place] [facility] [address] [id number] [place] [address]- 5348 Mar, [facility] [place] [facility] [address] [id number] [place] 2546 Mar, [facility] [place] [facility] [address] [id number] [place] [address]- 9237 January, [facility] [place] [facility] [address] [facility] [id number] [place] [address]- 8667 January, [facility] [place] [facility] [address] [facility] [id number] [place] [address]- 6892 Dec, [facility] [place] [facility] [address] [facility] [id number] [place] [address]- 7407 Dec, [facility] [place] [facility] [address] [facility] [id number] [place] [address]- 1932 Dec, [facility] [place] [facility] [address] [facility] [id number] [place] [address]- 9598 Nov, [facility] [place] [facility] [address] [facility] [id number] [place] [address]- 4465 Nov, [facility] [place] [facility] [address] [facility] [id number] [place] [address]- 0492 Nov, [facility] [place] [facility] [address] [facility] [id number] [place] [address]- 8259 Oct, [facility] [place] [facility] [address] [facility] [id number] [place] [address]- 5148 Oct, [facility] [place] [facility] [address] [facility] [id number] [place] [address]- 1185 Oct, [facility] [place] [facility] [address] [facility] [id number] [place] [address]- 3465 Oct, [facility] [place] [facility] [address] [facility] [id number] [place] [address]- 9404 Oct, [facility] [place] [facility] [address] [facility] [id number] [place] [address]- 9393 Oct, [facility] [place] [facility] [address] [facility] [id number] [place] [address]- 1749 Oct, [facility] [place] [facility] [address] [place] [id number] [place] [address]- 8738 Oct, [facility] [place] [facility] [address] [id number] [place] [address]- 2780 Oct, [facility] [address] [id number] [place] [address]- 6913 Oct, [facility] [place] [facility] [address] [id number] [place] [address]- 1857 Sep, [facility] [address] [id number] [place] [address]- 3732 Sep, [facility] [address] [id number] [place] [address]- 3924 Aug, [facility] [place] [facility] [address] [id number] [place] [address]- 4914 Aug, [facility] [address] [facility] [id number] [place] [address]- 0723 Aug, [facility] [address] [id number] [place] [address]- 8889 Jul, [facility] [address] [id number] [place] [address]- 0883 Jul, [facility] [address] [id number] [place] [address]- 7430 Feb, [facility] [place] [facility] [address] [id number] [place] [address]- 5067 Nov, [facility] [place] [facility] [address] [id number] [place] [address]- 6459 Oct, [facility] [place] [facility] [address] [id number] [place] [address]- 3478 Sep, [facility] [place] [facility] [address] [id number] [place] [address]- 9163 Sep, [facility] [place] [facility] [address] [id number] [place] [address]- 2563 Sep, [facility] [place] [facility] [address] [id number] [place] [address]- 1393 Aug, [facility] [place] [facility] [address] [id number] [place] [address]- 9977 Aug, [facility] [place] [facility] [address] [id number] [place] 0235 January, [facility] [place] [facility] [address] [id number] [place] [address]- 8785 January, [facility] [place] [facility] [address] [id number] [place] [address]- 3406 January, [facility] [place] [facility] [address] [id number] [place] [address]- 8617 January, [facility] [place] [facility] [address] [id number] [place] [address]- 3703 January, [facility] [place] [facility] [address] [id number] [place] [address]- 3208 January, [facility] [place] [facility] [address] [id number] [place] [address]- 8488 Dec, [facility] [place] [facility] [address] [id number] [place] [address]- 8825 Dec, [facility] [place] [facility] [address] [id number] [place] [address]- 1335 Dec, [facility] [place] [facility] [address] [id number] [place] [address]- 0696 Dec, [facility] [place] [facility] [address] [id number] [place] [address]- 9819 Nov, [facility] [place] [facility] [address] [id number] [place] [address]- 7689 Nov, [facility] [place] [facility] [address] [id number] [place] [address]- 3623 Oct, [facility] [place] [facility] [address] [id number] [place] [address]- 6727 Oct, [facility] [place] [facility] [address] [id number] [place] [address]- 2732 14 Oct, 2011 [facility] [address] [id number] [place] [address]- 8270 07 Oct, 2011 [facility] [place] [facility] [address] [id number] [place] [address]- 6346 31 Sep, 2011 [facility] [address] [id number] [place] [address]- 6429 Sep, [facility] [place] [facility] [address] [id number] [place] [address]- 6344 Sep, [facility] [place] [facility] [address] [id number] [place] [address]- 7230 Sep, [facility] [address] [id number] [place] [address]- 4388 Sep, [facility] [place] [facility] [address] [id number] [place] [address]- 4133 Sep, [facility] [address] [id number] [place] [address]- 4210 Sep, [facility] [address] [id number] [place] [address]- 8131 Sep, [facility] [address] [id number] [place] [address]- 0730 Sep, [facility] [place] [facility] [address] [id number] [place] [address]- 0946 Sep, [facility] [place] [facility] [address] [id number] [place] [address]- 6654 Sep, [facility] [place] [facility] [address] [id number] [place] [address]- 6946 Aug, [facility] [place] [facility] [address] [id number] [place] [address]- 2546 06 Aug, 2011 [facility] [place] [facility] [address] [id number] [place] [address]- 9272 Jun, [facility] [address] [facility] [id number] [address]- 8332 Jun, [facility] [address] [facility] [id number] [place] [address]- 6574 16 Apr, 2010 [facility] [address] [facility] [id number] [place] [address]- 8855 Apr, [facility] [address] [facility] [id number] [place] [address]- 7349 Jul, IMMUNIZATIONS No Known Immunizations SOCIAL HISTORY Never Assessed REASON FOR VISIT Order Correction PLAN OF CARE VITAL SIGNS MEDICATIONS Unknown Medications RESULTS Name Result Date Reference Range Ultrasound : Pelvic, COMPLETE (REFLEX [id number]) 2018-02-04 PROCEDURES No Known procedures INSTRUCTIONS MEDICATIONS ADMINISTERED [...]
--- OUTSIDE RECORDS SUMMARY | 2018-10-08 20:11 | XMS REPORT ---
Author Author LUCIE GANDHI [facility] Address [address] [place] [address] Care Team Providers Care Search Engine Optimizer Name Role Phone LUCIE GANDHI Unavailable PROBLEMS Type Condition ICD9-CM Code KTI09-AB Code Onset Dates Condition Status SNOMED Code Problem Abnormal pelvic ultrasound R93.8 Active 434853250 Problem Mood disorder F39 Active 83874112 Problem Psychosis, unspecified psychosis type F29 Active 06828963 Problem Immunization due Z23 Active 609856281 Problem Encounter for annual physical exam Z00.00 Active 944421542 Problem Anxiety F41.9 Active 30704177 Problem Neuropathy G62.9 Active 696217370 Problem Pelvic pain R10.2 Active 98243910 Problem Chronic pain syndrome G89.4 Active 562049814 ALLERGIES No Information ENCOUNTERS Encounter Location Date Diagnosis [place] [address] [address] January, Abnormal pelvic ultrasound R93.8 [place] [address] [place] [id number] [place] [address] 71437- 4257 January, [place] [address] [place] [id number] [place] [address] 22810- 2718 January, Pelvic pain R10.2 [place] [address] [address] January, Encounter for annual physical exam Z00.00 ; Pelvic pain R10.2 ; Immunization due Z23 and Encounter for immunization Z23 [place] [address] [address]- [address] Sep, [place] [address] [place] [id number] [place] [address] 96673- 7712 Sep, Anxiety F41.9 and Chronic pain syndrome G89.4 [facility] [address] [place] [id number] [place] [address] 64904- 2527 Sep, Anxiety F41.9 [facility] [address] [place] [id number] [place] [address] 38091- 3344 Aug, [facility] [address] [place] [id number] [place] [address] 13432- 3657 Aug, [facility] [address] [address]- 3915 Aug, Psychosis, unspecified psychosis type F29 [facility] [address] [place] [id number] [place] [address] 14602- 6436 Aug, Anxiety F41.9 [facility] [address] [place] [id number] [place] [address] 02895- 4349 Aug, [facility] [address] [place] [id number] [place] [address] 68639- 6725 Jul, [facility] [address] [place] [id number] [place] [address] 31873- 2975 Jul, [facility] [address] [place] [id number] [place] [address] 18399- 7736 Jul, [facility] [address] [place] [id number] [place] [address] 52511- 0472 Jul, [facility] [address] [place] [id number] [place] [address] 55188- 1164 Jul, Anxiety F41.9 [facility] [address] [place] [id number] [place] [address] 51354- 6183 Jun, Acute psychosis F23 and Homeless Z59.0 [facility] [address] [place] [id number] [place] [address] 96653- 8908 Jun, Anxiety F41.9 ; Episodic mood disorder F39 and Homeless Z59.0 [facility] [address] [place] [id number] [place] [address] 38753- 2480 Jun, Anxiety F41.9 [facility] [address] [place] [id number] [place] [address] 58853- 6815 Jun, [facility] [address] [place] [id number] [place] [address] 18360- 7006 May, [facility] [address] [place] [id number] [place] [address] 68628- 0091 14 May, 2017 Anxiety F41.9 ; Neuropathy G62.9 ; Dysuria R30.0 and longterm current use of opiate analgesic Z79.891 [facility] [address] [place] [id number] [place] [address] 85386- 7179 Apr, [facility] [address] [place] [id number] [place] [address] 16550- 0614 Apr, 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 [facility] [address] [place] [id number] [place] [address] 20329- 6704 Apr, Anxiety F41.9 [facility] [address] [place] [id number] [place] [address] 03742- 9439 Apr, [facility] [address] [place] [id number] [place] [address] 88189- 0970 Mar, Anxiety F41.9 [facility] [address] [place] [id number] [place] [address] 09251- 5547 Mar, [facility] [address] [place] [id number] [place] [address] 74166- 3919 Mar, [facility] [address] [place] [id number] [place] [address] 23301- 0243 Mar, [facility] [address] [place] [id number] [place] [address] 69607- 4586 Mar, Anxiety F41.9 ; Cervical neuritis M54.12 and Thoracic neuritis M54.14 [facility] [address] [place] [id number] [place] [address] 22975- 8417 Feb, Anxiety F41.9 ; Mood disorder F39 ; Episodic mood disorder F39 ; Psychosis, unspecified psychosis type F29 and Homeless Z59.0 [facility] [address] [place] [id number] [place] [address] 95474- 9380 January, [facility] [address] [place] [id number] [place] [address] 98483- 5499 Nov, [address] [id number] Nov, Mood disorder F39 and Sebaceous cyst L72.3 [place] [address] [place] [id number] [place] [address] 79762- 1035 Oct, Neuropathy G62.9 [place] [address] [place] [id number] [place] [address] 66232- 4058 Oct, Mood disorder F39 and Neuropathy G62.[address] [id number] Aug, Mood disorder F39 and Neuropathy G62.9 [place] [address] [place] [id number] [place] [address] 32127- 6847 May, [place] [address] [place] [id number] [place] [address] 22748- 6719 Apr, Psychosis, unspecified psychosis type F29 [facility] [address] [place] [id number] [place] [address] 69641- 2360 Apr, [place] [address] [place] [id number] [place] [address] 88458- 0180 Apr, [address] [id number] Mar, Upper respiratory tract infection, unspecified type J06.9 and Tinea corporis B35.4 [facility] [address] [place] [id number] [place] [address] 91293- 5076 Feb, ADD (attention deficit disorder) F90.0 [facility] [address] [place] [id number] [place] [address] 78010- 7979 Dec, Psychosis, unspecified psychosis type F29 and Episodic mood disorder F39 [facility] [address] [id number] [address]- 3586 Sep, [address] [id number] Sep, Injury of hand, right, initial encounter S69.91XA [facility] [address] [id number] Jul, [facility] [address] [place] [id number] [place] [address] [id number] Jul, Encounter for dental examination Z01.20 [facility] [address] [place] [id number] [place] [address] 14877- 0705 Jun, Malingering Z76.5 [facility] [address] [place] [id number] [place] [address] 743701- 5895 Jun, Mood disorder F39 [facility] [address] [place] [id number] [place] [address] 87588- 2126 Jun, Anxiety disorder, unspecified F41.[address] [id number] May, Anxiety 300.[address] [id number] May, Abdominal pain, left lateral 789.[address] [id number] May, 2015 Bipolar 1 disorder 296.7 and Abdominal pain, left lateral 789.[address] [id number] May, Bipolar 1 disorder 296.7 [facility] [address] [place] [id number] [id number] January, Dental examination V72.2 [facility] [id number] [place] [address] 76133- 5627 Dec, [facility] [address] [address] Dec, [facility] [address] 8710 Nov, [facility] [address] [id number] [place] [address]- 2553 Nov, [facility] [address] [id number] [place] [address]- 8839 Nov, [facility] [address] [id number] [place] [address]- 9442 Nov, [facility] [address] [id number] [place] [address]- 5811 Nov, [facility] [address] [id number] [place] [address]- 8299 Nov, [facility] [address] [id number] [place] [address]- 5250 Nov, [facility] [address] [id number] [place] [address]- 6235 Nov, [facility] [address] [place] [id number] Oct, [facility] [address] [place] [id number] Oct, [facility] [address] [id number] [place] [address]- 0555 Oct, [facility] [address] [id number] [place] [address]- 0381 Oct, [facility] [address] [id number] [place] [address]- 4221 Oct, [facility] [place] [facility] [address] [id number] [place] [address]- 8927 Oct, [facility] [place] [facility] [address] [id number] [place] [address]- 6853 Sep, [facility] [place] [facility] [address] [id number] [place] [address]- 2381 Sep, [facility] [place] [facility] [address] [id number] [place] [address]- 4730 Jul, [facility] [place] [facility] [address] [id number] [place] [address]- 3485 Jul, [facility] [place] [facility] [address] [id number] [place] 6042 Jul, [facility] [place] [facility] [address] [id number] [place] 4077 Jul, [facility] [place] [facility] [address] [id number] [place] [address]- 6848 Jun, [facility] [place] [facility] [address] [id number] [place] [address]- 6331 Jun, [facility] [place] [facility] [address] [id number] [place] [address]- 6762 Jun, [facility] [place] [facility] [address] [id number] [place] [address]- 0343 Jun, [facility] [place] [facility] [address] [id number] [place] [address]- 8968 May, [facility] [place] [facility] [address] [id number] [place] [address]- 1267 May, [facility] [place] [facility] [address] [id number] [place] [address]- 8296 Apr, [facility] [place] [facility] [address] [id number] [place] [address]- 4176 Apr, [facility] [place] [facility] [address] [id number] [place] [address]- 5163 Mar, [facility] [place] [facility] [address] [id number] [place] [address]- 8820 Mar, [facility] [place] [facility] [address] [id number] [place] [address]- 7162 Mar, [facility] [place] [facility] [address] [id number] [place] 8339 Mar, [facility] [place] [facility] [address] [id number] [place] [address]- 6544 January, [facility] [place] [facility] [address] [facility] [id number] [place] [address]- 0903 January, [facility] [place] [facility] [address] [facility] [id number] [place] [address]- 7979 Dec, [facility] [place] [facility] [address] [facility] [id number] [place] [address]- 6980 Dec, [facility] [place] [facility] [address] [facility] [id number] [place] [address]- 8205 Dec, [facility] [place] [facility] [address] [facility] [id number] [place] [address]- 7663 Nov, [facility] [place] [facility] [address] [facility] [id number] [place] [address]- 0647 Nov, [facility] [place] [facility] [address] [facility] [id number] [place] [address]- 5962 Nov, [facility] [place] [facility] [address] [facility] [id number] [place] [address]- 8381 Oct, [facility] [place] [facility] [address] [facility] [id number] [place] [address]- 9976 Oct, [facility] [place] [facility] [address] [facility] [id number] [place] [address]- 9453 Oct, [facility] [place] [facility] [address] [facility] [id number] [place] [address]- 2777 Oct, [facility] [place] [facility] [address] [facility] [id number] [place] [address]- 5669 Oct, [facility] [place] [facility] [address] [facility] [id number] [place] [address]- 1750 Oct, [facility] [place] [facility] [address] [facility] [id number] [place] [address]- 2000 Oct, [facility] [place] [facility] [address] [place] [id number] [place] [address]- 3904 Oct, [facility] [place] [facility] [address] [id number] [place] [address]- 6912 Oct, [facility] [address] [id number] [place] [address]- 1961 Oct, [facility] [place] [facility] [address] [id number] [place] [address]- 5763 Sep, [facility] [address] [id number] [place] [address]- 7408 Sep, [facility] [address] [id number] [place] [address]- 9578 Aug, [facility] [place] [facility] [address] [id number] [place] [address]- 5857 Aug, [facility] [address] [facility] [id number] [place] [address]- 3422 Aug, [facility] [address] [id number] [place] [address]- 6818 Jul, [facility] [address] [id number] [place] [address]- 0862 Jul, [facility] [address] [id number] [place] [address]- 2945 Feb, [facility] [place] [facility] [address] [id number] [place] [address]- 0186 Nov, [facility] [place] [facility] [address] [id number] [place] [address]- 8919 Oct, [facility] [place] [facility] [address] [id number] [place] [address]- 9453 Sep, [facility] [place] [facility] [address] [id number] [place] [address]- 8865 Sep, [facility] [place] [facility] [address] [id number] [place] [address]- 8351 Sep, [facility] [place] [facility] [address] [id number] [place] [address]- 5545 Aug, [facility] [place] [facility] [address] [id number] [place] [address]- 7720 Aug, [facility] [place] [facility] [address] [id number] [place] 3194 January, [facility] [place] [facility] [address] [id number] [place] [address]- 0127 January, [facility] [place] [facility] [address] [id number] [place] [address]- 6780 January, [facility] [place] [facility] [address] [id number] [place] [address]- 5332 January, [facility] [place] [facility] [address] [id number] [place] [address]- 1132 January, [facility] [place] [facility] [address] [id number] [place] [address]- 3775 January, [facility] [place] [facility] [address] [id number] [place] [address]- 9410 Dec, [facility] [place] [facility] [address] [id number] [place] [address]- 0099 Dec, [facility] [place] [facility] [address] [id number] [place] [address]- 8782 Dec, [facility] [place] [facility] [address] [id number] [place] [address]- 9013 Dec, [facility] [place] [facility] [address] [id number] [place] [address]- 4122 Nov, [facility] [place] [facility] [address] [id number] [place] [address]- 6305 Nov, [facility] [place] [facility] [address] [id number] [place] [address]- 0447 Oct, [facility] [place] [facility] [address] [id number] [place] [address]- 8579 Oct, [facility] [place] [facility] [address] [id number] [place] [address]- 3089 14 Oct, 2011 [facility] [address] [id number] [place] [address]- 7127 07 Oct, 2011 [facility] [place] [facility] [address] [id number] [place] [address]- 3916 31 Sep, 2011 [facility] [address] [id number] [place] [address]- 0831 Sep, [facility] [place] [facility] [address] [id number] [place] [address]- 7701 Sep, [facility] [place] [facility] [address] [id number] [place] [address]- 8537 Sep, [facility] [address] [id number] [place] [address]- 2599 Sep, [facility] [place] [facility] [address] [id number] [place] [address]- 3294 Sep, [facility] [address] [id number] [place] [address]- 9834 Sep, [facility] [address] [id number] [place] [address]- 1179 Sep, [facility] [address] [id number] [place] [address]- 1709 Sep, [facility] [place] [facility] [address] [id number] [place] [address]- 0826 Sep, [facility] [place] [facility] [address] [id number] [place] [address]- 7569 Sep, [facility] [place] [facility] [address] [id number] [place] [address]- 4936 Aug, [facility] [place] [facility] [address] [id number] [place] [address]- 2546 06 Aug, 2011 [facility] [place] [facility] [address] [id number] [place] [address]- 1218 Jun, [facility] [address] [facility] [id number] [address]- 0880 Jun, [facility] [address] [facility] [id number], [place] [address]- 2360 16 Apr, 2010 [facility] [address] [facility] [id number], [place] [address]- 2643 Apr, [facility] [address] [id number] [address]- 1631 Jul, IMMUNIZATIONS No Known Immunizations SOCIAL HISTORY Never Assessed REASON FOR VISIT Requests return call PLAN OF CARE VITAL SIGNS MEDICATIONS Unknown Medications RESULTS Name Result Date Reference Range CT Scan : Pelvis w/o Contrast 2018-02-18 PROCEDURES No Known procedures INSTRUCTIONS MEDICATIONS ADMINISTERED [...]
--- OUTSIDE RECORDS SUMMARY | 2018-10-08 20:12 | XMS REPORT ---
Author Author LUCIE GANDHI [facility] IN [facility] Address [address] [place] [address] Care Team Providers Care Director Of Global Sales Name Role Phone LCUIE GANDHI Unavailable PROBLEMS Type Condition ICD9-CM Code YZZ90-QR Code Onset Dates Condition Status SNOMED Code Problem Abnormal pelvic ultrasound R93.8 Active 088764156 Problem Mood disorder F39 Active 81485528 Problem Psychosis, unspecified psychosis type F29 Active 81673169 Problem Immunization due Z23 Active 181993590 Problem Encounter for annual physical exam Z00.00 Active 744234404 Problem Anxiety F41.9 Active 77873300 Problem Neuropathy G62.9 Active 084321139 Problem Pelvic pain R10.2 Active 50794870 Problem Chronic pain syndrome G89.4 Active 990908605 ALLERGIES Substance Reaction Event Type Date Status Penicillin V Potassium rash Drug Allergy January, Active ENCOUNTERS Encounter Location Date Diagnosis [place] [id number] [address] January, Abnormal pelvic ultrasound R93.8 [facility] [id number] [place] [address] 80155- 4457 January, [facility] [id number] [place] [address] 42819- 9090 January, Pelvic pain R10.2 [facility] [id number] [place] [address] 65333- 0362 January, Encounter for annual physical exam Z00.00 ; Pelvic pain R10.2 ; Immunization due Z23 and Encounter for immunization Z23 [facility] [id number] [place] [address] 46663- 3297 Sep, [facility] [address] 80327- 0355 Sep, Anxiety F41.9 and Chronic pain syndrome G89.4 [facility] [id number] [place] [address] 08297- 3574 Sep, Anxiety F41.9 [facility] [id number] [place] [address] 76516- 9649 Aug, [facility] [id number] [place] [address] 26988- 7796 Aug, [facility] [id number] [place] [address] 65091- 1102 Aug, Psychosis, unspecified psychosis type F29 [facility] [id number] [place] [address] 89549- 0820 Aug, Anxiety F41.9 [facility] [id number] [place] [address] 79269- 2759 Aug, [facility] [id number] [place] [address] 59556- 8967 Jul, [facility] [id number] [place] [address] 20347- 5404 Jul, [facility] [id number] [place] [address] 46419- 3777 Jul, [facility] [id number] [place] [address] 13101- 2791 Jul, [facility] [id number] [place] [address] 75875- 2791 Jul, Anxiety F41.9 [facility] [id number] [place] [address] 37717- 6404 Jun, Acute psychosis F23 and Homeless Z59.0 [facility] [id number] [place] [address] 22807- 7033 Jun, Anxiety F41.9 ; Episodic mood disorder F39 and Homeless Z59.0 [facility] [id number] [place] [address] 79886- 2659 Jun, Anxiety F41.9 [facility] [id number] [place] [address] 53185- 6859 Jun, [facility] [id number] [place] [address] 51992- 5013 May, [facility] [id number] [place] [address] 67626- 3097 May, Anxiety F41.9 ; Neuropathy G62.9 ; Dysuria R30.0 and MCFP current use of opiate analgesic Z79.891 [facility] [id number] [place] [address] 22506- 4716 Apr, [facility] [id number] [place] [address] 66493- 6666 Apr, 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 [facility] [id number] [place] [address] 95771- 0036 Apr, Anxiety F41.9 [facility] [id number] [place] [address] 82810- 0840 Apr, [facility] [id number] [place] [address] 61565- 4839 Mar, Anxiety F41.9 [facility] [id number] [place] [address] 82170- 7416 Mar, [facility] [id number] [place] [address] 09489- 4542 Mar, [facility] [id number] [place] [address] 39250- 4106 Mar, [facility] [id number] [place] [address] 19036- 8416 Mar, Anxiety F41.9 ; Cervical neuritis M54.12 and Thoracic neuritis M54.14 [facility] [id number] [place] [address] 05978- 9557 Feb, Anxiety F41.9 ; Mood disorder F39 ; Episodic mood disorder F39 ; Psychosis, unspecified psychosis type F29 and Homeless Z59.0 [place] [address] [place] [id number] [place] [address] 27246- 8371 January, [facility] [id number] [place] [address] 49850- 5001 Nov, [address] [id number] Nov, Mood disorder F39 and Sebaceous cyst L72.3 [place] [address] [address] [id number] [place] [address] 12864- 0682 Oct, Neuropathy G62.9 [place] [address] [id number] [place] [address] 38315- 2713 Oct, Mood disorder F39 and Neuropathy G62.[address] [id number] Aug, Mood disorder F39 and Neuropathy G62.9 [place] [address] [id number] [place] [address] 08375- 4239 May, [place] [address] [id number] [place] [address] 50010- 5290 Apr, Psychosis, unspecified psychosis type F29 [place] [address] [id number] [place] [address] 84044- 8169 Apr, [place] [address] [place] [id number] [place] [address] 85926- 9107 Apr, [address] [id number] Mar, Upper respiratory tract infection, unspecified type J06.9 and Tinea corporis B35.4 [place] [address] [address] [id number] [place] [address] 16264- 2097 Feb, ADD (attention deficit disorder) F90.0 [place] [address] [id number] [place] [address] 49393- 3197 Dec, Psychosis, unspecified psychosis type F29 and Episodic mood disorder F39 [facility] [address] [address]- 5448 Sep, [address] [id number] Sep, Injury of hand, right, initial encounter S69.91XA [facility] [address] [id number] Jul, [facility] [address] [id number] [place] [address] [id number] Jul, Encounter for dental examination Z01.20 [facility] [address] 33345- 2925 Jun, Malingering Z76.5 [facility] [id number] [place] [address] 66590- 4745 Jun, Mood disorder F39 [facility] [id number] [place] [address] 71238- 6147 Jun, Anxiety disorder, unspecified F41.[address] [id number] May, Anxiety 300.[address] [id number] May, Abdominal pain, left lateral 789.[address] [id number] May, Bipolar 1 disorder 296.7 and Abdominal pain, left lateral 789.[address] [id number] May, Bipolar 1 disorder 296.7 [facility] [id number] [id number] January, Dental examination V72.2 [facility] [id number] [place] [address] 73053- 1589 Dec, [facility] [address] [address] 4410 Dec, [facility] [id number] [place] [address] 05706- 3366 Nov, [facility] [place] [facility] [address] [id number] [place] [address]- 1649 Nov, [facility] [place] [facility] [address] [id number] [place] [address]- 2011 Nov, [facility] [place] [facility] [address] [id number] [place] [address]- 5477 Nov, [facility] [place] [facility] [address] [id number] [place] [address]- 7926 Nov, [facility] [place] [facility] [address] [id number] [place] [address]- 3441 Nov, [facility] [place] [facility] [address] [id number] [place] [address]- 0935 Nov, [facility] [place] [facility] [address] [facility] [id number] [place] [address]- 1780 Nov, [facility] [address] [place] [id number] Oct, [facility] [address] [id number] Oct, [facility] [place] [facility] [address] [facility] [id number], [place] [address]- 1584 Oct, [facility] [place] [facility] [address] [facility] [id number], [place] [address]- 8494 Oct, [facility] [place] [facility] [address] [id number], [place] [address]- 6175 Oct, [facility] [place] [facility] [address] [id number] [place] [address]- 3482 Oct, [facility] [place] [facility] [address] [id number] [place] [address]- 0171 Sep, [facility] [place] [facility] [address] [id number], [place] [address]- 5946 Sep, [facility] [place] [facility] [address] [id number], [place] [address]- 3536 Jul, [facility] [place] [facility] [address] [id number] [place] [address]- 7708 Jul, [facility] [place] [facility] [address] [id number] [place] [address]- 4809 Jul, [facility] [place] [facility] [address] [id number] [place] [address]- 6110 Jul, [facility] [place] [facility] [address] [id number] [place] [address]- 5709 Jun, [facility] [place] [facility] [address] [id number] [place] [address]- 5850 Jun, [facility] [place] [facility] [address] [id number] [place] [address]- 4033 Jun, [facility] [place] [facility] [address] [id number] [place] [address]- 0294 Jun, [facility] [place] [facility] [address] [id number] [place] [address]- 7550 May, [facility] [place] [facility] [address] [id number] [place] [address]- 2885 May, [facility] [place] [facility] [address] [id number] [place] [address]- 8816 Apr, [facility] [place] [facility] [address] [id number] [place] [address]- 3890 Apr, [facility] [place] [facility] [address] [id number] [place] [address]- 8456 Mar, [facility] [place] [facility] [address] [id number] [place] [address]- 7106 Mar, [facility] [place] [facility] [address] [id number] [place] [address]- 6832 Mar, [facility] [place] [facility] [address] [id number] [place] [address]- 5533 Mar, [facility] [place] [facility] [address] [id number] [place] [address]- 0138 January, [facility] [place] [facility] [address] [id number] [place] [address]- 7664 January, [facility] [place] [facility] [address] [id number] [place] [address]- 5259 Dec, [facility] [place] [facility] [address] [id number] [place] [address]- 1338 Dec, [facility] [place] [facility] [address] [id number] [place] [address]- 2981 Dec, [facility] [place] [facility] [address] [id number] [place] [address]- 9000 Nov, [facility] [place] [facility] [address] [facility] [id number] [place] [address]- 8520 Nov, [facility] [place] [facility] [address] [facility] [id number] [place] [address]- 7731 Nov, [facility] [place] [facility] [address] [id number] [place] [address]- 1551 Oct, [facility] [place] [facility] [address] [facility] [id number] [place] [address]- 6956 Oct, [facility] [place] [facility] [address] [facility] [id number] [place] [address]- 9305 Oct, [facility] [place] [facility] [address] [facility] [id number] [place] [address]- 9139 Oct, [facility] [place] [facility] [address] [facility] [id number] [place] [address]- 4715 Oct, [facility] [place] [facility] [address] [id number] [place] [address]- 9741 Oct, [facility] [place] [facility] [address] [facility] [id number] [place] [address]- 4715 Oct, [facility] [place] [facility] [address] [facility] [id number][place] [address]- 1087 Oct, [facility] [address] [id number] [place] [address]- 6481 Oct, [facility] [address] [id number] 8509 Oct, [facility] [address] [facility] [id number] [place] [address]- 0751 Sep, [facility] [address] [id number] [place] [address]- 8614 Sep, [facility] [address] [id number] [place] [address]- 8422 Aug, [facility] [address] [facility] [id number], [place] [address]- 6812 Aug, [facility] [address] [facility] [id number], [place] [address]- 7229 Aug, [facility] [address] [facility] [id number] [place] [address]- 3709 Jul, [facility] [address] [facility] [id number], [place] [address]- 5489 Jul, [facility] [address] [facility] [id number], [place] [address]- 2650 Feb, [facility] [address] [facility] [id number], [place] [address]- 5516 Nov, [facility] [place] [facility] [address] [id number], [place] [address]- 3708 Oct, [facility] [place] [facility] [address] [id number], [place] [address]- 1842 Sep, [facility] [place] [facility] [address] [facility] [id number], [place] [address]- 0958 Sep, [facility] [place] [facility] [address] [facility] [id number], [place] [address]- 2750 Sep, [facility] [place] [facility] [address] [id number] [place] [address]- 7850 Aug, [facility] [address] [id number] [place] [address]- 8746 Aug, [facility] [place] [facility] [address] [id number] [place] [address]- 5003 January, [facility] [address] [id number] [place] [address]- 7606 January, [facility] [place] [facility] [address] [id number] [place] [address]- 5130 January, [facility] [address] [id number] [place] [address]- 5543 January, [facility] [place] [facility] [address] [id number] [place] [address]- 8598 January, [facility] [address] [id number] [place] [address]- 1865 January, [facility] [address] [id number] [place] [address]- 7712 Dec, [facility] [place] [facility] [address] [id number] [place] [address]- 8115 Dec, [facility] [place] [facility] [address] [id number] [place] [address]- 7992 Dec, [facility] [place] [facility] [address] [id number] [place] [address]- 3379 Dec, [facility] [place] [facility] [address] [id number] [place] [address]- 4531 Nov, [facility] [place] [facility] [address] [id number] [place] [address]- 0843 Nov, [facility] [place] [facility] [address] [id number] [place] [address]- 9114 Oct, [facility] [place] [facility] [address] [id number] [place] [address]- 0021 Oct, [facility] [place] [facility] [address] [id number] [place] [address]- 7398 Oct, [facility] [place] [facility] [address] [id number] [place] [address]- 2206 Oct, [facility] [place] [facility] [address] [id number] [place] [address]- 7993 Sep, [facility] [place] [facility] [address] [id number] [place] [address]- 8179 Sep, [facility] [place] [facility] [address] [id number] [place] [address]- 8815 Sep, [facility] [place] [facility] [address] [id number] [place] [address]- 7077 Sep, [facility] [place] [facility] [address] [id number] [place] [address]- 4701 Sep, [facility] [place] [facility] [address] [id number] [place] [address]- 9614 Sep, [facility] [place] [facility] [address] [id number] [place] [address]- 8646 Sep, [facility] [place] [facility] [address] [id number] [place] [address]- 4987 Sep, [facility] [place] [facility] [address] [id number] [place] [address]- 3992 Sep, [facility] [place] [facility] [address] [id number] [place] [address]- 0357 Sep, [facility] [place] [facility] [address] [id number] [place] [address]- 0593 Sep, [facility] [place] [facility] [address] [id number] [place] [address]- 9306 Aug, [facility] [place] [facility] [address] [id number] [place] [address]- 2546 Aug, [facility] [place] [facility] [address] [facility] [id number] [place] [address] 14 Jun, 2011 [facility] [address] [facility] [id number], [place] [address]- 3483 Jun, [facility] [address] [facility] [id number][place] [address] 8421 16 Apr, 2010 [place] [address] [facility] [id number], [place] [address]- 7063 14 Apr, 2010 [place] [address] [facility] [id number], [place] [address]- 6354 Jul, IMMUNIZATIONS Vaccine Route Administration Date Status TDAP (BOOSTRIX) IM Intramuscular January 21, 2018 Administered SOCIAL HISTORY Never Assessed REASON FOR VISIT Annual physical (female)- ELIZABETH hull, would like to know if she needs a tetanus shot, states she has pelvic pain PLAN OF CARE Activity Details Follow Up 6 Months, prn Reason:routine f/u with PCP VITAL SIGNS Height 66 in 2018-01-21 Weight 213 lbs 2018-01-21 Temperature 98.3 degrees Fahrenheit 2018-01-21 Heart Rate 64 bpm 2018-01-21 Respiratory Rate 20 2018-01-21 BMI 34.38 kg/m2 2018-01-21 Blood pressure systolic 128 mmHg 2018-01-21 Blood pressure diastolic 75 mmHg 2018-01-21 MEDICATIONS Medication Instructions Dosage Frequency Start Date End Date Duration Status Invega 6 MG Orally Once a day-she was given samples take 0.5 tablet every day and increase to 1 tablet when tolerated, take every night Apr, 30 day(s) Not-Taking RESULTS No Results PROCEDURES Procedure Date Ordered Result Body Site CULTURE, BACTERIA, OTHER January 21, 2018 Bacterial Vaginosis In House January 21, 2018 SPECIMEN HANDLING January 21, 2018 TRICHOMONAS ASSAY W/OPTIC January 21, 2018 Hemoglobin Test Send Out 0 dollar January 21, 2018 No Charge January 21, 2018 TDAP (BOOSTRIX) January 21, 2018 VENIPUNCT, ROUTINE* January 21, 2018 SINGLE IMMUNIZATION ADMIN January 21, 2018 COMPLETE CBC W/AUTO DIFF WBC January 21, 2018 COMPREHEN METABOLIC PANEL January 21, 2018 ASSAY THYROID STIM HORMONE January 21, 2018 LIPID PANEL January 21, 2018 INSTRUCTIONS MEDICATIONS ADMINISTERED No Known Medications MEDICAL [...]
--- OUTSIDE RECORDS SUMMARY | 2018-10-08 20:12 | XMS REPORT ---
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 Phone SIMONE KWAN Unavailable PROBLEMS Type Condition ICD9-CM Code [id number] Code Onset Dates Condition Status SNOMED Code Problem Abnormal pelvic ultrasound R93.8 Active 992443942 Problem Mood disorder F39 Active 49737806 Problem Psychosis, unspecified psychosis type F29 Active 95184690 Problem Immunization due Z23 Active 965014606 Problem Encounter for annual physical exam Z00.00 Active 158528805 Problem Anxiety F41.9 Active 64434279 Problem Neuropathy G62.9 Active 846183517 Problem Pelvic pain R10.2 Active 16640748 Problem Chronic pain syndrome G89.4 Active 122243077 ALLERGIES No Information ENCOUNTERS Encounter Location Date Diagnosis [place] [id number] [place] [address] 94499- 5887 January, Abnormal pelvic ultrasound R93.8 [place] [id number] [place] [address] 76576- 1616 January, [place] [id number] [place] [address] 11163- 0561 January, Pelvic pain R10.2 [place] [id number] [place] [address] 96808- 0635 January, Encounter for annual physical exam Z00.00 ; Pelvic pain R10.2 ; Immunization due Z23 and Encounter for immunization Z23 [place] [id number] [place] [address] 39639- 6158 Sep, [place] [id number] [place] [address] 56840- 6999 Sep, Anxiety F41.9 and Chronic pain syndrome G89.4 [place] [id number] [place] [address] 99435- 1846 Sep, Anxiety F41.9 [facility] [address] 41338- 0588 Aug, [facility] [id number] [place] [address] 48489- 7289 Aug, [facility] [address] 37836- 5795 Aug, Psychosis, unspecified psychosis type F29 [facility] [id number] [place] [address] 30992- 4524 Aug, Anxiety F41.9 [facility] [id number] [place] [address] 54823- 9760 Aug, [facility] [id number] [place] [address] 73936- 3832 Jul, [facility] [id number] [place] [address] 33699- 1971 Jul, [facility] [id number] [place] [address] 84764- 2232 Jul, [facility] [id number] [place] [address] 94380- 5990 Jul, [facility] [id number] [place] [address] 66889- 2158 Jul, Anxiety F41.9 [facility] [id number] [place] [address] 18376- 2556 Jun, Acute psychosis F23 and Homeless Z59.0 [facility] [id number] [place] [address] 57054- 6303 Jun, Anxiety F41.9 ; Episodic mood disorder F39 and Homeless Z59.0 [facility] [id number] [place] [address] 82442- 7165 Jun, Anxiety F41.9 [facility] [id number] [place] [address] 72842- 7366 Jun, [facility] [id number] [place] [address] 40164- 0956 May, [facility] [id number] [place] [address] 79277- 9477 May, Anxiety F41.9 ; Neuropathy G62.9 ; Dysuria R30.0 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 [facility] [id number] [place] [address] 19458- 6471 Apr, [facility] [id number] [place] [address] 81586- 3176 Apr, 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 [facility] [id number] [place] [address] 16570- 2878 Apr, Anxiety F41.9 [facility] [id number] [place] [address] 45569- 4381 Apr, [facility] [id number] [place] [address] 75016- 9641 Mar, Anxiety F41.9 [facility] [id number] [place] [address] 84469- 5791 Mar, [facility] [id number] [place] [address] 60461- 2523 Mar, [facility] [id number] [place] [address] 82299- 2543 Mar, [facility] [id number] [place] [address] 54341- 9492 Mar, Anxiety F41.9 ; Cervical neuritis M54.12 and Thoracic neuritis M54.14 [facility] [id number] [place] [address] 43546- 4859 Feb, Anxiety F41.9 ; Mood disorder F39 ; Episodic mood disorder F39 ; Psychosis, unspecified psychosis type F29 and Homeless Z59.0 [facility] [id number] [place] [address] 06830- 4525 January, [facility] [id number] [place] [address] 83342- 1400 Nov, [address] [id number] Nov, Mood disorder F39 and Sebaceous cyst L72.3 [place] [id number] [place] [address] 01730- 2282 Oct, Neuropathy G62.9 [place] [address] 79137- 2340 Oct, Mood disorder F39 and Neuropathy G62.[address] [id number] Aug, Mood disorder F39 and Neuropathy G62.9 [place] [id number] [place] [address] 54177- 7264 May, [place] [id number] [place] [address] 30992- 6964 Apr, Psychosis, unspecified psychosis type F29 [place] [id number] [place] [address] 12794- 6157 Apr, [place] [id number] [place] [address] 21762- 8201 Apr, [address] [id number] Mar, Upper respiratory tract infection, unspecified type J06.9 and Tinea corporis B35.4 [place] [id number] [place] [address] 22799- 9811 Feb, ADD (attention deficit disorder) F90.0 [place] [id number] [place] [address] 13668- 5325 Dec, Psychosis, unspecified psychosis type F29 and Episodic mood disorder F39 [place] [address] [place] [address] 2546 Sep, [place] [address] [place] [id number] Sep, Injury of hand, right, initial encounter S69.91XA [facility] [address] [id number] Jul, [facility] [id number] [place] [address] [id number] Jul, Encounter for dental examination Z01.20 [facility] [id number] [place] [address] 76204- 1486 Jun, Malingering Z76.5 [facility] [id number] [place] [address] 881285- 3396 Jun, Mood disorder F39 [facility] [id number] [place] [address] 16300- 6460 Jun, Anxiety disorder, unspecified F41.9 [place] [address] [id number] May, Anxiety [address] [id number] May, Abdominal pain, left lateral 789.[address] [id number] May, 2015 Bipolar 1 disorder 296.7 and Abdominal pain, left lateral 789.[address] [id number] May, Bipolar 1 disorder 296.7 [facility] [address] [id number] January, Dental examination V72.2 [facility] [id number] [place] [address] 74717- 3150 Dec, [facility] [id number] [place] [address] [id number]- 4609 Dec, [facility] [address], [place] [address]- 2930 Nov, [facility] [address] [id number] [place] [address]- 5200 Nov, [facility] [place] [facility] [address] [id number] [place] [address]- 8153 Nov, [facility] [place] [facility] [address] [id number] [place] [address]- 1647 Nov, [facility] [place] [facility] [address] [id number] [place] [address]- 8079 Nov, [facility] [place] [facility] [address] [id number] [place] [address]- 9440 Nov, [facility] [place] [facility] [address] [id number] [place] [address]- 6056 Nov, [facility] [place] [facility] [address] [facility] [id number] [place] [address]- 4836 Nov, [facility] [address] [place] [id number] Oct, [facility] [address] [place] [id number] Oct, [facility] [place] [facility] [address] [id number] [place] [address]- 6942 Oct, [facility] [place] [facility] [address] [id number] [place] [address]- 9883 Oct, [facility] [place] [facility] [address] [id number] [place] [address]- 1551 Oct, [facility] [place] [facility] [address] [id number] [place] [address]- 4855 Oct, [facility] [place] [facility] [address] [id number] [place] [address]- 4835 Sep, [facility] [place] [facility] [address] [id number] [place] 9335 Sep, [facility] [place] [facility] [address] [id number] [place] [address]- 9723 Jul, [facility] [place] [facility] [address] [id number] [place] [address]- 7116 Jul, [facility] [place] [facility] [address] [id number] [place] [address]- 3322 Jul, [facility] [place] [facility] [address] [id number] [place] 1216 Jul, [facility] [place] [facility] [address] [id number] [place] [address]- 7785 Jun, [facility] [place] [facility] [address] [id number] [place] [address]- 2478 Jun, [facility] [place] [facility] [address] [id number] [place] [address]- 8615 Jun, [facility] [place] [facility] [address] [id number] [place] [address]- 3623 Jun, [facility] [place] [facility] [address] [id number] [place] [address]- 9748 May, [facility] [place] [facility] [address] [id number] [place] [address]- 0946 May, [facility] [place] [facility] [address] [id number] [place] [address]- 0896 Apr, [facility] [place] [facility] [address] [id number] [place] [address]- 3141 Apr, [facility] [place] [facility] [address] [id number] [place] [address]- 5637 Mar, [facility] [place] [facility] [address] [id number] [place] [address]- 0625 Mar, [facility] [place] [facility] [address] [id number] [place] [address]- 6244 Mar, [facility] [place] [facility] [address] [id number] [place] [address]- 7911 Mar, [facility] [place] [facility] [address] [id number] [place] 7177 January, [facility] [place] [facility] [address] [id number] [place] [address]- 5671 January, [facility] [place] [facility] [address] [id number] [place] [address]- 2922 Dec, [facility] [place] [facility] [address] [id number] [place] [address]- 1281 Dec, [facility] [place] [facility] [address] [id number] [place] [address]- 9472 Dec, [facility] [place] [facility] [address] [id number] [place] [address]- 1005 Nov, [facility] [place] [facility] [address] [id number] [place] [address]- 4189 Nov, [facility] [place] [facility] [address] [facility] [id number] [place] [address]- 5774 Nov, [facility] [place] [facility] [address] [id number] [place] [address]- 7701 Oct, [facility] [place] [facility] [address] [id number] [place] [address]- 5271 Oct, [facility] [place] [facility] [address] [facility] [id number] [place] [address]- 7976 Oct, [facility] [place] [facility] [address] [id number] [place] [address]- 4339 Oct, [facility] [place] [facility] [address] [id number] [place] [address]- 5739 Oct, [facility] [place] [facility] [address] [id number] [place] [address]- 7657 Oct, [facility] [place] [facility] [address] [id number] [place] [address]- 3913 Oct, [facility] [place] [facility] [address] [facility] [id number] [place] [address]- 6313 Oct, [facility] [place] [facility] [address] [id number] [place] [address]- 8187 Oct, [facility] [address] [id number] [place] [address]- 8461 Oct, [facility] [address] [id number] [place] [address]- 6727 Sep, [facility] [address] [id number] [place] [address]- 0490 Sep, [facility] [address] [id number] [place] [address]- 0274 Aug, [facility] [address] [id number] [place] [address]- 0016 Aug, [facility] [address] [id number] [place] [address]- 2301 Aug, [facility] [address] [id number] [place] [address]- 5547 Jul, [facility] [address] [id number] [place] [address]- 8918 Jul, [facility] [address] [id number] [place] [address]- 5115 Feb, [facility] [address] [id number] [place] [address]- 4221 Nov, [facility] [address] [id number] [place] [address]- 4008 Oct, [facility] [address] [id number] [place] [address]- 5049 Sep, [facility] [address] [id number] [place] [address]- 7808 Sep, [facility] [address] [id number] [place] [address] 2546 Sep, [facility] [address] [id number] [place] [address]- 0266 Aug, [facility] [address] [id number] [place] [address]- 3616 Aug, [facility] [place] [facility] [address] [id number] [place] [address]- 4924 January, [facility] [place] [facility] [address] [id number] [place] [address]- 1202 January, [facility] [place] [facility] [address] [id number] [place] [address]- 3974 January, [facility] [place] [facility] [address] [id number] [place] [address]- 8699 January, [facility] [place] [facility] [address] [id number] [place] [address]- 5775 January, [facility] [place] [facility] [address] [id number] [place] [address]- 2979 January, [facility] [place] [facility] [address] [id number] [place] [address]- 4690 Dec, [facility] [place] [facility] [address] [id number] [place] [address]- 3445 Dec, [facility] [place] [facility] [address] [id number] [place] [address]- 9845 Dec, [facility] [place] [facility] [address] [id number] [place] [address]- 7810 Dec, [facility] [place] [facility] [address] [id number], [place] [address]- 7916 Nov, [facility] [place] [facility] [address] [id number] [place] [address]- 3730 Nov, [facility] [place] [facility] [address] [id number] [place] [address]- 8920 Oct, [facility] [place] [facility] [address] [id number] [place] [address]- 5988 Oct, [facility] [place] [facility] [address] [id number] [place] [address]- 6696 14 Oct, 2011 [facility] [address] [id number] [place] [address]- 8803 07 Oct, 2011 [facility] [address] [id number] [place] [address]- 8057 31 Sep, 2011 [facility] [address] [id number] [place] [address]- 2765 24 Sep, 2011 [facility] [address] [id number] [place] [address]- 4262 Sep, [facility] [address] [id number] [place] [address]- 9400 Sep, [facility] [address] [id number] [place] [address]- 4891 Sep, [facility] [address] [id number] [place] [address]- 0985 Sep, [facility] [address] [id number] [place] [address]- 4447 Sep, [facility] [address] [id number] [place] [address]- 4375 Sep, [facility] [address] [id number] [place] [address]- 1555 Sep, [facility] [address] [id number] [place] [address]- 7473 Sep, [facility] [address] [id number] [place] [address]- 1409 Sep, [facility] [address] [id number] [place] [address]- 9811 Aug, [facility] [address] [id number] [place] [address]- 2546 Aug, [facility] [address] [id number] [place] [address]- 2140 14 Jun, 2011 [facility] [address] [facility] [id number], [place] [address]- 4974 Jun, [facility] [id number], [place] [address]- 1556 16 Apr, 2010 [facility] [id number], [place] [address]- 9761 Apr, [facility] [id number] 6713 Jul, IMMUNIZATIONS No Known Immunizations SOCIAL HISTORY Never Assessed REASON FOR VISIT PLAN OF CARE VITAL SIGNS MEDICATIONS Unknown [...]
--- OUTSIDE RECORDS SUMMARY | 2018-10-08 20:13 | XMS REPORT ---
Author Author SIMONE KWAN Organization [facility] Address [address] [place] [address] Care Team Providers Care Manager Asset Management Name Role Phone SIMONE KWAN Unavailable PROBLEMS Type Condition ICD9-CM Code MUT40-KS Code Onset Dates Condition Status SNOMED Code Problem Abnormal pelvic ultrasound R93.8 Active 346987891 Problem Mood disorder F39 Active 30786160 Problem Psychosis, unspecified psychosis type F29 Active 89445996 Problem Immunization due Z23 Active 697130896 Problem Encounter for annual physical exam Z00.00 Active 024385499 Problem Anxiety F41.9 Active 86240099 Problem Neuropathy G62.9 Active 851859907 Problem Pelvic pain R10.2 Active 26183804 Problem Chronic pain syndrome G89.4 Active 662861359 ALLERGIES No Information ENCOUNTERS Encounter Location Date Diagnosis [place] [id number] [place] [address] 99032- 7110 January, Abnormal pelvic ultrasound R93.8 [place] [id number] [place] [address] 97980- 1360 January, [place] [id number] [place] [address] 67775- 5018 January, Pelvic pain R10.2 [place] [id number] [place] [address] 31294- 9197 January, Encounter for annual physical exam Z00.00 ; Pelvic pain R10.2 ; Immunization due Z23 and Encounter for immunization Z23 [place] [id number] [place] [address] 41499- 4269 Sep, [place] [id number] [place] [address] 42787- 0732 Sep, Anxiety F41.9 and Chronic pain syndrome G89.4 [place] [id number] [place] [address] 43948- 7083 Sep, Anxiety F41.9 [facility] [address] 6[address]23- 1234 Aug, [facility] [id number] [place] [address] 90394- 9787 Aug, [facility] [address] 36675- 2432 Aug, Psychosis, unspecified psychosis type F29 [facility] [id number] [place] [address] 59114- 5115 Aug, Anxiety F41.9 [facility] [id number] [place] [address] 60336- 8566 Aug, [facility] [id number] [place] [address] 20492- 7658 Jul, [facility] [id number] [place] [address] 21066- 7373 Jul, [facility] [id number] [place] [address] 18832- 0718 Jul, [facility] [id number] [place] [address] 06060- 0100 Jul, [facility] [id number] [place] [address] 83262- 0117 Jul, Anxiety F41.9 [facility] [id number] [place] [address] 43729- 6755 Jun, Acute psychosis F23 and Homeless Z59.0 [facility] [id number] [place] [address] 43356- 0817 Jun, Anxiety F41.9 ; Episodic mood disorder F39 and Homeless Z59.0 [facility] [id number] [place] [address] 40226- 0153 Jun, Anxiety F41.9 [facility] [id number] [place] [address] 39692- 6366 Jun, [facility] [id number] [place] [address] 77232- 0546 May, [facility] [id number] [place] [address] 64147- 1734 May, Anxiety F41.9 ; Neuropathy G62.9 ; Dysuria R30.0 and 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 [facility] [id number] [place] [address] 00558- 4961 Apr, [facility] [id number] [place] [address] 66922- 1493 Apr, 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 [facility] [id number] [place] [address] 61903- 2689 Apr, Anxiety F41.9 [facility] [id number] [place] [address] 11154- 6954 Apr, [facility] [id number] [place] [address] 31586- 0888 Mar, Anxiety F41.9 [facility] [id number] [place] [address] 86061- 0885 Mar, [facility] [id number] [place] [address] 42400- 3235 Mar, [facility] [id number] [place] [address] 55640- 8893 Mar, [facility] [id number] [place] [address] 46662- 0615 Mar, Anxiety F41.9 ; Cervical neuritis M54.12 and Thoracic neuritis M54.14 [facility] [id number] [place] [address] 66685- 4781 Feb, Anxiety F41.9 ; Mood disorder F39 ; Episodic mood disorder F39 ; Psychosis, unspecified psychosis type F29 and Homeless Z59.0 [facility] [id number] [place] [address] 96135- 4205 January, [facility] [id number] [place] [address] 30631- 8022 Nov, [address] [id number] Nov, Mood disorder F39 and Sebaceous cyst L72.3 [place] [id number] [place] [address] 75094- 3871 Oct, Neuropathy G62.9 [place] [address] 29128- 3248 Oct, Mood disorder F39 and Neuropathy G62.[address] [id number] Aug, Mood disorder F39 and Neuropathy G62.9 [place] [id number] [place] [address] 35258- 5586 May, [place] [id number] [place] [address] 17695- 5358 Apr, Psychosis, unspecified psychosis type F29 [place] [id number] [place] [address] 64623- 1891 Apr, [place] [id number] [place] [address] 57174- 8785 Apr, [address] [id number] Mar, Upper respiratory tract infection, unspecified type J06.9 and Tinea corporis B35.4 [place] [id number] [place] [address] 40105- 0410 Feb, ADD (attention deficit disorder) F90.0 [place] [id number] [place] [address] 74305- 4814 Dec, Psychosis, unspecified psychosis type F29 and Episodic mood disorder F39 [place] [address] [address] 2546 Sep, [place] [address] [id number] Sep, Injury of hand, right, initial encounter S69.91XA [facility] [address] [id number] Jul, [facility] [id number] [place] [address] [id number] Jul, Encounter for dental examination Z01.20 [facility] [id number] [place] [address] 14232- 3068 Jun, Malingering Z76.5 [facility] [id number] [place] [address] 938275- 8598 Jun, Mood disorder F39 [facility] [id number] [place] [address] 49272- 9829 Jun, Anxiety disorder, unspecified F41.9 [place] [address] [id number] May, Anxiety 300.[address] [id number] May, Abdominal pain, left lateral 789.[address] [id number] May, 2015 Bipolar 1 disorder 296.7 and Abdominal pain, left lateral 789.[address] [id number] May, Bipolar 1 disorder 296.7 [facility] [address] [id number] January, Dental examination V72.2 [facility] [id number] [place] [address] 26514- 2510 Dec, [facility] [id number] [place] [address] [id number]- 2034 Dec, [facility] [address] [address]- 1606 Nov, [facility] [address] [id number] [place] [address]- 7593 Nov, [facility] [place] [facility] [address] [id number] [place] [address]- 6886 Nov, [facility] [place] [facility] [address] [id number] [place] [address]- 6570 Nov, [facility] [place] [facility] [address] [id number] [place] [address]- 7602 Nov, [facility] [place] [facility] [address] [id number] [place] [address]- 5708 Nov, [facility] [place] [facility] [address] [id number] [place] [address]- 5331 Nov, [facility] [place] [facility] [address] [facility] [id number] [place] [address]- 9698 Nov, [facility] [address] [place] [id number] Oct, [facility] [address] [id number] Oct, [facility] [place] [facility] [address] [id number] [place] [address]- 8131 Oct, [facility] [place] [facility] [address] [id number] [place] [address]- 2941 Oct, [facility] [place] [facility] [address] [id number] [place] [address]- 2642 Oct, [facility] [place] [facility] [address] [id number] [place] [address]- 1323 Oct, [facility] [place] [facility] [address] [id number] [place] [address]- 8391 Sep, [facility] [place] [facility] [address] [id number] [place] 3510 Sep, [facility] [place] [facility] [address] [id number] [place] [address]- 2569 Jul, [facility] [place] [facility] [address] [id number] [place] [address]- 9526 Jul, [facility] [place] [facility] [address] [id number] [place] [address]- 0927 Jul, [facility] [place] [facility] [address] [id number] [place] 0446 Jul, [facility] [place] [facility] [address] [id number] [place] [address]- 4243 Jun, [facility] [place] [facility] [address] [id number] [place] [address]- 6084 Jun, [facility] [place] [facility] [address] [id number] [place] [address]- 1906 Jun, [facility] [place] [facility] [address] [id number] [place] [address]- 1651 Jun, [facility] [place] [facility] [address] [id number] [place] [address]- 0042 May, [facility] [place] [facility] [address] [id number] [place] [address]- 6726 May, [facility] [place] [facility] [address] [id number] [place] [address]- 6040 Apr, [facility] [place] [facility] [address] [id number] [place] [address]- 4125 Apr, [facility] [place] [facility] [address] [id number] [place] [address]- 3279 Mar, [facility] [place] [facility] [address] [id number] [place] [address]- 1371 Mar, [facility] [place] [facility] [address] [id number] [place] [address]- 0977 Mar, [facility] [place] [facility] [address] [id number] [place] [address]- 2405 Mar, [facility] [place] [facility] [address] [id number] [place] 6620 January, [facility] [place] [facility] [address] [id number] [place] [address]- 5805 January, [facility] [place] [facility] [address] [id number] [place] [address]- 2946 Dec, [facility] [place] [facility] [address] [id number] [place] [address]- 0387 Dec, [facility] [place] [facility] [address] [id number] [place] [address]- 7371 Dec, [facility] [place] [facility] [address] [id number] [place] [address]- 0795 Nov, [facility] [place] [facility] [address] [id number] [place] [address]- 7196 Nov, [facility] [place] [facility] [address] [facility] [id number] [place] [address]- 4443 Nov, [facility] [place] [facility] [address] [id number] [place] [address]- 7601 Oct, [facility] [place] [facility] [address] [id number] [place] [address]- 9551 Oct, [facility] [place] [facility] [address] [facility] [id number] [place] [address]- 8176 Oct, [facility] [place] [facility] [address] [id number] [place] [address]- 9108 Oct, [facility] [place] [facility] [address] [id number] [place] [address]- 0245 Oct, [facility] [place] [facility] [address] [id number] [place] [address]- 3425 Oct, [facility] [place] [facility] [address] [id number] [place] [address]- 5678 Oct, [facility] [place] [facility] [address] [facility] [id number] [place] [address]- 9191 Oct, [facility] [place] [facility] [address] [id number] [place] [address]- 5395 Oct, [facility] [address] [id number] [place] [address]- 0657 Oct, [facility] [address] [id number] [place] [address]- 3917 Sep, [facility] [address] [id number] [place] [address]- 4927 Sep, [facility] [address] [id number] [place] [address]- 3974 Aug, [facility] [address] [id number] [place] [address]- 7938 Aug, [facility] [address] [id number] [place] [address]- 4877 Aug, [facility] [address] [id number] [place] [address]- 6302 Jul, [facility] [address] [id number] [place] [address]- 2078 Jul, [facility] [address] [id number] [place] [address]- 4911 Feb, [facility] [address] [id number] [place] [address]- 8474 Nov, [facility] [address] [id number] [place] [address]- 1484 Oct, [facility] [address] [id number] [place] [address]- 4165 Sep, [facility] [address] [id number] [place] [address]- 6478 Sep, [facility] [address] [id number] [place] [address] 2546 Sep, [facility] [address] [id number] [place] [address]- 5635 Aug, [facility] [address] [id number] [place] [address]- 0185 Aug, [facility] [place] [facility] [address] [id number] [place] [address]- 2182 January, [facility] [place] [facility] [address] [id number] [place] [address]- 6047 January, [facility] [place] [facility] [address] [id number] [place] [address]- 3827 January, [facility] [place] [facility] [address] [id number] [place] [address]- 4601 January, [facility] [place] [facility] [address] [id number] [place] [address]- 8918 January, [facility] [place] [facility] [address] [id number] [place] [address]- 5815 January, [facility] [place] [facility] [address] [id number] [place] [address]- 8756 Dec, [facility] [place] [facility] [address] [id number] [place] [address]- 1291 Dec, [facility] [place] [facility] [address] [id number] [place] [address]- 0982 Dec, [facility] [place] [facility] [address] [id number] [place] [address]- 2891 Dec, [facility] [place] [facility] [address] [id number] [address]- 5104 Nov, [facility] [place] [facility] [address] [id number] [place] [address]- 6058 Nov, [facility] [place] [facility] [address] [id number] [place] [address]- 3082 Oct, [facility] [place] [facility] [address] [id number] [place] [address]- 3380 Oct, [facility] [place] [facility] [address] [id number] [place] [address]- 3941 14 Oct, 2011 [facility] [address] [id number] [place] [address]- 0814 07 Oct, 2011 [facility] [address] [id number] [place] [address]- 1844 31 Sep, 2011 [facility] [address] [id number] [place] [address]- 7418 24 Sep, 2011 [facility] [address] [id number] [place] [address]- 7800 Sep, [facility] [address] [id number] [place] [address]- 1758 Sep, [facility] [address] [id number] [place] [address]- 9614 Sep, [facility] [address] [id number] [place] [address]- 0652 Sep, [facility] [address] [id number] [place] [address]- 6145 Sep, [facility] [address] [id number] [place] [address]- 4822 Sep, [facility] [address] [id number] [place] [address]- 1234 Sep, [facility] [address] [id number] [place] [address]- 2944 Sep, [facility] [address] [id number] [place] [address]- 2431 Sep, [facility] [address] [id number] [place] [address]- 8576 Aug, [facility] [address] [id number] [place] [address]- 2546 Aug, [facility] [address] [id number] [place] [address]- 7296 14 Jun, 2011 [facility] [address] [facility] [id number] [place] [address]- 8481 Jun, [facility] [id number] [address]- 8856 16 Apr, 2010 [facility] [id number] [address]- 3400 Apr, [facility] [id number] [address] 2236 Jul, IMMUNIZATIONS No Known Immunizations SOCIAL HISTORY Never Assessed REASON FOR VISIT Controlled Refill Requests PLAN OF CARE VITAL SIGNS MEDICATIONS Unknown [...]
[2018-10-08 20:14] LABS: BILIRUBIN,URINE NEGATIVE (NEGATIVE); CLARITY,URINE CLEAR; COLOR,URINE YELLOW; GLUCOSE, URINE (UA) NEGATIVE (NEGATIVE); KETONES,URINE NEGATIVE (NEGATIVE); LEUKOCYTE ESTERASE ,URINE 1+ (NEGATIVE); NITRITE,URINE NEGATIVE (NEGATIVE); PH,URINE 6 (5-9); PROTEIN,URINE NEGATIVE (NEGATIVE); UROBILINOGEN,URINE NORMAL (NORMAL)
--- OUTSIDE RECORDS SUMMARY | 2018-10-08 20:14 | XMS REPORT ---
Author Author NERISSA STEFANO Organization [facility] Address [address] [place] [address] Care Team Providers Care Recep Name Role Phone KAELAMARAL HOFFMANA Unavailable PROBLEMS Type Condition ICD9-CM Code AVE48-BH Code Onset Dates Condition Status SNOMED Code Problem Abnormal pelvic ultrasound R93.8 Active 484981429 Problem Mood disorder F39 Active 84067319 Problem Psychosis, unspecified psychosis type F29 Active 94668228 Problem Immunization due Z23 Active 748202182 Problem Encounter for annual physical exam Z00.00 Active 284474137 Problem Anxiety F41.9 Active 76906542 Problem Neuropathy G62.9 Active 350319868 Problem Pelvic pain R10.2 Active 81265940 Problem Chronic pain syndrome G89.4 Active 428725510 ALLERGIES No Information ENCOUNTERS Encounter Location Date Diagnosis [place] [address] [address] January, Abnormal pelvic ultrasound R93.8 [facility] [address] [place] [id number] [place] [address] 58148- 4741 January, [place] [address] [place] [id number] [place] [address] 87982- 0084 January, Pelvic pain R10.2 [facility] [address] [address]- [address] January, Encounter for annual physical exam Z00.00 ; Pelvic pain R10.2 ; Immunization due Z23 and Encounter for immunization Z23 [place] [address] [address]- [address] Sep, [place] [address] [place] [id number] [place] [address] 64777- 3306 Sep, Anxiety F41.9 and Chronic pain syndrome G89.4 [facility] [id number] [place] [address] 10037- 4373 Sep, An[address] F41.9 [facility] [id number] [place] [address] 51591- 6429 Aug, [facility] [id number] [place] [address] 44211- 0026 Aug, [facility] [address] 78656- 7339 Aug, Psychosis, unspecified psychosis type F29 [facility] [id number] [place] [address] 78470- 7869 Aug, Anxiety F41.9 [facility] [id number] [place] [address] 14051- 6747 Aug, [facility] [id number] [place] [address] 00922- 2899 Jul, [facility] [id number] [place] [address] 79246- 0894 Jul, [facility] [id number] [place] [address] 28730- 8882 Jul, [facility] [id number] [place] [address] 99849- 9330 Jul, [facility] [id number] [place] [address] 07387- 2980 Jul, Anxiety [address]41.9 [facility] [id number] [place] [address] 95925- 1815 Jun, Acute psychosis F23 and Homeless Z59.0 [facility] [id number] [place] [address] 63010- 1964 Jun, Anxiety F41.9 ; Episodic mood disorder F39 and [address]0 [facility] [id number] [place] [address] 22866- 5567 Jun, Anxiety F41.9 [facility] [id number] [place] [address] 01592- 4553 Jun, [facility] [id number] [place] [address] 85392- 7526 May, 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 [id number] [place] [address] 50422- 8671 Apr, 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 [address] [place] [id number] [place] [address] 30744- 3846 Apr, Anxiety F41.9 [facility] [address] [place] [place] [id number] [place] [address] 88607- 1753 Apr, [facility] [id number] [place] [address] 61555- 3504 Mar, Anxiety F41.9 [facility] [id number] [place] [address] 92361- 2305 Mar, [facility] [id number] [place] [address] 16780- 2984 Mar, [facility] [id number] [place] [address] 77926- 6401 Mar, [facility] [address] [place] [place] [id number] [place] [address] 84169- 9969 Mar, Anxiety F41.9 ; Cervical neuritis M54.12 and Thoracic neuritis M54.14 [facility] [id number] [place] [address] 22299- 9054 Feb, Anxiety F41.9 ; Mood disorder F39 ; Episodic mood disorder F39 ; Psychosis, unspecified psychosis type F29 and Homeless Z59.0 [facility] [address] [place] [id number] [place] [address] 49854- 0114 January, [facility] [address] [id number] [place] [address] 36950- 8983 Nov, [address] [id number] Nov, Mood disorder F39 and Sebaceous cyst L72.3 [place] [address] [id number] [place] [address] 76012- 7600 Oct, Neuropathy G62.9 [place] [address] [place] [id number] [place] [address] 32551- 7098 Oct, Mood disorder F39 and Neuropathy G62.[address] [id number] Aug, Mood disorder F39 and Neuropathy G62.9 [place] [address] [place] [id number] [place] [address] 46067- 7020 May, [place] [address] [place] [id number] [place] [address] 82226- 5168 Apr, Psychosis, unspecified psychosis type F29 [facility] [address] [place] [place] [id number] [place] [address] 61502- 5491 Apr, [place] [address] [place] [id number] [place] [address] 03613- 6768 Apr, [address] [id number] Mar, Upper respiratory tract infection, unspecified type J06.9 [address] B[address].4 [facility] [address] [place] [id number] [place] [address] 63329- 0071 Feb, ADD (attention deficit disorder) F90.0 [facility] [address] [place] [id number] [place] [address] 19300- 3166 Dec, Psychosis, unspecified psychosis type F29 and Episodic mood disorder F39 [facility] [address] [id number] [address]- 3816 Sep, [address] [id number] Sep, Injury of hand, right, initial encounter S69.91XA [facility] [address] [id number] Jul, [facility] [address] [place] [id number] [place] [address] [id number] Jul, Encounter for dental examination Z01.20 [facility] [address] [place] [id number] [place] [address] 63613- 5102 Jun, [place] Z76.5 [facility] [address] [place] [id number] [place] [address] 556388- 3465 Jun, Mood disorder F39 [facility] [address] [place] [id number] [place] [address] 90752- 5926 Jun, Anxiety disorder, unspecified F41.[address] [id number] May, Anxiety 300.[address] [id number] May, Abdominal pain, left lateral 789.[address] [id number] May, 2015 Bipolar 1 disorder 296.7 and Abdominal pain, left lateral 789.[address] [id number] May, Bipolar 1 disorder 296.7 [facility] [address] [id number] [id number] January, Dental examination V72.2 [facility] [address] [place] [address] 36505- 7954 Dec, [facility] [address]- 4432 Dec, [facility] [address] 5494 Nov, [facility] [address] [id number] [place] [address]- 6619 Nov, [facility] [address] [id number] [place] [address]- 1330 Nov, [facility] [address] [id number] [place] [address]- 7314 Nov, [facility] [address] [id number] [place] [address]- 7699 Nov, [facility] [address] [id number] [place] [address]- 6913 Nov, [facility] [address] [id number] [place] [address]- 3958 Nov, [facility] [address] [id number] [place] [address]- 6714 Nov, [facility] [address] [place] [id number] Oct, [facility] [address] [id number] Oct, [facility] [address] [id number] [place] [address]- 6029 Oct, [facility] [address] [id number] [place] [address]- 0641 Oct, [facility] [address] [id number] [place] [address]- 2539 Oct, [facility] [place] [facility] [address] [id number] [place] [address]- 3225 Oct, [facility] [place] [facility] [address] [id number] [place] [address]- 3040 Sep, [facility] [place] [facility] [address] [id number] [place] [address]- 0299 Sep, [facility] [place] [facility] [address] [id number] [place] [address]- 5559 Jul, [facility] [place] [facility] [address] [id number] [place] [address]- 2233 Jul, [facility] [place] [facility] [address] [id number] [place] 3407 Jul, [facility] [place] [facility] [address] [id number] [place] 3731 Jul, [facility] [place] [facility] [address] [id number] [place] [address]- 5673 Jun, [facility] [place] [facility] [address] [id number] [place] [address]- 7855 Jun, [facility] [place] [facility] [address] [id number] [place] [address]- 6779 Jun, [facility] [place] [facility] [address] [id number] [place] [address]- 1901 Jun, [facility] [place] [facility] [address] [id number] [place] [address]- 6858 May, [facility] [place] [facility] [address] [id number] [place] [address]- 1549 May, [facility] [place] [facility] [address] [id number] [place] [address]- 3252 Apr, [facility] [place] [facility] [address] [id number] [place] [address]- 3861 Apr, [facility] [place] [facility] [address] [id number] [place] [address]- 3913 Mar, [facility] [place] [facility] [address] [id number] [place] [address]- 2578 Mar, [facility] [place] [facility] [address] [id number] [place] [address]- 6398 Mar, [facility] [place] [facility] [address] [id number] [place] 9853 Mar, [facility] [place] [facility] [address] [id number] [place] [address]- 7314 January, [facility] [place] [facility] [address] [facility] [id number] [place] [address]- 8444 January, [facility] [place] [facility] [address] [facility] [id number] [place] [address]- 8383 Dec, [facility] [place] [facility] [address] [facility] [id number] [place] [address]- 0251 Dec, [facility] [place] [facility] [address] [facility] [id number] [place] [address]- 3875 Dec, [facility] [place] [facility] [address] [facility] [id number] [place] [address]- 8274 Nov, [facility] [place] [facility] [address] [facility] [id number] [place] [address]- 2481 Nov, [facility] [place] [facility] [address] [facility] [id number] [place] [address]- 6362 Nov, [facility] [place] [facility] [address] [facility] [id number] [place] [address]- 2213 Oct, [facility] [place] [facility] [address] [facility] [id number] [place] [address]- 7930 Oct, [facility] [place] [facility] [address] [facility] [id number] [place] [address]- 5423 Oct, [facility] [place] [facility] [address] [facility] [id number] [place] [address]- 8489 Oct, [facility] [place] [facility] [address] [facility] [id number] [place] [address]- 9720 Oct, [facility] [place] [facility] [address] [facility] [id number] [place] [address]- 1585 Oct, [facility] [place] [facility] [address] [facility] [id number] [place] [address]- 7408 Oct, [facility] [place] [facility] [address] [place] [id number] [place] [address]- 1389 Oct, [facility] [place] [facility] [address] [id number] [place] [address]- 7816 Oct, [facility] [address] [id number] [place] [address]- 3584 Oct, [facility] [place] [facility] [address] [id number] [place] [address]- 5202 Sep, [facility] [address] [id number] [place] [address]- 2164 Sep, [facility] [address] [id number] [place] [address]- 0609 Aug, [facility] [place] [facility] [address] [id number] [place] [address]- 7303 Aug, [facility] [address] [facility] [id number] [place] [address]- 7573 Aug, [facility] [address] [id number] [place] [address]- 9102 Jul, [facility] [address] [id number] [place] [address]- 5587 Jul, [facility] [address] [id number] [place] [address]- 0711 Feb, [facility] [place] [facility] [address] [id number] [place] [address]- 3823 Nov, [facility] [place] [facility] [address] [id number] [place] [address]- 7471 Oct, [facility] [place] [facility] [address] [id number] [place] [address]- 1920 Sep, [facility] [place] [facility] [address] [id number] [place] [address]- 7410 Sep, [facility] [place] [facility] [address] [id number] [place] [address]- 5741 Sep, [facility] [place] [facility] [address] [id number] [place] [address]- 4432 Aug, [facility] [place] [facility] [address] [id number] [place] [address]- 1289 Aug, [facility] [place] [facility] [address] [id number] [place] 3256 January, [facility] [place] [facility] [address] [id number] [place] [address]- 6161 January, [facility] [place] [facility] [address] [id number] [place] [address]- 6545 January, [facility] [place] [facility] [address] [id number] [place] [address]- 2877 January, [facility] [place] [facility] [address] [id number] [place] [address]- 6631 January, [facility] [place] [facility] [address] [id number] [place] [address]- 8611 January, [facility] [place] [facility] [address] [id number] [place] [address]- 9669 Dec, [facility] [place] [facility] [address] [id number] [place] [address]- 7928 Dec, [facility] [place] [facility] [address] [id number] [place] [address]- 9639 Dec, [facility] [place] [facility] [address] [id number] [place] [address]- 9012 Dec, [facility] [place] [facility] [address] [id number] [place] [address]- 0460 Nov, [facility] [place] [facility] [address] [id number] [place] [address]- 1348 Nov, [facility] [place] [facility] [address] [id number] [place] [address]- 7831 Oct, [facility] [place] [facility] [address] [id number] [place] [address]- 0121 Oct, [facility] [place] [facility] [address] [id number] [place] [address]- 3027 14 Oct, 2011 [facility] [address] [id number] [place] [address]- 4376 07 Oct, 2011 [facility] [place] [facility] [address] [id number] [place] [address]- 0836 31 Sep, 2011 [facility] [address] [id number] [place] [address]- 1208 Sep, [facility] [place] [facility] [address] [id number] [place] [address]- 7956 Sep, [facility] [place] [facility] [address] [id number] [place] [address]- 2570 Sep, [facility] [address] [id number] [place] [address]- 8489 Sep, [facility] [place] [facility] [address] [id number] [place] [address]- 9140 Sep, [facility] [address] [id number] [place] [address]- 3678 Sep, [facility] [address] [id number] [place] [address]- 6380 Sep, [facility] [address] [id number] [place] [address]- 0728 Sep, [facility] [place] [facility] [address] [id number] [place] [address]- 6256 Sep, [facility] [place] [facility] [address] [id number] [place] [address]- 8186 Sep, [facility] [place] [facility] [address] [id number] [place] [address]- 6386 Aug, [facility] [place] [facility] [address] [id number] [place] [address]- 2546 06 Aug, 2011 [facility] [place] [facility] [address] [id number] [place] [address]- 7250 Jun, [facility] [address] [facility] [id number] [address]- [address] Jun, [facility] [address] [id number], [place] [address]- 2250 [address], [address] [facility] [address] [id number], [place] [address]- 5264 Apr, [facility] [address] [id number], [place] [address]- 9238 Jul, IMMUNIZATIONS No Known Immunizations SOCIAL HISTORY [...]
--- OUTSIDE RECORDS SUMMARY | 2018-10-08 20:14 | XMS REPORT ---
Author Author SIMONE KWAN Organization [facility] Address [address] [place] [address] Care Team Providers Care Independent Agent Music Education Name Role Phone SIMONE KWAN Unavailable PROBLEMS Type Condition ICD9-CM Code [id number] Code Onset Dates Condition Status SNOMED Code Problem Abnormal pelvic ultrasound R93.8 Active 569102791 Problem Mood disorder F39 Active 89403809 Problem Psychosis, unspecified psychosis type F29 Active 38338775 Problem Immunization due Z23 Active 325533474 Problem Encounter for annual physical exam Z00.00 Active 472820712 Problem Anxiety F41.9 Active 68047280 Problem Neuropathy G62.9 Active 672239519 Problem Pelvic pain R10.2 Active 11513155 Problem Chronic pain syndrome G89.4 Active 139961915 ALLERGIES No Information ENCOUNTERS Encounter Location Date Diagnosis [place] [id number] [place] [address] 56254- 7245 January, Abnormal pelvic ultrasound R93.8 [place] [id number] [place] [address] 77056- 8073 January, [place] [id number] [place] [address] 48053- 8448 January, Pelvic pain R10.2 [place] [id number] [place] [address] 80073- 2515 January, Encounter for annual physical exam Z00.00 ; Pelvic pain R10.2 ; Immunization due Z23 and Encounter for immunization Z23 [place] [id number] [place] [address] 37615- 7248 Sep, [place] [id number] [place] [address] 21816- 7775 Sep, Anxiety F41.9 and Chronic pain syndrome G89.4 [place] [id number] [place] [address] 35041- 8938 Sep, Anxiety F41.9 [facility] [address] 18516- 4883 Aug, [facility] [id number] [place] [address] 37563- 7601 Aug, [facility] [address] 41174- 0620 Aug, Psychosis, unspecified psychosis type F29 [facility] [id number] [place] [address] 79880- 9774 Aug, Anxiety F41.9 [facility] [id number] [place] [address] 47935- 5190 Aug, [facility] [id number] [place] [address] 28396- 8167 Jul, [facility] [id number] [place] [address] 62303- 7110 Jul, [facility] [id number] [place] [address] 85106- 3749 Jul, [facility] [id number] [place] [address] 20326- 1227 Jul, [facility] [id number] [place] [address] 73019- 4959 Jul, Anxiety F41.9 [facility] [id number] [place] [address] 65944- 4652 Jun, Acute psychosis F23 and Homeless Z59.0 [facility] [id number] [place] [address] 84366- 4585 Jun, Anxiety F41.9 ; Episodic mood disorder F39 and Homeless Z59.0 [facility] [id number] [place] [address] 66071- 2025 Jun, Anxiety F41.9 [facility] [id number] [place] [address] 50077- 7536 Jun, [facility] [id number] [place] [address] 42275- 4646 May, [facility] [id number] [place] [address] 81982- 4813 May, Anxiety F41.9 ; Neuropathy G62.9 ; Dysuria R30.0 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 [facility] [id number] [place] [address] 58251- 6177 Apr, [facility] [id number] [place] [address] 18058- 1885 Apr, 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 [facility] [id number] [place] [address] 53044- 6004 Apr, Anxiety F41.9 [facility] [id number] [place] [address] 89339- 3260 Apr, [facility] [id number] [place] [address] 14997- 6195 Mar, Anxiety F41.9 [facility] [id number] [place] [address] 82317- 8391 Mar, [facility] [id number] [place] [address] 06931- 1735 Mar, [facility] [id number] [place] [address] 04329- 9805 Mar, [facility] [id number] [place] [address] 80352- 8209 Mar, Anxiety F41.9 ; Cervical neuritis M54.12 and Thoracic neuritis M54.14 [facility] [id number] [place] [address] 69747- 6535 Feb, Anxiety F41.9 ; Mood disorder F39 ; Episodic mood disorder F39 ; Psychosis, unspecified psychosis type F29 and Homeless Z59.0 [facility] [id number] [place] [address] 84713- 2739 January, [facility] [id number] [place] [address] 00013- 7495 Nov, [address] [id number] Nov, Mood disorder F39 and Sebaceous cyst L72.3 [place] [id number] [place] [address] 19911- 1227 Oct, Neuropathy G62.9 [place] [address] 95765- 3389 Oct, Mood disorder F39 and Neuropathy G62.[address] [id number] Aug, Mood disorder F39 and Neuropathy G62.9 [place] [id number] [place] [address] 49093- 2800 May, [place] [id number] [place] [address] 04438- 0960 Apr, Psychosis, unspecified psychosis type F29 [place] [id number] [place] [address] 55895- 4181 Apr, [place] [id number] [place] [address] 30052- 7331 Apr, [address] [id number] Mar, Upper respiratory tract infection, unspecified type J06.9 and Tinea corporis B35.4 [place] [id number] [place] [address] 99658- 4958 Feb, ADD (attention deficit disorder) F90.0 [place] [id number] [place] [address] 14939- 7210 Dec, Psychosis, unspecified psychosis type F29 and Episodic mood disorder F39 [place] [address] [address] 2546 Sep, [place] [address] [place] [id number] Sep, Injury of hand, right, initial encounter S69.91XA [facility] [address] [id number] Jul, [facility] [id number] [place] [address] [id number] Jul, Encounter for dental examination Z01.20 [facility] [id number] [place] [address] 68039- 8996 Jun, [place] Z76.5 [facility] [id number] [place] [address] 205496- 4431 Jun, Mood disorder F39 [facility] [id number] [place] [address] 20755- 3542 Jun, Anxiety disorder, unspecified F41.9 [place] [address] [id number] May, Anxiety [address] [id number] May, Abdominal pain, left lateral 789.[address] [id number] 08 May, 2015 Bipolar 1 disorder 296.7 and Abdominal pain, left lateral 789.[address] [id number] May, Bipolar 1 disorder 296.7 [facility] [address] [id number] January, Dental examination V72.2 [facility] [id number] [place] [address] 87955- 5955 Dec, [facility] [id number] [place] [address] 02003149- 2474 Dec, [facility] [address] [address]- 5074 Nov, [facility] [address] [id number] [place] [address]- 2760 Nov, [facility] [place] [facility] [address] [id number] [place] [address]- 5247 Nov, [facility] [place] [facility] [address] [id number] [place] [address]- 0213 Nov, [facility] [place] [facility] [address] [id number] [place] [address]- 3978 Nov, [facility] [place] [facility] [address] [id number] [place] [address]- 0370 Nov, [facility] [place] [facility] [address] [id number] [place] [address]- 7555 Nov, [facility] [place] [facility] [address] [facility] [id number] [place] [address]- 0559 Nov, [facility] [address] [id number] Oct, [facility] [address] [place] [id number] Oct, [facility] [place] [facility] [address] [id number] [place] [address]- 7624 Oct, [facility] [place] [facility] [address] [id number] [place] [address]- 8629 Oct, [facility] [place] [facility] [address] [id number] [place] [address]- 0561 Oct, [facility] [place] [facility] [address] [id number] [place] [address]- 7071 Oct, [facility] [place] [facility] [address] [id number] [place] [address]- 1521 Sep, [facility] [place] [facility] [address] [id number] [place] 4622 Sep, [facility] [place] [facility] [address] [id number] [place] [address]- 9071 Jul, [facility] [place] [facility] [address] [id number] [place] [address]- 9178 Jul, [facility] [place] [facility] [address] [id number] [place] [address]- 1662 Jul, [facility] [place] [facility] [address] [id number] [place] 0385 Jul, [facility] [place] [facility] [address] [id number] [place] [address]- 6639 Jun, [facility] [place] [facility] [address] [id number] [place] [address]- 2329 Jun, [facility] [place] [facility] [address] [id number] [place] [address]- 0903 Jun, [facility] [place] [facility] [address] [id number] [place] [address]- 2851 Jun, [facility] [place] [facility] [address] [id number] [place] [address]- 1962 May, [facility] [place] [facility] [address] [id number] [place] [address]- 5790 May, [facility] [place] [facility] [address] [id number] [place] [address]- 0504 Apr, [facility] [place] [facility] [address] [id number] [place] [address]- 1342 Apr, [facility] [place] [facility] [address] [id number] [place] [address]- 4739 Mar, [facility] [place] [facility] [address] [id number] [place] [address]- 3882 Mar, [facility] [place] [facility] [address] [id number] [place] [address]- 4890 Mar, [facility] [place] [facility] [address] [id number] [place] [address]- 5154 Mar, [facility] [place] [facility] [address] [id number] [place] 7967 January, [facility] [place] [facility] [address] [id number] [place] [address]- 4965 January, [facility] [place] [facility] [address] [id number] [place] [address]- 1112 Dec, [facility] [place] [facility] [address] [id number] [place] [address]- 2049 Dec, [facility] [place] [facility] [address] [id number] [place] [address]- 0098 Dec, [facility] [place] [facility] [address] [id number] [place] [address]- 5927 Nov, [facility] [place] [facility] [address] [id number] [place] [address]- 7109 Nov, [facility] [place] [facility] [address] [facility] [id number] [place] [address]- 3901 Nov, [facility] [place] [facility] [address] [id number] [place] [address]- 9654 Oct, [facility] [place] [facility] [address] [id number] [place] [address]- 4413 Oct, [facility] [place] [facility] [address] [facility] [id number] [place] [address]- 2113 Oct, [facility] [place] [facility] [address] [id number] [place] [address]- 3168 Oct, [facility] [place] [facility] [address] [id number] [place] [address]- 8691 Oct, [facility] [place] [facility] [address] [id number] [place] [address]- 0684 Oct, [facility] [place] [facility] [address] [id number] [place] [address]- 1830 Oct, [facility] [place] [facility] [address] [facility] [id number] [place] [address]- 2456 Oct, [facility] [place] [facility] [address] [id number] [place] [address]- 6214 Oct, [facility] [address] [id number] [place] [address]- 8062 Oct, [facility] [address] [id number] [place] [address]- 7124 Sep, [facility] [address] [id number] [place] [address]- 3738 Sep, [facility] [address] [id number] [place] [address]- 3359 Aug, [facility] [address] [id number] [place] [address]- 3499 Aug, [facility] [address] [id number] [place] [address]- 9600 Aug, [facility] [address] [id number] [place] [address]- 1480 Jul, [facility] [address] [id number] [place] [address]- 9811 Jul, [facility] [address] [id number] [place] [address]- 1973 Feb, [facility] [address] [id number] [place] [address]- 9494 Nov, [facility] [address] [id number] [place] [address]- 6482 Oct, [facility] [address] [id number] [place] [address]- 7550 Sep, [facility] [address] [id number] [place] [address]- 7733 Sep, [facility] [address] [id number] [place] [address] 2546 Sep, [facility] [address] [id number] [place] [address]- 1188 Aug, [facility] [address] [id number] [place] [address]- 6282 Aug, [facility] [place] [facility] [address] [id number] [place] [address]- 2466 January, [facility] [place] [facility] [address] [id number] [place] [address]- 9737 January, [facility] [place] [facility] [address] [id number] [place] [address]- 8784 January, [facility] [place] [facility] [address] [id number] [place] [address]- 2385 January, [facility] [place] [facility] [address] [id number] [place] [address]- 8307 January, [facility] [place] [facility] [address] [id number] [place] [address]- 8906 January, [facility] [place] [facility] [address] [id number] [place] [address]- 5391 Dec, [facility] [place] [facility] [address] [id number] [place] [address]- 1511 Dec, [facility] [place] [facility] [address] [id number] [place] [address]- 6998 Dec, [facility] [place] [facility] [address] [id number] [place] [address]- 6724 Dec, [facility] [place] [facility] [address] [id number] [address]- 9733 Nov, [facility] [place] [facility] [address] [id number] [place] [address]- 5196 Nov, [facility] [place] [facility] [address] [id number] [place] [address]- 1609 Oct, [facility] [place] [facility] [address] [id number] [place] [address]- 3232 Oct, [facility] [place] [facility] [address] [id number] [place] [address]- 5209 14 Oct, 2011 [facility] [place] [address] [id number] [place] [address]- 2207 07 Oct, 2011 [facility] [address] [id number] [place] [address]- 3554 31 Sep, 2011 [facility] [address] [id number] [place] [address]- 0786 24 Sep, 2011 [facility] [address] [id number] [place] [address]- 9401 Sep, [facility] [address] [id number] [place] [address]- 4825 Sep, [facility] [address] [id number] [place] [address]- 1390 Sep, [facility] [address] [id number] [place] [address]- 9556 Sep, [facility] [address] [id number] [place] [address]- 7099 Sep, [facility] [address] [id number] [place] [address]- 4943 Sep, [facility] [address] [id number] [place] [address]- 4901 Sep, [facility] [address] [id number] [place] [address]- 5476 Sep, [facility] [address] [id number] [place] [address]- 6754 Sep, [facility] [address] [id number] [place] [address]- 2372 Aug, [facility] [address] [id number] [place] [address]- 2546 Aug, [facility] [address] [id number] [place] [address]- 8873 14 Jun, 2011 [facility] [address] [facility] [id number] [place] [address]- 7596 Jun, [facility] [id number] [address]- 2546 Apr, [facility] [address] [facility] [id number] [address]- 2546 Apr, [facility] [address] [facility] [id number] [address] 2546 Jul, IMMUNIZATIONS No Known Immunizations SOCIAL HISTORY Never Assessed REASON FOR VISIT PLAN OF CARE VITAL SIGNS MEDICATIONS Medication Instructions Dosage Frequency Start Date End Date Duration Status Xanax 1 MG Orally Twice a day 1 tablet 12h May, 28 days Active Oxycodone HCl 5 MG Orally every 6 hrs 1 tablet 6h 08 Aug, 2017 28 days Active RESULTS No Results [...]
--- OUTSIDE RECORDS SUMMARY | 2018-10-08 20:15 | XMS REPORT ---
Author Author NERISSA STEFANO Organization [facility] Address [address] [place] [address] Care Team Providers Care Mail Reader Name Role Phone KAELAMARAL HOFFMANA Unavailable PROBLEMS Type Condition ICD9-CM Code YYL40-VE Code Onset Dates Condition Status SNOMED Code Problem Abnormal pelvic ultrasound R93.8 Active 964895892 Problem Mood disorder F39 Active 54881135 Problem Psychosis, unspecified psychosis type F29 Active 64775085 Problem Immunization due Z23 Active 275229509 Problem Encounter for annual physical exam Z00.00 Active 635624585 Problem Anxiety F41.9 Active 75286548 Problem Neuropathy G62.9 Active 112019717 Problem Pelvic pain R10.2 Active 38538346 Problem Chronic pain syndrome G89.4 Active 883772277 ALLERGIES No Information ENCOUNTERS Encounter Location Date Diagnosis [place] [address] [address] January, Abnormal pelvic ultrasound R93.8 [facility] [address] [place] [id number] [place] [address]- 5619 January, [place] [address] [place] [id number] [place] [address] 27494- 7741 January, Pelvic pain R10.2 [facility] [address] [address] January, Encounter for annual physical exam Z00.00 ; Pelvic pain R10.2 ; Immunization due Z23 and Encounter for immunization Z23 [place] [address] [address]- [address] Sep, [place] [address] [address] [place] [id number] [place] [address] 92402- 5794 Sep, Anxiety F41.9 and Chronic pain syndrome G89.4 [facility] [address] [place] [id number] [place] [address] 31858- 8814 Sep, Anxiety F41.9 [facility] [address] [place] [id number] [place] [address]37- 6205 Aug, [facility] [address] [place] [id number] [place] [address] 07133- 6834 Aug, [facility] [place] [address] [address] Aug, Psychosis, unspecified psychosis type F29 [facility] [place] [address] [place] [id number] [place] [address] 83833- 4161 Aug, Anxiety F41.9 [facility] [place] [address] [place] [id number] [place] [address] 74824- 1423 Aug, [facility] [place] [address] [place] [id number] [place] [address] 28288- 4033 Jul, [facility] [place] [address] [place] [id number] [place] [address] 79971- 8129 Jul, [facility] [place] [address] [place] [id number] [place] [address] 15454- 0293 Jul, [facility] [address] [place] [id number] [place] [address] 75317- 3983 Jul, [facility] [place] [address] [place] [id number] [place] [address] 70735- 1381 Jul, Anxiety F41.9 [facility] [place] [address] [place] [id number] [place] [address] 40596- 9430 Jun, Acute psychosis F23 and Homeless Z59.0 [facility] [place] [address] [place] [id number] [place] [address] 11741- 6803 Jun, Anxiety F41.9 ; Episodic mood disorder F39 and Homeless Z59.0 [facility] [place] [address] [place] [id number] [place] [address] 04405- 5543 Jun, Anxiety F41.9 [facility] [place] [address] [place] [id number] [place] [address] 83782- 2802 Jun, [facility] [place] [address] [place] [id number] [place] [address] 76411- 9216 May, [facility] [address] [place] [id number] [place] [address] 23282- 2369 14 May, 2017 Anxiety F41.9 ; Neuropathy G62.9 ; Dysuria R30.0 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 [facility] [place] [address] [place] [id number] [place] [address] 98705- 5473 Apr, [facility] [address] [place] [id number] [place] [address] 38379- 5224 Apr, 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 [facility] [address] [place] [id number] [place] [address] 71457- 1508 Apr, Anxiety F41.9 [facility] [place] [address] [place] [id number] [place] [address] 50038- 4040 Apr, [facility] [address] [place] [id number] [place] [address] 70456- 0842 Mar, Anxiety F41.9 [facility] [address] [place] [id number] [place] [address] 80985- 2149 Mar, [facility] [place] [address] [place] [id number] [place] [address] 58011- 7217 Mar, [facility] [address] [place] [id number] [place] [address] 37433- 4060 Mar, [facility] [place] [address] [place] [id number] [place] [address] 98125- 7882 Mar, Anxiety F41.9 ; Cervical neuritis M54.12 and Thoracic neuritis M54.14 [facility] [address] [place] [id number] [place] [address] 36281- 2854 Feb, Anxiety F41.9 ; Mood disorder F39 ; Episodic mood disorder F39 ; Psychosis, unspecified psychosis type F29 and Homeless Z59.0 [facility] [place] [address] [place] [id number] [place] [address] 58128- 3067 January, [facility] [address] [place] [id number] [place] [address] 26438- 7043 Nov, [address] [id number] Nov, Mood disorder F39 and Sebaceous cyst L72.3 [place] [address] [place] [id number] [place] [address] 98559- 7670 Oct, Neuropathy G62.9 [place] [address] [place] [id number] [place] [address] 58484- 7333 Oct, Mood disorder F39 and Neuropathy G62.[address] [id number] Aug, Mood disorder F39 and Neuropathy G62.9 [place] [address] [place] [id number] [place] [address] 28529- 2275 May, [place] [address] [place] [id number] [place] [address] 68760- 6520 Apr, Psychosis, unspecified psychosis type F29 [facility] [place] [address] [place] [id number] [place] [address] 06354- 2933 Apr, [place] [address] [place] [id number] [place] [address] 70739- 7488 Apr, [address] [id number] Mar, Upper respiratory tract infection, unspecified type J06.9 and Tinea corporis B35.4 [facility] [place] [address] [place] [id number] [place] [address] 95069- 6534 Feb, ADD (attention deficit disorder) F90.0 [facility] [place] [address] [place] [id number] [place] [address] 84273- 5928 Dec, Psychosis, unspecified psychosis type F29 and Episodic mood disorder F39 [facility] [place] [address] [place] [id number] [address]- 4036 Sep, [address] [id number] Sep, Injury of hand, right, initial encounter S69.91XA [facility] [address] [id number] Jul, [facility] [address] [place] [id number] [place] [address] [id number] Jul, Encounter for dental examination Z01.20 [facility] [place] [address] [place] [id number] [place] [address] 62258- 1051 Jun, Malingering Z76.5 [facility] [place] [address] [place] [id number] [place] [address] 615767- 8530 Jun, Mood disorder F39 [facility] [place] [address] [place] [id number] [place] [address] 91604- 5106 Jun, Anxiety disorder, unspecified F41.[address] [id number] May, Anxiety 300.[address] [id number] May, Abdominal pain, left lateral 789.[address] [id number] May, 2015 Bipolar 1 disorder 296.7 and Abdominal pain, left lateral 789.[address] [id number] May, Bipolar 1 disorder 296.7 [facility] [address] [place] [id number] [id number] January, Dental examination V72.2 [facility] [place] [address] [place] [address] 84643- 1279 Dec, [facility] [address]- 8984 Dec, [facility] [address]- 8145 Nov, [facility] [address] [id number] [place] [address]- 8070 Nov, [facility] [address] [id number] [place] [address]- 0805 Nov, [facility] [address] [id number] [place] [address]- 3480 Nov, [facility] [address] [id number] [place] [address]- 3309 Nov, [facility] [address] [id number] [place] [address]- 0415 Nov, [facility] [address] [id number] [place] [address]- 6766 Nov, [facility] [address] [id number] [place] [address]- 9566 Nov, [facility] [address] [place] [id number] Oct, [facility] [address] [place] [id number] Oct, [facility] [address] [id number] [place] [address]- 8641 Oct, [facility] [address] [id number] [place] [address]- 0246 Oct, [facility] [address] [id number] [place] [address]- 7550 Oct, [facility] [place] [facility] [address] [id number] [place] [address]- 5508 Oct, [facility] [place] [facility] [address] [id number] [place] [address]- 2985 Sep, [facility] [place] [facility] [address] [id number] [place] [address]- 0724 Sep, [facility] [place] [facility] [address] [id number] [place] [address]- 1457 Jul, [facility] [place] [facility] [address] [id number] [place] [address]- 4071 Jul, [facility] [place] [facility] [address] [id number] [place]- 0238 Jul, [facility] [place] [facility] [address] [id number] [place] 7963 Jul, [facility] [place] [facility] [address] [id number] [place] [address]- 1734 Jun, [facility] [place] [facility] [address] [id number] [place] [address]- 7443 Jun, [facility] [place] [facility] [address] [id number] [place] [address]- 8720 Jun, [facility] [place] [facility] [address] [id number] [place] [address]- 5811 Jun, [facility] [place] [facility] [address] [id number] [place] [address]- 3719 May, [facility] [place] [facility] [address] [id number] [place] [address]- 8018 May, [facility] [place] [facility] [address] [id number] [place] [address]- 4256 Apr, [facility] [place] [facility] [address] [id number] [place] [address]- 1704 Apr, [facility] [place] [facility] [address] [id number] [place] [address]- 6123 Mar, [facility] [place] [facility] [address] [id number] [place] [address]- 9122 Mar, [facility] [place] [facility] [address] [id number] [place] [address]- 7136 Mar, [facility] [place] [facility] [address] [id number] [place] 3575 Mar, [facility] [place] [facility] [address] [id number] [place] [address]- 6665 January, [facility] [place] [facility] [address] [facility] [id number] [place] [address]- 6517 January, [facility] [place] [facility] [address] [facility] [id number] [place] [address]- 3852 Dec, [facility] [place] [facility] [address] [facility] [id number] [place] [address]- 6049 Dec, [facility] [place] [facility] [address] [facility] [id number] [place] [address]- 8240 Dec, [facility] [place] [facility] [address] [facility] [id number] [place] [address]- 3688 Nov, [facility] [place] [facility] [address] [facility] [id number] [place] [address]- 7239 Nov, [facility] [place] [facility] [address] [facility] [id number] [place] [address]- 3929 Nov, [facility] [place] [facility] [address] [facility] [id number] [place] [address]- 3023 Oct, [facility] [place] [facility] [address] [facility] [id number] [place] [address]- 3884 Oct, [facility] [place] [facility] [address] [facility] [id number] [place] [address]- 9219 Oct, [facility] [place] [facility] [address] [facility] [id number] [place] [address]- 6748 Oct, [facility] [place] [facility] [address] [facility] [id number] [place] [address]- 9252 Oct, [facility] [place] [facility] [address] [facility] [id number] [place] [address]- 3695 Oct, [facility] [place] [facility] [address] [facility] [id number] [place] [address]- 9899 Oct, [facility] [place] [facility] [address] [place] [id number] [address]- 4313 Oct, [facility] [place] [facility] [address] [id number] [place] [address]- 7776 Oct, [facility] [address] [id number] [place] [address]- 5928 Oct, [facility] [place] [facility] [address] [id number] [place] [address]- 3197 Sep, [facility] [address] [id number] [place] [address]- 8177 Sep, [facility] [address] [id number] [place] [address]- 7741 Aug, [facility] [place] [facility] [address] [id number] [place] [address]- 6221 Aug, [facility] [address] [facility] [id number] [place] [address]- 7960 Aug, [facility] [address] [id number] [place] [address]- 2448 Jul, [facility] [address] [id number] [place] [address]- 4078 Jul, [facility] [address] [id number] [place] [address]- 1402 Feb, [facility] [place] [facility] [address] [id number] [place] [address]- 0422 Nov, [facility] [place] [facility] [address] [id number] [place] [address]- 8062 Oct, [facility] [place] [facility] [address] [id number] [place] [address]- 4886 Sep, [facility] [place] [facility] [address] [id number] [place] [address]- 9744 Sep, [facility] [place] [facility] [address] [id number] [place] [address]- 1547 Sep, [facility] [place] [facility] [address] [id number] [place] [address]- 4823 Aug, [facility] [place] [facility] [address] [id number] [place] [address]- 1485 Aug, [facility] [place] [facility] [address] [id number] [place] 0685 January, [facility] [place] [facility] [address] [id number] [place] [address]- 9934 January, [facility] [place] [facility] [address] [id number] [place] [address]- 7053 January, [facility] [place] [facility] [address] [id number] [place] [address]- 1444 January, [facility] [place] [facility] [address] [id number] [place] [address]- 1577 January, [facility] [place] [facility] [address] [id number] [place] [address]- 0949 January, [facility] [place] [facility] [address] [id number] [place] [address]- 7771 Dec, [facility] [place] [facility] [address] [id number] [place] [address]- 6225 Dec, [facility] [place] [facility] [address] [id number] [place] [address]- 0794 Dec, [facility] [place] [facility] [address] [id number] [place] [address]- 6841 Dec, [facility] [place] [facility] [address] [id number] [place] [address]- 0122 Nov, [facility] [place] [facility] [address] [id number] [place] [address]- 7061 Nov, [facility] [place] [facility] [address] [id number] [place] [address]- 6890 Oct, [facility] [place] [facility] [address] [id number] [place] [address]- 6892 Oct, [facility] [place] [facility] [address] [id number] [place] [address]- 3596 14 Oct, 2011 [facility] [address] [id number] [place] [address]- 8927 07 Oct, 2011 [facility] [place] [facility] [address] [id number] [place] [address]- 5656 31 Sep, 2011 [facility] [address] [id number] [place] [address]- 3598 Sep, [facility] [place] [facility] [address] [id number] [place] [address]- 5262 Sep, [facility] [place] [facility] [address] [id number] [place] [address]- 4124 Sep, [facility] [address] [id number] [place] [address]- 9955 Sep, [facility] [place] [facility] [address] [id number] [place] [address]- 5694 Sep, [facility] [address] [id number] [place] [address]- 3420 Sep, [facility] [address] [id number] [place] [address]- 2851 Sep, [facility] [address] [id number] [place] [address]- 0799 Sep, [facility] [place] [facility] [address] [id number] [place] [address]- 7836 Sep, [facility] [place] [facility] [address] [id number] [place] [address]- 0976 Sep, [facility] [place] [facility] [address] [id number] [place] [address]- 3846 Aug, [facility] [place] [facility] [address] [id number] [place] [address]- 2546 06 Aug, 2011 [facility] [place] [facility] [address] [id number] [place] [address]- 4531 Jun, [facility] [address] [facility] [id number] [address]- 8939 Jun, [facility] [address] [id number], [place] [address]- 8126 16 Apr, 2010 [facility] [address] [id number], [place] [address] Apr, [facility] [place] [address] [id number], [place] [address] Jul, IMMUNIZATIONS No Known Immunizations SOCIAL HISTORY Never Assessed REASON FOR VISIT BH f/u-Emergency appt. PLAN OF CARE Activity Details Follow Up 2 Weeks Reason: VITAL SIGNS MEDICATIONS Unknown Medications RESULTS No [...]
--- OUTSIDE RECORDS SUMMARY | 2018-10-08 20:17 | XMS REPORT ---
Author Author SIMONE KWAN Organization [facility] Address [address] [place] [address] Care Team Providers Care Requirements Analyst Name Role Phone SIMONE KWAN Unavailable PROBLEMS Type Condition ICD9-CM Code [id number] Code Onset Dates Condition Status SNOMED Code Problem Abnormal pelvic ultrasound R93.8 Active 225862997 Problem Mood disorder F39 Active 51691232 Problem Psychosis, unspecified psychosis type F29 Active 07307238 Problem Immunization due Z23 Active 877188518 Problem Encounter for annual physical exam Z00.00 Active 740131433 Problem Anxiety F41.9 Active 87742767 Problem Neuropathy G62.9 Active 329034814 Problem Pelvic pain R10.2 Active 99030853 Problem Chronic pain syndrome G89.4 Active [id number] ALLERGIES No Information ENCOUNTERS Encounter Location Date Diagnosis [place] [id number] [place] [address] 59717- 8206 January, Abnormal pelvic ultrasound R93.8 [facility] [id number] [place] [address] 01625- 0961 January, [facility] [place] [id number] [place] [address] 77823- 5971 January, Pelvic pain R10.2 [facility] [facility] [id number] [place] [address] 18355- 9371 January, Encounter for annual physical exam Z00.00 ; Pelvic pain R10.2 ; Immunization due Z23 and Encounter for immunization Z23 [place] [id number] [place] [address] 68210- 2862 Sep, [facility] [id number] [place] [address] 93587- 6884 Sep, Anxiety F41.9 and Chronic pain syndrome G89.4 [place] [id number] [place] [address] 70006- 8808 Sep, Anxiety F41.9 [facility] [address] 00645- 8831 Aug, [facility] [id number] [place] [address] 29216- 7537 Aug, [facility] [address] 11424- 0759 Aug, Psychosis, unspecified psychosis type F29 [facility] [id number] [place] [address] 09654- 4718 Aug, Anxiety F41.9 [facility] [id number] [place] [address] 54194- 2624 Aug, [facility] [id number] [place] [address] 83200- 7541 Jul, [facility] [id number] [place] [address] 95142- 9078 Jul, [facility] [id number] [place] [address] 51124- 7519 Jul, [facility] [id number] [place] [address] 21553- 1888 Jul, [facility] [id number] [place] [address] 55671- 5608 Jul, Anxiety F41.9 [facility] [id number] [place] [address] 48633- 3728 Jun, Acute psychosis F23 and Homeless Z59.0 [facility] [id number] [place] [address] 49021- 4974 Jun, Anxiety F41.9 ; Episodic mood disorder F39 and Homeless Z59.0 [facility] [id number] [place] [address] 80829- 3904 Jun, Anxiety F41.9 [facility] [id number] [place] [address] 56119- 1966 Jun, [facility] [id number] [place] [address] 17940- 9376 May, [facility] [id number] [place] [address] 19074- 2692 May, Anxiety F41.9 ; Neuropathy G62.9 ; Dysuria R30.0 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 [facility] [id number] [place] [address] 16508- 9954 Apr, [facility] [id number] [place] [address] 00312- 1920 Apr, 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 [facility] [id number] [place] [address] 03190- 8614 Apr, Anxiety F41.9 [facility] [id number] [place] [address] 77017- 0470 Apr, [facility] [id number] [place] [address] 88698- 1132 Mar, Anxiety F41.9 [facility] [id number] [place] [address] 29335- 1180 Mar, [facility] [id number] [place] [address] 98150- 1659 Mar, [facility] [id number] [place] [address] 43216- 3871 Mar, [facility] [id number] [place] [address] 13487- 0541 Mar, Anxiety F41.9 ; Cervical neuritis M54.12 and Thoracic neuritis M54.14 [facility] [id number] [place] [address] 11959- 5803 Feb, Anxiety F41.9 ; Mood disorder F39 ; Episodic mood disorder F39 ; Psychosis, unspecified psychosis type F29 and Homeless Z59.0 [facility] [id number] [place] [address] 86050- 6877 January, [facility] [id number] [place] [address] 28446- 4351 Nov, [address] [id number] Nov, Mood disorder F39 and Sebaceous cyst L72.3 [place] [id number] [place] [address] 63323- 1266 Oct, Neuropathy G62.9 [place] [address] 55047- 0269 Oct, Mood disorder F39 and Neuropathy G62.[address] [id number] Aug, Mood disorder F39 and Neuropathy G62.9 [place] [id number] [place] [address] 52740- 2139 May, [place] [id number] [place] [address] 59960- 1968 Apr, Psychosis, unspecified psychosis type F29 [place] [id number] [place] [address] 14411- 8513 Apr, [place] [id number] [place] [address] 16024- 2344 Apr, [address] [id number] Mar, Upper respiratory tract infection, unspecified type J06.9 and Tinea corporis B35.4 [place] [id number] [place] [address] 06820- 0319 Feb, ADD (attention deficit disorder) F90.0 [place] [id number] [place] [address] 47002- 0050 Dec, Psychosis, unspecified psychosis type F29 and Episodic mood disorder F39 [place] [address] [address] 2546 Sep, [place] [address] [place] [id number] Sep, Injury of hand, right, initial encounter S69.91XA [facility] [address] [id number] Jul, [facility] [id number] [place] [address] [id number] Jul, Encounter for dental examination Z01.20 [facility] [id number] [place] [address] 31828- 0407 Jun, Malingering Z76.5 [facility] [id number] [place] [address] 095040- 0099 Jun, Mood disorder F39 [facility] [id number] [place] [address] 56575- 4707 Jun, Anxiety disorder, unspecified F41.9 [place] [place] [id number] May, Anxiety [address] [id number] May, Abdominal pain, left lateral 789.[address] [id number] May, 2015 Bipolar 1 disorder 296.7 and Abdominal pain, left lateral 789.[address] [id number] May, Bipolar 1 disorder 296.7 [facility] [address] [id number] January, Dental examination V72.2 [facility] [id number] [place] [address] 54774- 5240 Dec, [facility] [id number] [place] [address] [id number]- 9459 Dec, [facility] [address] [place] [address]- 1124 Nov, [facility] [address] [id number] [place] [address]- 9942 Nov, [facility] [place] [facility] [address] [id number] [place] [address]- 7443 Nov, [facility] [place] [facility] [address] [id number] [place] [address]- 5518 Nov, [facility] [place] [facility] [address] [id number] [place] [address]- 1562 Nov, [facility] [place] [facility] [address] [id number] [place] [address]- 4587 Nov, [facility] [place] [facility] [address] [id number] [place] [address]- 7686 Nov, [facility] [place] [facility] [address] [id number] [place] [address]- 1497 Nov, [facility] [address] [place] [id number] Oct, [facility] [address] [place] [id number] Oct, [facility] [place] [facility] [address] [id number] [place] [address]- 4955 Oct, [facility] [place] [facility] [address] [id number] [place] [address]- 0657 Oct, [facility] [place] [facility] [address] [id number] [place] [address]- 9476 Oct, [facility] [place] [facility] [address] [id number] [place] [address]- 6983 Oct, [facility] [place] [facility] [address] [id number] [place] [address]- 7895 Sep, [facility] [place] [facility] [address] [id number] [place] 4077 Sep, [facility] [place] [facility] [address] [id number] [place] [address]- 4356 Jul, [facility] [place] [facility] [address] [id number] [place] [address]- 4829 Jul, [facility] [place] [facility] [address] [id number] [place] [address]- 8331 Jul, [facility] [place] [facility] [address] [id number] [place] 0663 Jul, [facility] [place] [facility] [address] [id number] [place] [address]- 4792 Jun, [facility] [place] [facility] [address] [id number] [place] [address]- 2126 Jun, [facility] [place] [facility] [address] [id number] [place] [address]- 2278 Jun, [facility] [place] [facility] [address] [id number] [place] [address]- 7809 Jun, [facility] [place] [facility] [address] [id number] [place] [address]- 1157 May, [facility] [place] [facility] [address] [id number] [place] [address]- 5642 May, [facility] [place] [facility] [address] [id number] [place] [address]- 0128 Apr, [facility] [place] [facility] [address] [id number] [place] [address]- 3347 Apr, [facility] [place] [facility] [address] [id number] [place] [address]- 9585 Mar, [facility] [place] [facility] [address] [id number] [place] [address]- 1423 Mar, [facility] [place] [facility] [address] [id number] [place] [address]- 5470 Mar, [facility] [place] [facility] [address] [id number] [place] [address]- 6179 Mar, [facility] [place] [facility] [address] [id number] [place] 1634 January, [facility] [place] [facility] [address] [id number] [place] [address]- 3122 January, [facility] [place] [facility] [address] [id number] [place] [address]- 8173 Dec, [facility] [place] [facility] [address] [id number] [place] [address]- 1449 Dec, [facility] [place] [facility] [address] [id number] [place] [address]- 4957 Dec, [facility] [place] [facility] [address] [id number] [place] [address]- 3340 Nov, [facility] [place] [facility] [address] [id number] [place] [address]- 8072 Nov, [facility] [place] [facility] [address] [id number] [place] [address]- 5056 Nov, [facility] [place] [facility] [address] [id number] [place] [address]- 8600 Oct, [facility] [place] [facility] [address] [id number] [place] [address]- 5851 Oct, [facility] [place] [facility] [address] [id number] [place] [address]- 3747 Oct, [facility] [place] [facility] [address] [id number] [place] [address]- 6182 Oct, [facility] [place] [facility] [address] [id number] [place] [address]- 2457 Oct, [facility] [place] [facility] [address] [id number] [place] [address]- 6017 Oct, [facility] [place] [facility] [address] [id number] [place] [address]- 8165 Oct, [facility] [place] [facility] [address] [id number] [place] [address]- 0260 Oct, [facility] [place] [facility] [address] [id number] [place] [address]- 2050 Oct, [facility] [address] [id number] [place] [address]- 5652 Oct, [facility] [address] [id number] [place] [address]- 8979 Sep, [facility] [address] [id number] [place] [address]- 2808 Sep, [facility] [address] [id number] [place] [address]- 8295 Aug, [facility] [address] [id number] [place] [address]- 9890 Aug, [facility] [address] [id number] [place] [address]- 7889 Aug, [facility] [address] [id number] [place] [address]- 1556 Jul, [facility] [address] [id number] [place] [address]- 9855 Jul, [facility] [address] [id number] [place] [address]- 6538 Feb, [facility] [address] [id number] [place] [address]- 3234 Nov, [facility] [address] [id number] [place] [address]- 4752 Oct, [facility] [address] [id number] [place] [address]- 8207 Sep, [facility] [address] [id number] [place] [address]- 5077 Sep, [facility] [address] [id number] [place] [address] 2546 Sep, [facility] [address] [id number] [place] [address]- 5285 Aug, [facility] [address] [id number] [place] [address]- 1884 Aug, [facility] [place] [facility] [address] [id number] [place] [address]- 5006 January, [facility] [place] [facility] [address] [id number] [place] [address]- 1213 January, [facility] [place] [facility] [address] [id number] [place] [address]- 6228 January, [facility] [place] [facility] [address] [id number] [place] [address]- 2290 January, [facility] [place] [facility] [address] [id number] [place] [address]- 6966 January, [facility] [place] [facility] [address] [id number] [place] [address]- 1590 January, [facility] [place] [facility] [address] [id number] [place] [address]- 1069 Dec, [facility] [place] [facility] [address] [id number] [place] [address]- 2723 Dec, [facility] [place] [facility] [address] [id number] [place] [address]- 7926 Dec, [facility] [place] [facility] [address] [id number] [place] [address]- 7274 Dec, [facility] [place] [facility] [address] [id number] [address]- 9853 Nov, [facility] [place] [facility] [address] [id number] [place] [address]- 6819 Nov, [facility] [place] [facility] [address] [id number] [place] [address]- 9035 Oct, [facility] [place] [facility] [address] [id number] [place] [address]- 6367 Oct, [facility] [place] [facility] [address] [id number] [place] [address]- 1997 14 Oct, 2011 [facility] [address] [id number] [place] [address]- 2503 07 Oct, 2011 [facility] [address] [id number] [place] [address]- 2753 31 Sep, 2011 [facility] [address] [id number] [place] [address]- 3253 24 Sep, 2011 [facility] [address] [id number] [place] [address]- 3510 Sep, [facility] [address] [id number] [place] [address]- 1521 Sep, [facility] [address] [id number] [place] [address]- 4261 Sep, [facility] [address] [id number] [place] [address]- 7990 Sep, [facility] [address] [id number] [place] [address]- 3135 Sep, [facility] [address] [id number] [place] [address]- 5026 Sep, [facility] [address] [id number] [place] [address]- 8569 Sep, [facility] [address] [id number] [place] [address]- 4837 Sep, [facility] [address] [id number] [place] [address]- 2532 Sep, [facility] [address] [id number] [place] [address]- 6891 Aug, [facility] [address] [id number] [place] [address]- 2546 Aug, [facility] [address] [id number] [place] [address]- 3248 14 Jun, 2011 [facility] [address] [id number] [place] [address]- 9536 Jun, [facility] [id number] [address]- 4896 16 Apr, 2010 [facility] [id number] [address]- 5961 Apr, [facility] [id number] 1140 Jul, IMMUNIZATIONS No Known Immunizations SOCIAL HISTORY Never Assessed REASON FOR VISIT refill PLAN OF CARE VITAL SIGNS MEDICATIONS Unknown [...]
--- OUTSIDE RECORDS SUMMARY | 2018-10-08 20:18 | XMS REPORT ---
Author Author SIMONE KWAN Organization 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 Name Role Phone SIMONE KWAN Unavailable PROBLEMS Type Condition ICD9-CM Code BAL42-ZB Code Onset Dates Condition Status SNOMED Code Problem Abnormal pelvic ultrasound R93.8 Active 242330614 Problem Mood disorder F39 Active 36893780 Problem Psychosis, unspecified psychosis type F29 Active 71993038 Problem Immunization due Z23 Active 556571672 Problem Encounter for annual physical exam Z00.00 Active 177950970 Problem Anxiety F41.9 Active 67402223 Problem Neuropathy G62.9 Active 977485748 Problem Pelvic pain R10.2 Active 59611287 Problem Chronic pain syndrome G89.4 Active [id number] ALLERGIES No Information ENCOUNTERS Encounter Location Date Diagnosis [place] [id number] [place] [address] 55080- 0912 January, Abnormal pelvic ultrasound R93.8 [place] [id number] [place] [address] 08756- 5022 January, [place] [id number] [place] [address] 76917- 4607 January, Pelvic pain R10.2 [place] [id number] [place] [address] 73900- 4604 January, Encounter for annual physical exam Z00.00 ; Pelvic pain R10.2 ; Immunization due Z23 and Encounter for immunization Z23 [place] [id number] [place] [address] 77495- 6874 Sep, [place] [id number] [place] [address] 30520- 2663 Sep, Anxiety F41.9 and Chronic pain syndrome G89.4 [place] [id number] [place] [address] 24268- 2709 Sep, An[address] F41.9 [facility] [address] 98055- 1481 Aug, [facility] [id number] [place] [address] 14627- 4792 Aug, [facility] [address] 76492- 0794 Aug, Psychosis, unspecified psychosis type F29 [facility] [id number] [place] [address] 06205- 8018 Aug, Anxiety F41.9 [facility] [id number] [place] [address] 54746- 3319 Aug, [facility] [id number] [place] [address] 32734- 3822 Jul, [facility] [id number] [place] [address] 91560- 6104 Jul, [facility] [id number] [place] [address] 02480- 2909 Jul, [facility] [id number] [place] [address] 88866- 0210 Jul, [facility] [id number] [place] [address] 64405- 1065 Jul, Anxiety F41.9 [facility] [id number] [place] [address] 71358- 4778 Jun, Acute psychosis F23 and Homeless Z59.0 [facility] [id number] [place] [address] 35376- 7551 Jun, Anxiety F41.9 ; Episodic mood disorder F39 and [address] [facility] [id number] [place] [address] 56535- 6836 Jun, Anxiety F41.9 [facility] [id number] [place] [address] 47161- 0166 Jun, [facility] [id number] [place] [address] 86477- 4656 May, [facility] [id number] [place] [address] 28047- 8554 May, Anxiety F41.9 ; Neuropathy G62.9 ; Dysuria R30.0 and terminal gauger current use of opiate analgesic Z79.891 [facility] [id number] [place] [address] 09066- 7729 Apr, 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 [id number] [place] [address] 36526- 9331 Apr, [address]9 [facility] [id number] [place] [address] 18694- 7767 Apr, [facility] [id number] [place] [address] 94952- 1087 Mar, Anxiety F41.9 [facility] [id number] [place] [address] 65499- 4576 Mar, [facility] [id number] [place] [address] 96032- 2470 Mar, [facility] [id number] [place] [address] 24407- 9510 Mar, [facility] [id number] [place] [address] 50636- 9776 Mar, Anxiety F41.9 ; Cervical neuritis M54.12 and Thoracic neuritis M54.14 [facility] [id number] [place] [address] 89828- 5413 Feb, Anxiety F41.9 ; Mood disorder F39 ; Episodic mood disorder F39 ; Psychosis, unspecified psychosis type F29 and Hom[address]0 [facility] [id number] [place] [address] 57249- 2392 January, [facility] [id number] [place] [address] 69191- 6433 Nov, [address] [id number] Nov, Mood disorder F39 and Sebaceous cyst L72.3 [place] [id number] [place] [address] 00383- 7389 Oct, Neuropathy G62.9 [place] [address] 35982- 8511 Oct, Mood disorder F39 and Neuropathy G62.[address] [id number] Aug, Mood disorder F39 and Neuropathy G62.9 [place] [id number] [place] [address] 95719- 9355 May, [place] [id number] [place] [address] 06529- 0641 Apr, Psychosis, unspecified psychosis type F29 [place] [id number] [place] [address] 41882- 9517 Apr, [place] [id number] [place] [address] 02678- 5454 Apr, [address] [id number] Mar, Upper respiratory tract infection, unspecified type J06.9 and Tinea corporis B35.4 [place] [id number] [place] [address] 23048- 1016 Feb, ADD (attention deficit disorder) F90.0 [place] [id number] [place] [address] 84701- 6672 Dec, Psychosis, unspecified psychosis type F29 and Episodic mood disorder F39 [place] [address] [address] 2546 Sep, [place] [address] [place] [id number] Sep, Injury of hand, right, initial encounter S69.91XA [facility] [address] [id number] Jul, [facility] [id number] [place] [address] [id number] Jul, Encounter for dental examination Z01.20 [facility] [id number] [place] [address] 75648- 7837 Jun, Malingering Z76.5 [facility] [id number] [place] [address] 462045- 2066 Jun, Mood disorder F39 [facility] [id number] [place] [address] 77622- 0137 Jun, Anxiety disorder, unspecified F41.9 [place] [address] [place] [id number] May, Anxiety [address] [id number] May, Abdominal pain, left lateral 789.[address] [id number] 08 May, 2015 Bipolar 1 disorder 296.7 and Abdominal pain, left lateral 789.[address] [id number] May, Bipolar 1 disorder 296.7 [facility] [address] [id number] January, Dental examination V72.2 [facility] [id number] [place] [address] 59110- 2770 Dec, [facility] [id number] [place] [address] [id number]- 2210 Dec, [facility] [address], [place] [address]- 4335 Nov, [facility] [address] [id number] [place] [address]- 5736 Nov, [facility] [place] [facility] [address] [id number] [place] [address]- 3094 Nov, [facility] [place] [facility] [address] [id number] [place] [address]- 7194 Nov, [facility] [place] [facility] [address] [id number] [place] [address]- 0384 Nov, [facility] [place] [facility] [address] [id number] [place] [address]- 3165 Nov, [facility] [place] [facility] [address] [id number] [place] [address]- 1679 Nov, [facility] [place] [facility] [address] [facility] [id number] [place] [address]- 8036 Nov, [facility] [address] [place] [id number] Oct, [facility] [address] [place] [id number] Oct, [facility] [place] [facility] [address] [id number] [place] [address]- 4772 Oct, [facility] [place] [facility] [address] [id number] [place] [address]- 8516 Oct, [facility] [place] [facility] [address] [id number] [place] [address]- 3286 Oct, [facility] [place] [facility] [address] [id number] [place] [address]- 9090 Oct, [facility] [place] [facility] [address] [id number] [place] [address]- 7727 Sep, [facility] [place] [facility] [address] [id number] [place] 7626 Sep, [facility] [place] [facility] [address] [id number] [place] [address]- 3077 Jul, [facility] [place] [facility] [address] [id number] [place] [address]- 9495 Jul, [facility] [place] [facility] [address] [id number] [place] [address]- 7446 Jul, [facility] [place] [facility] [address] [id number] [place] 8124 Jul, [facility] [place] [facility] [address] [id number] [place] [address]- 9842 Jun, [facility] [place] [facility] [address] [id number] [place] [address]- 1274 Jun, [facility] [place] [facility] [address] [id number] [place] [address]- 7835 Jun, [facility] [place] [facility] [address] [id number] [place] [address]- 4644 Jun, [facility] [place] [facility] [address] [id number] [place] [address]- 0386 May, [facility] [place] [facility] [address] [id number] [place] [address]- 9783 May, [facility] [place] [facility] [address] [id number] [place] [address]- 4369 Apr, [facility] [place] [facility] [address] [id number] [place] [address]- 6204 Apr, [facility] [place] [facility] [address] [id number] [place] [address]- 9265 Mar, [facility] [place] [facility] [address] [id number] [place] [address]- 3546 Mar, [facility] [place] [facility] [address] [id number] [place] [address]- 7907 Mar, [facility] [place] [facility] [address] [id number] [place] [address]- 8606 Mar, [facility] [place] [facility] [address] [id number] [place] 2131 January, [facility] [place] [facility] [address] [id number] [place] [address]- 1004 January, [facility] [place] [facility] [address] [id number] [place] [address]- 0912 Dec, [facility] [place] [facility] [address] [id number] [place] [address]- 9828 Dec, [facility] [place] [facility] [address] [id number] [place] [address]- 0194 Dec, [facility] [place] [facility] [address] [id number] [place] [address]- 1907 Nov, [facility] [place] [facility] [address] [id number] [place] [address]- 6921 Nov, [facility] [place] [facility] [address] [facility] [id number] [place] [address]- 7004 Nov, [facility] [place] [facility] [address] [id number] [place] [address]- 5830 Oct, [facility] [place] [facility] [address] [id number] [place] [address]- 0341 Oct, [facility] [place] [facility] [address] [facility] [id number] [place] [address]- 7469 Oct, [facility] [place] [facility] [address] [id number] [place] [address]- 0057 Oct, [facility] [place] [facility] [address] [id number] [place] [address]- 3390 Oct, [facility] [place] [facility] [address] [id number] [place] [address]- 5250 Oct, [facility] [place] [facility] [address] [id number] [place] [address]- 3934 Oct, [facility] [place] [facility] [address] [facility] [id number] [place] [address]- 3089 Oct, [facility] [place] [facility] [address] [id number] [place] [address]- 6398 Oct, [facility] [address] [id number] [place] [address]- 0523 Oct, [facility] [address] [id number] [place] [address]- 6713 Sep, [facility] [address] [id number] [place] [address]- 7755 Sep, [facility] [address] [id number] [place] [address]- 3405 Aug, [facility] [address] [id number] [place] [address]- 6175 Aug, [facility] [address] [id number] [place] [address]- 8517 Aug, [facility] [address] [id number] [place] [address]- 6130 Jul, [facility] [address] [id number] [place] [address]- 1330 Jul, [facility] [address] [id number] [place] [address]- 8025 Feb, [facility] [address] [id number] [place] [address]- 9021 Nov, [facility] [address] [id number] [place] [address]- 5279 Oct, [facility] [address] [id number] [place] [address]- 6543 Sep, [facility] [address] [id number] [place] [address]- 8538 Sep, [facility] [address] [id number] [place] [address] 2546 Sep, [facility] [address] [id number] [place] [address]- 2131 Aug, [facility] [address] [id number] [place] [address]- 7286 Aug, [facility] [place] [facility] [address] [id number] [place] [address]- 3147 January, [facility] [place] [facility] [address] [id number] [place] [address]- 1255 January, [facility] [place] [facility] [address] [id number] [place] [address]- 4483 January, [facility] [place] [facility] [address] [id number] [place] [address]- 1433 January, [facility] [place] [facility] [address] [id number] [place] [address]- 8069 January, [facility] [place] [facility] [address] [id number] [place] [address]- 1442 January, [facility] [place] [facility] [address] [id number] [place] [address]- 1488 Dec, [facility] [place] [facility] [address] [id number] [place] [address]- 3423 Dec, [facility] [place] [facility] [address] [id number] [place] [address]- 0688 Dec, [facility] [place] [facility] [address] [id number] [place] [address]- 8390 Dec, [facility] [place] [facility] [address] [id number], [place] [address]- 9169 Nov, [facility] [place] [facility] [address] [id number] [place] [address]- 9324 Nov, [facility] [place] [facility] [address] [id number] [place] [address]- 0332 Oct, [facility] [place] [facility] [address] [id number] [place] [address]- 2792 Oct, [facility] [place] [facility] [address] [id number] [place] [address]- 9148 14 Oct, 2011 [facility] [address] [id number] [place] [address]- 4610 07 Oct, 2011 [facility] [address] [id number] [place] [address]- 9594 31 Sep, 2011 [facility] [address] [id number] [place] [address]- 4024 24 Sep, 2011 [facility] [address] [id number] [place] [address]- 9321 Sep, [facility] [address] [id number] [place] [address]- 2765 Sep, [facility] [address] [id number] [place] [address]- 4179 Sep, [facility] [address] [id number] [place] [address]- 4558 Sep, [facility] [address] [id number] [place] [address]- 7898 Sep, [facility] [address] [id number] [place] [address]- 4212 Sep, [facility] [address] [id number] [place] [address]- 6678 Sep, [facility] [address] [id number] [place] [address]- 0924 Sep, [facility] [address] [id number] [place] [address]- 1153 Sep, [facility] [address] [id number] [place] [address]- 3668 Aug, [facility] [address] [id number] [place] [address]- 2546 Aug, [facility] [address] [id number] [place] [address]- 2326 [address], [address] [facility] [address] [facility] [id number] [place] [address]- 7770 Jun, [facility] [id number] [address] 5879 Apr, [facility] [address] [facility] [id number], [place] [address]- 7713 Apr, [facility] [address] [facility] [id number] [address] 3683 Jul, IMMUNIZATIONS No Known Immunizations SOCIAL HISTORY [...]
[2018-10-08 20:24] LABS: BACTERIA,URINE MODERATE /HPF; RBC,URINE RARE /HPF
[2018-10-08 20:25] LABS: BASOPHILS % (AUTO) 0 % (0-10); EOSINOPHILS # (AUTO) 0.2 10^3/uL (0.0-0.3); EOSINOPHILS % (AUTO) 3 % (0-10); HEMATOCRIT 42 % (35-52); HEMOGLOBIN 14.4 G/DL (11.5-16.0); LYMPHOCYTES # (AUTO) 1.4 X 10^3 (1.0-4.0); LYMPHOCYTES % (AUTO) 19 % (12-44); MEAN CORPUSCULAR HEMOGLOBIN 31 PG (25-34); MEAN CORPUSCULAR HGB CONC 35 G/DL (32-36); MEAN CORPUSCULAR VOLUME 88 FL (80-99); MEAN PLATELET VOLUME 11.2 FL (7.4-10.4); MONOCYTES # (AUTO) 0.7 X 10^3 (0.0-1.0); MONOCYTES % (AUTO) 9 % (0-12); NEUTROPHILS # (AUTO) 5.2 X 10^3 (1.8-7.8); NEUTROPHILS % (AUTO) 69 % (42-75); PLATELET COUNT 209 10^3/uL (130-400); RED BLOOD COUNT 4.71 10^6/uL (4.35-5.85); RED CELL DISTRIBUTION WIDTH 12.3 % (10.0-14.5); WHITE BLOOD COUNT 7.5 10^3/uL (4.3-11.0)
--- OUTSIDE RECORDS SUMMARY | 2018-10-08 20:26 | XMS REPORT | Continuity of Care Document ---
Author Author [facility] Address Unknown Phone Unavailable Allergies Active Description Code Type Severity Reaction Onset Reported/Identified Relationship to Patient Clinical Status Yes PENICILLINS UNKNOWN UNKNOWN Yes Penicillins [id number] Drug Allergy Mild N/A 04/22/2009 Yes acetaminophen [id number] Drug Allergy Unknown N/A 04/22/2009 Yes codeine [id number] Drug Allergy Unknown N/A 04/22/2009 Yes ketorolac [id number] Drug Allergy Unknown N/A 04/22/2009 Yes nalbuphine [id number] Drug Allergy Unknown N/A 04/22/2009 Yes propoxyphene [id number] Drug Allergy Unknown N/A 04/22/2009 Yes Penicillins [...] BUENROSTRO V23.9 High-risk Care Unspec 05/01/2010 IMELDA DIAZFahda PIO BUENROSTRO 285.9 Anemia Unspecified 05/01/2010 IMELDA [...] Dressing 05/12/2010 V58.32 Suture Removal 05/12/2010 IMELDA CAR SALESPERSON, PIO BUENROSTRO V58.31 Wound Dressing 05/12/2010 IMELDA CAR SALESPERSON, PIO BUENROSTRO V58.32 Suture Removal 05/12/2010 IMELDA CAR SALESPERSON, PIO BUENROSTRO V58.31 Wound Dressing 05/12/2010 IMELDA CAR SALESPERSON, PIO BUENROSTRO V58.32 Suture Removal 05/12/2010 IMELDA CAR SALESPERSON, PIO BUENROSTRO V58.31 Wound Dressing 05/12/2010 SEGURA CAR SALESPERSON, PIO BUENROSTRO V58.32 Suture Removal 05/12/2010 KARIN GRAHAM DO V58.31 Wound Dressing 05/12/2010 KARIN GRAHAM DO V58.32 Suture Removal 05/12/2010 SEGURA CAR SALESPERSON, PIO BUENROSTRO V58.31 Wound Dressing 05/12/2010 IMELDA CAR SALESPERSON, PIO BUENROSTRO V58.32 Suture Removal 05/12/2010 IMELDA CAR SALESPERSON, PIO BUENROSTRO V58.31 Wound Dressing 05/12/2010 IMELDA CAR SALESPERSON, PIO BUENROSTRO V58.32 Suture Removal 05/12/2010 JARON [...] PIO BUENROSTRO V58.69 MEDICATION HIGH RISK 09/12/2011 MIELDA MEDINA PIO BUENROSTRO 296.33 MO DEPRESSIVE RECURRENT [...] JARON ALVAREZ MD 309.81 AN PTSD 09/12/2011 JAORN ALVAREZ MD V58.69 MEDICATION HIGH RISK 09/12/2011 [...] APRN 300.02 AN GEN ANXIETY 10/02/2011 SEGURA CAR SALESPERSON, PIO BUENROSTRO 304.00 OPIOID DEPENDENCE 10/02/2011 GRAHAM DO KARIN K 300.02 AN GEN ANXIETY 10/02/2011 GRAHAM DO KARIN K 304.00 OPIOID DEPENDENCE 10/02/2011 SEGURA CAR SALESPERSON, PIO BUENROSTRO 300.02 AN GEN ANXIETY 10/02/2011 SEGURA CAR SALESPERSON, PIO BUENROSTRO 304.00 OPIOID DEPENDENCE 10/02/2011 SEGURA CAR SALESPERSON, PIO BUENROSTRO 300.02 AN GEN ANXIETY 10/02/2011 SEGURA CAR SALESPERSON, PIO BUENROSTRO 304.00 OPIOID DEPENDENCE 10/02/2011 JARON ALVAREZ MD 300.02 AN GEN ANXIETY 10/02/2011 JARON ALVAREZ MD 304.00 OPIOID DEPENDENCE 10/02/2011 ARTHUR GRAHAM DOA K 300.02 AN GEN ANXIETY 10/02/2011 GRAHAM DO KARIN K 304.00 OPIOID DEPENDENCE 09/17/2012 IMELDA CAR SALESPERSON, PIO BUENROSTRO 296.32 MO DEPRESSIVE RECURRENT MODERATE 09/17/2012 SEGURA CAR SALESPERSON, PIO BUENROSTRO 314.01 ADHD COMBINED 09/17/2012 SEGURA CAR SALESPERSON, PIO BUENROSTRO 296.32 MO DEPRESSIVE RECURRENT MODERATE 09/17/2012 SEGURA CAR SALESPERSON, PIO BUENROSTRO 314.01 ADHD COMBINED 09/17/2012 SEGURA CAR SALESPERSON, PIO BUENROSTRO 296.32 MO DEPRESSIVE RECURRENT MODERATE 09/17/2012 SEGURA CAR SALESPERSON, PIO BUENROSTRO 314.01 ADHD COMBINED 09/17/2012 SANTOS CAMERON KARIN K 296.32 MO DEPRESSIVE RECURRENT MODERATE 09/17/2012 ARTHUR GRAHAM DOA K 314.01 ADHD COMBINED 09/17/2012 SEGURA CAR SALESPERSON, PIO BUENROSTRO 296.32 MO DEPRESSIVE RECURRENT MODERATE 09/17/2012 SEGURA CAR SALESPERSON, PIO BUENROSTRO 314.01 ADHD COMBINED 09/17/2012 SEGURA CAR SALESPERSON, PIO BUENROSTRO 296.32 MO DEPRESSIVE RECURRENT MODERATE 09/17/2012 SEGURA CAR SALESPERSON, PIO FRANCISH 314.01 ADHD COMBINED 09/17/2012 JARON [...] JARON ALVAREZ MD 314.00 ADHD INATTENTIVE 08/11/2013 ARTUHR GRAHAM DOZack Garcia 314.00 ADHD INATTENTIVE 11/13/2013 [...] 525.9 DENTAL DISORDER NOS 02/09/2015 KAL LYONS CAR SALESPERSON Ot 305.1 TOBACCO USE DISORDER 02/09/2015 KAL LYONS CAR SALESPERSON Ot 305.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 08/06/2015 ASHLEY WONG [...] Y99.8 OTHER EXTERNAL CAUSE STATUS 08/06/2015 MARVIN CAEMRON ASHLEY K Ot Z23 ENCOUNTER FOR IMMUNIZATION [...] OF TENDON SHEATH, LEFT FOREARM 05/16/2016 LYONSKAL CAR SALESPERSON Ot M65.032 ABSCESS OF TENDON SHEATH, LEFT FOREARM 06/16/2016 ARTEM, [place] ENGINEER Ot S90.851A SUPERFICIAL FOREIGN BODY, RIGHT FOOT, IN 06/16/2016 ARTEM, [place] ENGINEER Ot W25.XXXA CONTACT WITH [place], INITIAL ENCOUN 06/16/2016 ARTEM, [place] ENGINEER Ot Y99.8 OTHER EXTERNAL CAUSE STATUS 06/18/2016 ARTEM, [place] ENGINEER Ot S90.851A SUPERFICIAL FOREIGN BODY, RIGHT FOOT, IN 06/18/2016 ARTEM, [place] ENGINEER Ot W25.XXXA CONTACT WITH [place], INITIAL ENCOUN 06/18/2016 ARTEM, [place] ENGINEER Ot Y99.8 OTHER EXTERNAL CAUSE STATUS 07/19/2016 NANO OJEDA CAR SALESPERSON Ot M54.2 CERVICALGIA 09/13/2016 NANO OJEDA CAR SALESPERSON Ot M54.2 CERVICALGIA 09/13/2016 ARTEM [place] ENGINE[place] Ot K59.03 DRUG INDUCED CONSTIPATION 09/13/2016 ARTEM, [place] ENGINEER Ot R10.84 GENERALIZED ABDOMINAL PAIN 09/13/2016 ARTEM, [place] ENGINEER Ot Z79.891 SECOND CRUSHER (CURRENT) USE OF OPIATE ANALGE 09/13/2016 NANO OJEDA CAR SALESPERSON Ot M54.2 CERVICALGIA 09/14/2016 ARTEM, [place] ENGINEER Ot K59.03 DRUG INDUCED CONSTIPATION 09/14/2016 ARTEM, [place] ENGINEER Ot R10.84 GENERALIZED ABDOMINAL PAIN 09/14/2016 ARTEM, [place] ENGINEER Ot Z79.891 SECOND CRUSHER (CURRENT) USE OF OPIATE ANALGE 09/17/2016 NANO OJEDA CAR SALESPERSON Ot M54.2 CERVICALGIA 09/17/2016 HERBERTH CH Ot F17.210 NICOTINE DEPENDENCE, CIGARETTES, UNCOMPL 09/17/2016 HERBERTH CH Ot L03.113 CELLULITIS OF RIGHT UPPER LIMB 09/17/2016 HERBERTH CH Ot S60.211A CONTUSION OF RIGHT WRIST, INITIAL ENCOUN 09/17/2016 NANO OJEDA CAR SALESPERSON Ot M54.2 CERVICALGIA 09/22/2016 TAMIKO GLOVER, SIVA Mae Ot K46.9 UNSPECIFIED ABDOMINAL HERNIA WITHOUT OBS 09/22/2016 TAMIKO GLOVER, SIVA S Ot R10.30 LOWER ABDOMINAL PAIN, UNSPECIFIED 09/22/2016 NANO OJEDA CAR SALESPERSON Ot M54.2 CERVICALGIA 09/24/2016 TAMIKO GLOVER, SIVA Mae Ot K46.9 UNSPECIFIED ABDOMINAL HERNIA WITHOUT OBS 09/24/2016 TAMIKO GLOVER, SIVA Mae Ot R10.30 LOWER ABDOMINAL PAIN, UNSPECIFIED 09/26/2016 NANO OJEDA Fahad CAR SALESPERSON Ot M54.2 CERVICALGIA 09/26/2016 HERBERTH CH Ot F17.210 NICOTINE DEPENDENCE, CIGARETTES, UNCOMPL 09/26/2016 HERBERTH CH Ot R05 COUGH 09/26/2016 HERBERTH CH Ot R07.81 PLEURODYNIA 09/26/2016 HERBERTH CH Ot Z53.29 PROC/TRTMT NOT CRD OUT BEC PT DECISION F 12/29/2016 JOANNE OJEDABRITTNEY Vásquez CAR SALESPERSON Ot M54.2 CERVICALGIA 12/29/2016 KAL LYONS APRN Ot 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 12/29/2016 KAL LYONS APRN Ot M54.5 LOW BACK PAIN 12/29/2016 JOANNE OJEDABRITTNEY Vásquez CAR SALESPERSON Ot M54.2 CERVICALGIA 12/31/2016 JOSH VALDERRAMA MD Ot F15.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, UNCOMPLICATED 12/31/2016 JOSH VALDERRAMA MD Ot F17.210 NICOTINE DEPENDENCE, CIGARETTES, UNCOMPL 12/31/2016 JOSH VALDERRAMA MD Ot M25.552 PAIN IN LEFT HIP 12/31/2016 JOSH VALDERRAMA MD Ot Z79.899 OTHER SECOND CRUSHER (CURRENT) DRUG THERAPY 12/31/2016 KAL LYONS CAR SALESPERSON Ot 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 12/31/2016 KAL LYONS APRN Ot M54.5 LOW BACK PAIN 01/01/2017 JOSH VALDERRAMA MD Ot F15.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, UNCOMPLICATED 01/01/2017 OJSH VALDERRAMA MD Ot F17.210 NICOTINE DEPENDENCE, CIGARETTES, UNCOMPL 01/01/2017 JOSH VALDERRAMA MD Ot M25.552 PAIN IN LEFT HIP 01/01/2017 JOSH VALDERRAMA MD Ot Z79.899 OTHER USP (CURRENT) DRUG THERAPY 01/04/2017 KAL LYONS CAR SALESPERSON Ot 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 01/04/2017 KAL LYONS CAR SALESPERSON Ot M54.5 LOW BACK PAIN 01/14/2017 NANO OJEDA CAR SALESPERSON Ot M54.2 CERVICALGIA 01/14/2017 NANO OJEDA CAR SALESPERSON Ot M54.2 CERVICALGIA 03/18/2017 KAL LYONS CAR SALESPERSON Ot F15.90 OTHER STIMULANT USE, UNSPECIFIED, UNCOMP 03/18/2017 KAL LYONS CAR SALESPERSON Ot F17.210 NICOTINE DEPENDENCE, CIGARETTES, UNCOMPL 03/18/2017 KAL LYONS CAR SALESPERSON Ot F32.9 MAJOR DEPRESSIVE DISORDER, SINGLE EPISOD 03/18/2017 KAL LYONS APRN Ot F41.9 ANXIETY DISORDER, UNSPECIFIED 03/18/2017 AKL LYONS CAR SALESPERSON Ot F90.9 ATTENTION-DEFICIT HYPERACTIVITY DISORDER 03/18/2017 KAL LYONS CAR SALESPERSON Ot M47.9 SPONDYLOSIS, UNSPECIFIED 03/18/2017 KAL LYONS CAR SALESPERSON Ot Z90.710 ACQUIRED ABSENCE OF BOTH CERVIX AND UTER 03/28/2017 KAL LYONS CAR SALESPERSON Ot F15.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, UNCOMPLICATED 03/28/2017 KAL LYONS APRN Ot F17.210 NICOTINE DEPENDENCE, CIGARETTES, UNCOMPL 03/28/2017 KAL LYONS CAR SALESPERSON Ot M54.2 CERVICALGIA 03/28/2017 KAL LYONS APRN Ot M54.5 LOW BACK PAIN 03/28/2017 KAL LYONS APRN Ot Z79.891 SECOND CRUSHER (CURRENT) USE OF OPIATE ANALGE 03/28/2017 KAL LYONS CAR SALESPERSON Ot Z79.899 OTHER SECOND CRUSHER (CURRENT) DRUG THERAPY 03/30/2017 KAL LYONS CAR SALESPERSON Ot F15.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, UNCOMPLICATED 03/30/2017 KAL LYONS CAR SALESPERSON Ot F17.210 NICOTINE DEPENDENCE, CIGARETTES, UNCOMPL 03/30/2017 KAL LYONS CAR SALESPERSON Ot M54.2 CERVICALGIA 03/30/2017 KAL LYONS CAR SALESPERSON Ot M54.5 LOW BACK PAIN 03/30/2017 KAL LYONS CAR SALESPERSON Ot Z79.891 SECOND CRUSHER (CURRENT) USE OF OPIATE ANALGE 03/30/2017 KAL LYONS CAR SALESPERSON Ot Z79.899 OTHER SECOND CRUSHER (CURRENT) DRUG THERAPY 04/03/2017 KAL LYONS CAR SALESPERSON Ot F15.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, UNCOMPLICATED 04/03/2017 KAL LYONS CAR SALESPERSON Ot F17.210 NICOTINE DEPENDENCE, CIGARETTES, UNCOMPL 04/03/2017 KAL LYONS CAR SALESPERSON Ot M54.2 CERVICALGIA 04/03/2017 KAL LYONS CAR SALESPERSON Ot M54.5 LOW BACK PAIN 04/03/2017 KAL LYONS CAR SALESPERSON Ot Z79.891 USP (CURRENT) USE OF OPIATE ANALGE 04/03/2017 KAL LYONS CAR SALESPERSON Ot Z79.899 OTHER USP (CURRENT) DRUG THERAPY 05/22/2017 JOSH VALDERRAMA MD Ot F32.9 MAJOR DEPRESSIVE DISORDER, SINGLE EPISOD 05/22/2017 JOSH VALDERRMAA MD Ot F41.9 ANXIETY DISORDER, UNSPECIFIED 05/22/2017 [...] DISORDER, SINGLE EPISOD 07/02/2017 LYONS, PETER J CAR SALESPERSON Ot F41.9 ANXIETY DISORDER, UNSPECIFIED 07/02/2017 KAL LYONS CAR SALESPERSON Ot M47.9 SPONDYLOSIS, UNSPECIFIED 07/02/2017 KAL LYONS CAR SALESPERSON Ot Z77.22 CNTCT W AND EXPSR TO ENVIRON TOBACCO SMO 07/02/2017 KAL LYONS CAR SALESPERSON Ot Z87.59 PERSONAL HISTORY OF COMP OF PREG, CHLDBR 07/02/2017 KAL LYONS CAR SALESPERSON Ot Z90.710 ACQUIRED ABSENCE OF BOTH CERVIX AND UTER 07/02/2017 KAL LYONS CAR SALESPERSON Ot Z98.51 TUBAL LIGATION STATUS 07/30/2017 Ashley [...] ANXIETY DISORDER, UNSPECIFIED 11/06/2017 LYONS, PETER J CAR SALESPERSON Ot K43.9 VENTRAL HERNIA WITHOUT OBSTRUCTION OR [...] HISTORY OF COMP OF PREG, CHLDBR 12/20/2017 TREY BARBOZA MD Ot Z88.0 ALLERGY STATUS TO PENICILLIN 12/20/2017 TREY BARBOZA MD Ot Z88.6 ALLERGY STATUS TO ANALGESIC AGENT STATUS 12/20/2017 TREY BARBOZA MD Ot Z90.710 ACQUIRED ABSENCE OF BOTH CERVIX AND UTER 01/29/2018 LUCIE GANDHI CAR SALESPERSON Ot R10.2 PELVIC AND PERINEAL PAIN 02/15/2018 ALMA HERRON MD Ot F15.90 OTHER STIMULANT USE, UNSPECIFIED, UNCOMP 02/15/2018 ALMA HERRON MD Ot F17.210 NICOTINE DEPENDENCE, CIGARETTES, UNCOMPL 02/15/2018 ALMA HERRON MD, Ot F31.9 BIPOLAR DISORDER, UNSPECIFIED 02/15/2018 ALMA HERRON MD, Ot F41.9 ANXIETY DISORDER, UNSPECIFIED 02/15/2018 ALMA HERRON MD Ot R29.898 OTH SYMPTOMS AND SIGNS INVOLVING THE MUS 02/15/2018 ALMA HERRON MD Ot T50.905A ADVERSE EFFECT OF UNSP DRUG/MEDS/BIOL DELUNA 02/15/2018 ALMA HERRON MD Ot Z86.14 PERSONAL HISTORY OF METHICILLIN RESIS ST 02/15/2018 ALMA HERRON MD Ot Z87.59 PERSONAL HISTORY OF COMP OF PREG, CHLDBR 02/15/2018 ALMA HERRON MD Ot Z88.0 ALLERGY STATUS TO PENICILLIN 02/15/2018 ALMA HERRON MD Ot Z88.5 ALLERGY STATUS TO NARCOTIC AGENT STATUS 02/15/2018 ALMA HERRON MD Ot Z88.6 ALLERGY STATUS TO ANALGESIC AGENT STATUS 02/15/2018 ALMA HERRON MD Ot Z88.8 ALLERGY STATUS TO OTH DRUG/MEDS/BIOL SUB 02/15/2018 ALMA HERRON MD Ot Z90.710 ACQUIRED ABSENCE OF BOTH CERVIX AND UTER 02/15/2018 ALMA HERRON MD Ot Z98.890 OTHER SPECIFIED POSTPROCEDURAL STATES 02/17/2018 ALMA HERRON MD Ot T78.40XA ALLERGY, UNSPECIFIED, INITIAL ENCOUNTER 02/17/2018 LUCIE GANDHI CAR SALESPERSON Ot R10.2 PELVIC AND PERINEAL PAIN 02/18/2018 ALMA HERRON MD Ot F15.90 OTHER STIMULANT USE, UNSPECIFIED, UNCOMP 02/18/2018 ALMA HERRON MD Ot F17.210 NICOTINE DEPENDENCE, CIGARETTES, UNCOMPL 02/18/2018 ALMA HERRON MD, Ot F31.9 BIPOLAR DISORDER, UNSPECIFIED 02/18/2018 ALMA HERRON MD, Ot F41.9 ANXIETY DISORDER, UNSPECIFIED 02/18/2018 ALMA HERRON MD Ot R29.898 OT SYMPTOMS AND SIGNS INVOLVING THE MUS 02/18/2018 ALMA HERRON MD Ot T50.905A ADVERSE EFFECT OF UNSP DRUG/MEDS/BIOL DELUNA 02/18/2018 ALMA HERRON MD Ot Z86.14 PERSONAL HISTORY OF METHICILLIN RESIS ST 02/18/2018 ALMA HERRON MD Ot Z87.59 PERSONAL HISTORY OF COMP OF PREG, CHLDBR 02/18/2018 ALMA HERRON MD Ot Z88.0 ALLERGY STATUS TO PENICILLIN 02/18/2018 ALMA HERRON MD Ot Z88.5 ALLERGY STATUS TO NARCOTIC AGENT STATUS 02/18/2018 ALMA HERRON MD Ot Z88.6 ALLERGY STATUS TO ANALGESIC AGENT STATUS 02/18/2018 ALMA HERRON MD Ot Z88.8 ALLERGY STATUS TO OTH DRUG/MEDS/BIOL SUB 02/18/2018 ALMA HERRON MD Ot Z90.710 ACQUIRED ABSENCE OF BOTH CERVIX AND UTER 02/18/2018 ALMA HERRON MD Ot Z98.890 OTHER SPECIFIED POSTPROCEDURAL STATES 02/18/2018 LUCIE GANDHI CAR SALESPERSON Ot R10.2 PELVIC AND PERINEAL PAIN 02/19/2018 LUCIE GANDHI APRN Ot N94.89 OTH COND ASSOC W FEMALE GENITAL ORGANS A 02/19/2018 TREY BARBOZA MD Ot F15.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, UNCOMPLICATED 02/19/2018 JABARI GLOVER, TREY Cruz Ot F17.210 NICOTINE DEPENDENCE, CIGARETTES, UNCOMPL 02/19/2018 TREY BARBOZA MD Ot F31.9 BIPOLAR DISORDER, UNSPECIFIED 02/19/2018 TREY BARBOZA MD, Ot F41.9 ANXIETY DISORDER, UNSPECIFIED 02/19/2018 TREY BARBOZA MD Ot F60.9 PERSONALITY DISORDER, UNSPECIFIED 02/19/2018 TREY BARBOZA MD Ot R10.32 LEFT LOWER QUADRANT PAIN 02/19/2018 TREY BARBOZA MD Ot R10.84 GENERALIZED ABDOMINAL PAIN 02/19/2018 TREY BARBOZA MD Ot Z86.14 PERSONAL HISTORY OF METHICILLIN RESIS ST 02/19/2018 TREY BARBOZA MD Ot Z87.59 PERSONAL HISTORY OF COMP OF PREG, CHLDBR 02/19/2018 TREY BARBOZA MD Ot Z88.0 ALLERGY STATUS TO PENICILLIN 02/19/2018 TREY BARBOZA MD Ot Z88.6 ALLERGY STATUS TO ANALGESIC AGENT STATUS 02/19/2018 TREY BARBOZA MD Ot Z90.710 ACQUIRED ABSENCE OF BOTH CERVIX AND UTER 02/19/2018 ALMA HERRON MD Ot F15.90 OTHER STIMULANT USE, UNSPECIFIED, UNCOMP 02/19/2018 ALMA HERRON MD Ot F17.210 NICOTINE DEPENDENCE, CIGARETTES, UNCOMPL 02/19/2018 ALMA HERRON MD Ot F31.9 BIPOLAR DISORDER, UNSPECIFIED 02/19/2018 ALMA HERRON MD, Ot F41.9 ANXIETY DISORDER, UNSPECIFIED 02/19/2018 ALMA HERRON MD Ot R29.898 OTH SYMPTOMS AND SIGNS INVOLVING THE MUS 02/19/2018 ALMA HERRON MD Ot T50.905A ADVERSE EFFECT OF UNSP DRUG/MEDS/BIOL DELUNA 02/19/2018 ALAM HERRON MD Ot Z86.14 PERSONAL HISTORY OF METHICILLIN RESIS ST 02/19/2018 ALMA HERRON MD Ot Z87.59 PERSONAL HISTORY OF COMP OF PREG, CHLDBR 02/19/2018 ALMA HERRON MD Ot Z88.0 ALLERGY STATUS TO PENICILLIN 02/19/2018 ALMA HERRON MD Ot Z88.5 ALLERGY STATUS TO NARCOTIC AGENT STATUS 02/19/2018 ALMA HERRON MD Ot Z88.6 ALLERGY STATUS TO ANALGESIC AGENT STATUS 02/19/2018 ALMA HERRON MD, Ot Z88.8 ALLERGY STATUS TO OTH DRUG/MEDS/BIOL SUB 02/19/2018 ALMA HERRON MD, Ot Z90.710 ACQUIRED ABSENCE OF BOTH CERVIX AND UTER 02/19/2018 ALMA HERRON MD, Ot Z98.890 OTHER SPECIFIED POSTPROCEDURAL STATES 02/24/2018 LUCIE GANDHI CAR SALESPERSON Ot N94.89 OTH COND ASSOC W FEMALE GENITAL ORGANS A 04/14/2018 LUCIE GANDHI CAR SALESPERSON Ot N94.89 OTH COND ASSOC W FEMALE GENITAL ORGANS A 04/14/2018 LUCIE GANDHI CAR SALESPERSON Ot R10.2 PELVIC AND PERINEAL PAIN Procedures Code Description Performed By Performed On 96.04 03/29/2011 96.71 03/29/2011 37723 URINE BENZO GC/MS 11/13/2013 55585 URINE METH/AMPHETAMINE GC/ MS 11/13/2013 40674 URINE DRUG SCREEN (IN-HOUSE ) 11/13/2013 Addiction Mikayla Hawkins 04/12/2014 26290 URINE DRUG SCREEN (IN-HOUSE ) 05/12/2014 03031 URINE DRUG SCREEN (IN-HOUSE ) 07/19/2014 Results [...] plasma ethanol measurement (mass/volume) < mg/dL <10 A1C - 01/21/18 15:23 HEMOGLOBIN A1c 5.0 % of total Hgb <5.7 SUREPATH PAP AND HPV mRNA E6/E7 - 01/21/18 15:23 CLINICAL INFORMATION: CERVIX NRG LMP: NRG PREV. PAP: NRG PREV. BX: N/A NRG SOURCE: Cervix NRG STATEMENT OF ADEQUACY: NRG INTERPRETATION/RESULT: NRG MEDICAL RECORD ADMINISTRATOR: JOCELYNE HPV mRNA E6/E7, SUREPATH VIAL Not Detected NOT DETECTED COMMENT NRG Complete blood count (CBC) with automated white blood cell (WBC) differential - 02/15/18 04:04 Blood leukocytes automated count (number/volume) 7.8 10*3/uL 4.3-11.0 Blood erythrocytes automated count (number/volume) 4.22 10*6/uL 4.35-5.85 Venous blood hemoglobin measurement (mass/volume) 13.4 g/dL 11.5-16.0 Blood hematocrit (volume fraction) 38 % 35-52 Automated erythrocyte mean corpuscular volume 90 [foz_us] 80-99 Automated erythrocyte mean corpuscular hemoglobin (mass per erythrocyte) 32 pg 25-34 Automated erythrocyte mean corpuscular hemoglobin concentration measurement ( mass/volume) 35 g/dL 32-36 Automated erythrocyte distribution width ratio 13.1 % 10.0-14.5 Automated blood platelet count (count/volume) 213 10*3/uL 130-400 Automated blood platelet mean volume measurement 10.6 [foz_us] 7.4-10.4 Automated blood neutrophils/100 leukocytes 41 % 42-75 Automated blood lymphocytes/100 leukocytes 41 % 12-44 Blood monocytes/100 leukocytes 11 % 0-12 Automated blood eosinophils/100 leukocytes 7 % 0-10 Automated blood basophils/100 leukocytes 0 % 0-10 Blood neutrophils automated count (number/volume) 3.2 10*3 1.8-7.8 Blood lymphocytes automated count (number/volume) 3.2 10*3 1.0-4.0 Blood monocytes automated count (number/volume) 0.9 10*3 0.0-1.0 Automated eosinophil count 0.5 10*3/uL 0.0-0.3 Automated blood basophil count (count/volume) 0.0 10*3/uL 0.0-0.1 Comprehensive metabolic panel - 02/15/18 04:04 Serum or plasma sodium measurement (moles/volume) 140 mmol/L 135-145 Serum or plasma potassium measurement (moles/volume) 3.9 mmol/L 3.6-5.0 Serum or plasma chloride measurement (moles/volume) 111 mmol/L 98-107 Carbon dioxide 20 mmol/L 21-32 Serum or plasma anion gap determination (moles/volume) 9 mmol/L 5-14 Serum or plasma urea nitrogen measurement (mass/volume) 14 mg/dL 7-18 Serum or plasma creatinine measurement (mass/volume) 0.76 mg/dL 0.60-1.30 Serum or plasma urea nitrogen/creatinine mass ratio 18 NRG Serum or plasma creatinine measurement with calculation of estimated glomerular filtration rate > NRG Serum or plasma glucose measurement (mass/volume) 106 mg/dL 70-105 Serum or plasma calcium measurement (mass/volume) 8.5 mg/dL 8.5-10.1 Serum or plasma total bilirubin measurement (mass/volume) 0.3 mg/dL 0.1-1.0 Serum or plasma alkaline phosphatase measurement (enzymatic activity/volume) 46 U/L 40-136 Serum or plasma aspartate aminotransferase measurement (enzymatic activity/ volume) 16 U/L 5-34 Serum or plasma alanine aminotransferase measurement (enzymatic activity/volume ) 22 U/L 0-55 Serum or plasma protein measurement (mass/volume) 6.3 g/dL 6.4-8.2 Serum or plasma albumin measurement (mass/volume) 3.9 g/dL 3.2-4.5 Encounters ACCT No. Visit Date/Time Discharge Status Pt. Type Provider Facility Loc./Unit Complaint [id number] 12/16/2014 13:53:00 12/16/2014 23:59:59 [facility] Outpatient KARIN GRAHAM DO [id number] 07/19/2014 10:06:00 07/19/2014 23:59:59 [facility] Outpatient JARON ALVAREZ MD [id number] 06/14/2014 15:51:00 06/14/2014 23:59:59 [facility] Outpatient PIO SEGURA APRN [id number] 05/12/2014 11:05:00 05/12/2014 23:59:59 CLS Outpatient PIO SEUGRA APRN [id number] 04/08/2014 16:04:00 04/08/2014 23:59:59 CLS Outpatient KARIN GRAHAM DO [id number] 11/13/2013 14:42:00 11/13/2013 23:59:59 CLS Outpatient PIO SEGURA APRN [id number] 08/11/2013 10:41:00 08/11/2013 23:59:59 CLS Outpatient PIO SEGURA APRN [id number] 09/17/2012 16:04:00 09/17/2012 23:59:59 CLS Outpatient PIO SEGURA APRN [id number] 02/05/2012 14:14:00 02/05/2012 23:59:59 CLS Outpatient [id number] 07/29/2017 21:04:00 07/31/2017 20:40:00 DIS Outpatient [facility] ICU [id number] 07/30/2017 00:57:58 Document Registration [id number] 02/18/2018 10:25:00 02/18/2018 23:59:59 CLS Outpatient LUCIE GANDHI CAR SALESPERSON [facility] RAD ABNORMAL PELVIC ULTRASOUND [id number] 02/15/2018 03:56:00 02/15/2018 04:51:00 DIS Emergency ALMA HERRON MD [facility] ER AWOKE COULDN'T MOVE [id number] 02/04/2018 12:00:00 02/04/2018 23:59:59 CLS Preadmit LUCIE GANDHI CAR SALESPERSON [facility] RAD R10.2 PELVIC PAIN [id number] 01/28/2018 07:17:00 01/28/2018 23:59:59 CLS Outpatient LUCIE GANDHI CAR SALESPERSON [facility] RAD R10.2 PELVIC PAIN [id number] 12/18/2017 14:24:00 12/18/2017 19:09:00 DIS Emergency TREY BARBOZA MD [facility] ER ABD PAIN [id number] 11/25/2017 10:34:00 11/25/2017 13:51:00 DIS Emergency TREY BARBOZA MD [facility] ER FEELS DEHYDRATED [id number] 11/04/2017 16:29:00 11/04/2017 18:18:00 DIS Emergency KAL LYONS CAR SALESPERSON [facility] ER TROUBLE URINATING,HAD MESH AT [facility] [id number] 08/21/2017 12:09:00 08/21/2017 14:29:00 DIS Emergency RICKEY GLOVER, DEBI Garcia [facility] ER BRUISING ON CALVES [id number] 07/02/2017 20:33:00 07/02/2017 22:55:00 DIS Emergency KAL LYONS CAR SALESPERSON [facility] ER PSYCH EVAL [id number] 06/26/2017 17:46:00 06/26/2017 19:44:00 DIS Emergency KAL LYONS CAR SALESPERSON [facility] ER PELVIC/ABDOMINAL PAIN [id number] 05/22/2017 14:46:00 05/22/2017 15:22:00 DIS Emergency JOSH VALDERRAMA MD [facility] ER SINUS INFECTION/FACIAL SWELLING [id number] 03/28/2017 16:37:00 03/28/2017 19:00:00 DIS Emergency KAL LYONS CAR SALESPERSON [facility] ER NECK PAIN/HEADACHES [id number] 03/18/2017 10:37:00 03/18/2017 12:15:00 DIS Emergency KAL LYONS CAR SALESPERSON [facility] ER ANXIETY [id number] 12/30/2016 23:53:00 12/31/2016 02:55:00 DIS Emergency JOSH VALDERRAMA MD [facility] ER HIP PAIN AB PAIN [id number] 12/29/2016 11:14:00 12/29/2016 14:39:00 DIS Emergency KAL LYONS CAR SALESPERSON [facility] ER LEG/BACK PAIN [id number] 09/26/2016 16:29:00 09/26/2016 17:06:00 DIS Emergency HERBERTH CH [facility] ER EYE PAIN,RIB PAIN [id number] 09/22/2016 10:28:00 09/22/2016 11:04:00 DIS Emergency SIVA MORRISON MD [facility] ER STOMACH PAIN [id number] 09/17/2016 12:27:00 09/17/2016 15:45:00 DIS Emergency HERBERTH CH [facility] ER R WRIST BITE [id number] 09/13/2016 17:08:00 09/13/2016 19:13:00 DIS Emergency ADAMS MCGILL [facility] ER ABD PAIN [id number] 07/18/2016 16:33:00 07/18/2016 23:59:59 CLS Outpatient NANO OJEDA Fahad CAR SALESPERSON [facility] RAD M54.2 [id number] 06/15/2016 22:46:00 06/16/2016 01:29:00 DIS Emergency ADAMS MCGILL [facility] ER STEPPED ON GLASS IN R FOOT [id number] 05/10/2016 11:42:00 05/10/2016 12:34:00 DIS Emergency KAL LYONS APRN [facility] ER SPIDER BITE [id number] 01/17/2016 22:20:00 01/17/2016 22:40:00 DIS Emergency KAL LYONS APRN [facility] ER WOUND CHECK [id number] 01/16/2016 19:42:00 01/16/2016 20:31:00 DIS Emergency KAL LYONS APRN [facility] ER WOUND CHECK [id number] 01/14/2016 18:05:00 01/14/2016 19:26:00 DIS Emergency HERBERTH CH [facility] ER LOWER LEFT SIDE ABSCESS [id number] 11/05/2015 18:44:00 11/05/2015 22:45:00 DIS Emergency HERBERTH CH [facility] ER SKIN ISSUES/POSS INSECT BITE [id number] 08/29/2015 14:03:00 08/29/2015 14:29:00 DIS Emergency ASHLEY WONG DO [facility] ER [id number] 08/06/2015 19:21:00 08/06/2015 21:43:00 DIS Emergency ASHLEY WONG DO [facility] ER [id number] 02/09/2015 17:56:00 02/09/2015 20:41:00 DIS Emergency KAL LYONS APRN [facility] ER [id number] 12/07/2014 14:38:00 12/07/2014 15:50:00 DIS Emergency GERMAINE GLOVER, ALMA Phan [facility] ER [id number] 08/08/2014 15:27:00 08/08/2014 17:12:00 DIS Emergency JABARI GLOVER, TREY Cruz [facility] [id number] 12/03/2014 14:10:00 Document Registration [id number] 08/08/2014 16:45:00 Document Registration [id number] 08/08/2014 16:45:00 Document Registration [id number] 06/26/2011 12:55:00 Document Registration [id number] 03/29/2011 00:30:00 Document Registration [id number] 03/25/2011 22:29:00 Document Registration [id number] 01/02/2011 19:58:00 Document Registration [id number] 06/03/2010 00:26:00 Document Registration [id number] 05/18/2010 19:38:00 Document Registration [id number] 05/01/2010 19:15:00 Document Registration [id number] 04/27/2010 06:45:00 Document Registration [id number] 04/21/2010 22:35:00 Document Registration [id number] 04/12/2010 22:27:00 Document Registration [id number] 02/09/2015 17:56:54 ACT Document Registration [id number] 09/25/2017 16:20:00 09/25/2017 23:59:59 [facility] Outpatient SIMONE KWAN APRN [facility] [id number] 01/21/2018 14:00:00 Document Registration
[2018-10-08 20:33] LABS: AMPHETAMINE SCREEN, URINE NEGATIVE (NEGATIVE); BENZODIAZEPINES SCREEN URINE NEGATIVE (NEGATIVE); CANNABINOID SCREEN, URINE NEGATIVE (NEGATIVE); COCAINE SCREEN URINE NEGATIVE (NEGATIVE); METHAMPHETAMINE SCREEN URINE S NEGATIVE (NEGATIVE); OPIATE SCREEN URINE NEGATIVE (NEGATIVE)
[2018-10-08 20:34] LABS: BARBITURATE SCREEN URINE NEGATIVE (NEGATIVE); METHADONE STAT NEGATIVE (NEGATIVE); OXYCODONE STAT NEGATIVE (NEGATIVE); PROPOXYPHENE STAT NEGATIVE (NEGATIVE); TRICYCLIC ANTIDEPRESSANTS SCRE NEGATIVE (NEGATIVE)
[2018-10-08 20:45] LABS: ALANINE AMINOTRANSFERASE 19 U/L (0-55); ALBUMIN 4.2 GM/DL (3.2-4.5); ALKALINE PHOSPHATASE 65 U/L (40-136); BILIRUBIN,TOTAL 0.3 MG/DL (0.1-1.0); BUN/CREATININE RATIO 11; CALCIUM 8.6 MG/DL (8.5-10.1); CARBON DIOXIDE 20 MMOL/L (21-32); CHLORIDE 110 MMOL/L (98-107); CREATININE SERUM 0.79 MG/DL (0.60-1.30); GFR ESTIMATED > 60; GLUCOSE 100 MG/DL (70-105); POTASSIUM 3.8 MMOL/L (3.6-5.0); SODIUM 140 MMOL/L (135-145); TOTAL PROTEIN 7.2 GM/DL (6.4-8.2)
== END | disposition home or self-care (01) ==
LOC: EDUNIT# 19:50 → ER 19:51
DX: N39.0 Urinary tract infection, site not specified (principal); F20.9 Schizophrenia, unspecified; F15.10 Other stimulant abuse, uncomplicated; F41.9 Anxiety disorder, unspecified; F31.9 Bipolar disorder, unspecified; Z98.890 Other specified postprocedural states; Z90.710 Acquired absence of both cervix and uterus; Z88.0 Allergy status to penicillin; Z86.14 Personal history of Methicillin resistant Staphylococcus aureus infection; Z88.5 Allergy status to narcotic agent; Z88.4 Allergy status to anesthetic agent; Z88.8 Allergy status to other drugs, medicaments and biological substances; Z77.22 Contact with and (suspected) exposure to environmental tobacco smoke (acute) (chronic)
CPT/HCPCS: 36415; 80053; 80306; 81000; 84703; 85025; 87077; 87088; 87186; 99283

== ENCOUNTER 2019-07-19 18:45 | Emergency (ER) | payer SELFPAY ==
[~2019-07-19] VITALS: Ht 167.7 cm; Wt 108.0 kg
[~2019-07-19 18:45] MED LIST changes: -IBUPROFEN 800 MG (MOTRIN) TAB PO ONE; -OLANZapine 5 MG ODT (ZyPREXA ZYDIS) PO ONE; -TRIM/SULFAMETH 160/800 (SEPTRA DS) TAB PO ONE
--- NOTE | 2019-07-19 19:59 | Diagnostic Imaging Report ---
EXAMINATION: Left ankle, 3 views. HISTORY: Trauma. COMPARISON: 12/07/2009. FINDINGS: There is mild lateral malleolar ankle swelling. Mortise is intact. Talar dome is normal. No fracture is seen. Joint spaces are normal. IMPRESSION: Mild lateral malleolar swelling without acute fracture. Dictated by: Dictated on workstation # [id number]
--- NOTE | 2019-07-19 20:02 | ED Lower Extremity ---
General Chief Complaint: Lower Extremity Stated Complaint: L ANKLE INJ Nursing Triage Note: AMBULATORY TO TRIAGE THEN PLACED IN FT2. C/O STEPPING OFF PORCH AND "LEFT ANKLE BUCKLED". Nursing Sepsis Screen: No Definite Risk Source: patient Exam Limitations: no limitations History of Present Illness Date Seen by Provider: Jul 19, 2019 Time Seen by Provider: 20:01 Initial Comments Left lateral ankle pain and swelling after she stepped off a porch and it buckled. Onset: just prior to arrival Severity: moderate Pain/Injury Location: left ankle Method of Injury: unknown Modifying Factors: Worse With Movement Allergies and Home Medications Allergies Coded Allergies: Penicillins (Unverified Allergy, Mild, 04/22/09) codeine (Verified Allergy, Unknown, 04/22/09) ketorolac (Verified Allergy, Unknown, 04/22/09) nalbuphine (Verified Allergy, Unknown, 04/22/09) propoxyphene (Verified Allergy, Unknown, 04/22/09) Home Medications Sulfamethoxazole/Trimethoprim 1 Each Tablet, 1 EACH PO BID Prescribed by: KAL LYONS on 10/08/182046 Patient Home Medication List Home Medication List Reviewed: Yes Review of Systems Constitutional: see HPI EENTM: see HPI Respiratory: no symptoms reported Cardiovascular: no symptoms reported Genitourinary: no symptoms reported Musculoskeletal: see HPI Skin: no symptoms reported Psychiatric/Neurological: No Symptoms Reported Past Fjqctgp-Hksuwi-Cnwpdc Hx Patient Social History Alcohol Use: Denies Use Drug of Choice: Methamphetamines Smoking Status: Former Smoker Type Used: Cigarettes 2nd Hand Smoke Exposure: Yes Recent Foreign Travel: No Contact w/Someone Who Travel: No Recent Infectious Disease Expo: No Recent Hopitalizations: No Physical Abuse: No Sexual Abuse: No Mistreated: No Fear: No Immunizations Up To Date Tetanus Booster (TDap): Less than 5yrs Seasonal Allergies Seasonal Allergies: No Past Medical History Surgeries: Yes (D&C, X 3, TRANSVAGINAL MESH) Abdominal, Bladder Surgery, Section, Hysterectomy Respiratory: No Cardiac: No Neurological: No 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 Disorders: No 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 Genitourinary: No Gastrointestinal: No Musculoskeletal: Yes (PT WITH CHRONIC PAIN COMPLAINTS-"DEGENERATIVE ARTHRITIS AND DDD" PER PT) Endocrine: No HEENT: No Cancer: No Psychosocial: Yes Anxiety, Bipolar, Personality Disorder, Depression Integumentary: Yes (history of MRSA and multiple abscesses) Blood Disorders: No Adverse Reaction/Blood Tranf: No Family Medical History No Pertinent Family Hx Physical Exam Vital Signs Vital Signs - First Documented 07/19/19 19:18 Temp 36.9 Pulse 77 Resp 18 B/P (MAP) 138/100 (113) Capillary Refill : Less Than 3 Seconds Height, Weight, BMI Height: 5'6.00" Weight: 180lbs. 0.0oz. 81.047006cj; 38.00 BMI Method:Stated General Appearance: WD/WN, no apparent distress HEENT: PERRL/EOMI, normal ENT inspection Respiratory: no respiratory distress, no accessory muscle use Gastrointestinal: normal bowel sounds, non tender, soft Hips: bilateral hip non-tender, bilateral hip normal inspection, bilateral hip normal range of motion Legs: bilateral leg non-tender, bilateral leg normal inspection, bilateral leg normal range of motion Knees: bilateral knee non-tender, bilateral knee normal inspection, bilateral knee normal range of motion Ankles: left ankle pain, left ankle soft tissue tenderness, left ankle swelling Feet: bilateral foot non-tender, bilateral foot normal inspection, bilateral foot normal range of motion Neurologic/Psychiatric: alert, normal mood/affect, oriented x 3 Skin: normal color, warm/dry Procedures/Interventions Suture Size: 3-0 Progress/Results/Core Measures Results/Orders My Orders Orders - KAL LYONS APRN Ankle, Left, 3 Views (07/19/19 19:27) Vital Signs/I&O 07/19/19 19:18 Temp 36.9 Pulse 77 Resp 18 B/P (MAP) 138/100 (113) Blood Pressure Mean: 113 POS Departure Impression Primary Impression: Sprain and strain of ankle Disposition: 01 HOME, SELF-CARE Condition: Stable Departure-Patient Inst. Decision time for Depature: 20:02 Referrals: [facility] (PCP) Primary Care Physician SIMONE KWAN (Family) Primary Care Physician Patient Instructions: Ankle Sprain Add. Discharge Instructions: 1. Return to ER for any concerns 2. Follow-up with her doctor next week 2. Ibuprofen and Tylenol in the meantime for pain control, Say wrap the ankle All discharge instructions reviewed with patient and/or family. Voiced understanding. KAL LYONS APRN Jul 19, 2019 20:02 POS
[2019-07-19 20:25] VITALS: BP 135/99
--- NOTE | 2019-07-19 20:35 | Diagnostic Imaging Report ---
EXAMINATION: Left tibia and fibula 2 views HISTORY: Trauma FINDINGS: No comparison available. The left tibia and fibula appear normal without fracture. No dislocation. No soft tissue abnormality is seen. IMPRESSION: 1. No fracture in the left tibia or fibula. Dictated by: Dictated on workstation # [id number]
== END 2019-07-19 20:27 | disposition home or self-care (01) ==
LOC: EDUNIT# 18:45 → ER 18:46
DX: S93.402A Sprain of unspecified ligament of left ankle, initial encounter (principal); F41.9 Anxiety disorder, unspecified; F31.9 Bipolar disorder, unspecified; F60.9 Personality disorder, unspecified; Z88.0 Allergy status to penicillin; Z88.5 Allergy status to narcotic agent; Z88.8 Allergy status to other drugs, medicaments and biological substances; Z87.891 Personal history of nicotine dependence; Z77.22 Contact with and (suspected) exposure to environmental tobacco smoke (acute) (chronic); Z90.710 Acquired absence of both cervix and uterus; X50.1XXA Overexertion from prolonged static or awkward postures, initial encounter
CPT/HCPCS: 73590; 73610

== ENCOUNTER 2019-08-01 14:44 | Emergency (ER) | payer SELFPAY ==
[~2019-08-01] VITALS: Ht 172 cm; Wt 100.0 kg
[2019-08-01] MEDS ORDERED: NAPR-1071 PO (15:14)
[2019-08-01] MEDS ORDERED: CEFD300C3 PO (15:14)
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
[2019-08-01] MEDS ORDERED: diphenhydrAMINE 25 MG TAB (BENADRYL) PO ONE (15:15)
[2019-08-01 15:21] VITALS: BP 143/97
== END 2019-08-01 15:22 | disposition home or self-care (01) ==
LOC: EDUNIT# 14:44 → ER 14:46
DX: H66.91 Otitis media, unspecified, right ear (principal); F41.9 Anxiety disorder, unspecified; F31.9 Bipolar disorder, unspecified; F60.9 Personality disorder, unspecified; Z88.0 Allergy status to penicillin; Z88.5 Allergy status to narcotic agent; Z88.6 Allergy status to analgesic agent; Z88.8 Allergy status to other drugs, medicaments and biological substances; Z77.22 Contact with and (suspected) exposure to environmental tobacco smoke (acute) (chronic); Z90.710 Acquired absence of both cervix and uterus
CPT/HCPCS: 99282

== ENCOUNTER 2019-08-04 19:30 | Emergency (ER) | payer SELFPAY ==
[~2019-08-04] VITALS: Ht 165 cm; Wt 112.0 kg
[~2019-08-04 19:30] MED LIST changes: +NAPR-1071 PO
--- NOTE | 2019-08-04 19:57 | NUR ---
DURING TRIAGE PT REPEATEDLY STATED SHE NEEDED ADMITTED AND "MRI'S FROM HEAD TO TOE, I'M SICK MAN CAN'T YOU SEE I NEED HELP." I EXPLAINED THAT WE WILL DO EVERYTHING WE CAN TO TREAT HER CURRENT CONDITION BUT THAT THERE IS NO GUARANTEE THAT SHE WILL BE ADMITTED. PT THEN STARTED CRYING, HOLDING HER HEAD IN HER HANDS, AND SAID "THOSE PEOPLE ARE CRAZY" TO WHICH I ASKED WHO AND SHE SAID "YOU ARE CRAZY, I'M NOT GOING BACK TO [place]." I EXPLAINED THAT NO ONE SAID SHE WAS GOING TO [place] AND SHE STATED THAT LANCE SENT HER TO [place]. I AGAIN EXLAINED THAT WE WILL TREAT HER CURRENT CONDITION AND IF THERE IS A MEDICAL REASON TO ADMIT HER WE WILL BUT WE CAN'T JUST ADMIT BECAUSE SHE WANTS IT. SHE BECAME IRRITATED WITH THIS AND SAID "YOU'RE NOT REAL YOU DON'T EVEN WORK HERE, YOU'RE NOT A NURSE I WANT A DIFFERENT NURSE." I ADVISED HER THAT I WAS DONE WITH HER TRIAGE AND THAT SHE COULD STEP OUT INTO THE WAITING ROOM AND I WOULD GET HER A DIFFERENT NURSE. AT THAT POINT SHE STATED "NO I'M GOING TO SIT HERE AND WAIT FOR ANOTHER NURSE." I ADVISED HER THAT SHE WAS GOING TO GO BY THE SAME PROCEDURES THAT WE HAVE FOR ALL OUR PATIENTS AND SHE NEEDED TO STEP BACK OUT INTO THE WAITING ROOM. WHEN SHE AGAIN SAID NO I ASKED SALES AGENT MARINE INSURANCE ANASTACIA TO CALL FOR SECURITY IF THE PT WAS NOT GOING TO GO BY POLICY. THE PT THEN GOT UP AND STARTED WALKING TO THE WAITING ROOM AND ASKED WHAT MY NAME WAS, I TOLD HER MY NAME WAS NAKUL. 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 SHE THEN ASKED WHAT MY MANAGERS LAST NAME WAS AND THAT SHE FELT THREATENED BY ME. I ADVISED THAT THERE ARE CAMERAS AND WE HAD WITNESSES AT THE MIDDLE SCHOOL DIRECTOR IF THERE WAS A PROBLEM. SHE THEN WENT TO THE WAITING ROOM AND SAT DOWN.
--- NOTE | 2019-08-04 20:23 | ED EENT ---
History of Present Illness General Chief Complaint: Ear Problems Stated Complaint: EAR AND THROAT PAIN Nursing Triage Note: PT STATES LT EAR/SINUS PAIN AND PRESSURE FOR ABOUT A WEEK. Source: patient Exam Limitations: no limitations History of Present Illness Date Seen by Provider: Aug 04, 2019 Time Seen by Provider: 20:21 Initial Comments To ER with reports of nasal congestion sore throat, left earache, feels like everything is echoing. She was seen here 3 days ago for similar symptoms given a prescription for Omnicef antibiotic for left otitis media and did not fill those. Timing/Duration: gradual Severity: moderate Location: ear (L) Prearrival Treatment: no prearrival treatment Associated Symptoms: denies symptoms Allergies and Home Medications Allergies Coded Allergies: Penicillins (Unverified Allergy, Mild, 04/22/09) codeine (Verified Allergy, Unknown, 04/22/09) ketorolac (Verified Allergy, Unknown, 04/22/09) nalbuphine (Verified Allergy, Unknown, 04/22/09) propoxyphene (Verified Allergy, Unknown, 04/22/09) Home Medications Cefdinir 300 Mg Capsule, 300 MG PO BID Prescribed by: KAL LYONS on 08/01/19 151 Naproxen 500 Mg Tablet, 500 MG PO BID PRN for PAIN-MODERATE (5-7) Prescribed by: KAL LYONS on 08/01/19 151 Sulfamethoxazole/Trimethoprim 1 Each Tablet, 1 EACH PO BID Prescribed by: KAL LYONS on 10/08/182046 Patient Home Medication List Home Medication List Reviewed: Yes Review of Systems Review of Systems Constitutional: see HPI; No fever Eyes: No Symptoms Reported Ears: See HPI Nose: no symptoms reported Mouth: no symptoms reported Throat: no symptoms reported Respiratory: no symptoms reported Cardiovascular: no symptoms reported Musculoskeletal: no symptoms reported Past Aihxzww-Ngfske-Gzlcra Hx Patient Social History Alcohol Use: Denies Use Recreational Drug Use: Yes Drug of Choice: Methamphetamines Smoking Status: Current Someday Smoker Type Used: Cigarettes 2nd Hand Smoke Exposure: Yes Recent Foreign Travel: No Contact w/Someone Who Travel: No Recent Infectious Disease Expo: No Recent Hopitalizations: No Immunizations Up To Date Tetanus Booster (TDap): Less than 5yrs Seasonal Allergies Seasonal Allergies: No Past Medical History Surgeries: Yes (D&C, X 3, TRANSVAGINAL MESH) Abdominal, Bladder Surgery, Section, Hysterectomy Respiratory: No Cardiac: No Neurological: No : No 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 Genitourinary: No Gastrointestinal: No Musculoskeletal: Yes (PT WITH CHRONIC PAIN COMPLAINTS-"DEGENERATIVE ARTHRITIS AND DDD" PER PT) Endocrine: No HEENT: No Cancer: No Psychosocial: Yes Anxiety, Bipolar, Personality Disorder, Depression Integumentary: Yes (history of MRSA and multiple abscesses) Blood Disorders: No Adverse Reaction/Blood Tranf: No Family Medical History No Pertinent Family Hx Physical Exam Vital Signs Vital Signs - First Documented 08/04/19 19:45 Temp 37.0 Pulse 98 Resp 20 B/P (MAP) 136/84 (101) Pulse Ox 98 O2 Delivery Room Air Height, Weight, BMI Height: 5'6.00" Weight: 180lbs. 0.0oz. 81.833266gv; 41.00 BMI Method:Stated General Appearance: WD/WN, no apparent distress Eyes: bilateral eye normal inspection, bilateral eye PERRL, bilateral eye EOMI Ears: bilateral ear auricle normal, bilateral ear canal normal Neck: non-tender, full range of motion Respiratory: normal breath sounds, no respiratory distress, no accessory muscle use Neurologic/Psychiatric: alert, normal mood/affect, oriented x 3 Skin: normal color, warm/dry Procedures/Interventions Suture Size: 3-0 Progress/Results/Core Measures Results/Orders My Orders Orders - KAL LYONS APRN Hydrocodone/Apap 5/325 Tablet (Lortab 5 (08/04/19 20:30) Ceftriaxone For Im Use (Rocephin For Im (08/04/19 20:30) Lidocaine 1% Inj 20 Ml (Xylocaine 1% Inj (08/04/19 20:30) Medications Given in ED Current Medications Medications Dose Ordered Sig/Se Route Start Time Stop Time Status Last Admin Dose Admin Acetaminophen/ Hydrocodone Bitart 1 tab ONCE ONCE PO 08/04/19 20:30 08/04/19 20:30 DC 08/04/19 20:25 1 TAB Lidocaine HCl 2.1 ml ONCE ONCE INJ 08/04/19 20:30 08/04/19 20:30 DC 08/04/19 20:24 2.1 ML Vital Signs/I&O 08/04/19 08/04/19 08/04/19 19:45 20:25 20:29 Temp 37.0 37.0 37.0 Pulse 98 98 Resp 20 20 B/P (MAP) 136/84 (101) 136/84 (101) Pulse Ox 98 98 O2 Delivery Room Air Blood Pressure Mean: 101 POS Departure Impression Primary Impression: Otitis media Qualified Codes: H66.002 - Acute suppurative otitis media without spontaneous rupture of ear drum, left ear Disposition: ADMITTED INPATIENT Condition: Improved Departure-Patient Inst. Decision time for Depature: 20:23 Referrals: NO,LOCAL PHYSICIAN (PCP) Primary Care Physician Patient Instructions: Ear Infections (Otitis Media) (DC) Add. Discharge Instructions: 1. Fill the antibiotics that I gave you 3 days ago. Return to ER for any concerns. All discharge instructions reviewed with patient and/or family. Voiced understanding. KAL LYONS EXECUTIVE MANAGER Aug 04, 2019 20:23 POS
[2019-08-04 20:29] VITALS: BP 136/84
[2019-08-04] MEDS ORDERED: LIDOCAINE 1% INJ 20 ML 20 ML VIAL INJ ONE (20:30)
[2019-08-04] MEDS ORDERED: cefTRIAXone 1,000 MG/2.86 ml vial (IM ONLY) IM SCH (20:30)
[2019-08-04] MEDS ORDERED: HYDROcodone/APAP 5 MG/325 MG (LORTAB) TAB PO ONE (20:30)
== END 2019-08-04 20:29 | disposition home or self-care (01) ==
LOC: EDUNIT# 19:30 → ER 19:32
DX: H66.92 Otitis media, unspecified, left ear (principal); F41.9 Anxiety disorder, unspecified; F31.9 Bipolar disorder, unspecified; F60.9 Personality disorder, unspecified; F17.210 Nicotine dependence, cigarettes, uncomplicated; Z90.710 Acquired absence of both cervix and uterus; Z88.0 Allergy status to penicillin; Z88.5 Allergy status to narcotic agent; Z88.6 Allergy status to analgesic agent; Z88.8 Allergy status to other drugs, medicaments and biological substances
CPT/HCPCS: 96372; 99284

== ENCOUNTER 2020-03-22 14:38 | Emergency (ER) | payer SELFPAY ==
[~2020-03-22] VITALS: Ht 167 cm; Wt 95.0 kg
[2020-03-22] MEDS ORDERED: LIDOCAINE 1% INJ 20 ML 20 ML VIAL INJ ONE (14:45)
[2020-03-22] MEDS ORDERED: cefTRIAXone 1,000 MG/2.86 ml vial (IM ONLY) IM SCH (14:45)
[2020-03-22] MEDS ORDERED: HYDR-3870 PO (14:50)
[2020-03-22] MEDS ORDERED: CLIN300C11 PO (14:50)
--- NOTE | 2020-03-22 14:51 | ED General ---
General Stated Complaint: POSS SINUS INFECTION Source of Information: Patient Exam Limitations: No Limitations History of Present Illness Date Seen by Provider: Mar 22, 2020 Time Seen by Provider: 14:46 Initial Comments To ER with reports of a possible sinus infection. She reports left sided tooth pain and left-sided facial swelling. No fevers. Started yesterday. Timing/Duration: 1-2 Days Severity: Moderate Associated Systoms: Headaches Allergies and Home Medications Allergies Coded Allergies: Penicillins (Unverified Allergy, Mild, 04/22/09) codeine (Verified Allergy, Unknown, 04/22/09) ketorolac (Verified Allergy, Unknown, 04/22/09) nalbuphine (Verified Allergy, Unknown, 04/22/09) propoxyphene (Verified Allergy, Unknown, 04/22/09) Home Medications Cefdinir 300 Mg Capsule, 300 MG PO BID Prescribed by: KAL LYONS on 08/01/19 151 Naproxen 500 Mg Tablet, 500 MG PO BID PRN for PAIN-MODERATE (5-7) Prescribed by: KAL LYONS on 08/01/19 151 Sulfamethoxazole/Trimethoprim 1 Each Tablet, 1 EACH PO BID Prescribed by: KAL LYONS on 10/08/182046 Patient Home Medication List Home Medication List Reviewed: Yes Review of Systems Review of Systems Constitutional: see HPI; No chills, No fever EENTM: see HPI Respiratory: no symptoms reported; No cough, No short of breath Cardiovascular: no symptoms reported Genitourinary: no symptoms reported Musculoskeletal: no symptoms reported Skin: no symptoms reported Past Ujjqtum-Nnnacv-Vdbhpj Hx Patient Social History Drug of Choice: Methamphetamines Type Used: Cigarettes 2nd Hand Smoke Exposure: Yes Recent Hopitalizations: No Immunizations Up To Date Tetanus Booster (TDap): Less than 5yrs Seasonal Allergies Seasonal Allergies: No Past Medical History Surgeries: Yes (D&C, X 3, TRANSVAGINAL MESH) Abdominal, Bladder Surgery, Section, Hysterectomy Respiratory: No Cardiac: No Neurological: No 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 0.0oz. 81.680691ww; 41.00 BMI Method:Stated General Appearance: No Apparent Distress, WD/WN Eyes: Bilateral Eye Normal Inspection, Bilateral Eye PERRL, Bilateral Eye EOMI HEENT: PERRL/EOMI, TMs Normal, Other (there is some left-sided maxillary swelli ng just adjacent to the nose.) Neck: Full Range of Motion, Normal Inspection Respiratory: No Accessory Muscle Use, No Respiratory Distress Cardiovascular: Regular Rate, Rhythm, Normal Peripheral Pulses Gastrointestinal: Normal Bowel Sounds, Non Tender, Soft Extremity: Normal Capillary Refill, Normal Inspection Neurologic/Psychiatric: Alert, Oriented x3 Skin: Normal Color, Warm/Dry Procedures/Interventions Suture Size: 3-0 Progress/Results/Core Measures Suspected Sepsis SIRS Temperature: Pulse: Respiratory Rate: Blood Pressure / Mean: Results/Orders My Orders Orders - KAL LYONS APRN Ceftriaxone For Im Use (Rocephin For Im (03/22/20 14:45) Lidocaine 1% Inj 20 Ml (Xylocaine 1% Inj (03/22/20 14:45) Vital Signs/I&O Capillary Refill : Departure Impression Primary Impression: Dental abscess Disposition: 01 HOME, SELF-CARE Condition: Stable Departure-Patient Inst. Decision time for Depature: 14:49 Referrals: NO,LOCAL PHYSICIAN (PCP/Family) Primary Care Physician Patient Instructions: Tooth Abscess (DC) Add. Discharge Instructions: Medication as directed. Antibiotics as directed. Scripts Clindamycin HCl (Clindamycin HCl) 300 Mg Capsule 300 MG PO TID, #21 CAP Prov: KAL LYONS APRN 03/22/20 KAL LYONS APRN Mar 22, 2020 14:51
[2020-03-22 15:05] VITALS: BP 138/93
== END 2020-03-22 15:05 | disposition home or self-care (01) ==
LOC: EDUNIT# 14:38 → ER 14:40
DX: K04.7 Periapical abscess without sinus (principal); Z88.0 Allergy status to penicillin; Z88.5 Allergy status to narcotic agent; Z88.6 Allergy status to analgesic agent; Z88.8 Allergy status to other drugs, medicaments and biological substances; Z77.22 Contact with and (suspected) exposure to environmental tobacco smoke (acute) (chronic)
CPT/HCPCS: 99284

== ENCOUNTER 2020-03-25 21:42 | Emergency (ER) | payer SELFPAY ==
[~2020-03-25] VITALS: Ht 167 cm; Wt 125.6 kg
[~2020-03-25 21:42] MED LIST changes: +CLIN300C11 PO; +HYDR-3870 PO
[2020-03-25 21:49] VITALS: BP 151/97
[2020-03-25] MEDS ORDERED: RX-NAPROXEN (NAPROSYN) 250 MG TAB PPK#4 PO STA (21:51)
[2020-03-25] MEDS ORDERED: CLIN300C11 PO (21:58)
[2020-03-25] MEDS ORDERED: ACET-1672 PO (21:58)
--- NOTE | 2020-03-25 21:58 | ED EENT ---
History of Present Illness General Stated Complaint: DENTAL,FACIAL PAIN Source: patient Exam Limitations: no limitations History of Present Illness Date Seen by Provider: Mar 25, 2020 Time Seen by Provider: 21:55 Initial Comments To ER with left-sided facial and dental pain. Was seen here the other day for the same. Given clindamycin and hydrocodone. Timing/Duration: abrupt Severity: moderate Associated Symptoms: denies symptoms Allergies and Home Medications Allergies Coded Allergies: Penicillins (Unverified Allergy, Mild, 04/22/09) codeine (Verified Allergy, Unknown, 04/22/09) ketorolac (Verified Allergy, Unknown, 04/22/09) nalbuphine (Verified Allergy, Unknown, 04/22/09) propoxyphene (Verified Allergy, Unknown, 04/22/09) Home Medications Cefdinir 300 Mg Capsule, 300 MG PO BID Prescribed by: KAL LYONS on 08/01/19 1514 Clindamycin HCl 300 Mg Capsule, 300 MG PO TID Prescribed by: KAL LYONS on 03/22/20 1450 Hydrocodone/Acetaminophen 1 Each Tablet, 1 EACH PO Q4-6HR PRN for PAIN-MODERATE Prescribed by: KAL LYONS on 03/22/20 1451 Naproxen 500 Mg Tablet, 500 MG PO BID PRN for PAIN-MODERATE (5-7) Prescribed by: KAL LYONS on 08/01/19 1514 Sulfamethoxazole/Trimethoprim 1 Each Tablet, 1 EACH PO BID Prescribed by: KAL LYONS on 10/08/182046 Patient Home Medication List Home Medication List Reviewed: Yes Review of Systems Review of Systems Constitutional: see HPI Eyes: No Symptoms Reported Ears: No Symptoms Reported Nose: no symptoms reported Mouth: no symptoms reported Throat: no symptoms reported Respiratory: no symptoms reported Cardiovascular: no symptoms reported Musculoskeletal: no symptoms reported Skin: no symptoms reported Neurological: No Symptoms Reported Hematologic/Lymphatic: No Symptoms Reported Immunological/Allergic: no symptoms reported Past Xoowuok-Drbvir-Rmzawf Hx Patient Social History Drug of Choice: Methamphetamines Type Used: Cigarettes 2nd Hand Smoke Exposure: Yes Recent Foreign Travel: No Contact w/Someone Who Travel: No Recent Hopitalizations: No Immunizations Up To Date Tetanus Booster (TDap): Less than 5yrs Seasonal Allergies Seasonal Allergies: No Past Medical History Surgeries: Yes (D&C, X 3, TRANSVAGINAL MESH) Abdominal, Bladder Surgery, Section, Hysterectomy Respiratory: No Cardiac: No Neurological: No 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 0.0oz. 81.978492uo; 34.00 BMI Method:Stated General Appearance: WD/WN, no apparent distress Eyes: bilateral eye normal inspection, bilateral eye PERRL, bilateral eye EOMI Ears: bilateral ear auricle normal, bilateral ear canal normal, bilateral ear TM normal Mouth/Throat: normal mouth inspection (multiple teeth in very poor condition but no palpable abscess. Overall the left maxillary swelling is quite a bit improved from 3 days ago when I saw her), pharynx normal Neck: non-tender, full range of motion Respiratory: no respiratory distress, no accessory muscle use Neurologic/Psychiatric: alert, normal mood/affect, oriented x 3 Skin: normal color, warm/dry Procedures/Interventions Suture Size: 3-0 Progress/Results/Core Measures Results/Orders My Orders Orders - KAL LYONS APRN Rx-Naproxen (Rx-Naprosyn) (03/25/20 21:51) Departure Communication (Admissions) She has the pill bottles with her, we'll continue with the clindamycin, all give her a prescription for an additional 3 days for a total of 10 days. Impression Primary Impression: Dental abscess Disposition: 01 HOME, SELF-CARE Condition: Stable Departure-Patient Inst. Decision time for Depature: 21:57 Referrals: NO,LOCAL PHYSICIAN (PCP/Family) Primary Care Physician Patient Instructions: Tooth Abscess (DC) Add. Discharge Instructions: 1. Continue to take the clindamycin antibiotics, they are working. Scripts Acetaminophen/Diphenhydramine (Percogesic 325-12.5 mg Tablet) 1 Each Tablet 2 EACH PO Q4H PRN for PAIN-MILD (1-4), #20 TAB Prov: KAL LYONS APRN 03/25/20 Clindamycin HCl (Clindamycin HCl) 300 Mg Capsule 300 MG PO TID, #9 CAP Prov: KAL LYONS APRN 03/25/20 KAL LYONS APRN Mar 25, 2020 21:58
== END 2020-03-25 22:00 | disposition home or self-care (01) ==
LOC: EDUNIT# 21:42 → ER 21:44
DX: K04.7 Periapical abscess without sinus (principal); G89.29 Other chronic pain; Z88.5 Allergy status to narcotic agent; Z88.6 Allergy status to analgesic agent; Z88.0 Allergy status to penicillin; Z88.8 Allergy status to other drugs, medicaments and biological substances; Z77.22 Contact with and (suspected) exposure to environmental tobacco smoke (acute) (chronic); Z79.891 Long term (current) use of opiate analgesic
CPT/HCPCS: 99283

== ENCOUNTER → 2020-06-08 | Outpatient (CLI) | payer SELFPAY ==
[~2020-06-08] MED LIST changes: +ACET-1672 PO
--- NOTE | 2020-06-08 16:34 | Diagnostic Imaging Report ---
PROCEDURE: CT head without contrast. TECHNIQUE: Multiple contiguous axial images were obtained through the brain without the use of intravenous contrast. Auto Exposure Controls were utilized during the CT exam to meet ALARA standards for radiation dose reduction. INDICATION: Confusion, memory loss, head pain, dizziness, slurred speech. FINDINGS: There is no hemorrhage, hydrocephalus, edema, mass, mass effect, or evidence for an elevation of the intracerebral pressures. The basilar cisterns are patent. There is no sulcal effacement. No focal or generalized cerebral edema. The orbits, sinuses, and calvarium appear nonacute. IMPRESSION: Unremarkable CT head. Dictated by: Dictated on workstation # [id number]
== END ==
LOC: RAD 14:53
PROVIDERS: ATTEND Internal Medicine
DX: R41.0 Disorientation, unspecified (principal); R51 Headache; R42 Dizziness and giddiness; R47.81 Slurred speech
CPT/HCPCS: 70450

== ENCOUNTER 2020-11-21 20:31 | Emergency (ER) | payer SELFPAY ==
[~2020-11-21 20:31] MED LIST changes: -CLIN300C11 PO; +CLIN300C12 PO; -RISP1TAB3; +RISP1TAB93
== END 2020-11-21 21:03 | disposition left against medical advice (07) ==
LOC: EDUNIT# 20:31 → ER 20:32
DX: M79.605 Pain in left leg (principal)

== ENCOUNTER 2020-11-29 21:53 | Emergency (ER) | payer SELFPAY ==
[~2020-11-29] VITALS: Ht 168 cm; Wt 125.6 kg
[2020-11-29 21:55] VITALS: BP 137/87
[2020-11-29] MEDS ORDERED: RX-TRIMETH/SULFA. 160-800 MG (BACTRIM DS) TAB PPK#2 PO STA (22:01)
[2020-11-29] MEDS ORDERED: [UNRECOGNIZED DRUG - CODE] MC (22:06)
[2020-11-29] MEDS ORDERED: SULF1TAB35 PO (22:06)
[2020-11-29] MEDS ORDERED: FLUC200T PO (22:06)
--- NOTE | 2020-11-29 22:06 | ED Integumentary General ---
General Chief Complaint: Skin/Wound Problems Stated Complaint: KNOTS ON BODY Source: patient (LIMITED HISTORIAN), EMS, old records History of Present Illness Date Seen by Provider: Nov 29, 2020 Time Seen by Provider: 21:54 Initial Comments PT ARRIVES VIA EMS, EMS REPORTS THEY PICKED HER UP [facility], BUT PT IS HOMELESS PT WALKS INTO ER ON HER OWN, CARRYING A CARDBOARD BOX WITH CLOTHING AND OTHER MISCELLANEOUS ITEMS PT C/O "KNOTS" ON HER BODY FOR THE LAST 2 WEEKS NO DIFFERENT TONIGHT HAS NOT SOUGHT CARE UNTIL TONIGHT HAS NOT DONE ANYTHING TO TREAT THEM HAS HISTORY OF SAME, BUT DOES NOT KNOW DIAGNOSIS OR TREATMENT PER OLD RECORDS, PT HAS HISTORY OF MRSA AND MULTIPLE ABSCESSES STATES SHE HAS "3 KNOTS" --1 UNDER EACH BREAST AND ONE IN LEFT GROIN. NO FEVER PT DENIES ANY HISTORY OF DIABETES. PCP: DR. ALVAREZ/ [facility]. USED TO SEE JAVIER KWAN Allergies and Home Medications Allergies Coded Allergies: Penicillins (Unverified Allergy, Mild, 04/22/09) codeine (Verified Allergy, Unknown, 04/22/09) ketorolac (Verified Allergy, Unknown, 04/22/09) nalbuphine (Verified Allergy, Unknown, 04/22/09) propoxyphene (Verified Allergy, Unknown, 04/22/09) Home Medications Fluconazole 200 Mg Tablet, 200 MG PO DAILY Prescribed by: TERESO WONG on 11/29/202205 Nystatin 1,000,000 Unit Powder.ea., 1,000,000 UNIT MC BID Prescribed by: TERESO WONG on 11/29/202205 Sulfamethoxazole/Trimethoprim 1 Each Tablet, 1 EACH PO BID Prescribed by: TERESO WONG on 11/29/202205 Patient Home Medication List Home Medication List Reviewed: Yes Review of Systems Review of Systems Constitutional: No fever Skin: see HPI Past Togfvcs-Cgdpvb-Hnlypy Hx Past Med/Social Hx: Reviewed and Corrections made Patient Social History Drug of Choice: Methamphetamines Smoking Status: Current Everyday Smoker Type Used: Cigarettes 2nd Hand Smoke Exposure: Yes Recent Hopitalizations: No Immunizations Up To Date Tetanus Booster (TDap): Less than 5yrs Seasonal Allergies Seasonal Allergies: No Past Medical History Surgeries: Yes (D&C, X 3, TRANSVAGINAL MESH) Abdominal, Bladder Surgery, Section, Hysterectomy Respiratory: No Cardiac: No Neurological: No 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 HX OF IV METH USE -SMOKES 1 PPD HOMELESS PAST SURGICAL HISTORY: - X 3 -D&C -TRANSVAGINAL MESH -HYSTERECTOMY Physical Exam Vital Signs Vital Signs - First Documented 11/29/20 21:55 Temp 37.1 Pulse 96 Resp 18 B/P (MAP) 137/87 (104) Pulse Ox 99 O2 Delivery Room Air Capillary Refill : General Appearance: obese (MORBIDLY ), other (UNKEMPT, DIRTY AND VERY MALODOROUS. WALKS WITHOUT DIFFICULTY) Cardiovascular: regular rate, rhythm Respiratory: no respiratory distress Extremities: no pedal edema Neurologic/Psychiatric: no motor/sensory deficits, alert, normal mood/affect, oriented x 3 Skin: other (EXTENSIVE CANDIDAL -APPEARING INTERTRIGO UNDER BREASTS, IN GROIN, IN ABDOMINAL FOLDS AND PANNUS, AND AXILLA. BELOW RIGHT BREAST WITH 4 X 5 CM AREA OF ERYTHEMA, TENDERNESS AND FIRMNESS. NO FLUCTUANCE, NO POINTING. NO DRAINAGE. NO STREAKS. ) Procedures/Interventions Suture Size: 3-0 Progress/Results/Core Measures Results/Orders My Orders Orders - TERESO WONG DO Rx-Trimeth/Sulfameth Ds Tab (Rx-Bactrim/ (11/29/20 22:01) Vital Signs/I&O 11/29/20 21:55 Temp 37.1 Pulse 96 Resp 18 B/P (MAP) 137/87 (104) Pulse Ox 99 O2 Delivery Room Air Departure Impression Primary Impression: cellulitis below right breast Additional Impression: Candidal intertrigo Disposition: 01 HOME, SELF-CARE Condition: Stable Departure-Patient Inst. Referrals: JARON ALVAREZ MD (PCP/Family) Primary Care Physician Patient Instructions: Fungal Skin Rash (DC), Intertrigo (DC), MRSA (DC), Cellulitis (Skin Infection), Adult (DC) Add. Discharge Instructions: BATHE DAILY AND DRY ALL AREAS OF SKIN CREASES COMPLETELY APPLY ANTIFUNGAL POWDER TWICE A DAY TO ALL OF YOUR SKIN CREASES FOLLOW UP WITH [facility] IN 3-4 DAYS FOR FURTHER CARE All discharge instructions reviewed with patient and/or family. Voiced understanding. Scripts Nystatin (Nystatin) 1,000,000 Unit Powder.ea. [id number] UNIT MC BID, #1 UNIT Prov: TERESO WONG DO 11/29/20 Fluconazole (Diflucan) 200 Mg Tablet 200 MG PO DAILY, #10 TAB Prov: TERESO WONG DO 11/29/20 Sulfamethoxazole/Trimethoprim (Bactrim Ds Tablet) 1 Each Tablet 1 EACH PO BID, #20 TAB Prov: TERESO WONG DO 11/29/20 TERESO WONG DO Nov 29, 2020 22:06
== END 2020-11-29 22:09 | disposition home or self-care (01) ==
LOC: EDUNIT# 21:53 → ER 21:54
DX: N61.0 Mastitis without abscess (principal); B37.2 Candidiasis of skin and nail; E66.01 Morbid (severe) obesity due to excess calories; F17.210 Nicotine dependence, cigarettes, uncomplicated; Z86.14 Personal history of Methicillin resistant Staphylococcus aureus infection; Z88.0 Allergy status to penicillin; Z88.5 Allergy status to narcotic agent; Z88.6 Allergy status to analgesic agent
CPT/HCPCS: 99283

== ENCOUNTER → 2021-04-20 | Outpatient (CLI) | payer OTHER ==
[~2021-04-20] MED LIST changes: +FLUC200T PO; -SULF1TAB35 PO; +[UNRECOGNIZED DRUG - CODE] MC
--- NOTE | 2021-04-20 10:30 | Diagnostic Imaging Report ---
INDICATION: Chronic low back pain Lumbar spine AP and lateral views of lumbar spine show normal vertebral body height and alignment. Intervertebral disc spaces are well-maintained. Patient's embolization coils in the internal iliac artery regions. IMPRESSION: Unremarkable lumbar spine. Dictated by: Dictated on workstation # [id number]
--- NOTE | 2021-04-20 10:31 | Diagnostic Imaging Report ---
INDICATION: Chronic pain Cervical spine AP and lateral views of the cervical spine show normal vertebral body height and alignment. Intervertebral disc spaces are normal. IMPRESSION: Unremarkable cervical spine. Dictated by: Dictated on workstation # [id number]
== END ==
LOC: RAD 09:46
PROVIDERS: ATTEND Family Medicine
DX: Z02.71 Encounter for disability determination (principal); M54.2 Cervicalgia; M54.5 Low back pain
CPT/HCPCS: 72040; 72100